=== PATIENT | female | born 1960 | race American Indian/Alaskan Native ===

== ENCOUNTER 2016-05-08 22:05 | Emergency (ER) | payer BC ==
[2016-05-08 22:26] VITALS: BP 151/71
[2016-05-08] MEDS ORDERED: Acetaminophen/HYDROcodone 325-10 MG Tab PO ONE (23:04)
--- NOTE | 2016-05-08 23:28 | EDM.PDOC ---
ED HPI Trauma - General Chief Complaint: Upper Extremity Injury/Pain Stated Complaint: DISLOCATED FINGERS Time Seen by Provider: 05/08/16 23:25 Source: Reports: Patient History Limitations: Reports: No limitations - History of Present Illness INITIAL COMMENTS - FREE TEXT/NARRATIVE: injured right 5th finger tonight Allergies/ADRs: Allergies No Known Allergies Allergy (Verified 05/08/16 22:10) Home Medications: Ambulatory Orders Aspirin 81 mg PO BEDTIME 05/06/13 [Confirmed 05/08/16] Cholecalciferol (Vitamin D3) [Vitamin D3] 1,000 units PO BEDTIME 05/06/13 [ Confirmed 05/08/16] FLUoxetine [PROzac] 20 mg PO BEDTIME 05/06/13 [Confirmed 05/08/16] Lisinopril 20 mg PO QAM 05/06/13 [Confirmed 05/08/16] Multivitamin [Multivitamins] 1 tab PO DAILY 05/06/13 [Confirmed 05/08/16] atorvaSTATin [Lipitor] 10 mg PO BEDTIME 05/06/13 [Confirmed 05/08/16] buPROPion HCl [Bupropion HCl] 100 mg PO DAILY 05/06/13 [Confirmed 05/08/16] traZODone 150 mg PO BEDTIME 05/06/13 [Confirmed 05/08/16] Atenolol [Tenormin] 25 mg PO BID 07/10/13 [Confirmed 05/08/16] Furosemide [Lasix] 10 mg PO DAILY 09/20/13 [Confirmed 05/08/16] Omeprazole 20 mg PO BEDTIME 07/23/15 [Confirmed 05/08/16] Calcium Carbonate/Vitamin D3 [Calcium Carbonate/Vitamin D 1250 MG-200 Unit] 1 tab PO DAILY 10/11/15 [Confirmed 05/08/16] metFORMIN [Glucophage] 250 mg PO WITHBREAKFAST 10/12/15 [Confirmed 05/08/16] Tiotropium [Spiriva HandiHaler] 18 mcg INH DAILY 10/16/15 [Confirmed 05/08/16] Lisinopril 40 mg PO BEDTIME 01/13/16 [Confirmed 05/08/16] Past Medical History HEENT History: Reports: None Cardiovascular History: Reports: High cholesterol, Hypertension, SOB on exertion Respiratory History: Reports: COPD, SOB Gastrointestinal History: Reports: Cholelithiasis, Diverticulosis, GERD Genitourinary History: Reports: None 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: Reports: 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, , Other (see below) Other OB/BYN History: hysterectomy Musculoskeletal History: Reports: Arthritis, Back pain, chronic, Osteoarthritis Neurological History: Reports: None Psychiatric History: Reports: Anxiety, Bipolar Endocrine/Metabolic History: Reports: Diabetes, type II Other Endocrine/Metabolic History: borderline diabetic Hematologic History: Reports: None Immunologic History: Reports: None Oncologic (Cancer) History: Reports: None Dermatologic History: Reports: None - Infectious Disease History Infectious Disease History: Reports: Mumps - Past Surgical History Head Surgeries/Procedures: Reports: None Cardiovascular Surgical History: Reports: None Respiratory Surgical History: Reports: None GI Surgical History: Reports: Bariatric procedure, Cholecystectomy, Other (see below) Other GI Surgeries/Procedures: had lap band surgery but is no longer present. Female Surgical History: Reports: Hysterectomy Musculoskeletal Surgical History: Reports: None Oncologic Surgical History: Reports: None Social & Family History - Family History Family Medical History: Noncontributory - Tobacco Use Smoking Status *Q: Never Smoker Years of Tobacco use: 30 Packs/Tins Daily: 1 Used Tobacco, but Quit: Yes Month Tobacco Last Used: april Second Hand Smoke Exposure: No - Caffeine Use Caffeine Use: Reports: Coffee, Tea - Alcohol Use Days Per Week of Alcohol Use: 0 - Recreational Drug Use Recreational Drug Use: No Drug Use in Last 12 Months: No - Living Situation & Occupation Living situation: Reports: , with family Review of Systems - Review of Systems Review Of Systems: ROS reveals no pertinent complaints other than HPI. Trauma Exam - Physical Exam Exam: See Below Exam Limited By: No limitations General Appearance: Reports: alert, WD/WN, mild distress, other (pain) Head: Reports: atraumatic Ears: Reports: hearing grossly normal Throat/Mouth: Reports: Normal voice, No airway compromise Neck: Reports: non-tender, full range of motion Respiratory Exam: Reports: no respiratory distress Cardiovascular: Reports: normal peripheral pulses GI/Abdominal: Reports: soft, non tender Extremities: Reports: other (right 5th finger bent outwards, NV wnl, thender R/ P.) Neurologic: Reports: no motor/sensory deficits, alert, oriented x 3 Skin: Reports: Normal color, Warm/dry Course - Vital Signs Last Recorded V/S: Last Vital Signs Temp 36.9 C 05/08/16 22:10 Pulse 72 05/08/16 22:10 Resp 16 05/08/16 22:10 BP 151/71 H 05/08/16 22:10 Pulse Ox 96 05/08/16 22:10 - Orders/Labs/Meds Meds: Medications Discontinued Medications Generic Name Dose Route Start Last Admin Trade Name Karen PRN Reason Stop Dose Admin Acetaminophen/Hydrocodone Bitart 1 tab 05/08/16 23:04 05/08/16 23:11 Whitney 325-10 Mg PO 05/08/16 23:05 1 tab ONETIME ONE Administration - Re-Assessments/Exams Free Text/Narrative Re-Assessment/Exam: 05/08/16 23:27 result discussed with Pt. 05/09/16 00:00 finger reduced and splinted with 2" SALLY without known problem. Departure - Departure Time of Disposition: 00:01 Disposition: Home, Self-Care 01 Condition: good Clinical Impression: Finger fracture, right Instructions: Finger Fracture, [id number] Forms: ED Department Discharge Additional Instructions: 1) wear SALLY and use sling until re-evaluated by ORTHOPEDIST 2) see clinic tomorrow for re-evaluation and possible re-splinting 3) recheck as needed rx given: vicodin 5/325mg x 12
== END 2016-05-09 00:08 | disposition home or self-care (01) ==
LOC: DL.ED 22:05
DX: S62.616A Displaced fracture of proximal phalanx of right little finger, initial encounter for closed fracture (principal); E78.00 Pure hypercholesterolemia, unspecified; I10 Essential (primary) hypertension; J44.9 Chronic obstructive pulmonary disease, unspecified; K21.9 Gastro-esophageal reflux disease without esophagitis; M19.90 Unspecified osteoarthritis, unspecified site; F41.9 Anxiety disorder, unspecified; E11.9 Type 2 diabetes mellitus without complications; Z90.49 Acquired absence of other specified parts of digestive tract; Z90.710 Acquired absence of both cervix and uterus; W51.XXXA Accidental striking against or bumped into by another person, initial encounter
CPT/HCPCS: 26725; 73140; 99283; A9270

== ENCOUNTER 2017-08-31 11:07 | Emergency (ER) | payer BC, OTHER ==
[2017-08-31 11:24] VITALS: BP 157/60
--- NOTE | 2017-08-31 11:52 | EDM.PDOC ---
ED HPI GENERAL MEDICAL PROBLEM - General Chief Complaint: Respiratory Problem Stated Complaint: coughing up blood [phone] Time Seen by Provider: 08/31/17 11:52 Source of Information: Reports: Patient, Family, RN, RN Notes Reviewed History Limitations: Reports: No Limitations - History of Present Illness INITIAL COMMENTS - FREE TEXT/NARRATIVE: Pt Presents to the ER with c/o hemoptysis. She states she has had a cold for several weeks that she has not been able to get rid of. She states she has been coughing up sputum that is clear/white at times, and green at times. She states today she had a large sputum that had quite a bit of blood in it. She states it was "more red than pink". Patient admits to having COPD. Admits to chills, unsure about fever. Admits to nausea without vomiting, and denies diarrhea. She admits to increased SOB, but denies chest pain. She does admit to back pain in the lower left side "behind the ribs". Onset: Gradual Duration: Constant, Getting Worse Location: Reports: Chest, Back Quality: Reports: Ache, Dull, Throbbing Severity: Moderate Improves with: Reports: None Worsens with: Reports: None Associated Symptoms: Reports: Cough, cough w sputum, Fever/Chills, Nausea/ Vomiting, Shortness of Breath Back Pain Score (Numeric/FACES): 5 - Related Data Allergies Allergy/AdvReac Type Severity Reaction Status Date / Time No Known Allergies Allergy Verified 08/31/17 11:24 Home Meds: Home Meds Aspirin 81 mg PO BEDTIME 05/06/13 [History] FLUoxetine [PROzac] 20 mg PO BEDTIME 05/06/13 [History] Lisinopril 20 mg PO QAM 05/06/13 [History] Multivitamin [Multivitamins] 1 tab PO DAILY 05/06/13 [History] atorvaSTATin [Lipitor] 10 mg PO BEDTIME 05/06/13 [History] buPROPion HCl [Bupropion HCl] 100 mg PO DAILY 05/06/13 [History] traZODone 150 mg PO BEDTIME 05/06/13 [History] Atenolol [Tenormin] 25 mg PO BID 07/10/13 [History] Furosemide [Lasix] 10 mg PO DAILY 09/20/13 [History] Omeprazole 20 mg PO BEDTIME 07/23/15 [History] metFORMIN [Glucophage] 250 mg PO WITHBREAKFAST 10/12/15 [History] Tiotropium [Spiriva HandiHaler] 18 mcg INH DAILY 10/16/15 [History] Lisinopril 20 mg PO BEDTIME 01/13/16 [History] Past Medical History HEENT History: Reports: None, Impaired Vision Other HEENT History: wears glasses Cardiovascular History: Reports: High Cholesterol, Hypertension, SOB on Exertion Respiratory History: Reports: COPD, SOB Gastrointestinal History: Reports: Cholelithiasis, Diverticulosis, GERD Genitourinary History: Reports: None 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: 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, , Other (See Below) Other OB/BYN History: hysterectomy Musculoskeletal History: Reports: Arthritis, Back Pain, Chronic, Osteoarthritis Neurological History: Reports: None Psychiatric History: Reports: Anxiety, Bipolar Endocrine/Metabolic History: Reports: Diabetes, Type II Other Endocrine/Metabolic History: borderline diabetic Hematologic History: Reports: None Immunologic History: Reports: None Oncologic (Cancer) History: Reports: None Dermatologic History: Reports: None - Infectious Disease History Infectious Disease History: Reports: Mumps - Past Surgical History Head Surgeries/Procedures: Reports: None Respiratory Surgical History: Reports: None GI Surgical History: Reports: Bariatric Procedure, Cholecystectomy, Other (See Below) Female Surgical History: Reports: Hysterectomy Oncologic Surgical History: Reports: None Social & Family History - Family History Family Medical History: Noncontributory - Tobacco Use Smoking Status *Q: Former Smoker Years of Tobacco use: 36 Packs/Tins Daily: 1 Used Tobacco, but Quit: Yes Month/Year Tobacco Last Used: april Second Hand Smoke Exposure: No - Caffeine Use Caffeine Use: Reports: Coffee - Recreational Drug Use Recreational Drug Use: No - Living Situation & Occupation Living situation: Reports: , with Family ED ROS GENERAL - Review of Systems Review Of Systems: ROS reveals no pertinent complaints other than HPI. ED EXAM, GENERAL - Physical Exam Exam: See Below Exam Limited By: No Limitations General Appearance: Alert, WD/WN, No Apparent Distress Eye Exam: Bilateral Eye: EOMI, Normal Inspection Ears: Normal External Exam, Hearing Grossly Normal Nose: Normal Inspection Throat/Mouth: Normal Inspection, Other (Tongue has an erythematous area at the tip of the tongue that the patient states is painful at times, denies burning or injuring the tongue. No white plaque on the tongue) Head: Atraumatic, Normocephalic Neck: Normal Inspection, Supple, Non-Tender, Full Range of Motion Respiratory/Chest: No Respiratory Distress, No Accessory Muscle Use, Chest Non- Tender, Decreased Breath Sounds Cardiovascular: Normal Peripheral Pulses, Regular Rate, Rhythm, No Edema, No Gallop, No JVD, No Murmur, No Rub Peripheral Pulses: 2+: Radial (L), Radial (R) GI/Abdominal: Normal Bowel Sounds, Soft, Non-Tender (Female) Exam: Deferred Rectal (Female) Exam: Deferred Back Exam: Normal Inspection, Full Range of Motion, CVA Tenderness (L) Extremities: Normal Inspection, Normal Range of Motion, Non-Tender, Normal Capillary Refill, No Pedal Edema Neurological: Alert, Oriented, CN II-XII Intact, Normal Cognition, Normal Gait, Normal Reflexes, No Motor/Sensory Deficits Psychiatric: Normal Affect, Normal Mood Skin Exam: Warm, Dry, Intact, Normal Color, No Rash Lymphatic: No Adenopathy EKG INTERPRETATION EKG Date: 08/31/17 Time: 12:37 Rhythm: NSR Rate (Beats/Min): 61 [place]: Normal P-Wave: Present QRS: Normal ST-T: Normal QT: Normal Comparison: No Change Course - Vital Signs Last Recorded V/S: Last Vital Signs Temp 99.4 F 08/31/17 11:18 Pulse 72 08/31/17 11:18 Resp 18 08/31/17 11:18 BP 157/60 H 08/31/17 11:18 Pulse Ox 95 08/31/17 11:18 - Orders/Labs/Meds Orders: Active Orders 24 hr Category Date Time Status EKG Documentation Completion [RC] STAT Care 08/31/17 11:58 Active Chest 2V [CR] Urgent Exams 08/31/17 11:59 Taken UA W/MICROSCOPIC [URIN] Stat Lab 08/31/17 12:20 Ordered Labs: Laboratory Tests 08/31/17 08/31/17 08/31/17 Range/Units 12:20 12:20 12:20 WBC 12.6 H (5.0-10.0) 10^3/uL RBC 4.52 (4.2-5.4) 10^6/uL Hgb 13.3 (12.0-16.0) g/dL Hct 40.9 (37.0-47.0) % MCV 90.5 (80-100) fL MCH 29.4 (27.0-34.0) pg MCHC 32.5 L (33.0-35.0) g/dL Plt Count 239 (150-450) 10^3/uL Neut % (Auto) 70.4 (42.2-75.2) % Lymph % (Auto) 19.0 L (20.5-50.1) % [place] % (Auto) 9.2 H (2-8) % Eos % (Auto) 1.0 (1.0-3.0) % Baso % (Auto) 0.4 (0.0-1.0) % Sodium 135 (135-145) mmol/L Potassium 3.9 (3.6-5.0) mmol/L Chloride 100 L (101-111) mmol/L Carbon Dioxide 26.0 (21.0-31.0) mmol/L Anion Gap 12.9 BUN 15 (7-18) mg/dL Creatinine 0.7 (0.6-1.3) mg/dL Est Cr Clr Drug Dosing 80.75 mL/min Estimated GFR (MDRD) > 60 BUN/Creatinine Ratio 21.42 Glucose 128 H (74-105) mg/dL Calcium 9.0 (8.4-10.2) mg/dl Total Bilirubin 0.5 (0.2-1.0) mg/dL AST 44 H (10-42) IU/L ALT 51 (10-60) IU/L Alkaline Phosphatase 77 (42-121) IU/L Total Protein 7.6 (6.7-8.2) g/dl Albumin 3.9 (3.2-5.5) g/dl Globulin 3.7 Albumin/Globulin Ratio 1.05 Urine Color Yellow (YELLOW) Urine Appearance Slightly cloudy (CLEAR) Urine pH 7.0 (5.0-9.0) Ur Specific [place] 1.020 (1.005-1.030) Urine Protein 30 H (NEGATIVE) Urine Glucose (UA) Negative (NEGATIVE) Urine Ketones Trace H (NEGATIVE) Urine Occult Blood Trace-intact H (NEGATIVE) Urine Nitrite Negative (NEGATIVE) Urine Bilirubin Negative (NEGATIVE) Urine Urobilinogen 1.0 (0.2-1.0) mg/dL Ur Leukocyte Esterase Negative (NEGATIVE) Urine RBC 5-10 H /HPF Urine WBC 0-5 (0-5/HPF) /HPF Ur Epithelial Cells Few /HPF Urine Bacteria Rare (0-FEW/HPF) /HPF Urine Mucus Rare /LPF - Radiology Interpretation Free Text/Narrative:: Chest xray: No acute pulmonary disease See rad report Departure - Departure Time of Disposition: 13:32 Disposition: Home, Self-Care 01 Condition: Fair Clinical Impression: COPD (chronic obstructive pulmonary disease) Qualifiers: COPD type: unspecified COPD Qualified Code(s): J44.9 - Chronic obstructive pulmonary disease, unspecified - Discharge Information Instructions: Chronic Obstructive Pulmonary Disease Exacerbation, [id number] , Shortness of Breath, Adult, [id number], Cough, Adult, [id number], Upper Respiratory Infection, Adult, [id number] Forms: ED Department Discharge Additional Instructions: RX: Azithromycin Drink plenty of water Follow up with your primary care facility next week for recheck May use Mucinex or generic like as directed for expectorant. - My Orders Last 24 Hours: My Active Orders 08/31/17 11:58 EKG Documentation Completion [RC] STAT 08/31/17 11:59 Chest 2V [CR] Urgent 08/31/17 12:20 UA W/MICROSCOPIC [URIN] Stat - Assessment/Plan Last 24 Hours: My Active Orders 08/31/17 11:58 EKG Documentation Completion [RC] STAT 08/31/17 11:59 Chest 2V [CR] Urgent 08/31/17 12:20 UA W/MICROSCOPIC [URIN] Stat
[2017-08-31 12:59] LABS: CHLORIDE,CL 100 mmol/L (101-111); SODIUM,NA 135 mmol/L (135-145)
--- NOTE | 2017-09-02 07:40 | EKG ---
08/31/2017- [facility] - FINDINGS: A 12-lead EKG shows sinus rhythm with heart rate of 61. No significant ST elevation or ST depression noted on this 12-lead EKG. Mild changes consistent with left ventricular hypertrophy. [facility] /[id number]
== END 2017-08-31 13:41 | disposition home or self-care (01) ==
LOC: DL.ED 11:07
DX: J44.9 Chronic obstructive pulmonary disease, unspecified (principal); E11.9 Type 2 diabetes mellitus without complications; Z87.891 Personal history of nicotine dependence; Z79.899 Other long term (current) drug therapy
CPT/HCPCS: 36415; 71046; 80053; 81001; 85025; 93005; 99284

== ENCOUNTER 2019-01-06 17:48 | Emergency (ER) | payer BC, OTHER ==
[2019-01-06] MEDS ORDERED: Sodium Chloride 0.9% 10 ML Syringe FLUSH PRN (18:17)
[2019-01-06 18:46] VITALS: BP 120/71; PULSE 59
--- NOTE | 2019-01-06 18:57 | EDM.PDOC ---
Scribed by Rox Everett 01/06/19 [id number] for Cris Martínez NP <Cris Martínez - Last Filed: 01/06/19 18:56> ED HPI GENERAL MEDICAL PROBLEM - General Chief Complaint: Neuro Symptoms/Deficits Stated Complaint: DIZZINESS AND CONFUSION Time Seen by Provider: 01/06/19 18:21 Source of Information: Reports: Patient, RN, RN Notes Reviewed History Limitations: Reports: No Limitations - History of Present Illness INITIAL COMMENTS - FREE TEXT/NARRATIVE: Patient presents to ER with complaint of speech difficulty, confusion, dizziness. 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 At 1500 hours got up from chair. She felt dizzy and unable to stand up. States her blood sugar was 100, which she feels is low for her. States she felt as though thoughts "washed away". Unable to answer her friend. States she has had blurred vision that comes and goes for past 2 weeks. Back pain between shoulders and ribs. States lately has felt clumsy x4 weeks. NIH score 0. Onset: Today Duration: Getting Worse Location: Reports: Generalized Severity: Moderate Improves with: Reports: None Worsens with: Reports: None Associated Symptoms: Reports: No Other Symptoms - Related Data Allergies Allergy/AdvReac Type Severity Reaction Status Date / Time No Known Allergies Allergy Verified 01/06/19 18:01 Home Meds: Home Meds Aspirin 81 mg PO BEDTIME 05/06/13 [History] FLUoxetine [PROzac] 40 mg PO BEDTIME 05/06/13 [History] Multivitamin [Multivitamins] 1 tab PO DAILY 05/06/13 [History] atorvaSTATin [Lipitor] 10 mg PO BEDTIME 05/06/13 [History] buPROPion HCl [Bupropion HCl] 100 mg PO DAILY 05/06/13 [History] traZODone 150 mg PO BEDTIME 05/06/13 [History] Atenolol [Tenormin] 25 mg PO BID 07/10/13 [History] Omeprazole 20 mg PO BEDTIME 07/23/15 [History] Tiotropium [Spiriva HandiHaler] 18 mcg INH DAILY 10/16/15 [History] Lisinopril 40 mg PO BEDTIME 01/13/16 [History] Past Medical History HEENT History: Reports: None, Impaired Vision Other HEENT History: wears glasses Cardiovascular History: Reports: High Cholesterol, Hypertension, SOB on Exertion Respiratory History: Reports: COPD, SOB Gastrointestinal History: Reports: Cholelithiasis, Diverticulosis, GERD Genitourinary History: Reports: None 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: Reports: 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, , Other (See Below) Other 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: hysterectomy Musculoskeletal History: Reports: Arthritis, Back Pain, Chronic, Osteoarthritis Neurological History: Reports: None Psychiatric History: Reports: Anxiety, Bipolar Endocrine/Metabolic History: Reports: Diabetes, Type II Other Endocrine/Metabolic History: borderline diabetic Hematologic History: Reports: None Immunologic History: Reports: None Oncologic (Cancer) History: Reports: None Dermatologic History: Reports: None - Infectious Disease History Infectious Disease History: Reports: Mumps - Past Surgical History Head Surgeries/Procedures: Reports: None Respiratory Surgical History: Reports: None GI Surgical History: Reports: Bariatric Procedure, Cholecystectomy, Other (See Below) Female Surgical History: Reports: Hysterectomy Oncologic Surgical History: Reports: None Social & Family History - Family History Family Medical History: Noncontributory - Caffeine Use Caffeine Use: Reports: Coffee - Living Situation & Occupation Living situation: Reports: , with Family ED ROS GENERAL - Review of Systems Review Of Systems: ROS reveals no pertinent complaints other than HPI. ED EXAM, NEURO - Physical Exam Exam: See Below Exam Limited By: No Limitations General Appearance: Obese Eye Exam: Bilateral Eye: PERRL (3 brisk) Ears: Normal External Exam, Normal Canal, Hearing Grossly Normal, Normal TMs Nose: Normal Inspection, Normal Mucosa, No Blood Throat/Mouth: Normal Inspection, Normal Lips, Normal Teeth, Normal Gums, Normal Oropharynx, Normal Voice, No Airway Compromise Head Exam: Atraumatic, Normocephalic Neck: Normal Inspection, Supple, Non-Tender, Full Range of Motion Respiratory/Chest: Other (diminished) Cardiovascular: Normal Peripheral Pulses, Regular Rate, Rhythm, No Edema, No Gallop, No JVD, No Murmur, No Rub GI/Abdominal: Normal Bowel Sounds, Soft, Non-Tender, No Organomegaly, No Distention, No Abnormal Bruit, No Mass (Female) Exam: Deferred Rectal (Female) Exam: Deferred Neurological: Alert, Normal Mood/Affect, Normal Dorsiflexion, CN II-XII Intact, Normal Plantar Flexion, Normal Gait, Normal Reflexes, No Motor/Sensory Deficits , Oriented x 3 Back Exam: Decreased Range of Motion Extremities: Normal Inspection, Normal Range of Motion, Non-Tender, No Pedal Edema, Normal Capillary Refill Psychiatric: Normal Affect, Normal Mood Skin Exam: Warm, Dry, Intact, Normal Color, No Rash Course - Vital Signs Last Recorded V/S: Last Vital Signs Temp 36.2 C 01/06/19 18:01 Pulse 59 L 01/06/19 18:45 Resp 12 01/06/19 18:45 BP 120/71 01/06/19 18:45 Pulse Ox 96 01/06/19 18:45 - Orders/Labs/Meds Orders: Active Orders 24 hr Category Date Time Status Blood Glucose Check, Bedside [RC] ONETIME Care 01/06/19 18:18 Active EKG Documentation Completion [RC] STAT Care 01/06/19 18:17 Active Peripheral IV Care [RC] . DIRECTED Care 01/06/19 18:18 Active Head wo Cont [CT] Stat Exams 01/06/19 18:18 Taken Sodium Chloride 0.9% [Saline Flush] Med 01/06/19 18:17 Active 10 ml FLUSH ASDIRECTED PRN Peripheral IV Insertion Adult [OM.PC] Stat Oth 01/06/19 18:17 Ordered Medication Orders Sodium Chloride (Saline Flush) 10 ml FLUSH ASDIRECTED PRN PRN Reason: Keep Vein Open Last Admin: 01/06/19 18:25 Dose: 10 ml Labs: Laboratory Tests 01/06/19 01/06/19 01/06/19 Range/Units 18:30 18:30 18:30 WBC 10.3 H (5.0-10.0) 10^3/uL RBC 4.48 (4.2-5.4) 10^6/uL Hgb 12.8 (12.0-16.0) g/dL Hct 40.2 (37.0-47.0) % MCV 89.7 (80-100) fL MCH 28.6 (27.0-34.0) pg MCHC 31.8 L (33.0-35.0) g/dL Plt Count 244 (150-450) 10^3/uL Neut % (Auto) 54.6 (42.2-75.2) % Lymph % (Auto) 31.1 (20.5-50.1) % Walsh % (Auto) 11.7 H (2-8) % Eos % (Auto) 2.1 (1.0-3.0) % Baso % (Auto) 0.5 (0.0-1.0) % PT 9.3 (9.0-12.0) SEC INR 0.9 (0.9-1.2) Sodium 138 (135-145) mmol/L Potassium 3.6 (3.6-5.0) mmol/L Chloride 101 (101-111) mmol/L Carbon Dioxide 28.0 (21.0-31.0) mmol/L Anion Gap 12.6 BUN 19 H (7-18) mg/dL Creatinine 0.7 (0.6-1.3) mg/dL Est Cr Clr Drug Dosing 75.65 mL/min Estimated GFR (MDRD) > 60 BUN/Creatinine Ratio 27.14 Glucose 76 (74-105) mg/dL Calcium 9.0 (8.4-10.2) mg/dl Total Bilirubin 0.4 (0.2-1.0) mg/dL AST 32 (10-42) IU/L ALT 37 (10-60) IU/L Alkaline Phosphatase 67 (42-121) IU/L Troponin I < 0.02 (0.00-0.02) ng/ml Total Protein 7.1 (6.7-8.2) g/dl Albumin 3.5 (3.2-5.5) g/dl Globulin 3.6 Albumin/Globulin Ratio 0.97 Urine Color (YELLOW) Urine Appearance (CLEAR) Urine pH (5.0-9.0) Ur Specific Hancock (1.005-1.030) Urine Protein (NEGATIVE) Urine Glucose (UA) (NEGATIVE) Urine Ketones (NEGATIVE) Urine Occult Blood (NEGATIVE) Urine Nitrite (NEGATIVE) Urine Bilirubin (NEGATIVE) Urine Urobilinogen (0.2-1.0) mg/dL Ur Leukocyte Esterase (NEGATIVE) Urine RBC /HPF Urine WBC (0-5/HPF) /HPF Ur Epithelial Cells (NOT SEEN) /HPF Urine Bacteria (0-FEW/HPF) /HPF Urine Opiates Screen (NEGATIVE) Ur Oxycodone Screen (NEGATIVE) Urine Methadone Screen (NEGATIVE) Ur Barbiturates Screen (NEGATIVE) U Tricyclic Antidepress (NEGATIVE) Ur Phencyclidine Scrn (NEGATIVE) Ur Amphetamine Screen (NEGATIVE) U Methamphetamines Scrn (NEGATIVE) Urine MDMA Screen (NEGATIVE) U Benzodiazepines Scrn (NEGATIVE) Urine Cocaine Screen (NEGATIVE) U Marijuana (THC) Screen (NEGATIVE) Ethyl Alcohol < 5 mg/dL 01/06/19 01/06/19 Range/Units 19:01 19:01 WBC (5.0-10.0) 10^3/uL RBC (4.2-5.4) 10^6/uL Hgb (12.0-16.0) g/dL Hct (37.0-47.0) % MCV (80-100) fL MCH (27.0-34.0) pg MCHC (33.0-35.0) g/dL Plt Count (150-450) 10^3/uL Neut % (Auto) (42.2-75.2) % Lymph % (Auto) (20.5-50.1) % Walsh % (Auto) (2-8) % Eos % (Auto) (1.0-3.0) % Baso % (Auto) (0.0-1.0) % PT (9.0-12.0) SEC INR (0.9-1.2) Sodium (135-145) mmol/L Potassium (3.6-5.0) mmol/L Chloride (101-111) mmol/L Carbon Dioxide (21.0-31.0) mmol/L Anion Gap BUN (7-18) mg/dL Creatinine (0.6-1.3) mg/dL Est Cr Clr Drug Dosing mL/min Estimated GFR (MDRD) BUN/Creatinine Ratio Glucose (74-105) mg/dL Calcium (8.4-10.2) mg/dl Total Bilirubin (0.2-1.0) mg/dL AST (10-42) IU/L ALT (10-60) IU/L Alkaline Phosphatase (42-121) IU/L Troponin I (0.00-0.02) ng/ml Total Protein (6.7-8.2) g/dl Albumin (3.2-5.5) g/dl Globulin Albumin/Globulin Ratio Urine Color Yellow (YELLOW) Urine Appearance Clear (CLEAR) Urine pH 5.5 (5.0-9.0) Ur Specific Hancock 1.015 (1.005-1.030) Urine Protein Negative (NEGATIVE) Urine Glucose (UA) Negative (NEGATIVE) Urine Ketones Negative (NEGATIVE) Urine Occult Blood Trace-intact H (NEGATIVE) Urine Nitrite Negative (NEGATIVE) Urine Bilirubin Negative (NEGATIVE) Urine Urobilinogen 0.2 (0.2-1.0) mg/dL Ur Leukocyte Esterase Negative (NEGATIVE) Urine RBC 0-5 /HPF Urine WBC 0-5 (0-5/HPF) /HPF Ur Epithelial Cells Many H (NOT SEEN) /HPF Urine Bacteria Moderate H (0-FEW/HPF) /HPF Urine Opiates Screen Negative (NEGATIVE) Ur Oxycodone Screen Negative (NEGATIVE) Urine Methadone Screen Negative (NEGATIVE) Ur Barbiturates Screen Negative (NEGATIVE) U Tricyclic Antidepress Negative (NEGATIVE) Ur Phencyclidine Scrn Negative (NEGATIVE) Ur Amphetamine Screen Negative (NEGATIVE) U Methamphetamines Scrn Negative (NEGATIVE) Urine MDMA Screen Negative (NEGATIVE) U Benzodiazepines Scrn Negative (NEGATIVE) Urine Cocaine Screen Negative (NEGATIVE) U Marijuana (THC) Screen Negative (NEGATIVE) Ethyl Alcohol mg/dL Meds: Medications Generic Name Dose Route Start Last Admin Trade Name Freq PRN Reason Stop Dose Admin Sodium Chloride 10 ml 01/06/19 18:17 01/06/19 18:25 Saline Flush FLUSH 10 ml ASDIRECTED PRN Administration Keep Vein Open Departure - Departure Disposition: Home, Self-Care 01 Clinical Impression: Hypoglycemia - Discharge Information Instructions: Hypoglycemia, [id number] Forms: ED Department Discharge Additional Instructions: 1) follow up with clinic 2) recheck as needed <Alex Wiley - Last Filed: 01/06/19 19:27> Course - Re-Assessments/Exams Free Text/Narrative Re-Assessment/Exam: 01/06/19 19:24 results discussed with pt who is eating sandwich and milk and feels fine now and ready to go home. states her normal BS is about 120s and today got down to 80s and felt bad. states Dx with borderline DM taking no Rx. Departure - Departure Time of Disposition: 19:26 Condition: Good I have read and agree with the documentation that has been completed regarding this visit. By signing this record, I attest that the documentation was completed in my physical presence and is an accurate record of the encounter.
[2019-01-06 18:59] LABS: ANION GAP 12.6; CHLORIDE,CL 101 mmol/L (101-111); SODIUM,NA 138 mmol/L (135-145)
== END 2019-01-06 19:40 | disposition home or self-care (01) ==
LOC: DL.ED 17:48
DX: E11.649 Type 2 diabetes mellitus with hypoglycemia without coma (principal); F31.9 Bipolar disorder, unspecified; F41.9 Anxiety disorder, unspecified; I10 Essential (primary) hypertension; E78.00 Pure hypercholesterolemia, unspecified; K21.9 Gastro-esophageal reflux disease without esophagitis; Z79.899 Other long term (current) drug therapy; Z79.82 Long term (current) use of aspirin
CPT/HCPCS: 36415; 70450; 80053; 80305-QW; 81001; 82962; 84484; 85025; 85610; 93005; 99284-25; G0480

== ENCOUNTER 2019-05-31 19:18 | Emergency (ER) | payer BC ==
[2019-05-31 19:40] VITALS: BP 113/75; PULSE 95
--- NOTE | 2019-05-31 19:49 | EDM.PDOC ---
ED HPI GENERAL MEDICAL PROBLEM - General Chief Complaint: Chest Pain Stated Complaint: CHEST PAIN Time Seen by Provider: 05/31/19 19:40 Source of Information: Reports: Patient History Limitations: Reports: No Limitations - History of Present Illness INITIAL COMMENTS - FREE TEXT/NARRATIVE: This 58 yo female patient reports to the ED with a cough and diffuse chest pain. The patient reports she started coughing on Thursday, coughed all day Thursday and took today off from work. The patient reports she has continued to cough throughout today when she developed chest pain due to the cough. The patient did not attempt to go to the clinic thinking her symptoms would get better. The patient has been taking Aleve, Tylenol and Mucinex with little to no symptom relief. 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, NSAIDS, Other Medication(s) (Mucinex) Middle Chest Pain Score (Numeric/FACES): 8 - Related Data Allergies Allergy/AdvReac Type Severity Reaction Status Date / Time No Known Allergies Allergy Verified 05/31/19 19:27 Home Meds: Home Meds Aspirin 81 mg PO BEDTIME 05/06/13 [History] FLUoxetine [PROzac] 40 mg PO BEDTIME 05/06/13 [History] Multivitamin [Multivitamins] 1 tab PO DAILY 05/06/13 [History] atorvaSTATin [Lipitor] 10 mg PO BEDTIME 05/06/13 [History] buPROPion HCL [Bupropion HCl] 100 mg PO DAILY 05/06/13 [History] traZODone 150 mg PO BEDTIME 05/06/13 [History] Atenolol [Tenormin] 25 mg PO BID 07/10/13 [History] Omeprazole 20 mg PO BEDTIME 07/23/15 [History] Tiotropium [Spiriva HandiHaler] 18 mcg INH DAILY 10/16/15 [History] Lisinopril 40 mg PO BEDTIME 01/13/16 [History] Baclofen 10 mg PO ASDIRECTED PRN 05/31/19 [History] hydroCHLOROthiazide [Hydrochlorothiazide] 25 mg PO DAILY 05/31/19 [History] Past Medical History HEENT History: Reports: None, Impaired Vision Other HEENT History: wears glasses Cardiovascular History: Reports: High Cholesterol, Hypertension, SOB on Exertion Respiratory History: Reports: Asthma, COPD, SOB Gastrointestinal History: Reports: Cholelithiasis, Diverticulosis, GERD Genitourinary History: Reports: None 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: 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, , Other (See Below) Other AIR SAW OPERATOR History: hysterectomy Musculoskeletal History: Reports: Arthritis, Back Pain, Chronic, Osteoarthritis Neurological History: Reports: None Psychiatric History: Reports: Anxiety, Bipolar Endocrine/Metabolic History: Reports: Diabetes, Type II Other Endocrine/Metabolic History: borderline diabetic Hematologic History: Reports: None Immunologic History: Reports: None Oncologic (Cancer) History: Reports: None Dermatologic History: Reports: None - Infectious Disease History Infectious Disease History: Reports: Mumps - Past Surgical History Head Surgeries/Procedures: Reports: None Respiratory Surgical History: Reports: None GI Surgical History: Reports: Bariatric Procedure, Cholecystectomy Female Surgical History: Reports: Hysterectomy Oncologic Surgical History: Reports: None Social & Family History - Family History Family Medical History: Noncontributory - Tobacco Use Smoking Status *Q: Former Smoker Used Tobacco, but Quit: No Second Hand Smoke Exposure: No - Caffeine Use Caffeine Use: Reports: Tea - Recreational Drug Use Recreational Drug Use: No - Living Situation & Occupation Living situation: Reports: , with Family ED ROS GENERAL - Review of Systems Review Of Systems: Comprehensive ROS is negative, except as noted in HPI. ED EXAM, GENERAL - Physical Exam Exam: See Below Exam Limited By: No Limitations General Appearance: Alert, WD/WN, Moderate Distress, Obese Eye Exam: Bilateral Eye: EOMI, Normal Inspection, PERRL Ears: Normal External Exam, Normal Canal, Hearing Grossly Normal, Normal TMs Nose: Normal Inspection, Normal Mucosa, No Blood Throat/Mouth: Normal Inspection, Normal Lips, Normal Teeth, Normal Gums, Normal Oropharynx, Normal Voice, No Airway Compromise Head: Atraumatic, Normocephalic Neck: Normal Inspection, Supple, Non-Tender, Full Range of Motion Respiratory/Chest: No Respiratory Distress, Decreased Breath Sounds (decreased effort due to cough) Cardiovascular: Normal Peripheral Pulses, Regular Rate, Rhythm, No Edema, No Gallop, No JVD, No Murmur, No Rub GI/Abdominal: Normal Bowel Sounds, Soft, Non-Tender, No Organomegaly, No Distention, No Abnormal Bruit, No Mass, Other (obese) (Female) Exam: Deferred Rectal (Female) Exam: Deferred Back Exam: Normal Inspection, Full Range of Motion, NT Extremities: Normal Inspection, Normal Range of Motion, Non-Tender, Normal Capillary Refill, No Pedal Edema Neurological: Alert, Oriented, CN II-XII Intact, Normal Cognition, Normal Gait, Normal Reflexes, No Motor/Sensory Deficits Psychiatric: Normal Affect, Normal Mood Skin Exam: Warm, Dry, Intact, Normal Color, No Rash Lymphatic: No Adenopathy Course - Vital Signs Last Recorded V/S: Last Vital Signs Temp 38.9 C H 05/31/19 19:38 Pulse 95 05/31/19 19:38 Resp 24 H 05/31/19 19:38 BP 113/75 05/31/19 19:38 Pulse Ox 95 05/31/19 19:38 - Orders/Labs/Meds Orders: Active Orders 24 hr Category Date Time Status EKG Documentation Completion [RC] URGENT Care 05/31/19 19:20 Ordered Chest 1V Frontal [CR] Urgent Exams 05/31/19 19:20 Ordered CULTURE BLOOD [BC] Stat Lab 05/31/19 19:23 Ordered Labs: Laboratory Tests 05/31/19 05/31/19 05/31/19 Range/Units 19:30 19:30 19:30 WBC 7.0 (5.0-10.0) 10^3/uL RBC 4.30 (4.2-5.4) 10^6/uL Hgb 12.4 (12.0-16.0) g/dL Hct 37.8 (37.0-47.0) % MCV 87.9 (80-100) fL MCH 28.8 (27.0-34.0) pg MCHC 32.8 L (33.0-35.0) g/dL Plt Count 222 (150-450) 10^3/uL Neut % (Auto) 64.7 (42.2-75.2) % Lymph % (Auto) 19.1 L (20.5-50.1) % [place] % (Auto) 14.9 H (2-8) % Eos % (Auto) 0.9 L (1.0-3.0) % Baso % (Auto) 0.4 (0.0-1.0) % D-Dimer, Quantitative 158 (0-400) ng/mL Sodium 137 (135-145) mmol/L Potassium 3.4 L (3.6-5.0) mmol/L Chloride 98 L (101-111) mmol/L Carbon Dioxide 26.0 (21.0-31.0) mmol/L Anion Gap 16.4 BUN 12 (7-18) mg/dL Creatinine 0.7 (0.6-1.3) mg/dL Est Cr Clr Drug Dosing 78.83 mL/min Estimated GFR (MDRD) > 60 BUN/Creatinine Ratio 17.14 Glucose 108 H (74-105) mg/dL Calcium 8.7 (8.4-10.2) mg/dl Total Bilirubin 0.4 (0.2-1.0) mg/dL AST 38 (10-42) IU/L ALT 45 (10-60) IU/L Alkaline Phosphatase 75 (42-121) IU/L Troponin I < 0.02 (0.00-0.02) ng/ml Total Protein 7.5 (6.7-8.2) g/dl Albumin 3.8 (3.2-5.5) g/dl Globulin 3.7 Albumin/Globulin Ratio 1.03 Meds: Medications Discontinued Medications Generic Name Dose Route Start Last Admin Trade Name Freq PRN Reason Stop Dose Admin Benzonatate 200 mg 05/31/19 20:29 Tessalon Perles PO 05/31/19 20:30 ONETIME ONE Ceftriaxone Sodium 1 gm/ 0 gm 05/31/19 20:28 Lidocaine HCl 2.1 ml IM 05/31/19 20:29 ONETIME ONE Departure - Departure Time of Disposition: 20:31 Disposition: Home, Self-Care 01 Condition: Fair Clinical Impression: Bronchitis - Discharge Information *PRESCRIPTION DRUG MONITORING PROGRAM REVIEWED*: Not Applicable *COPY OF PRESCRIPTION DRUG MONITORING REPORT IN PATIENT MAVIS: Not Applicable Instructions: Upper Respiratory Infection, Adult, [id number] Forms: ED Department Discharge Care Plan Goals: The patient was advised of the examination, x-ray and lab results during the visit. The patient was given an IM dose of Rocephin (1 gram) while in the ED. The patient was discharged with a script for Azithromycin (250 mg) #6 to take 2 by mouth on day 1 and 1 by mouth on days 2-5 and Tessalon Pearles (200 mg) #30 to take 1 by mouth 3 times per day as needed. If the patient has any additional symptoms or concerns, the patient should visit her primary care facility or return to the emergency department. Sepsis Event Note - Evaluation Sepsis Screening Result: Possible Sepsis Risk - Focused Exam Vital Signs: Vital Signs Temp Pulse Resp BP Pulse Ox 05/31/19 19:38 38.9 C H 95 24 H 113/75 95 Date Exam was Performed: 05/31/19 Time Exam was Performed: 20:31 - My Orders Last 24 Hours: My Active Orders 05/31/19 19:20 EKG Documentation Completion [RC] URGENT Chest 1V Frontal [CR] Urgent 05/31/19 19:23 CULTURE BLOOD [BC] Stat - Assessment/Plan Last 24 Hours: My Active Orders 05/31/19 19:20 EKG Documentation Completion [RC] URGENT Chest 1V Frontal [CR] Urgent 05/31/19 19:23 CULTURE BLOOD [BC] Stat
[2019-05-31 20:08] LABS: ANION GAP 16.4; CHLORIDE,CL 98 mmol/L (101-111); SODIUM,NA 137 mmol/L (135-145)
[2019-05-31] MEDS ORDERED: cefTRIAXone 1 GM, Lidocaine 1% 2.1 ML IM ONE ×2 (20:28)
[2019-05-31] MEDS ORDERED: Benzonatate 100 MG Cap PO ONE (20:29)
== END 2019-05-31 20:51 | disposition home or self-care (01) ==
LOC: DL.ED 19:18
DX: J40 Bronchitis, not specified as acute or chronic (principal); I10 Essential (primary) hypertension; E11.9 Type 2 diabetes mellitus without complications; E78.00 Pure hypercholesterolemia, unspecified; K21.9 Gastro-esophageal reflux disease without esophagitis; M19.90 Unspecified osteoarthritis, unspecified site; F41.9 Anxiety disorder, unspecified; F31.9 Bipolar disorder, unspecified; Z87.891 Personal history of nicotine dependence; Z79.82 Long term (current) use of aspirin; Z79.899 Other long term (current) drug therapy
CPT/HCPCS: 36415; 71045; 80053; 84484; 85025; 85379; 87040; 87804; 93005; 96372; 99285; A9270; J0696; J2001

== ENCOUNTER 2019-11-03 21:26 | Emergency (ER) | payer BC ==
[2019-11-03 21:52] VITALS: BP 204/65; PULSE 68
--- NOTE | 2019-11-03 22:00 | EDM.PDOC ---
ED HPI GENERAL MEDICAL PROBLEM - General Chief Complaint: Respiratory Problem Stated Complaint: CHEST/BACK PAIN/SOB Time Seen by Provider: 11/03/19 21:55 Source of Information: Reports: Patient History Limitations: Reports: No Limitations - History of Present Illness INITIAL COMMENTS - FREE TEXT/NARRATIVE: states hadn't been feeling good for few days and not seen her PMD. c/o SOB and has asthma and takes inhalers and knows this isn't it. today felt worse all day then at 5pm suddenly felt better and breathing well and ate well then started feeling cold and took temp and was 95, after that started getting chest pain and upper back pain. denies cough or fever except for low temp today. Right Upper Shoulder Pain Score (Numeric/FACES): 5 - Related Data Allergies Allergy/AdvReac Type Severity Reaction Status Date / Time No Known Allergies Allergy Verified 11/03/19 21:34 Home Meds: Home Meds Aspirin 81 mg PO BEDTIME 05/06/13 [History] FLUoxetine [PROzac] 40 mg PO BEDTIME 05/06/13 [History] Multivitamin [Multivitamins] 1 tab PO DAILY 05/06/13 [History] atorvaSTATin [Lipitor] 10 mg PO BEDTIME 05/06/13 [History] buPROPion HCL [Bupropion HCl] 100 mg PO DAILY 05/06/13 [History] traZODone 150 mg PO BEDTIME 05/06/13 [History] Atenolol [Tenormin] 25 mg PO BID 07/10/13 [History] Omeprazole 20 mg PO BEDTIME 07/23/15 [History] Tiotropium [Spiriva HandiHaler] 18 mcg INH DAILY 10/16/15 [History] Lisinopril 40 mg PO BEDTIME 01/13/16 [History] Baclofen 10 mg PO ASDIRECTED PRN 05/31/19 [History] hydroCHLOROthiazide [Hydrochlorothiazide] 25 mg PO DAILY 05/31/19 [History] Past Medical History HEENT History: Reports: None, Impaired Vision Other HEENT History: wears glasses Cardiovascular History: Reports: High Cholesterol, Hypertension, SOB on Exertion Respiratory History: Reports: Asthma, COPD, SOB Gastrointestinal History: Reports: Cholelithiasis, Diverticulosis, GERD Genitourinary History: Reports: None 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: 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, , Other (See Below) Other MILK DRYING MACHINE OPERATOR History: hysterectomy Musculoskeletal History: Reports: Arthritis, Back Pain, Chronic, Osteoarthritis Neurological History: Reports: None Psychiatric History: Reports: Anxiety, Bipolar Endocrine/Metabolic History: Reports: Diabetes, Type II Other Endocrine/Metabolic History: borderline diabetic Hematologic History: Reports: None Immunologic History: Reports: None Oncologic (Cancer) History: Reports: None Dermatologic History: Reports: None - Infectious Disease History Infectious Disease History: Reports: Mumps - Past Surgical History Head Surgeries/Procedures: Reports: None Respiratory Surgical History: Reports: None GI Surgical History: Reports: Bariatric Procedure, Cholecystectomy Female Surgical History: Reports: Hysterectomy Oncologic Surgical History: Reports: None Social & Family History - Family History Family Medical History: Noncontributory - Caffeine Use Caffeine Use: Reports: Tea - Living Situation & Occupation Living situation: Reports: , with Family ED ROS GENERAL - Review of Systems Review Of Systems: Comprehensive ROS is negative, except as noted in HPI. ED EXAM, GENERAL - Physical Exam Exam: See Below Exam Limited By: No Limitations General Appearance: Alert, WD/WN, Anxious, Mild Distress, Other (upset) Ears: Hearing Grossly Normal Throat/Mouth: Normal Voice, No Airway Compromise Head: Atraumatic Neck: Non-Tender, Full Range of Motion Respiratory/Chest: No Respiratory Distress, Rhonchi Cardiovascular: Regular Rate, Rhythm GI/Abdominal: Soft, Non-Tender Neurological: Alert, Oriented, Normal Cognition, Normal Gait, No Motor/Sensory Deficits Psychiatric: Flat Affect Skin Exam: Warm, Dry, Normal Color Lymphatic: No Adenopathy Course - Vital Signs Last Recorded V/S: Last Vital Signs Temp 37.3 C 11/03/19 21:47 Pulse 68 11/03/19 21:47 Resp 20 11/03/19 21:47 BP 204/65 H 11/03/19 21:47 Pulse Ox 95 11/03/19 21:47 - Orders/Labs/Meds Orders: Active Orders 24 hr Category Date Time Status EKG 12 Lead [EKG Documentation Completion] [RC] STAT Care 11/03/19 21:43 Active Labs: Laboratory Tests 11/03/19 11/03/19 11/03/19 Range/Units 21:47 21:47 21:47 WBC 10.0 (5.0-10.0) 10^3/uL RBC 4.34 (4.2-5.4) 10^6/uL Hgb 12.0 (12.0-16.0) g/dL Hct 37.4 (37.0-47.0) % MCV 86.2 (80-100) fL MCH 27.6 (27.0-34.0) pg MCHC 32.1 L (33.0-35.0) g/dL Plt Count 275 (150-450) 10^3/uL Neut % (Auto) 54.7 (42.2-75.2) % Lymph % (Auto) 35.6 (20.5-50.1) % [place] % (Auto) 7.4 (2-8) % Eos % (Auto) 1.6 (1.0-3.0) % Baso % (Auto) 0.7 (0.0-1.0) % D-Dimer, Quantitative (0-400) ng/mL Sodium 139 (136-145) mmol/L Potassium 3.5 (3.5-5.1) mmol/L Chloride 103 (98-107) mmol/L Carbon Dioxide 28 (21-32) mmol/L Anion Gap 11.5 (7-13) mEq/L BUN 19 H (7-18) mg/dL Creatinine 0.76 (0.55-1.02) mg/dL Est Cr Clr Drug Dosing 68.82 mL/min Estimated GFR (MDRD) > 60 BUN/Creatinine Ratio 25.0 (No establ ref range) Glucose 157 H (74-99) mg/dL Calcium 8.7 (8.5-10.1) mg/dL Total Bilirubin 0.3 (0.2-1.0) mg/dL AST 24 (15-37) U/L ALT 41 (14-59) U/L Alkaline Phosphatase 85 (46-116) U/L Troponin I < 0.017 (0.000-0.056) ng/mL B-Natriuretic Peptide 95 (0-100) pg/ml Total Protein 7.6 (6.4-8.2) g/dL Albumin 3.5 (3.4-5.0) g/dL Globulin 4.1 Albumin/Globulin Ratio 0.9 07/16/20 Range/Units 21:47 WBC (5.0-10.0) 10^3/uL RBC (4.2-5.4) 10^6/uL Hgb (12.0-16.0) g/dL Hct (37.0-47.0) % MCV (80-100) fL MCH (27.0-34.0) pg MCHC (33.0-35.0) g/dL Plt Count (150-450) 10^3/uL Neut % (Auto) (42.2-75.2) % Lymph % (Auto) (20.5-50.1) % [place] % (Auto) (2-8) % Eos % (Auto) (1.0-3.0) % Baso % (Auto) (0.0-1.0) % D-Dimer, Quantitative < 100 (0-400) ng/mL Sodium (136-145) mmol/L Potassium (3.5-5.1) mmol/L Chloride (98-107) mmol/L Carbon Dioxide (21-32) mmol/L Anion Gap (7-13) mEq/L BUN (7-18) mg/dL Creatinine (0.55-1.02) mg/dL Est Cr Clr Drug Dosing mL/min Estimated GFR (MDRD) BUN/Creatinine Ratio (No establ ref range) Glucose (74-99) mg/dL Calcium (8.5-10.1) mg/dL Total Bilirubin (0.2-1.0) mg/dL AST (15-37) U/L ALT (14-59) U/L Alkaline Phosphatase (46-116) U/L Troponin I (0.000-0.056) ng/mL B-Natriuretic Peptide (0-100) pg/ml Total Protein (6.4-8.2) g/dL Albumin (3.4-5.0) g/dL Globulin Albumin/Globulin Ratio - Re-Assessments/Exams Free Text/Narrative Re-Assessment/Exam: 11/03/19 22:57 results discussed with pt who is feeling much more relaxed now and no further c/o. Departure - Departure Time of Disposition: 22:57 Disposition: Home, Self-Care 01 Condition: Good Clinical Impression: Atypical chest pain - Discharge Information Instructions: Nonspecific Chest Pain, Adult, [id number] Forms: ED Department Discharge Additional Instructions: 1) rest avoid excessive activities 2) try tylenol or motrin for discomfort 3) try heat pad to sore areas 4) follow up at clinic 5) recheck as needed Sepsis Event Note (ED) - Evaluation Sepsis Screening Result: No Definite Risk - Focused Exam Vital Signs: Vital Signs Temp Pulse Resp BP Pulse Ox 11/03/19 21:47 37.3 C 68 20 204/65 H 95 - My Orders Last 24 Hours: My Active Orders 11/03/19 21:43 EKG 12 Lead [EKG Documentation Completion] [RC] STAT - Assessment/Plan Last 24 Hours: My Active Orders 11/03/19 21:43 EKG 12 Lead [EKG Documentation Completion] [RC] STAT
[2019-11-03 22:19] LABS: ANION GAP 11.5 mEq/L (7-13); CHLORIDE,CL 103 mmol/L (98-107); SODIUM,NA 139 mmol/L (136-145)
--- NOTE | 2019-11-03 22:43 | CR ---
PROCEDURE INFORMATION: Exam: XR Chest, 1 View Exam date and time: 11/03/2019 10:31 PM Age: 59 years old Clinical indication: Shortness of breath; Additional info: SOB TECHNIQUE: Imaging protocol: XR of the chest Views: 1 view. COMPARISON: CR Chest 1V Frontal 05/31/2019 7:50 PM FINDINGS: Lungs: No suspicious pulmonary nodules or areas of lung consolidation. Pleural space: Costophrenic angles are sharp. No pneumothorax. Heart/Mediastinum: Unremarkable. No cardiomegaly. Bones/joints: Age appropriate. IMPRESSION: 1. No active disease of the chest. 2. No significant interval change when compared to the CR Chest 1V Frontal 05/31/2019 7:50 PM.
== END 2019-11-03 23:11 | disposition home or self-care (01) ==
LOC: DL.ED 21:26
DX: R07.89 Other chest pain (principal); E78.00 Pure hypercholesterolemia, unspecified; I10 Essential (primary) hypertension; J44.9 Chronic obstructive pulmonary disease, unspecified; K21.9 Gastro-esophageal reflux disease without esophagitis; M19.90 Unspecified osteoarthritis, unspecified site; F31.9 Bipolar disorder, unspecified; F41.9 Anxiety disorder, unspecified; E11.9 Type 2 diabetes mellitus without complications; Z79.82 Long term (current) use of aspirin; Z79.899 Other long term (current) drug therapy
CPT/HCPCS: 36415; 71045; 80053; 83880; 84484; 85025; 85379; 93005; 99283; 99285-25

== ENCOUNTER 2020-10-11 16:52 | Emergency (ER) | payer BC ==
[2020-10-11 17:18] VITALS: BP 102/20
--- NOTE | 2020-10-11 17:18 | EDM.PDOC ---
ED HPI GENERAL MEDICAL PROBLEM - General Chief Complaint: Respiratory Problem Stated Complaint: SHORTNESS OF BREATHING, CHEST AND BACK PAIN. Time Seen by Provider: 10/11/20 17:18 Source of Information: Reports: Patient History Limitations: Reports: No Limitations - History of Present Illness INITIAL COMMENTS - FREE TEXT/NARRATIVE: Patient comes emergency department today with complaints of shortness of breath and chest pain. This patient for the past 6 months has had recurring daily worsening shortness of breath. It is slowly gotten worse over the past couple of weeks. Today she is just getting tired of it so she came to the emergency department. She has tightness in her chest when she gets more short of breath. She gets very short of breath with physical exertion and improves with her albuterol. She gets tightness in her chest when she gets very short of breath but this resolves. Upon arrival she complains of shortness of breath but no chest pain. No weakness dizziness lightheadedness. Her chest tightness that she has had is kind of generalized throughout her chest and she does not have it on arrival. She denies any syncope. No diaphoresis. No abdominal pain nausea or vomiting. She uses her albuterol about 4-5 times a day. She relates that she has a history of asthma and she is on 2 inhalers at home. She is not been on any steroids recently. She has no increase sputum production. No fever no chills. She has not smoked for 10 years. Chest Pain Score (Numeric/FACES): 3 - Related Data Allergies Allergy/AdvReac Type Severity Reaction Status Date / Time No Known Allergies Allergy Verified 11/03/19 21:34 Home Meds: Home Meds Aspirin 81 mg PO BEDTIME 05/06/13 [History] FLUoxetine [PROzac] 40 mg PO BEDTIME 05/06/13 [History] Multivitamin [Multivitamins] 1 tab PO DAILY 05/06/13 [History] atorvaSTATin [Lipitor] 10 mg PO BEDTIME 05/06/13 [History] buPROPion HCL [Bupropion HCl] 100 mg PO DAILY 05/06/13 [History] traZODone 150 mg PO BEDTIME 05/06/13 [History] Atenolol [Tenormin] 25 mg PO BID 07/10/13 [History] Omeprazole 20 mg PO BEDTIME 07/23/15 [History] Tiotropium [Spiriva HandiHaler] 18 mcg INH DAILY 10/16/15 [History] Lisinopril 40 mg PO BEDTIME 01/13/16 [History] Baclofen 10 mg PO ASDIRECTED PRN 05/31/19 [History] hydroCHLOROthiazide [Hydrochlorothiazide] 25 mg PO DAILY 05/31/19 [History] Past Medical History HEENT History: Reports: None, Impaired Vision Other HEENT History: wears glasses Cardiovascular History: Reports: High Cholesterol, Hypertension, SOB on Exertion Respiratory History: Reports: Asthma, COPD, SOB Gastrointestinal History: Reports: Cholelithiasis, Diverticulosis, GERD Genitourinary History: Reports: None 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: 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, , Other (See Below) Other AUDIOVISUAL LEAD TECHNICIAN History: hysterectomy Musculoskeletal History: Reports: Arthritis, Back Pain, Chronic, Osteoarthritis Neurological History: Reports: None Psychiatric History: Reports: Anxiety, Bipolar Endocrine/Metabolic History: Reports: Diabetes, Type II Other Endocrine/Metabolic History: borderline diabetic Hematologic History: Reports: None Immunologic History: Reports: None Oncologic (Cancer) History: Reports: None Dermatologic History: Reports: None - Infectious Disease History Infectious Disease History: Reports: Mumps - Past Surgical History Head Surgeries/Procedures: Reports: None Respiratory Surgical History: Reports: None GI Surgical History: Reports: Bariatric Procedure, Cholecystectomy Female Surgical History: Reports: Hysterectomy Oncologic Surgical History: Reports: None Social & Family History - Family History Family Medical History: No Pertinent Family History - Caffeine Use Caffeine Use: Reports: Tea - Living Situation & Occupation Living situation: Reports: , with Family ED ROS GENERAL - Review of Systems Review Of Systems: Comprehensive ROS is negative, except as noted in HPI. ED EXAM, GENERAL - Physical Exam Exam: See Below Exam Limited By: No Limitations General Appearance: Alert, WD/WN, No Apparent Distress, Obese (Morbidly) Head: Atraumatic, Normocephalic Neck: Normal Inspection Respiratory/Chest: No Respiratory Distress, No Accessory Muscle Use, Chest Non- Tender, Decreased Breath Sounds, Wheezing (Mild inspiratory and moderate expiratory wheezing bilaterally.). No: Rhonchi Cardiovascular: Normal Peripheral Pulses, Regular Rate, Rhythm GI/Abdominal: Normal Bowel Sounds, Soft, Non-Tender Back Exam: Normal Inspection, Full Range of Motion Extremities: Normal Inspection, Normal Range of Motion, Non-Tender, No Pedal Edema, Normal Capillary Refill Neurological: Alert, Oriented, Normal Cognition, No Motor/Sensory Deficits Psychiatric: Normal Affect, Normal Mood Skin Exam: Warm, Dry, Intact, Normal Color Lymphatic: No Adenopathy Course - Vital Signs Last Recorded V/S: Last Vital Signs Temp 97 F 10/11/20 17:12 Pulse 63 10/11/20 17:31 Resp 14 10/11/20 17:12 BP 102/20 L 10/11/20 17:12 Pulse Ox 97 10/11/20 17:31 - Orders/Labs/Meds Labs: Laboratory Tests 10/11/20 10/11/20 10/11/20 Range/Units 17:53 17:53 17:53 WBC 10.5 H (5.0-10.0) 10^3/uL RBC 4.67 (4.2-5.4) 10^6/uL Hgb 12.7 (12.0-16.0) g/dL Hct 40.0 (37.0-47.0) % MCV 85.7 (80-100) fL MCH 27.2 (27.0-34.0) pg MCHC 31.8 L (33.0-35.0) g/dL Plt Count 297 (150-450) 10^3/uL Neut % (Auto) 57.6 (42.2-75.2) % Lymph % (Auto) 29.1 (20.5-50.1) % [place] % (Auto) 11.3 H (2-8) % Eos % (Auto) 1.4 (1.0-3.0) % Baso % (Auto) 0.6 (0.0-1.0) % D-Dimer, Quantitative < 100 (0-400) ng/mL Sodium 141 (136-145) mmol/L Potassium 3.9 (3.5-5.1) mmol/L Chloride 102 (98-107) mmol/L Carbon Dioxide 29 (21-32) mmol/L Anion Gap 13.9 H (7-13) mEq/L BUN 12 (7-18) mg/dL Creatinine 0.77 (0.55-1.02) mg/dL Est Cr Clr Drug Dosing 55.81 mL/min Estimated GFR (MDRD) > 60 BUN/Creatinine Ratio 15.6 (No establ ref range) Glucose 84 (70-99) mg/dL Calcium 9.0 (8.5-10.1) mg/dL Total Bilirubin 0.3 (0.2-1.0) mg/dL AST 25 (15-37) U/L ALT 52 (14-59) U/L Alkaline Phosphatase 78 (46-116) U/L Troponin I High Sens 9 (<=51) pg/mL C-Reactive Protein 1.3 H (0.0-0.9) mg/dL B-Natriuretic Peptide 43 (0-100) pg/ml Total Protein 7.5 (6.4-8.2) g/dL Albumin 3.5 (3.4-5.0) g/dL Globulin 4.0 Albumin/Globulin Ratio 0.9 Meds: Medications Discontinued Medications Generic Name Dose Route Start Last Admin Trade Name Freq PRN Reason Stop Dose Admin Albuterol/Ipratropium 3 ml 10/11/20 17:30 10/11/20 17:47 Albuterol/Ipratropium 3.0-0.5 Mg/3 Ml Neb Soln NEB 10/11/20 17:31 3 ml ONETIME ONE Administration Budesonide 0.5 mg 10/11/20 17:30 10/11/20 17:47 Budesonide 0.5 Mg/2 Ml Neb Susp NEB 10/11/20 17:31 0.5 mg ONETIME ONE Administration Prednisone 40 mg 10/11/20 19:10 10/11/20 19:45 Prednisone 20 Mg Tab PO 10/11/20 19:11 40 mg ONETIME ONE Administration - Radiology Interpretation Free Text/Narrative:: Chest x-ray per radiology no acute findings. - Re-Assessments/Exams Free Text/Narrative Re-Assessment/Exam: 10/11/20 EKG was completed without any ST elevation or depression when reviewed extemporaneously by myself. Labs are ordered. DuoNeb nebulizer as well as the budesonide nebulizer with complete resolution of all the patient's symptoms. She relates this is the best that she has felt in many months. And she has no shortness of breath. Her laboratory evaluation is rather unremarkable to include a negative D-dimer. As well as a normal high-sensitivity troponin at 9. Patient was given 40 mg of prednisone orally. She does not want a prescription of prednisone at home as she does not like the way it makes her feel. I do have concerns not only for the COPD exacerbation but also is some underlying cardiac pathology as well. She has had a stress test in the past but she was not able to complete it completely because she could not get her heart rate high enough. She had angiogram 10 years ago that was clear of any pathology. She does not want to use any steroids at this time. We will switch her from her MDI inhalers of her Advair and start her on nebulizers budesonide and Brovana twice a day. Continue with the Spiriva. She can also use albuterol as needed through the nebulizer. I would like her to follow-up with primary care next available and discuss her chronic management of her COPD as well as a stress test in the near future. Discharge directions as below are explained to the patient she was comfortable with this plan and her questions were answered. Departure - Departure Time of Disposition: 19:28 Disposition: Home, Self-Care 01 Clinical Impression: Morbid obesity, BRANDY and COPD overlap syndrome COPD (chronic obstructive pulmonary disease) Qualifiers: COPD type: unspecified COPD Qualified Code(s): J44.9 - Chronic obstructive pulmonary disease, unspecified - Discharge Information Instructions: Chronic Obstructive Pulmonary Disease Exacerbation, [id number], Shortness of Breath, Adult, [id number] Forms: ED Department Discharge Additional Instructions: Continue your Spiriva. Stop your Advair for the next 2 weeks. Replace with Budesonide and Brovana nebulizer twice daily for the next 2 week. RX given to the patient for both meds as well as compact nebulizer. Recheck with your PCP in 1 week. Return to the ED if new or worsening symptoms. Sepsis Event Note (ED) - Focused Exam Vital Signs: Vital Signs Temp Pulse Resp BP Pulse Ox Pulse Ox 10/11/20 17:31 63 97 10/11/20 17:12 97 F 67 14 102/20 L 97
--- NOTE | 2020-10-11 17:29 | PCM.EKG ---
#1 Interpretation EKG Date: 10/11/20 Time: 05:08 Rhythm: NSR Rate (Beats/Min): 63 [place]: Normal P-Wave: Present QRS: Normal ST-T: Normal QT: Normal Comparison: No Change
[2020-10-11] MEDS ORDERED: Budesonide 0.5 MG/2 ML Neb Susp NEB ONE (17:30)
[2020-10-11] MEDS ORDERED: Albuterol/Ipratropium 3.0-0.5 MG/3 ML Neb Soln NEB ONE (17:30)
[2020-10-11 17:49] VITALS: PULSE 63
--- NOTE | 2020-10-11 18:14 | CR ---
PROCEDURE INFORMATION: Exam: XR Chest Exam date and time: 10/11/2020 5:40 PM Age: 60 years old Clinical indication: Pain; Shortness of breath; Other: Chest; Additional info: Cp SOB TECHNIQUE: Imaging protocol: XR of the chest. Views: 2 views. COMPARISON: CR Chest 1V Frontal 11/03/2019 10:31 PM FINDINGS: Lungs: Unremarkable. No consolidation. Pleural spaces: Unremarkable. No pleural effusion. No pneumothorax. Heart/Mediastinum: Unremarkable. No cardiomegaly. Bones/joints: Unremarkable. IMPRESSION: No acute findings.
[2020-10-11 18:21] LABS: ANION GAP 13.9 mEq/L (7-13); CHLORIDE,CL 102 mmol/L (98-107); SODIUM,NA 141 mmol/L (136-145)
[2020-10-11] MEDS ORDERED: predniSONE 20 MG Tab PO ONE (19:10)
== END 2020-10-11 19:47 | disposition home or self-care (01) ==
LOC: DL.ED 16:52
DX: J44.9 Chronic obstructive pulmonary disease, unspecified (principal); G47.33 Obstructive sleep apnea (adult) (pediatric); E66.01 Morbid (severe) obesity due to excess calories; E11.9 Type 2 diabetes mellitus without complications; Z68.43 Body mass index [BMI] 50.0-59.9, adult; Z79.82 Long term (current) use of aspirin; Z79.899 Other long term (current) drug therapy
CPT/HCPCS: 36415; 71046; 80053; 83880; 84484; 85025; 85379; 86140; 93005; 93010; 94640; 99284; 99285; J7512; J7620-GY

== ENCOUNTER 2020-10-26 22:37 | Emergency (ER) | payer BC ==
--- NOTE | 2020-10-26 22:30 | EDM.PDOC ---
ED HPI GENERAL MEDICAL PROBLEM - General Chief Complaint: Lower Extremity Injury/Pain Stated Complaint: AMBULANCE Time Seen by Provider: 10/26/20 22:29 Source of Information: Reports: Patient, EMS History Limitations: Reports: No Limitations - History of Present Illness INITIAL COMMENTS - FREE TEXT/NARRATIVE: ED via [facility]. C/o pain to left ankle lost balance while putting on shoes and fell twisting left ankle. [place] crunching sound. Air plaint per EMS. No gross deformity . reports hx chronic balance issues. Did not hit head. Left Lower Ankle Pain Score (Numeric/FACES): 7 - Related Data Allergies Allergy/AdvReac Type Severity Reaction Status Date / Time No Known Allergies Allergy Verified 10/26/20 22:39 Home Meds: Home Meds Aspirin 81 mg PO BEDTIME 05/06/13 [History] FLUoxetine [PROzac] 40 mg PO BEDTIME 05/06/13 [History] Multivitamin [Multivitamins] 1 tab PO DAILY 05/06/13 [History] atorvaSTATin [Lipitor] 10 mg PO BEDTIME 05/06/13 [History] buPROPion HCL [Bupropion HCl] 100 mg PO DAILY 05/06/13 [History] traZODone 150 mg PO BEDTIME 05/06/13 [History] Atenolol [Tenormin] 25 mg PO BID 07/10/13 [History] Omeprazole 20 mg PO BEDTIME 07/23/15 [History] Tiotropium [Spiriva HandiHaler] 18 mcg INH DAILY 10/16/15 [History] Lisinopril 40 mg PO BEDTIME 01/13/16 [History] Baclofen 10 mg PO ASDIRECTED PRN 05/31/19 [History] hydroCHLOROthiazide [Hydrochlorothiazide] 25 mg PO DAILY 05/31/19 [History] Past Medical History HEENT History: Reports: None, Impaired Vision Other HEENT History: wears glasses Cardiovascular History: Reports: High Cholesterol, Hypertension, SOB on Exertion Respiratory History: Reports: Asthma, COPD, SOB Gastrointestinal History: Reports: Cholelithiasis, Diverticulosis, GERD Genitourinary History: Reports: None 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: 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, , Other (See Below) 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 PLANT EQUIPMENT ENGINEER 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: hysterectomy Musculoskeletal History: Reports: Arthritis, Back Pain, Chronic, Osteoarthritis Neurological History: Reports: None Psychiatric History: Reports: Anxiety, Bipolar Endocrine/Metabolic History: Reports: Diabetes, Type II Other Endocrine/Metabolic History: borderline diabetic Hematologic History: Reports: None Immunologic History: Reports: None Oncologic (Cancer) History: Reports: None Dermatologic History: Reports: None - Infectious Disease History Infectious Disease History: Reports: Mumps - Past Surgical History Head Surgeries/Procedures: Reports: None Cardiovascular Surgical History: Reports: None Respiratory Surgical History: Reports: None GI Surgical History: Reports: Bariatric Procedure, Cholecystectomy Other GI Surgeries/Procedures: had lap band surgery but is no longer present. Female Surgical History: Reports: Hysterectomy Endocrine Surgical History: Reports: None Musculoskeletal Surgical History: Reports: None Oncologic Surgical History: Reports: None Social & Family History - Family History Family Medical History: No Pertinent Family History - Caffeine Use Caffeine Use: Reports: Tea - Living Situation & Occupation Living situation: Reports: , with Family Review of Systems - Review of Systems Review Of Systems: Comprehensive ROS is negative, except as noted in HPI. ED EXAM, GENERAL - Physical Exam Exam: See Below Exam Limited By: No Limitations General Appearance: Alert, Obese Eye Exam: Bilateral Eye: EOMI Head: Atraumatic, Normocephalic Neck: Normal Inspection Respiratory/Chest: No Respiratory Distress Cardiovascular: Regular Rate, Rhythm Extremities: Joint Swelling (left ankle), Limited Range of Motion Neurological: Alert, Oriented, Normal Cognition Psychiatric: Anxious Skin Exam: Warm, Dry, Intact, Tattoo(s) Course - Vital Signs Last Recorded V/S: Last Vital Signs Temp 97.2 F 10/26/20 22:29 Pulse 76 10/26/20 22:29 Resp 16 10/26/20 22:29 BP 175/35 H 10/26/20 22:29 Pulse Ox 96 10/26/20 22:29 - Orders/Labs/Meds Meds: Medications Discontinued Medications Generic Name Dose Route Start Last Admin Trade Name Karen PRN Reason Stop Dose Admin Fentanyl 50 mcg 10/26/20 23:12 10/26/20 23:21 Fentanyl 100 Mcg/2 Ml Sdv IVPUSH 10/26/20 23:13 50 mcg ONETIME ONE Administration Ondansetron HCl 4 mg 10/26/20 23:12 10/26/20 23:20 Ondansetron 4 Mg/2 Ml Sdv IVPUSH 10/26/20 23:13 4 mg ONETIME ONE Administration - Re-Assessments/Exams Free Text/Narrative Re-Assessment/Exam: 10/27/20 00:[address] Beaulieu. Splint non weight bearing Ortho clinic Departure - Departure Time of Disposition: 00:39 Disposition: Home, Self-Care 01 Condition: Fair Clinical Impression: Closed trimalleolar fracture Fall Qualifiers: Encounter type: initial encounter Qualified Code(s): W19.XXXA - Unspecified fall, initial encounter - Discharge Information *PRESCRIPTION DRUG MONITORING PROGRAM REVIEWED*: No *COPY OF PRESCRIPTION DRUG MONITORING REPORT IN PATIENT MAVIS: No Instructions: Ankle Fracture Forms: ED Department Discharge Additional Instructions: Non weight bearing elevate ice splint walker or wheelchair tylenol 500mg or ibuprofen 600mg every 4 hours as needed for moderate pain hydrocodone 10/325 one every 4 hours as needed for severe pain #18 clinic follow up with primary care if needing additional pain medication Follow up Orth clinic [facility] on call Thursday to schedule appointment with Dr Beaulieu [phone] Sepsis Event Note (ED) - Focused Exam Vital Signs: Vital Signs Temp Pulse Resp BP Pulse Ox 10/26/20 22:29 97.2 F 76 16 175/35 H 96
[2020-10-26 22:35] VITALS: BP 175/35; PULSE 76
[2020-10-26] MEDS ORDERED: Acetaminophen/HYDROcodone 325-10 MG Tab PO ONE (22:38)
[2020-10-26] MEDS ORDERED: Ondansetron 4 MG/2 ML SDV IVPUSH ONE (23:12)
[2020-10-26] MEDS ORDERED: fentaNYL 100 MCG/2 ML SDV IVPUSH ONE (23:12)
--- NOTE | 2020-10-26 23:45 | CR ---
PROCEDURE INFORMATION: Exam: XR Left Ankle Exam date and time: 10/26/2020 10:34 PM Age: 60 years old Clinical indication: Other: Fall/pain; Additional info: Fall at home, twisted, heard crunch TECHNIQUE: Imaging protocol: XR Left ankle. Views: 3 or more views. COMPARISON: No relevant prior studies available. FINDINGS: Bones/joints: Transverse fracture through the medial malleolus. Oblique fracture through the distal fibula. Coronal fracture through the posterior malleolus. Soft tissues: Soft tissue swelling surrounds the ankle. IMPRESSION: Trimalleolar ankle fracture.
[2020-10-27] MEDS ORDERED: Acetaminophen/HYDROcodone 325-10 MG Tab ONE (00:18)
== END 2020-10-27 00:50 | disposition home or self-care (01) ==
LOC: DL.ED 22:37
DX: S82.852A Displaced trimalleolar fracture of left lower leg, initial encounter for closed fracture (principal); E78.00 Pure hypercholesterolemia, unspecified; I10 Essential (primary) hypertension; J44.9 Chronic obstructive pulmonary disease, unspecified; K21.9 Gastro-esophageal reflux disease without esophagitis; E11.9 Type 2 diabetes mellitus without complications; Z79.82 Long term (current) use of aspirin; Z79.899 Other long term (current) drug therapy; X50.1XXA Overexertion from prolonged static or awkward postures, initial encounter
CPT/HCPCS: 29515; 73610; 96374; 99283; A9270; J2405; J3010; 99284

== ENCOUNTER 2020-10-28 14:32 | Observation (INO) | payer BC ==
--- NOTE | 2020-10-28 15:17 | EDM.PDOC ---
ED HPI GENERAL MEDICAL PROBLEM - General Chief Complaint: General Stated Complaint: IN BY AMBULANCE Time Seen by Provider: 10/28/20 15:00 Source of Information: Reports: Patient, EMS, Old Records, RN, RN Notes Reviewed History Limitations: Reports: No Limitations - History of Present Illness INITIAL COMMENTS - FREE TEXT/NARRATIVE: Brenda is a 60 y/o female who presents to the ED via [facility] with complaints of frequent falls due to instability on crutches from recent left ankle fracture. The patient reports she was examined in this facility two nights ago and was diagnosed with a left trimalleolar fracture; she was splinted and instructed to follow up with orthopedic surgery. The patient denies striking her head or loss of consciousness during any falls; she takes ASA 81mg daily. The patient denies loss of motor/sensory function to the extremity. The patient denies fever, shaking chills, vision changes, chest pain, palpitations, shortness of breath, nausea, vomiting, or diarrhea. She does attest to constipation, stating her last BM was two days ago. She states her current pain in the extremity is a 7; she is due to take her previously prescribed hydrocod one. Left Foot Pain Score (Numeric/FACES): 7 - Related Data Allergies Allergy/AdvReac Type Severity Reaction Status Date / Time No Known Allergies Allergy Verified 10/28/20 14:37 Home Meds: Home Meds Aspirin 81 mg PO BEDTIME 05/06/13 [History] FLUoxetine [PROzac] 40 mg PO BEDTIME 05/06/13 [History] atorvaSTATin [Lipitor] 10 mg PO BEDTIME 05/06/13 [History] buPROPion HCL [Bupropion HCl] 100 mg PO DAILY 05/06/13 [History] traZODone 150 mg PO BEDTIME 05/06/13 [History] Omeprazole 20 mg PO BEDTIME 07/23/15 [History] Tiotropium [Spiriva HandiHaler] 18 mcg INH DAILY 10/16/15 [History] Lisinopril 40 mg PO BEDTIME 01/13/16 [History] Baclofen 10 mg PO Q6H PRN 05/31/19 [History] hydroCHLOROthiazide [Hydrochlorothiazide] 25 mg PO DAILY 05/31/19 [History] Budesonide [Pulmicort] 0.5 mg IH BID 10/28/20 [History] Cholecalciferol (Vitamin D3) [Vitamin D3] 25 mcg PO DAILY 10/28/20 [History] Formoterol [Perforomist] 20 mcg INH BID 10/28/20 [History] Hydrocodone/Acetaminophen [Hydrocodone-Acetamin 10-325 mg] 1 each PO Q4H PRN 10/28/20 [History] Montelukast [Singulair] 10 mg PO BEDTIME 10/28/20 [History] atenoloL [Atenolol] 25 mg PO BID 10/28/20 [History] Past Medical History HEENT History: Reports: None, Impaired Vision Other HEENT History: wears glasses Cardiovascular History: Reports: High Cholesterol, Hypertension, SOB on Exertion Respiratory History: Reports: Asthma, COPD, SOB Gastrointestinal History: Reports: Cholelithiasis, Diverticulosis, GERD Genitourinary History: Reports: None [employer] History: Reports: 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, , Other (See Below) Other [employer] History: hysterectomy Musculoskeletal History: Reports: Arthritis, Back Pain, Chronic, Osteoarthritis Neurological History: Reports: None Psychiatric History: Reports: Anxiety, Bipolar Endocrine/Metabolic History: Reports: Diabetes, Type II Other Endocrine/Metabolic History: borderline diabetic Hematologic History: Reports: None Immunologic History: Reports: None Oncologic (Cancer) History: Reports: None Dermatologic History: Reports: None - Infectious Disease History Infectious Disease History: Reports: Mumps - Past Surgical History Head Surgeries/Procedures: Reports: None Cardiovascular Surgical History: Reports: None Respiratory Surgical History: Reports: None GI Surgical History: Reports: Bariatric Procedure, Cholecystectomy Other GI Surgeries/Procedures: had lap band surgery but is no longer present. Female Surgical History: Reports: Hysterectomy Endocrine Surgical History: Reports: None Musculoskeletal Surgical History: Reports: None Oncologic Surgical History: Reports: None Social & Family History - Family History Family Medical History: No Pertinent Family History - Tobacco Use Tobacco Use Status *Q: Never Tobacco User - Caffeine Use Caffeine Use: Reports: Tea - Recreational Drug Use Recreational Drug Use: No - Living Situation & Occupation Living situation: Reports: , with Family ED ROS GENERAL - Review of Systems Review Of Systems: Comprehensive ROS is negative, except as noted in HPI. ED EXAM, GENERAL - Physical Exam Exam: See Below Exam Limited By: No Limitations General Appearance: Alert, Anxious, Mild Distress (Tearful), Obese Eye Exam: Bilateral Eye: EOMI, Normal Inspection, PERRL Ears: Normal External Exam, Hearing Grossly Normal Nose: Normal Inspection, Normal Mucosa, No Blood Throat/Mouth: Normal Inspection, Normal Lips, Normal Teeth, Normal Gums, Normal Oropharynx, Normal Voice, No Airway Compromise Head: Atraumatic, Normocephalic Neck: Normal Inspection, Supple, Non-Tender, Full Range of Motion Respiratory/Chest: No Respiratory Distress, Lungs Clear, Normal Breath Sounds, No Accessory Muscle Use, Chest Non-Tender Cardiovascular: Normal Peripheral Pulses, Regular Rate, Rhythm, No Edema, No Gallop, No JVD, No Murmur, No Rub Peripheral Pulses: 2+: Radial (L), Radial (R), Dorsalis Pedis (L), Dorsalis Pedis (R) GI/Abdominal: Normal Bowel Sounds, Soft, No Distention, No Abnormal Bruit, No Mass, Pelvis Stable (Female) Exam: Deferred Rectal (Female) Exam: Deferred Back Exam: Normal Inspection, Full Range of Motion Extremities: Normal Capillary Refill, Leg Pain (To LLE), Other (Splint to LLE with appropriate N/V). No: Mottled, Pallor, Redness Neurological: Alert, Oriented, CN II-XII Intact, Normal Cognition, No Motor/Sensory Deficits Psychiatric: Anxious, Tearful Skin Exam: Warm, Dry, Normal Color, No Rash, Wound/Incision (Superficial abrasions to left posterior forearm) #1 Interpretation EKG Date: 10/28/20 Time: 15:57 Rhythm: NSR Rate (Beats/Min): 76 [place]: Normal P-Wave: Present QRS: Normal ST-T: Normal QT: Normal OR/PQ Interval: 0.154 Comparison: No Change EKG Interpretation Comments: NSR; No evidence of acute myocardial ischemia Course - Vital Signs Last Recorded V/S: Last Vital Signs Temp 98.1 F 10/29/20 04:00 Pulse 65 10/29/20 04:00 Resp 18 10/29/20 04:00 BP 148/56 H 10/29/20 04:00 Pulse Ox 91 L 10/29/20 04:00 - Orders/Labs/Meds Orders: Active Orders 24 hr Category Date Time Status Admission Diagnosis [ADT] Stat ADT 10/28/20 17:09 Ordered Admission Status [Patient Status] [ADT] Routine ADT 10/28/20 17:09 Active Medication Orders Acetaminophen (Acetaminophen 325 Mg Tab) 650 mg PO Q4H PRN PRN Reason: Pain (Mild 1-3)/fever Hydrocodone Bitart/Acetaminophen (Acetaminophen/Hydrocodone 325-5 Mg Tab) 1 tab PO Q4H PRN PRN Reason: Pain (moderate 4-6) Last Admin: 10/28/20 22:31 Dose: 1 tab Documented by: MAREN Albuterol (Albuterol 6.7 Gm Inhaler) 0 gm INH Q4H PRN PRN Reason: Shortness Of Breath/Wheeze Last Admin: 10/28/20 22:35 Dose: 2 puff Documented by: MAREN Ascorbic Acid (Ascorbic Acid 500 Mg Tab) 500 mg PO DAILY [facility] Aspirin (Aspirin 81 Mg Tab.Chew) 81 mg PO BEDTIME [facility] Atenolol (Atenolol 25 Mg Tab) 25 mg PO BID [facility] Atorvastatin Calcium (Atorvastatin 10 Mg Tab) 10 mg PO BEDTIME [facility] Baclofen (Baclofen 10 Mg Tab) 10 mg PO Q6H PRN PRN Reason: Spasms Last Admin: 10/28/20 22:31 Dose: 10 mg Documented by: MAREN Budesonide (Budesonide 0.5 Mg/2 Ml Neb Susp) 0.5 mg INH BIDRT [facility]JANA Last Admin: 10/28/20 22:35 Dose: 0.5 mg Documented by: MAREN Cholecalciferol (Cholecalciferol (Vitamin D3) 25 Mcg Tab) 25 mcg PO DAILY [facility] Dextrose/Water (50% Dextrose In Water 50 Ml Syringe) 50 ml IVPUSH Q15M PRN PRN Reason: Hypoglycemia Enoxaparin Sodium (Enoxaparin 40 Mg/0.4 Ml Syringe) 40 mg SUBCUT DAILY [facility] Ferrous Sulfate (Ferrous Sulfate 325 Mg Tab) 325 mg PO BIDMEALS [facility] Fluoxetine HCl (Fluoxetine 10 Mg Cap) 40 mg PO BEDTIME [facility] Glucagon (Glucagon,Human Recombinant 1 Mg Vial) 1 mg IM Q15M PRN PRN Reason: Hypoglycemia Hydralazine HCl (Hydralazine 20 Mg/Ml Sdv) 10 mg IVPUSH Q4H PRN PRN Reason: Other Hydrochlorothiazide (Hydrochlorothiazide 25 Mg Tab) 25 mg PO DAILY [facility] Insulin Human Lispro (Insulin Lispro 100 Units/Ml 3 Ml Vial) 0 unit SUBCUT WITHMEALSANDBED [facility]JANA; Protocol Last Admin: 10/28/20 21:54 Dose: Not Given Documented by: MAREN Lisinopril (Lisinopril 20 Mg Tab) 40 mg PO BEDTIME [facility] Montelukast Sodium (Montelukast 10 Mg Tab) 10 mg PO BEDTIME [facility] Morphine Sulfate (Morphine 2 Mg/Ml Syringe) 1 mg IVPUSH Q4H PRN PRN Reason: Pain (severe 7-10) Last Admin: 10/28/20 20:17 Dose: 1 mg Documented by: MAREN Non-Formulary Medication (Bupropion) 100 mg PO DAILY [facility] Non-Formulary Medication (Formoterol [Perforomist]) 20 mcg INH BID [facility] Omeprazole (Omeprazole 20 Mg Cap.Cr) 20 mg PO BEDTIME [facility] Ondansetron HCl (Ondansetron 4 Mg/2 Ml Sdv) 4 mg IVPUSH Q4H PRN PRN Reason: Nausea/Vomiting Senna/Docusate Sodium (Docusate Sodium/Sennosides 50-8.6 Mg Tab) 2 tab PO BID [facility] Sodium Chloride (Sodium Chloride 0.9% 10 Ml Syringe) 10 ml FLUSH ASDIRECTED PRN PRN Reason: Keep Vein Open Tiotropium [place] (Tiotropium Inhaler 18 Mcg Inhalation Powder Cap Kit Of 5) 18 mcg INH DAILY [facility] Trazodone HCl (Trazodone 50 Mg Tab) 150 mg PO BEDTIME [facility] Last Admin: 10/28/20 22:31 Dose: 150 mg Documented by: MAREN Labs: Laboratory Tests 10/28/20 10/28/20 10/28/20 Range/Units 16:00 16:00 16:00 WBC 10.1 H (5.0-10.0) 10^3/uL RBC 4.23 (4.2-5.4) 10^6/uL Hgb 11.7 L (12.0-16.0) g/dL Hct 37.1 (37.0-47.0) % MCV 87.7 (80-100) fL MCH 27.7 (27.0-34.0) pg MCHC 31.5 L (33.0-35.0) g/dL Plt Count 274 (150-450) 10^3/uL Neut % (Auto) 61.0 (42.2-75.2) % Lymph % (Auto) 27.5 (20.5-50.1) % Piatt % (Auto) 10.0 H (2-8) % Eos % (Auto) 1.0 (1.0-3.0) % Baso % (Auto) 0.5 (0.0-1.0) % Sodium 141 (136-145) mmol/L Potassium 3.6 (3.5-5.1) mmol/L Chloride 101 (98-107) mmol/L Carbon Dioxide 29 (21-32) mmol/L Anion Gap 14.6 H (7-13) mEq/L BUN 17 (7-18) mg/dL Creatinine 0.83 (0.55-1.02) mg/dL Est Cr Clr Drug Dosing TNP Estimated GFR (MDRD) > 60 BUN/Creatinine Ratio 20.5 (No establ ref range) Glucose 117 H (70-99) mg/dL Calcium 8.5 (8.5-10.1) mg/dL Magnesium 2.2 (1.8-2.4) mg/dL Iron 24 L (50-175) ug/dL TIBC 318 (250-450) ug/dL % Saturation 7.5 L (20.0-50.0) % Ferritin 69 (8-252) mg/mL Total Bilirubin 0.2 (0.2-1.0) mg/dL AST 21 (15-37) U/L ALT 40 (14-59) U/L Alkaline Phosphatase 72 (46-116) U/L Troponin I High Sens 14 (<=51) pg/mL Total Protein 7.2 (6.4-8.2) g/dL Albumin 3.1 L (3.4-5.0) g/dL Globulin 4.1 Albumin/Globulin Ratio 0.76 Urine Color (YELLOW) Urine Appearance (CLEAR) Urine pH (5.0-9.0) Ur Specific [place] (1.005-1.030) Urine Protein (NEGATIVE) Urine Glucose (UA) (NEGATIVE) Urine Ketones (NEGATIVE) Urine Occult Blood (NEGATIVE) Urine Nitrite (NEGATIVE) Urine Bilirubin (NEGATIVE) Urine Urobilinogen (0.2-1.0) mg/dL Ur Leukocyte Esterase (NEGATIVE) Urine RBC /HPF Urine WBC (0-5/HPF) /HPF Ur Epithelial Cells (NOT SEEN) /HPF Urine Bacteria (0-FEW/HPF) /HPF Urine Mucus (NOT SEEN) /LPF SARS-CoV-2 RNA (ALEIDA) (NEGATIVE) 10/28/20 10/28/20 Range/Units 16:33 17:04 WBC (5.0-10.0) 10^3/uL RBC (4.2-5.4) 10^6/uL Hgb (12.0-16.0) g/dL Hct (37.0-47.0) % MCV (80-100) fL MCH (27.0-34.0) pg MCHC (33.0-35.0) g/dL Plt Count (150-450) 10^3/uL Neut % (Auto) (42.2-75.2) % Lymph % (Auto) (20.5-50.1) % Piatt % (Auto) (2-8) % Eos % (Auto) (1.0-3.0) % Baso % (Auto) (0.0-1.0) % Sodium (136-145) mmol/L Potassium (3.5-5.1) mmol/L Chloride (98-107) mmol/L Carbon Dioxide (21-32) mmol/L Anion Gap (7-13) mEq/L BUN (7-18) mg/dL Creatinine (0.55-1.02) mg/dL Est Cr Clr Drug Dosing Estimated GFR (MDRD) BUN/Creatinine Ratio (No establ ref range) Glucose (70-99) mg/dL Calcium (8.5-10.1) mg/dL Magnesium (1.8-2.4) mg/dL Iron (50-175) ug/dL TIBC (250-450) ug/dL % Saturation (20.0-50.0) % Ferritin (8-252) mg/mL Total Bilirubin (0.2-1.0) mg/dL AST (15-37) U/L ALT (14-59) U/L Alkaline Phosphatase (46-116) U/L Troponin I High Sens (<=51) pg/mL Total Protein (6.4-8.2) g/dL Albumin (3.4-5.0) g/dL Globulin Albumin/Globulin Ratio Urine Color Yellow (YELLOW) Urine Appearance Slightly cloudy (CLEAR) Urine pH 6.5 (5.0-9.0) Ur Specific [place] >= 1.030 (1.005-1.030) Urine Protein 30 H (NEGATIVE) Urine Glucose (UA) Negative (NEGATIVE) Urine Ketones Negative (NEGATIVE) Urine Occult Blood Trace-intact H (NEGATIVE) Urine Nitrite Negative (NEGATIVE) Urine Bilirubin Negative (NEGATIVE) Urine Urobilinogen 1.0 (0.2-1.0) mg/dL Ur Leukocyte Esterase Negative (NEGATIVE) Urine RBC 0-5 /HPF Urine WBC 0-5 (0-5/HPF) /HPF Ur Epithelial Cells Many H (NOT SEEN) /HPF Urine Bacteria Moderate H (0-FEW/HPF) /HPF Urine Mucus Few H (NOT SEEN) /LPF SARS-CoV-2 RNA (ALEIDA) Negative (NEGATIVE) Meds: Medications Generic Name Dose Route Start Last Admin Trade Name Freq PRN Reason Stop Dose Admin Acetaminophen 650 mg 10/28/20 18:14 Acetaminophen 325 Mg Tab PO Q4H PRN Pain (Mild 1-3)/fever Hydrocodone Bitart/Acetaminophen 1 tab 10/28/20 18:16 10/28/20 22:31 Acetaminophen/Hydrocodone 325-5 Mg Tab PO 1 tab Q4H PRN Administration Pain (moderate 4-6) Albuterol 0 gm 10/28/20 22:19 10/28/20 22:35 Albuterol 6.7 Gm Inhaler INH 2 puff Q4H PRN Administration Shortness Of Breath/Wheeze Ascorbic Acid 500 mg 10/29/20 09:00 Ascorbic Acid 500 Mg Tab PO DAILY [facility] Aspirin 81 mg 10/29/20 21:00 Aspirin 81 Mg Tab.Chew PO BEDTIME [facility] Atenolol 25 mg 10/29/20 09:00 Atenolol 25 Mg Tab PO BID [facility] Atorvastatin Calcium 10 mg 10/29/20 21:00 Atorvastatin 10 Mg Tab PO BEDTIME [facility] Baclofen 10 mg 10/28/20 21:52 10/28/20 22:31 Baclofen 10 Mg Tab PO 10 mg Q6H PRN Administration Spasms Budesonide 0.5 mg 10/28/20 22:00 10/28/20 22:35 Budesonide 0.5 Mg/2 Ml Neb Susp INH 0.5 mg BIDRT [facility]NA Administration Cholecalciferol 25 mcg 10/29/20 09:00 Cholecalciferol (Vitamin D3) 25 Mcg Tab PO DAILY [facility] Dextrose/Water 50 ml 10/28/20 18:17 50% Dextrose In Water 50 Ml Syringe IVPUSH Q15M PRN Hypoglycemia Enoxaparin Sodium 40 mg 10/29/20 09:00 Enoxaparin 40 Mg/0.4 Ml Syringe SUBCUT DAILY [facility] Ferrous Sulfate 325 mg 10/29/20 08:00 Ferrous Sulfate 325 Mg Tab PO BIDMEALS [facility] Fluoxetine HCl 40 mg 10/29/20 21:00 Fluoxetine 10 Mg Cap PO BEDTIME [facility] Glucagon 1 mg 10/28/20 18:17 Glucagon,Human Recombinant 1 Mg Vial IM Q15M PRN Hypoglycemia Hydralazine HCl 10 mg 10/28/20 18:25 Hydralazine 20 Mg/Ml Sdv IVPUSH Q4H PRN Other Hydrochlorothiazide 25 mg 10/29/20 09:00 Hydrochlorothiazide 25 Mg Tab PO DAILY [facility] Insulin Human Lispro 0 unit 10/28/20 21:00 10/28/20 21:54 Insulin Lispro 100 Units/Ml 3 Ml [facility]ial SUBCUT [facility] Protocol Lisinopril 40 mg 10/29/20 21:00 Lisinopril 20 Mg Tab PO BEDTIME [facility] Montelukast Sodium 10 mg 10/29/20 21:00 Montelukast 10 Mg Tab PO BEDTIME [facility] Morphine Sulfate 1 mg 10/28/20 18:14 10/28/20 20:17 Morphine 2 Mg/Ml Syringe IVPUSH 1 mg Q4H PRN Administration Pain (severe 7-10) Non-Formulary Medication 100 mg 10/29/20 09:00 Bupropion PO DAILY [facility] Non-Formulary Medication 20 mcg 10/28/20 22:00 Formoterol [Perforomist] INH BID [facility] Omeprazole 20 mg 10/29/20 21:00 Omeprazole 20 Mg Cap.Cr PO BEDTIME [facility] Ondansetron HCl 4 mg 10/28/20 18:14 Ondansetron 4 Mg/2 Ml Sdv IVPUSH Q4H PRN Nausea/Vomiting Senna/Docusate Sodium 2 tab 10/29/20 09:00 Docusate Sodium/Sennosides 50-8.6 Mg Tab PO BID [facility] Sodium Chloride 10 ml 10/28/20 18:14 Sodium Chloride 0.9% 10 Ml Syringe FLUSH ASDIRECTED PRN Keep Vein Open Tiotropium [place] 18 mcg 10/29/20 09:00 Tiotropium Inhaler 18 Mcg Inhalation Powder Cap Kit Of 5 INH DAILY [facility] Trazodone HCl 150 mg 10/28/20 22:30 10/28/20 22:31 Trazodone 50 Mg Tab PO 150 mg BEDTIME [facility] Administration Discontinued Medications Generic Name Dose Route Start Last Admin Trade Name Karen PRN Reason Stop Dose Admin Hydrocodone Bitart/Acetaminophen 1 tab 10/28/20 15:37 10/28/20 15:49 Acetaminophen/Hydrocodone 325-10 Mg Tab PO 10/28/20 15:38 1 tab ONETIME ONE Administration Trazodone HCl 150 mg 10/29/20 21:00 Trazodone 50 Mg Tab PO BEDTIME [facility] - Re-Assessments/Exams Free Text/Narrative Re-Assessment/Exam: 10/28/[address] Beaulieu, orthopedic surgeon , who states the patient's injury does not require immediate surgical intervention as N/V remain intact, but he would assess her level of swelling should she require transfer for hospitalist service. Case discussed with Dr. Wilson, hospitalist at , who states as the patient is not in need of emergent surgery, he would provide no additional services than our facility for altered mobility and frequent falls. Case discussed with Dr. Do who accepted patient for inpatient admission. Findings of examination, lab work, and conversation with patient who verbalized understanding and agreement with the plan of care. Departure - Departure Time of Disposition: 17:20 Disposition: Admitted As Inpatient 66 Clinical Impression: Frequent falls, Alteration in mobility due to fracture, Morbid obesity Closed left trimalleolar fracture Qualifiers: Encounter type: subsequent encounter Fracture healing: with routine healing Qualified Code(s): S82.852D - Displaced trimalleolar fracture of left lower leg, subsequent encounter for closed fracture with routine healing - Discharge Information Sepsis Event Note (ED) - Evaluation Sepsis Screening Result: No Definite Risk - My Orders Last 24 Hours: My Active Orders 10/28/20 17:09 Admission Diagnosis [ADT] Stat Admission Status [Patient Status] [ADT] Routine - Assessment/Plan Last 24 Hours: My Active Orders 10/28/20 17:09 Admission Diagnosis [ADT] Stat Admission Status [Patient Status] [ADT] Routine
[2020-10-28] MEDS ORDERED: Acetaminophen/HYDROcodone 325-10 MG Tab PO ONE (15:37)
[2020-10-28 16:27] LABS: ANION GAP 14.6 mEq/L (7-13); CHLORIDE,CL 101 mmol/L (98-107); SODIUM,NA 141 mmol/L (136-145)
[2020-10-28] MEDS ORDERED: Acetaminophen 325 MG Tab PO PRN (18:14)
[2020-10-28] MEDS ORDERED: Morphine 2 MG/ML SYRINGE IVPUSH PRN (18:14)
[2020-10-28] MEDS ORDERED: Sodium Chloride 0.9% 10 ML Syringe FLUSH PRN (18:14)
[2020-10-28] MEDS ORDERED: Ondansetron 4 MG/2 ML SDV IVPUSH PRN (18:14)
[2020-10-28] MEDS ORDERED: Glucagon,Human Recombinant 1 MG Vial IM PRN (18:17)
[2020-10-28] MEDS ORDERED: 50% Dextrose in Water 50 ML Syringe IVPUSH PRN (18:17)
--- NOTE | 2020-10-28 18:24 | PCM.HP ---
H&P History of Present Illness - General Date of Service: 10/28/20 Admit Problem/Dx: Admission Diagnosis/Problem Admission Diagnosis/Problem Falls - History of Present Illness Initial Comments - Free Text/Narative: The patient is a 60-year-old female who presents with chief complaint of fall. The patient presented to the emergency department on October 26, 2020 following a fall where she twisted her ankle while putting on her shoe. She was found to have a try malleolar fracture at that time and orthopedic surgery was consulted who recommended splinting and nonweightbearing of the left ankle and they indicated that they would follow-up with the patient on an outpatient basis. On the day of hospitalization, October 28, 2020, the patient comes with recurrent falls although she denies head trauma or loss of consciousness. At the present time she complains of 5 out of 10 left ankle pain. She denies paresthesia or anesthesia of her left lower extremity. The patient denies fever, rigors, nausea, vomiting, cough, wheeze, abdominal pain, diarrhea, myalgia, chest pain, dyspnea. She presents for further evaluation Left Foot Pain Score (Numeric/FACES): 7 - Related Data Allergies/Adverse Reactions: Allergies Allergy/AdvReac Type Severity Reaction Status Date / Time No Known Allergies Allergy Verified 10/28/20 14:37 Home Medications: Home Meds Aspirin 81 mg PO BEDTIME 05/06/13 [History] FLUoxetine [PROzac] 40 mg PO BEDTIME 05/06/13 [History] Multivitamin [Multivitamins] 1 tab PO DAILY 05/06/13 [History] atorvaSTATin [Lipitor] 10 mg PO BEDTIME 05/06/13 [History] buPROPion HCL [Bupropion HCl] 100 mg PO DAILY 05/06/13 [History] traZODone 150 mg PO BEDTIME 05/06/13 [History] Atenolol [Tenormin] 25 mg PO BID 07/10/13 [History] Omeprazole 20 mg PO BEDTIME 07/23/15 [History] Tiotropium [Spiriva HandiHaler] 18 mcg INH DAILY 10/16/15 [History] Lisinopril 40 mg PO BEDTIME 01/13/16 [History] Baclofen 10 mg PO ASDIRECTED PRN 05/31/19 [History] hydroCHLOROthiazide [Hydrochlorothiazide] 25 mg PO DAILY 05/31/19 [History] Past Medical History HEENT History: Reports: Impaired Vision Other HEENT History: wears glasses Cardiovascular History: Reports: High Cholesterol, Hypertension, SOB on Exertion Respiratory History: Reports: Asthma, COPD, SOB Gastrointestinal History: Reports: Cholelithiasis, Diverticulosis, GERD Genitourinary History: Reports: None CRIMINAL JUDGE History: Reports: 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, , Other (See Below) Other OB/BYN History: hysterectomy Musculoskeletal History: Reports: Arthritis, Back Pain, Chronic, Osteoarthritis Neurological History: Reports: None Psychiatric History: Reports: Anxiety, Bipolar Endocrine/Metabolic History: Reports: Diabetes, Type II Other Endocrine/Metabolic History: borderline diabetic Hematologic History: Reports: None Immunologic History: Reports: None Oncologic (Cancer) History: Reports: None Dermatologic History: Reports: None - Infectious Disease History Infectious Disease History: Reports: Mumps - Past Surgical History Head Surgeries/Procedures: Reports: None Cardiovascular Surgical History: Reports: None Respiratory Surgical History: Reports: None GI Surgical History: Reports: Bariatric Procedure, Cholecystectomy Other GI Surgeries/Procedures: had lap band surgery but is no longer present. Female Surgical History: Reports: Hysterectomy Endocrine Surgical History: Reports: None Musculoskeletal Surgical History: Reports: None Oncologic Surgical History: Reports: None Social & Family History - Family History Family Medical History: No Pertinent Family History - Tobacco Use Tobacco Use Status *Q: Never Tobacco User - Caffeine Use Caffeine Use: Reports: Coffee - Recreational Drug Use Recreational Drug Use: No - Living Situation & Occupation Living situation: Reports: , with Family H&P Review of Systems - Review of Systems: Review Of Systems: See Below General: Reports: No Symptoms HEENT: Reports: No Symptoms Pulmonary: Reports: No Symptoms Cardiovascular: Reports: No Symptoms Gastrointestinal: Reports: No Symptoms Genitourinary: Reports: No Symptoms Musculoskeletal: Reports: Leg Pain Skin: Reports: No Symptoms Psychiatric: Reports: No Symptoms Neurological: Reports: No Symptoms Hematologic/Lymphatic: Reports: No Symptoms Immunologic: Reports: No Symptoms Exam - Exam Exam: See Below - Vital Signs Vital Signs: Last Vital Signs Temp 97.7 F 10/28/20 14:42 Pulse 75 10/28/20 14:42 Resp 18 10/28/20 14:42 BP 178/45 H 10/28/20 14:42 Pulse Ox 95 10/28/20 14:42 Weight: 293 lb 14.4 oz - Exam General: Alert, Oriented, 4 HEENT: PERRLA, Hearing Intact, Mucosa Moist & [place], Nares Patent, Normal Nasal Septum, Posterior Pharynx Clear, Conjunctiva Clear, EOMI, EACs Clear, TMs Clear Neck: Supple, Trachea Midline, 2 Lungs: Clear to Auscultation, Normal Respiratory Effort Cardiovascular: Regular Rate, Regular Rhythm GI/Abdominal Exam: Normal Bowel Sounds, Soft, Non-Tender, No Organomegaly, No Distention, No Abnormal Bruit, No Mass, Pelvis Stable Back Exam: Normal Inspection, Full Range of Motion, NT Extremities: Normal Range of Motion, Non-Tender, No Pedal Edema, Normal Capillary Refill, Leg Pain, Other (Left foot/leg is in a splint). No: Normal Inspection Peripheral Pulses: 2+: Carotid (L), Carotid (R), Brachial (L), Brachial (R), Radial (L), Radial (R), Femoral (L), Femoral (R), Popliteal (L), Popliteal (R), Posterior Tibial (L), Posterior Tibial (R), Dorsalis Pedis (L), Dorsalis Pedis (R) Skin: Warm, Dry, Intact Neurological: Cranial Nerves Intact, Reflexes Equal Bilateral Neuro Extensive - Mental Status: Alert, Oriented x3, Normal Mood/Affect, Normal Cognition Neuro Extensive - Motor, Sensory, Reflexes: CN II-XII Intact, Normal Gait, Normal Reflexes DTR: 2+: Bicep (L), Bicep (R), Tricep (L), Tricep (R), Patella (L), Patella (R), Achilles (L), Achilles (R) Psychiatric: Alert, Normal Affect, Normal Mood - Patient Data Lab Results Last 24 hrs: Laboratory Results - last 24 hr 10/28/20 10/28/20 10/28/20 Range/Units 16:00 16:00 16:33 WBC 10.1 H (5.0-10.0) 10^3/uL RBC 4.23 (4.2-5.4) 10^6/uL Hgb 11.7 L (12.0-16.0) g/dL Hct 37.1 (37.0-47.0) % MCV 87.7 (80-100) fL MCH 27.7 (27.0-34.0) pg MCHC 31.5 L (33.0-35.0) g/dL Plt Count 274 (150-450) 10^3/uL Neut % (Auto) 61.0 (42.2-75.2) % Lymph % (Auto) 27.5 (20.5-50.1) % [place] % (Auto) 10.0 H (2-8) % Eos % (Auto) 1.0 (1.0-3.0) % Baso % (Auto) 0.5 (0.0-1.0) % Sodium 141 (136-145) mmol/L Potassium 3.6 (3.5-5.1) mmol/L Chloride 101 (98-107) mmol/L Carbon Dioxide 29 (21-32) mmol/L Anion Gap 14.6 H (7-13) mEq/L BUN 17 (7-18) mg/dL Creatinine 0.83 (0.55-1.02) mg/dL Est Cr Clr Drug Dosing TNP Estimated GFR (MDRD) > 60 BUN/Creatinine Ratio 20.5 (No establ ref range) Glucose 117 H (70-99) mg/dL Calcium 8.5 (8.5-10.1) mg/dL Magnesium 2.2 (1.8-2.4) mg/dL Total Bilirubin 0.2 (0.2-1.0) mg/dL AST 21 (15-37) U/L ALT 40 (14-59) U/L Alkaline Phosphatase 72 (46-116) U/L Troponin I High Sens 14 (<=51) pg/mL Total Protein 7.2 (6.4-8.2) g/dL Albumin 3.1 L (3.4-5.0) g/dL Globulin 4.1 Albumin/Globulin Ratio 0.76 Urine Color Yellow (YELLOW) Urine Appearance Slightly cloudy (CLEAR) Urine pH 6.5 (5.0-9.0) Ur Specific [place] >= 1.030 (1.005-1.030) Urine Protein 30 H (NEGATIVE) Urine Glucose (UA) Negative (NEGATIVE) Urine Ketones Negative (NEGATIVE) Urine Occult Blood Trace-intact H (NEGATIVE) Urine Nitrite Negative (NEGATIVE) Urine Bilirubin Negative (NEGATIVE) Urine Urobilinogen 1.0 (0.2-1.0) mg/dL Ur Leukocyte Esterase Negative (NEGATIVE) Urine RBC 0-5 /HPF Urine WBC 0-5 (0-5/HPF) /HPF Ur Epithelial Cells Many H (NOT SEEN) /HPF Urine Bacteria Moderate H (0-FEW/HPF) /HPF Urine Mucus Few H (NOT SEEN) /LPF SARS-CoV-2 RNA (ALEIDA) (NEGATIVE) 10/28/20 Range/Units 17:04 WBC (5.0-10.0) 10^3/uL RBC (4.2-5.4) 10^6/uL Hgb (12.0-16.0) g/dL Hct (37.0-47.0) % MCV (80-100) fL MCH (27.0-34.0) pg MCHC (33.0-35.0) g/dL Plt Count (150-450) 10^3/uL Neut % (Auto) (42.2-75.2) % Lymph % (Auto) (20.5-50.1) % [place] % (Auto) (2-8) % Eos % (Auto) (1.0-3.0) % Baso % (Auto) (0.0-1.0) % Sodium (136-145) mmol/L Potassium (3.5-5.1) mmol/L Chloride (98-107) mmol/L Carbon Dioxide (21-32) mmol/L Anion Gap (7-13) mEq/L BUN (7-18) mg/dL Creatinine (0.55-1.02) mg/dL Est Cr Clr Drug Dosing Estimated GFR (MDRD) BUN/Creatinine Ratio (No establ ref range) Glucose (70-99) mg/dL Calcium (8.5-10.1) mg/dL Magnesium (1.8-2.4) mg/dL Total Bilirubin (0.2-1.0) mg/dL AST (15-37) U/L ALT (14-59) U/L Alkaline Phosphatase (46-116) U/L Troponin I High Sens (<=51) pg/mL Total Protein (6.4-8.2) g/dL Albumin (3.4-5.0) g/dL Globulin Albumin/Globulin Ratio Urine Color (YELLOW) Urine Appearance (CLEAR) Urine pH (5.0-9.0) Ur Specific [place] (1.005-1.030) Urine Protein (NEGATIVE) Urine Glucose (UA) (NEGATIVE) Urine Ketones (NEGATIVE) Urine Occult Blood (NEGATIVE) Urine Nitrite (NEGATIVE) Urine Bilirubin (NEGATIVE) Urine Urobilinogen (0.2-1.0) mg/dL Ur Leukocyte Esterase (NEGATIVE) Urine RBC /HPF Urine WBC (0-5/HPF) /HPF Ur Epithelial Cells (NOT SEEN) /HPF Urine Bacteria (0-FEW/HPF) /HPF Urine Mucus (NOT SEEN) /LPF SARS-CoV-2 RNA (ALEIDA) Negative (NEGATIVE) Result Diagrams: 10/28/20 16:00 10/28/20 16:00 Problem List Initiated/Reviewed/Updated: Yes Orders Last 24hrs: Active Orders 24 hr Category Date Time Status Admission Diagnosis [ADT] Stat ADT 10/28/20 17:09 Ordered Admission Status [Patient Status] [ADT] Routine ADT 10/28/20 17:09 Active Blood Glucose Check, Bedside [RC] WITHMEALSANDBED Care 10/28/20 18:14 Ordered CPAP Adult [RT BiPAP/CPAP] [RC] ASDIRECTED Care 10/28/20 18:18 Ordered EKG Documentation Completion [RC] STAT Care 10/28/20 15:49 Active Peripheral IV Care [RC] . DIRECTED Care 10/28/20 18:15 Ordered Up With Assistance [RC] ASDIRECTED Care 10/28/20 18:14 Ordered Vital Signs [RC] Q4H Care 10/28/20 18:14 Ordered Consult to Case Management/Skid Adzer [CONS] Cons 10/28/20 18:14 Ordered Routine PT Evaluation and Treatment [CONS] Routine Cons 10/28/20 18:14 Ordered Consistent Carbohydrate Diet [DIET] Diet 10/28/20 Dinner Ordered CBC WITH AUTO DIFF [HEME] Routine Lab 10/29/20 05:00 Ordered FERRITIN [CHEM] Routine Lab 10/28/20 18:17 Ordered IRON/TIBC [CHEM] Routine Lab 10/28/20 18:17 Ordered OCCULT BLOOD DIAGNOSTIC [OP] Routine Lab 10/28/20 18:17 Ordered Acetaminophen [TylenoL] Med 10/28/20 18:14 Ordered 650 mg PO Q4H PRN Acetaminophen/HYDROcodone [[place] 325-5 MG] Med 10/28/20 18:16 Ordered 1 tab PO Q4H PRN Dextrose 50% in Water Med 10/28/20 18:17 Ordered 50 ml IVPUSH Q15M PRN Enoxaparin [Lovenox] Med 10/29/20 09:00 Ordered 40 mg SUBCUT DAILY Glucagon,Human Recombinant [GlucaGen] Med 10/28/20 18:17 Ordered 1 mg IM Q15M PRN Insulin Lispro [HumaLOG] Med 10/28/20 21:00 Ordered See Protocol SUBCUT WITHMEALSANDBED Morphine Med 10/28/20 18:14 Ordered 1 mg IVPUSH Q4H PRN Ondansetron [Zofran] Med 10/28/20 18:14 Ordered 4 mg IVPUSH Q4H PRN Sodium Chloride 0.9% [Saline Flush] Med 10/28/20 18:14 Ordered 10 ml FLUSH ASDIRECTED PRN Peripheral IV Insertion Adult [OM.PC] Routine Oth 10/28/20 18:14 Ordered Saline Lock Insert [OM.PC] Routine Oth 10/28/20 18:14 Ordered Resuscitation Status Routine Resus Stat 10/28/20 18:14 Ordered Medication Orders Acetaminophen (Acetaminophen 325 Mg Tab) 650 mg PO Q4H PRN PRN Reason: Pain (Mild 1-3)/fever Hydrocodone Bitart/Acetaminophen (Acetaminophen/Hydrocodone 325-5 Mg Tab) 1 tab PO Q4H PRN PRN Reason: Pain (moderate 4-6) Dextrose/Water (50% Dextrose In Water 50 Ml Syringe) 50 ml IVPUSH Q15M PRN PRN Reason: Hypoglycemia Enoxaparin Sodium (Enoxaparin 40 Mg/0.4 Ml Syringe) 40 mg SUBCUT DAILY [place] Glucagon (Glucagon,Human Recombinant 1 Mg Vial) 1 mg IM Q15M PRN PRN Reason: Hypoglycemia Insulin Human Lispro (Insulin Lispro 100 Units/Ml 3 Ml Vial) 0 unit SUBCUT WITHMEALSANDBED SANJANA; Protocol Morphine Sulfate (Morphine 2 Mg/Ml Syringe) 1 mg IVPUSH Q4H PRN PRN Reason: Pain (severe 7-10) Ondansetron HCl (Ondansetron 4 Mg/2 Ml Sdv) 4 mg IVPUSH Q4H PRN PRN Reason: Nausea/Vomiting Sodium Chloride (Sodium Chloride 0.9% 10 Ml Syringe) 10 ml FLUSH ASDIRECTED PRN PRN Reason: Keep Vein Open Assessment/Plan Comment:: Surgical History: Cholecystectomy, hysterectomy, bilateral breast reduction, LAP-BAND surgery with subsequent removal Family History: Cancer, stroke, diabetes, coronary artery disease, hypertension, hyperlipidemia Social History: Tobacco: Former smoker Alcohol: Denies Caffeine: Coffee Drugs: Past marijuana use. Denies any other drug use past or present Allergies: No known drug allergies Code Status: Full Assessment / Plan: Status post recent left trimalleolar fracture. As needed analgesia. Physical therapy consult pending. Case management/social work consult pending for placement. The patient will require follow-up with orthopedic surgery on an outpatient basis Muscle spasm Bipolar disorder/anxiety/depression 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, status post hysterectomy Obstructive sleep apnea. CPAP: Okay to use home device and/or pressure when sleeping Anemia. Will monitor hemoglobin levels intermittently. Check serum ferritin, iron panel, fecal occult blood COPD Grade 1 diastolic dysfunction Diabetes. Will check fingerstick glucose before every meal and at bedtime and provide some sign scale GERD Hyperlipidemia Hypertension Obesity. Patient be counseled regarding lifestyle modification Osteoarthritis Chronic pain Insomnia Seasonal allergies Restless leg syndrome Overactive bladder Hepatic steatosis DVT prophylaxis. Lovenox 40 mg subcutaneously daily Disposition: Anticipate discharge within 48 hours. The patient may require placement. At the time of admission, the patient's home occasions were pending input to the EMR/DHR system. Once they are input, they will be reviewed and reconciled END OF DOCTOR EMAMIS HISTORY AND PHYSICAL / CONSULTATION NOTE
[2020-10-28] MEDS ORDERED: hydrALAZINE 20 MG/ML SDV IVPUSH PRN (18:25)
[2020-10-28] MEDS ORDERED: Baclofen 10 MG Tab PO PRN (21:52)
[2020-10-28] MEDS: Insulin Lispro 100 Units/ML 3 ML Vial SUBCUT SCH (21:54)
[2020-10-28] MEDS ORDERED: Non-Formulary Medication 1 Each (Formoterol [Perforomist] 20 MCG/2 ML Neb) INH SCH (22:00)
[2020-10-28] MEDS ORDERED: Albuterol 6.7 GM Inhaler INH PRN (22:19)
[2020-10-28] MEDS ORDERED: traZODone 50 MG Tab PO SCH (22:30)
[2020-10-28] MEDS: Acetaminophen/HYDROcodone 325-5 MG Tab PO PRN (22:31)
[2020-10-28] MEDS: Budesonide 0.5 MG/2 ML Neb Susp INH SCH (22:35)
--- NOTE | 2020-10-29 07:28 | PCM.PN ---
- General Info Date of Service: 10/29/20 Subjective Update: The patient states that she has left ankle pain currently rating 6 out of 10. Overnight she had states that she had back pain. Overnight she denies fever, rigors, nausea, vomiting, cough, wheeze, abdominal pain, dyspnea, or any other constitutional complaints. I explained to the patient her current medical condition and plan of care and I answered all of her questions - Review of Systems General: Reports: No Symptoms HEENT: Reports: No Symptoms Pulmonary: Reports: No Symptoms Cardiovascular: Reports: No Symptoms Gastrointestinal: Reports: No Symptoms Genitourinary: Reports: No Symptoms Musculoskeletal: Reports: Leg Pain Skin: Reports: No Symptoms Neurological: Reports: No Symptoms Psychiatric: Reports: No Symptoms - Patient Data Vitals - Most Recent: Last Vital Signs Temp 98.1 F 10/29/20 04:00 Pulse 65 10/29/20 04:00 Resp 18 10/29/20 04:00 BP 148/56 H 10/29/20 04:00 Pulse Ox 91 L 10/29/20 04:00 Weight - Most Recent: 295 lb 6.4 oz I&O - Last 24 Hours: Intake & Output 10/28/20 10/29/20 10/29/20 22:59 06:59 14:59 Intake Total 400 Balance 400 Lab Results Last 24 Hours: Laboratory Results - last 24 hr 10/28/20 10/28/20 10/28/20 Range/Units 16:00 16:00 16:00 WBC 10.1 H (5.0-10.0) 10^3/uL RBC 4.23 (4.2-5.4) 10^6/uL Hgb 11.7 L (12.0-16.0) g/dL Hct 37.1 (37.0-47.0) % MCV 87.7 (80-100) fL MCH 27.7 (27.0-34.0) pg MCHC 31.5 L (33.0-35.0) g/dL Plt Count 274 (150-450) 10^3/uL Neut % (Auto) 61.0 (42.2-75.2) % Lymph % (Auto) 27.5 (20.5-50.1) % [place] % (Auto) 10.0 H (2-8) % Eos % (Auto) 1.0 (1.0-3.0) % Baso % (Auto) 0.5 (0.0-1.0) % Sodium 141 (136-145) mmol/L Potassium 3.6 (3.5-5.1) mmol/L Chloride 101 (98-107) mmol/L Carbon Dioxide 29 (21-32) mmol/L Anion Gap 14.6 H (7-13) mEq/L BUN 17 (7-18) mg/dL Creatinine 0.83 (0.55-1.02) mg/dL Est Cr Clr Drug Dosing TNP Estimated GFR (MDRD) > 60 BUN/Creatinine Ratio 20.5 (No establ ref range) Glucose 117 H (70-99) mg/dL POC Glucose (70-99) mg/dL Calcium 8.5 (8.5-10.1) mg/dL Magnesium 2.2 (1.8-2.4) mg/dL Iron 24 L (50-175) ug/dL TIBC 318 (250-450) ug/dL % Saturation 7.5 L (20.0-50.0) % Ferritin 69 (8-252) mg/mL Total Bilirubin 0.2 (0.2-1.0) mg/dL AST 21 (15-37) U/L ALT 40 (14-59) U/L Alkaline Phosphatase 72 (46-116) U/L Troponin I High Sens 14 (<=51) pg/mL Total Protein 7.2 (6.4-8.2) g/dL Albumin 3.1 L (3.4-5.0) g/dL Globulin 4.1 Albumin/Globulin Ratio 0.76 Urine Color (YELLOW) Urine Appearance (CLEAR) Urine pH (5.0-9.0) Ur Specific [place] (1.005-1.030) Urine Protein (NEGATIVE) Urine Glucose (UA) (NEGATIVE) Urine Ketones (NEGATIVE) Urine Occult Blood (NEGATIVE) Urine Nitrite (NEGATIVE) Urine Bilirubin (NEGATIVE) Urine Urobilinogen (0.2-1.0) mg/dL Ur Leukocyte Esterase (NEGATIVE) Urine RBC /HPF Urine WBC (0-5/HPF) /HPF Ur Epithelial Cells (NOT SEEN) /HPF Urine Bacteria (0-FEW/HPF) /HPF Urine Mucus (NOT SEEN) /LPF SARS-CoV-2 RNA (ALEIDA) (NEGATIVE) 10/28/20 10/28/20 10/28/20 Range/Units 16:33 17:04 21:49 WBC (5.0-10.0) 10^3/uL RBC (4.2-5.4) 10^6/uL Hgb (12.0-16.0) g/dL Hct (37.0-47.0) % MCV (80-100) fL MCH (27.0-34.0) pg MCHC (33.0-35.0) g/dL Plt Count (150-450) 10^3/uL Neut % (Auto) (42.2-75.2) % Lymph % (Auto) (20.5-50.1) % [place] % (Auto) (2-8) % Eos % (Auto) (1.0-3.0) % Baso % (Auto) (0.0-1.0) % Sodium (136-145) mmol/L Potassium (3.5-5.1) mmol/L Chloride (98-107) mmol/L Carbon Dioxide (21-32) mmol/L Anion Gap (7-13) mEq/L BUN (7-18) mg/dL Creatinine (0.55-1.02) mg/dL Est Cr Clr Drug Dosing Estimated GFR (MDRD) BUN/Creatinine Ratio (No establ ref range) Glucose (70-99) mg/dL POC Glucose 160 H (70-99) mg/dL Calcium (8.5-10.1) mg/dL Magnesium (1.8-2.4) mg/dL Iron (50-175) ug/dL TIBC (250-450) ug/dL % Saturation (20.0-50.0) % Ferritin (8-252) mg/mL Total Bilirubin (0.2-1.0) mg/dL AST (15-37) U/L ALT (14-59) U/L Alkaline Phosphatase (46-116) U/L Troponin I High Sens (<=51) pg/mL Total Protein (6.4-8.2) g/dL Albumin (3.4-5.0) g/dL Globulin Albumin/Globulin Ratio Urine Color Yellow (YELLOW) Urine Appearance Slightly cloudy (CLEAR) Urine pH 6.5 (5.0-9.0) Ur Specific [place] >= 1.030 (1.005-1.030) Urine Protein 30 H (NEGATIVE) Urine Glucose (UA) Negative (NEGATIVE) Urine Ketones Negative (NEGATIVE) Urine Occult Blood Trace-intact H (NEGATIVE) Urine Nitrite Negative (NEGATIVE) Urine Bilirubin Negative (NEGATIVE) Urine Urobilinogen 1.0 (0.2-1.0) mg/dL Ur Leukocyte Esterase Negative (NEGATIVE) Urine RBC 0-5 /HPF Urine WBC 0-5 (0-5/HPF) /HPF Ur Epithelial Cells Many H (NOT SEEN) /HPF Urine Bacteria Moderate H (0-FEW/HPF) /HPF Urine Mucus Few H (NOT SEEN) /LPF SARS-CoV-2 RNA (ALEIDA) Negative (NEGATIVE) 10/29/20 Range/Units 05:45 WBC 7.8 (5.0-10.0) 10^3/uL RBC 3.96 L (4.2-5.4) 10^6/uL Hgb 11.0 L (12.0-16.0) g/dL Hct 34.9 L (37.0-47.0) % MCV 88.1 (80-100) fL MCH 27.8 (27.0-34.0) pg MCHC 31.5 L (33.0-35.0) g/dL Plt Count 274 (150-450) 10^3/uL Neut % (Auto) 52.4 (42.2-75.2) % Lymph % (Auto) 33.8 (20.5-50.1) % [place] % (Auto) 11.5 H (2-8) % Eos % (Auto) 1.5 (1.0-3.0) % Baso % (Auto) 0.8 (0.0-1.0) % Sodium (136-145) mmol/L Potassium (3.5-5.1) mmol/L Chloride (98-107) mmol/L Carbon Dioxide (21-32) mmol/L Anion Gap (7-13) mEq/L BUN (7-18) mg/dL Creatinine (0.55-1.02) mg/dL Est Cr Clr Drug Dosing Estimated GFR (MDRD) BUN/Creatinine Ratio (No establ ref range) Glucose (70-99) mg/dL POC Glucose (70-99) mg/dL Calcium (8.5-10.1) mg/dL Magnesium (1.8-2.4) mg/dL Iron (50-175) ug/dL TIBC (250-450) ug/dL % Saturation (20.0-50.0) % Ferritin (8-252) mg/mL Total Bilirubin (0.2-1.0) mg/dL AST (15-37) U/L ALT (14-59) U/L Alkaline Phosphatase (46-116) U/L Troponin I High Sens (<=51) pg/mL Total Protein (6.4-8.2) g/dL Albumin (3.4-5.0) g/dL Globulin Albumin/Globulin Ratio Urine Color (YELLOW) Urine Appearance (CLEAR) Urine pH (5.0-9.0) Ur Specific [place] (1.005-1.030) Urine Protein (NEGATIVE) Urine Glucose (UA) (NEGATIVE) Urine Ketones (NEGATIVE) Urine Occult Blood (NEGATIVE) Urine Nitrite (NEGATIVE) Urine Bilirubin (NEGATIVE) Urine Urobilinogen (0.2-1.0) mg/dL Ur Leukocyte Esterase (NEGATIVE) Urine RBC /HPF Urine WBC (0-5/HPF) /HPF Ur Epithelial Cells (NOT SEEN) /HPF Urine Bacteria (0-FEW/HPF) /HPF Urine Mucus (NOT SEEN) /LPF SARS-CoV-2 RNA (ALEIDA) (NEGATIVE) Med Orders - Current: Current Medications Acetaminophen (Acetaminophen 325 Mg Tab) 650 mg PO Q4H PRN PRN Reason: Pain (Mild 1-3)/fever Hydrocodone Bitart/Acetaminophen (Acetaminophen/Hydrocodone 325-5 Mg Tab) 1 tab PO Q4H PRN PRN Reason: Pain (moderate 4-6) Last Admin: 10/28/20 22:31 Dose: 1 tab Documented by: Albuterol (Albuterol 6.7 Gm Inhaler) 0 gm INH Q4H PRN PRN Reason: Shortness Of Breath/Wheeze Last Admin: 10/28/20 22:35 Dose: 2 puff Documented by: Ascorbic Acid (Ascorbic Acid 500 Mg Tab) 500 mg PO DAILY [facility] Aspirin (Aspirin 81 Mg Tab.Chew) 81 mg PO BEDTIME [facility] Atenolol (Atenolol 25 Mg Tab) 25 mg PO BID [facility] Atorvastatin Calcium (Atorvastatin 10 Mg Tab) 10 mg PO BEDTIME [facility] Baclofen (Baclofen 10 Mg Tab) 10 mg PO Q6H PRN PRN Reason: Spasms Last Admin: 10/28/20 22:31 Dose: 10 mg Documented by: Budesonide (Budesonide 0.5 Mg/2 Ml Neb Susp) 0.5 mg INH BIDRT [facility] Last Admin: 10/28/20 22:35 Dose: 0.5 mg Documented by: Cholecalciferol (Cholecalciferol (Vitamin D3) 25 Mcg Tab) 25 mcg PO DAILY [facility] Dextrose/Water (50% Dextrose In Water 50 Ml Syringe) 50 ml IVPUSH Q15M PRN PRN Reason: Hypoglycemia Enoxaparin Sodium (Enoxaparin 40 Mg/0.4 Ml Syringe) 40 mg SUBCUT DAILY [facility] Ferrous Sulfate (Ferrous Sulfate 325 Mg Tab) 325 mg PO BIDMEALS [facility] Fluoxetine HCl (Fluoxetine 10 Mg Cap) 40 mg PO BEDTIME [facility] Glucagon (Glucagon,Human Recombinant 1 Mg Vial) 1 mg IM Q15M PRN PRN Reason: Hypoglycemia Hydralazine HCl (Hydralazine 20 Mg/Ml Sdv) 10 mg IVPUSH Q4H PRN PRN Reason: Other Hydrochlorothiazide (Hydrochlorothiazide 25 Mg Tab) 25 mg PO DAILY [facility] Insulin Human Lispro (Insulin Lispro 100 Units/Ml 3 Ml Vial) 0 unit SUBCUT WITHMEALSANDBED [facility]; Protocol Last Admin: 10/28/20 21:54 Dose: Not Given Documented by: Lisinopril (Lisinopril 20 Mg Tab) 40 mg PO BEDTIME [facility] Montelukast Sodium (Montelukast 10 Mg Tab) 10 mg PO BEDTIME [facility] Morphine Sulfate (Morphine 2 Mg/Ml Syringe) 1 mg IVPUSH Q4H PRN PRN Reason: Pain (severe 7-10) Last Admin: 10/28/20 20:17 Dose: 1 mg Documented by: Non-Formulary Medication (Bupropion) 100 mg PO DAILY [facility] Non-Formulary Medication (Formoterol [Perforomist]) 20 mcg INH BID [facility] Omeprazole (Omeprazole 20 Mg Cap.Cr) 20 mg PO BEDTIME [facility] Ondansetron HCl (Ondansetron 4 Mg/2 Ml Sdv) 4 mg IVPUSH Q4H PRN PRN Reason: Nausea/Vomiting Senna/Docusate Sodium (Docusate Sodium/Sennosides 50-8.6 Mg Tab) 2 tab PO BID [facility] Sodium Chloride (Sodium Chloride 0.9% 10 Ml Syringe) 10 ml FLUSH ASDIRECTED PRN PRN Reason: Keep Vein Open Tiotropium [place] (Tiotropium Inhaler 18 Mcg Inhalation Powder Cap Kit Of 5) 18 mcg INH DAILY [facility] Trazodone HCl (Trazodone 50 Mg Tab) 150 mg PO BEDTIME [facility] Last Admin: 10/28/20 22:31 Dose: 150 mg Documented by: Discontinued Medications Hydrocodone Bitart/Acetaminophen (Acetaminophen/Hydrocodone 325-10 Mg Tab) 1 tab PO ONETIME ONE Stop: 10/28/20 15:38 Last Admin: 10/28/20 15:49 Dose: 1 tab Documented by: Trazodone HCl (Trazodone 50 Mg Tab) 150 mg PO BEDTIME [facility] - Exam General: Alert, Oriented HEENT: Pupils Equal, Pupils Reactive, EOMI, Mucous Membr. Moist/[place] Neck: Supple Lungs: Clear to Auscultation, Normal Respiratory Effort Cardiovascular: Regular Rate, Regular Rhythm GI/Abdominal Exam: Normal Bowel Sounds, Soft, Non-Tender, No Organomegaly, No Distention, No Abnormal Bruit, No Mass, Pelvis Stable Back Exam: Normal Inspection, Full Range of Motion Extremities: Leg Pain Peripheral Pulses: 2+: Carotid (L), Carotid (R), Brachial (L), Brachial (R), Radial (L), Radial (R), Femoral (L), Femoral (R), Popliteal (L), Popliteal (R), Posterior Tibial (L), Posterior Tibial (R), Dorsalis Pedis (L), Dorsalis Pedis (R) Skin: Warm, Dry, Intact Wound/Incisions: Healing Well Neurological: No New Focal Deficit Psy/Mental Status: Alert, Normal Affect, Normal Mood - Patient Data Lab Results Last 24 hrs: Laboratory Results - last 24 hr 10/28/20 10/28/20 10/28/20 Range/Units 16:00 16:00 16:00 WBC 10.1 H (5.0-10.0) 10^3/uL RBC 4.23 (4.2-5.4) 10^6/uL Hgb 11.7 L (12.0-16.0) g/dL Hct 37.1 (37.0-47.0) % MCV 87.7 (80-100) fL MCH 27.7 (27.0-34.0) pg MCHC 31.5 L (33.0-35.0) g/dL Plt Count 274 (150-450) 10^3/uL Neut % (Auto) 61.0 (42.2-75.2) % Lymph % (Auto) 27.5 (20.5-50.1) % [place]a % (Auto) 10.0 H (2-8) % Eos % (Auto) 1.0 (1.0-3.0) % Baso % (Auto) 0.5 (0.0-1.0) % Sodium 141 (136-145) mmol/L Potassium 3.6 (3.5-5.1) mmol/L Chloride 101 (98-107) mmol/L Carbon Dioxide 29 (21-32) mmol/L Anion Gap 14.6 H (7-13) mEq/L BUN 17 (7-18) mg/dL Creatinine 0.83 (0.55-1.02) mg/dL Est Cr Clr Drug Dosing TNP Estimated GFR (MDRD) > 60 BUN/Creatinine Ratio 20.5 (No establ ref range) Glucose 117 H (70-99) mg/dL POC Glucose (70-99) mg/dL Calcium 8.5 (8.5-10.1) mg/dL Magnesium 2.2 (1.8-2.4) mg/dL Iron 24 L (50-175) ug/dL TIBC 318 (250-450) ug/dL % Saturation 7.5 L (20.0-50.0) % Ferritin 69 (8-252) mg/mL Total Bilirubin 0.2 (0.2-1.0) mg/dL AST 21 (15-37) U/L ALT 40 (14-59) U/L Alkaline Phosphatase 72 (46-116) U/L Troponin I High Sens 14 (<=51) pg/mL Total Protein 7.2 (6.4-8.2) g/dL Albumin 3.1 L (3.4-5.0) g/dL Globulin 4.1 Albumin/Globulin Ratio 0.76 Urine Color (YELLOW) Urine Appearance (CLEAR) Urine pH (5.0-9.0) Ur Specific [place] (1.005-1.030) Urine Protein (NEGATIVE) Urine Glucose (UA) (NEGATIVE) Urine Ketones (NEGATIVE) Urine Occult Blood (NEGATIVE) Urine Nitrite (NEGATIVE) Urine Bilirubin (NEGATIVE) Urine Urobilinogen (0.2-1.0) mg/dL Ur Leukocyte Esterase (NEGATIVE) Urine RBC /HPF Urine WBC (0-5/HPF) /HPF Ur Epithelial Cells (NOT SEEN) /HPF Urine Bacteria (0-FEW/HPF) /HPF Urine Mucus (NOT SEEN) /LPF SARS-CoV-2 RNA (ALEIDA) (NEGATIVE) 10/28/20 10/28/20 10/28/20 Range/Units 16:33 17:04 21:49 WBC (5.0-10.0) 10^3/uL RBC (4.2-5.4) 10^6/uL Hgb (12.0-16.0) g/dL Hct (37.0-47.0) % MCV (80-100) fL MCH (27.0-34.0) pg MCHC (33.0-35.0) g/dL Plt Count (150-450) 10^3/uL Neut % (Auto) (42.2-75.2) % Lymph % (Auto) (20.5-50.1) % [place] % (Auto) (2-8) % Eos % (Auto) (1.0-3.0) % Baso % (Auto) (0.0-1.0) % Sodium (136-145) mmol/L Potassium (3.5-5.1) mmol/L Chloride (98-107) mmol/L Carbon Dioxide (21-32) mmol/L Anion Gap (7-13) mEq/L BUN (7-18) mg/dL Creatinine (0.55-1.02) mg/dL Est Cr Clr Drug Dosing Estimated GFR (MDRD) BUN/Creatinine Ratio (No establ ref range) Glucose (70-99) mg/dL POC Glucose 160 H (70-99) mg/dL Calcium (8.5-10.1) mg/dL Magnesium (1.8-2.4) mg/dL Iron (50-175) ug/dL TIBC (250-450) ug/dL % Saturation (20.0-50.0) % Ferritin (8-252) mg/mL Total Bilirubin (0.2-1.0) mg/dL AST (15-37) U/L ALT (14-59) U/L Alkaline Phosphatase (46-116) U/L Troponin I High Sens (<=51) pg/mL Total Protein (6.4-8.2) g/dL Albumin (3.4-5.0) g/dL Globulin Albumin/Globulin Ratio Urine Color Yellow (YELLOW) Urine Appearance Slightly cloudy (CLEAR) Urine pH 6.5 (5.0-9.0) Ur Specific [place] >= 1.030 (1.005-1.030) Urine Protein 30 H (NEGATIVE) Urine Glucose (UA) Negative (NEGATIVE) Urine Ketones Negative (NEGATIVE) Urine Occult Blood Trace-intact H (NEGATIVE) Urine Nitrite Negative (NEGATIVE) Urine Bilirubin Negative (NEGATIVE) Urine Urobilinogen 1.0 (0.2-1.0) mg/dL Ur Leukocyte Esterase Negative (NEGATIVE) Urine RBC 0-5 /HPF Urine WBC 0-5 (0-5/HPF) /HPF Ur Epithelial Cells Many H (NOT SEEN) /HPF Urine Bacteria Moderate H (0-FEW/HPF) /HPF Urine Mucus Few H (NOT SEEN) /LPF SARS-CoV-2 RNA (ALEIDA) Negative (NEGATIVE) 10/29/20 Range/Units 05:45 WBC 7.8 (5.0-10.0) 10^3/uL RBC 3.96 L (4.2-5.4) 10^6/uL Hgb 11.0 L (12.0-16.0) g/dL Hct 34.9 L (37.0-47.0) % MCV 88.1 (80-100) fL MCH 27.8 (27.0-34.0) pg MCHC 31.5 L (33.0-35.0) g/dL Plt Count 274 (150-450) 10^3/uL Neut % (Auto) 52.4 (42.2-75.2) % Lymph % (Auto) 33.8 (20.5-50.1) % [place] % (Auto) 11.5 H (2-8) % Eos % (Auto) 1.5 (1.0-3.0) % Baso % (Auto) 0.8 (0.0-1.0) % Sodium (136-145) mmol/L Potassium (3.5-5.1) mmol/L Chloride (98-107) mmol/L Carbon Dioxide (21-32) mmol/L Anion Gap (7-13) mEq/L BUN (7-18) mg/dL Creatinine (0.55-1.02) mg/dL Est Cr Clr Drug Dosing Estimated GFR (MDRD) BUN/Creatinine Ratio (No establ ref range) Glucose (70-99) mg/dL POC Glucose (70-99) mg/dL Calcium (8.5-10.1) mg/dL Magnesium (1.8-2.4) mg/dL Iron (50-175) ug/dL TIBC (250-450) ug/dL % Saturation (20.0-50.0) % Ferritin (8-252) mg/mL Total Bilirubin (0.2-1.0) mg/dL AST (15-37) U/L ALT (14-59) U/L Alkaline Phosphatase (46-116) U/L Troponin I High Sens (<=51) pg/mL Total Protein (6.4-8.2) g/dL Albumin (3.4-5.0) g/dL Globulin Albumin/Globulin Ratio Urine Color (YELLOW) Urine Appearance (CLEAR) Urine pH (5.0-9.0) Ur Specific [place] (1.005-1.030) Urine Protein (NEGATIVE) Urine Glucose (UA) (NEGATIVE) Urine Ketones (NEGATIVE) Urine Occult Blood (NEGATIVE) Urine Nitrite (NEGATIVE) Urine Bilirubin (NEGATIVE) Urine Urobilinogen (0.2-1.0) mg/dL Ur Leukocyte Esterase (NEGATIVE) Urine RBC /HPF Urine WBC (0-5/HPF) /HPF Ur Epithelial Cells (NOT SEEN) /HPF Urine Bacteria (0-FEW/HPF) /HPF Urine Mucus (NOT SEEN) /LPF SARS-CoV-2 RNA (ALEIDA) (NEGATIVE) Result Diagrams: 10/29/20 05:45 10/28/20 16:00 Sepsis Event Note - Evaluation Sepsis Screening Result: No Definite Risk - Focused Exam Vital Signs: Vital Signs Temp Pulse Resp BP BP Pulse Ox 10/29/20 04:00 98.1 F 65 18 148/56 H 91 L 10/28/20 23:00 98.0 F 71 20 143/52 H 97 - Problem List Review Problem List Initiated/Reviewed/Updated: Yes - My Orders Last 24 Hours: My Active Orders 10/28/20 Dinner Consistent Carbohydrate Diet [DIET] 10/28/20 18:14 Blood Glucose Check, Bedside [RC] WITHMEALSANDBED Up With Assistance [RC] ASDIRECTED Vital Signs [RC] Q4H Consult to Case Management/District Operations Manager [CONS] Routine PT Evaluation and Treatment [CONS] Routine Acetaminophen [TylenoL] 650 mg PO Q4H PRN Morphine 1 mg IVPUSH Q4H PRN Ondansetron [Zofran] 4 mg IVPUSH Q4H PRN Sodium Chloride 0.9% [Saline Flush] 10 ml FLUSH ASDIRECTED PRN Peripheral IV Insertion Adult [OM.PC] Routine Saline Lock Insert [OM.PC] Routine Resuscitation Status Routine 10/28/20 18:15 Peripheral IV Care [RC] . DIRECTED 10/28/20 18:16 Acetaminophen/HYDROcodone [[place] 325-5 MG] 1 tab PO Q4H PRN 10/28/20 18:17 OCCULT BLOOD DIAGNOSTIC [OP] Routine Dextrose 50% in Water 50 ml IVPUSH Q15M PRN Glucagon,Human Recombinant [GlucaGen] 1 mg IM Q15M PRN 10/28/20 18:18 CPAP Adult [RT BiPAP/CPAP] [RC] ASDIRECTED 10/28/20 18:25 hydrALAZINE [Apresoline] 10 mg IVPUSH Q4H PRN 10/28/20 21:00 Insulin Lispro [HumaLOG] See Protocol SUBCUT WITHMEALSANDBED 10/28/20 21:52 Baclofen [Lioresal] 10 mg PO Q6H PRN 10/28/20 21:55 RT Aerosol Therapy [RC] ASDIRECTED RT Post Treatment Assessment [RC] Click to Edit RT Pre-Treatment Assessment [RC] Click to Edit 10/28/20 22:00 Budesonide [Pulmicort] 0.5 mg INH BIDRT Formoterol [Perforomist] 20 mcg INH BID 10/28/20 22:19 Albuterol [Proventil HFA] 0 gm INH Q4H PRN 10/28/20 22:30 traZODone 150 mg PO BEDTIME 10/29/20 08:00 Ferrous Sulfate 325 mg PO BIDMEALS 10/29/20 09:00 Ascorbic Acid [Vitamin C] 500 mg PO DAILY Cholecalciferol (Vitamin D3) [Vitamin D3] 25 mcg PO DAILY Docusate Sodium/Sennosides [Senna Plus] 2 tab PO BID Enoxaparin [Lovenox] 40 mg SUBCUT DAILY Tiotropium [Spiriva HandiHaler] 18 mcg INH DAILY atenoloL [Tenormin] 25 mg PO BID buPROPion 100 mg PO DAILY hydroCHLOROthiazide 25 mg PO DAILY 10/29/20 21:00 Aspirin 81 mg PO BEDTIME FLUoxetine [PROzac] 40 mg PO BEDTIME Montelukast [Singulair] 10 mg PO BEDTIME Omeprazole 20 mg PO BEDTIME atorvaSTATin [Lipitor] 10 mg PO BEDTIME lisinopriL [Prinivil] 40 mg PO BEDTIME 10/30/20 05:00 HGB [HEMOGLOBIN] [HEME] Routine - Plan Plan:: Surgical History: Cholecystectomy, hysterectomy, bilateral breast reduction, LAP-BAND surgery with subsequent removal Family History: Cancer, stroke, diabetes, coronary artery disease, hypertension, hyperlipidemia Social History: Tobacco: Former smoker Alcohol: Denies Caffeine: Coffee Drugs: Past marijuana use. Denies any other drug use past or present Allergies: No known drug allergies Code Status: Full Assessment / Plan: Status post recent left trimalleolar fracture. As needed analgesia. Physical therapy consult pending. Case management/social work consult pending for placement. The patient will require follow-up with orthopedic surgery on an outpatient basis Muscle spasm Bipolar disorder/anxiety/depression. Bupropion 100 mg p.o. daily plus Prozac 40 mg p.o. nightly plus trazodone 150 mg p.o. nightly 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, status post hysterectomy Obstructive sleep apnea. CPAP: Okay to use home device and/or pressure when sleeping Iron deficiency anemia. Will monitor hemoglobin levels intermittently. Fecal occult blood pending. Ferrous sulfate 325 mg p.o. twice daily plus vitamin C 500 mg p.o. daily COPD. Budesonide 0.5 mg inhaled twice daily plus Singulair 10 mg p.o. nightly plus Spiriva 18 mcg inhaled daily Grade 1 diastolic dysfunction Diabetes. Will check fingerstick glucose before every meal and at bedtime and provide some sign scale GERD. Prilosec 20 mg p.o. nightly Hyperlipidemia. Lipitor 10 mg p.o. nightly Hypertension. Atenolol 25 mg p.o. twice daily plus hydrochlorothiazide 25 mg p.o. daily plus lisinopril 40 mg p.o. nightly Obesity. Patient be counseled regarding lifestyle modification Osteoarthritis Chronic pain Insomnia Seasonal allergies Restless leg syndrome Overactive bladder Hepatic steatosis Diverticulosis GI prophylaxis. Senna plus: 2 tabs p.o. twice daily DVT prophylaxis. Lovenox 40 mg subcutaneously daily Disposition: Anticipate discharge within 48 hours. The patient may require placement. END OF DOCTOR EMAMIS HISTORY AND PHYSICAL / CONSULTATION NOTE
[2020-10-29] MEDS: Budesonide 0.5 MG/2 ML Neb Susp INH SCH (07:37)
[2020-10-29] MEDS: Acetaminophen/HYDROcodone 325-5 MG Tab PO PRN (07:53)
[2020-10-29] MEDS ORDERED: Ferrous Sulfate 325 MG Tab PO SCH (08:00)
[2020-10-29] MEDS ORDERED: Ascorbic Acid 500 MG Tab PO SCH (09:00)
[2020-10-29] MEDS ORDERED: Hydrochlorothiazide 25 MG Tab PO SCH (09:00)
[2020-10-29] MEDS ORDERED: BUPROPION 100 MG PO SCH (09:00)
[2020-10-29] MEDS ORDERED: Cholecalciferol (Vitamin D3) 25 MCG Tab PO SCH (09:00)
[2020-10-29] MEDS ORDERED: Enoxaparin 40 MG/0.4 ML Syringe SUBCUT SCH (09:00)
[2020-10-29] MEDS ORDERED: Atenolol 25 MG Tab PO SCH (09:00)
[2020-10-29] MEDS ORDERED: Tiotropium Inhaler 18 MCG Inhalation Powder Cap Kit of 5 INH SCH (09:00)
--- NOTE | 2020-10-29 09:15 | PCM.DCSUM1 ---
Discharge Summary - Hospital Course Free Text/Narrative:: START OF DOCTOR EMAMIS DISCHARGE SUMMARY Date of Admission: October 28, 2020 Date of transfer: 9:11 AM on October 29, 2020 Primary Diagnosis: Status post recent left trimalleolar fracture Secondary Diagnosis: Muscle spasm Bipolar disorder/anxiety/depression 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, status post hysterectomy Obstructive sleep apnea for which patient uses CPAP however she is on certain of the pressure Iron deficiency anemia COPD Grade 1 diastolic dysfunction Diabetes GERD Hyperlipidemia Hypertension Obesity Osteoarthritis Chronic pain Insomnia Seasonal allergies Restless leg syndrome Overactive bladder Hepatic steatosis Diverticulosis Consultations: None Condition on transfer: Fair Disposition: The patient be transferred to [facility] where she will be under the care of Dr. Shin, Hospitalist. The patient will be evaluated by Dr. Ji and I believe the patient is tentatively scheduled to go to the operating room on October 30, 2020 for her left trimalleolar fracture Discharge Medications: Aspirin 81 mg p.o. daily Vitamin C 500 mg p.o. daily Tylenol 650 mg p.o. every 4 hours as needed mild pain Budesonide 0.5 mg inhaled twice daily Baclofen 10 mg p.o. every 6 hours as needed muscle spasm Lipitor 10 mg p.o. nightly Atenolol 25 mg p.o. twice daily Trazodone 150 mg p.o. nightly Spiriva 18 mcg inhaled daily Prilosec 20 mg p.o. nightly Morphine 1 mg IV every 4 hours as needed moderate to severe pain Singular 10 mg p.o. nightly Lisinopril 40 mg p.o. daily Insulin lispro subcutaneously before every meal and at bedtime per sliding scale Hydrochlorothiazide 25 mg p.o. daily Perform wrist 20 mcg inhaled twice daily Prozac 40 mg p.o. nightly Ferrous sulfate 325 mg p.o. twice daily Lovenox 40 mg subcutaneously daily for DVT prophylaxis Senna plus: 2 tabs p.o. twice daily for GI prophylaxis Vitamin D 25 mcg p.o. daily Bupropion 100 mg p.o. daily END OF DOCTOR EMAMIS DISCHARGE SUMMARY - Discharge Data Discharge Date: 10/29/20 Discharge Disposition: DC/Tfer to Acute Hospital 02 Condition: Fair - Referral to Home Health Primary Care Physician: PCP None - Patient Summary/Data Consults: Consultations 10/28/20 18:14 Consult to Case Management/Motion Graphics Artist [CONS] Routine PT Evaluation and Treatment [CONS] Routine 10/29/20 08:48 OT Evaluation and Treatment [CONS] Routine - Patient Instructions Diet: Heart Healthy Diet, Low Sodium, Diabetic Diet Activity: Bedrest - Discharge Plan Home Medications: Home Meds FLUoxetine [PROzac] 40 mg PO BEDTIME 05/06/13 [History] atorvaSTATin [Lipitor] 10 mg PO BEDTIME 05/06/13 [History] buPROPion HCL [Bupropion HCl] 100 mg PO DAILY 05/06/13 [History] traZODone 150 mg PO BEDTIME 05/06/13 [History] Omeprazole 20 mg PO BEDTIME 07/23/15 [History] Tiotropium [Spiriva HandiHaler] 18 mcg INH DAILY 10/16/15 [History] Lisinopril 40 mg PO BEDTIME 01/13/16 [History] Baclofen 10 mg PO Q6H PRN 05/31/19 [History] hydroCHLOROthiazide [Hydrochlorothiazide] 25 mg PO DAILY 05/31/19 [History] Budesonide [Pulmicort] 0.5 mg IH BID 10/28/20 [History] Formoterol [Perforomist] 20 mcg INH BID 10/28/20 [History] Montelukast [Singulair] 10 mg PO BEDTIME 10/28/20 [History] atenoloL [Atenolol] 25 mg PO BID 10/28/20 [History] Acetaminophen [Tylenol] 650 mg PO Q4H PRN tablet 10/29/20 [Rx] Ascorbic Acid [Vitamin C] 500 mg PO DAILY tablet 10/29/20 [Rx] Aspirin 81 mg PO BEDTIME tab.chew 10/29/20 [Rx] Cholecalciferol (Vitamin D3) [Vitamin D3] 25 mcg PO DAILY tablet 10/29/20 [Rx] Docusate Sodium/Sennosides [Senna Plus] 2 tab PO BID tablet 10/29/20 [Rx] Enoxaparin [Lovenox] 40 mg SUBCUT DAILY syringe 10/29/20 [Rx] Ferrous Sulfate 325 mg PO BIDMEALS tablet 10/29/20 [Rx] Insulin Lispro [HumaLOG] 0 unit SUBCUT WITHMEALSANDBED vial 10/29/20 [Rx] Morphine 1 mg IVPUSH Q4H PRN syringe 10/29/20 [Rx] Forms: ED Department Discharge Referrals: PCP,None [Primary Care Provider] - - Discharge Summary/Plan Comment DC Time >30 min.: Yes - General Info Date of Service: 10/29/20 - Review of Systems General: Reports: No Symptoms HEENT: Reports: No Symptoms Pulmonary: Reports: No Symptoms Cardiovascular: Reports: No Symptoms Gastrointestinal: Reports: No Symptoms Genitourinary: Reports: No Symptoms Musculoskeletal: Reports: Leg Pain. Denies: No Symptoms Skin: Reports: No Symptoms Neurological: Reports: No Symptoms Psychiatric: Reports: No Symptoms - Patient Data Vitals - Most Recent: Last Vital Signs Temp 97.9 F 10/29/20 08:00 Pulse 74 10/29/20 08:01 Resp 12 10/29/20 08:00 BP 143/63 H 10/29/20 08:01 Pulse Ox 100 10/29/20 08:00 Weight - Most Recent: 295 lb 6.4 oz I&O - Last 24 hours: Intake & Output 10/28/20 10/29/20 10/29/20 22:59 06:59 14:59 Intake Total 400 Balance 400 Lab Results - Last 24 hrs: Laboratory Results - last 24 hr 10/28/20 10/28/20 10/28/20 Range/Units 16:00 16:00 16:00 WBC 10.1 H (5.0-10.0) 10^3/uL RBC 4.23 (4.2-5.4) 10^6/uL Hgb 11.7 L (12.0-16.0) g/dL Hct 37.1 (37.0-47.0) % MCV 87.7 (80-100) fL MCH 27.7 (27.0-34.0) pg MCHC 31.5 L (33.0-35.0) g/dL Plt Count 274 (150-450) 10^3/uL Neut % (Auto) 61.0 (42.2-75.2) % Lymph % (Auto) 27.5 (20.5-50.1) % [place] % (Auto) 10.0 H (2-8) % Eos % (Auto) 1.0 (1.0-3.0) % Baso % (Auto) 0.5 (0.0-1.0) % Sodium 141 (136-145) mmol/L Potassium 3.6 (3.5-5.1) mmol/L Chloride 101 (98-107) mmol/L Carbon Dioxide 29 (21-32) mmol/L Anion Gap 14.6 H (7-13) mEq/L BUN 17 (7-18) mg/dL Creatinine 0.83 (0.55-1.02) mg/dL Est Cr Clr Drug Dosing TNP Estimated GFR (MDRD) > 60 BUN/Creatinine Ratio 20.5 (No establ ref range) Glucose 117 H (70-99) mg/dL POC Glucose (70-99) mg/dL Calcium 8.5 (8.5-10.1) mg/dL Magnesium 2.2 (1.8-2.4) mg/dL Iron 24 L (50-175) ug/dL TIBC 318 (250-450) ug/dL % Saturation 7.5 L (20.0-50.0) % Ferritin 69 (8-252) mg/mL Total Bilirubin 0.2 (0.2-1.0) mg/dL AST 21 (15-37) U/L ALT 40 (14-59) U/L Alkaline Phosphatase 72 (46-116) U/L Troponin I High Sens 14 (<=51) pg/mL Total Protein 7.2 (6.4-8.2) g/dL Albumin 3.1 L (3.4-5.0) g/dL Globulin 4.1 Albumin/Globulin Ratio 0.76 Urine Color (YELLOW) Urine Appearance (CLEAR) Urine pH (5.0-9.0) Ur Specific Vera (1.005-1.030) Urine Protein (NEGATIVE) Urine Glucose (UA) (NEGATIVE) Urine Ketones (NEGATIVE) Urine Occult Blood (NEGATIVE) Urine Nitrite (NEGATIVE) Urine Bilirubin (NEGATIVE) Urine Urobilinogen (0.2-1.0) mg/dL Ur Leukocyte Esterase (NEGATIVE) Urine RBC /HPF Urine WBC (0-5/HPF) /HPF Ur Epithelial Cells (NOT SEEN) /HPF Urine Bacteria (0-FEW/HPF) /HPF Urine Mucus (NOT SEEN) /LPF SARS-CoV-2 RNA (ALEIDA) (NEGATIVE) 10/28/20 10/28/20 10/28/20 Range/Units 16:33 17:04 21:49 WBC (5.0-10.0) 10^3/uL RBC (4.2-5.4) 10^6/uL Hgb (12.0-16.0) g/dL Hct (37.0-47.0) % MCV (80-100) fL MCH (27.0-34.0) pg MCHC (33.0-35.0) g/dL Plt Count (150-450) 10^3/uL Neut % (Auto) (42.2-75.2) % Lymph % (Auto) (20.5-50.1) % [place] % (Auto) (2-8) % Eos % (Auto) (1.0-3.0) % Baso % (Auto) (0.0-1.0) % Sodium (136-145) mmol/L Potassium (3.5-5.1) mmol/L Chloride (98-107) mmol/L Carbon Dioxide (21-32) mmol/L Anion Gap (7-13) mEq/L BUN (7-18) mg/dL Creatinine (0.55-1.02) mg/dL Est Cr Clr Drug Dosing Estimated GFR (MDRD) BUN/Creatinine Ratio (No establ ref range) Glucose (70-99) mg/dL POC Glucose 160 H (70-99) mg/dL Calcium (8.5-10.1) mg/dL Magnesium (1.8-2.4) mg/dL Iron (50-175) ug/dL TIBC (250-450) ug/dL % Saturation (20.0-50.0) % Ferritin (8-252) mg/mL Total Bilirubin (0.2-1.0) mg/dL AST (15-37) U/L ALT (14-59) U/L Alkaline Phosphatase (46-116) U/L Troponin I High Sens (<=51) pg/mL Total Protein (6.4-8.2) g/dL Albumin (3.4-5.0) g/dL Globulin Albumin/Globulin Ratio Urine Color Yellow (YELLOW) Urine Appearance Slightly cloudy (CLEAR) Urine pH 6.5 (5.0-9.0) Ur Specific Vera >= 1.030 (1.005-1.030) Urine Protein 30 H (NEGATIVE) Urine Glucose (UA) Negative (NEGATIVE) Urine Ketones Negative (NEGATIVE) Urine Occult Blood Trace-intact H (NEGATIVE) Urine Nitrite Negative (NEGATIVE) Urine Bilirubin Negative (NEGATIVE) Urine Urobilinogen 1.0 (0.2-1.0) mg/dL Ur Leukocyte Esterase Negative (NEGATIVE) Urine RBC 0-5 /HPF Urine WBC 0-5 (0-5/HPF) /HPF Ur Epithelial Cells Many H (NOT SEEN) /HPF Urine Bacteria Moderate H (0-FEW/HPF) /HPF Urine Mucus Few H (NOT SEEN) /LPF SARS-CoV-2 RNA (ALEIDA) Negative (NEGATIVE) 10/29/20 10/29/20 Range/Units 05:45 07:34 WBC 7.8 (5.0-10.0) 10^3/uL RBC 3.96 L (4.2-5.4) 10^6/uL Hgb 11.0 L (12.0-16.0) g/dL Hct 34.9 L (37.0-47.0) % MCV 88.1 (80-100) fL MCH 27.8 (27.0-34.0) pg MCHC 31.5 L (33.0-35.0) g/dL Plt Count 274 (150-450) 10^3/uL Neut % (Auto) 52.4 (42.2-75.2) % Lymph % (Auto) 33.8 (20.5-50.1) % [place] % (Auto) 11.5 H (2-8) % Eos % (Auto) 1.5 (1.0-3.0) % Baso % (Auto) 0.8 (0.0-1.0) % Sodium (136-145) mmol/L Potassium (3.5-5.1) mmol/L Chloride (98-107) mmol/L Carbon Dioxide (21-32) mmol/L Anion Gap (7-13) mEq/L BUN (7-18) mg/dL Creatinine (0.55-1.02) mg/dL Est Cr Clr Drug Dosing Estimated GFR (MDRD) BUN/Creatinine Ratio (No establ ref range) Glucose (70-99) mg/dL POC Glucose 121 H (70-99) mg/dL Calcium (8.5-10.1) mg/dL Magnesium (1.8-2.4) mg/dL Iron (50-175) ug/dL TIBC (250-450) ug/dL % Saturation (20.0-50.0) % Ferritin (8-252) mg/mL Total Bilirubin (0.2-1.0) mg/dL AST (15-37) U/L ALT (14-59) U/L Alkaline Phosphatase (46-116) U/L Troponin I High Sens (<=51) pg/mL Total Protein (6.4-8.2) g/dL Albumin (3.4-5.0) g/dL Globulin Albumin/Globulin Ratio Urine Color (YELLOW) Urine Appearance (CLEAR) Urine pH (5.0-9.0) Ur Specific Vera (1.005-1.030) Urine Protein (NEGATIVE) Urine Glucose (UA) (NEGATIVE) Urine Ketones (NEGATIVE) Urine Occult Blood (NEGATIVE) Urine Nitrite (NEGATIVE) Urine Bilirubin (NEGATIVE) Urine Urobilinogen (0.2-1.0) mg/dL Ur Leukocyte Esterase (NEGATIVE) Urine RBC /HPF Urine WBC (0-5/HPF) /HPF Ur Epithelial Cells (NOT SEEN) /HPF Urine Bacteria (0-FEW/HPF) /HPF Urine Mucus (NOT SEEN) /LPF SARS-CoV-2 RNA (ALEIDA) (NEGATIVE) Med Orders - Current: Current Medications Acetaminophen (Acetaminophen 325 Mg Tab) 650 mg PO Q4H PRN PRN Reason: Pain (Mild 1-3)/fever Hydrocodone Bitart/Acetaminophen (Acetaminophen/Hydrocodone 325-5 Mg Tab) 1 tab PO Q4H PRN PRN Reason: Pain (moderate 4-6) Last Admin: 10/29/20 07:53 Dose: 1 tab Documented by: Albuterol (Albuterol 6.7 Gm Inhaler) 0 gm INH Q4H PRN PRN Reason: Shortness Of Breath/Wheeze Last Admin: 10/28/20 22:35 Dose: 2 puff Documented by: Ascorbic Acid (Ascorbic Acid 500 Mg Tab) 500 mg PO DAILY [facility] Last Admin: 10/29/20 08:01 Dose: 500 mg Documented by: Aspirin (Aspirin 81 Mg Tab.Chew) 81 mg PO BEDTIME [facility] Atenolol (Atenolol 25 Mg Tab) 25 mg PO BID [facility] Last Admin: 10/29/20 08:01 Dose: 25 mg Documented by: Atorvastatin Calcium (Atorvastatin 10 Mg Tab) 10 mg PO BEDTIME [facility] Baclofen (Baclofen 10 Mg Tab) 10 mg PO Q6H PRN PRN Reason: Spasms Last Admin: 10/28/20 22:31 Dose: 10 mg Documented by: Budesonide (Budesonide 0.5 Mg/2 Ml Neb Susp) 0.5 mg INH BIDRT [facility] Last Admin: 10/29/20 07:37 Dose: 0.5 mg Documented by: Cholecalciferol (Cholecalciferol (Vitamin D3) 25 Mcg Tab) 25 mcg PO DAILY [facility] Last Admin: 10/29/20 08:06 Dose: 25 mcg Documented by: Dextrose/Water (50% Dextrose In Water 50 Ml Syringe) 50 ml IVPUSH Q15M PRN PRN Reason: Hypoglycemia Enoxaparin Sodium (Enoxaparin 40 Mg/0.4 Ml Syringe) 40 mg SUBCUT DAILY [facility] Last Admin: 10/29/20 08:07 Dose: 40 mg Documented by: Ferrous Sulfate (Ferrous Sulfate 325 Mg Tab) 325 mg PO BIDMEALS [facility] Last Admin: 10/29/20 07:56 Dose: 325 mg Documented by: Fluoxetine HCl (Fluoxetine 10 Mg Cap) 40 mg PO BEDTIME [facility] Glucagon (Glucagon,Human Recombinant 1 Mg Vial) 1 mg IM Q15M PRN PRN Reason: Hypoglycemia Hydralazine HCl (Hydralazine 20 Mg/Ml Sdv) 10 mg IVPUSH Q4H PRN PRN Reason: Other Hydrochlorothiazide (Hydrochlorothiazide 25 Mg Tab) 25 mg PO DAILY [facility] Last Admin: 10/29/20 08:06 Dose: 25 mg Documented by: Insulin Human Lispro (Insulin Lispro 100 Units/Ml 3 Ml Vial) 0 unit SUBCUT WITHMEALSANDBED [facility]; Protocol Last Admin: 10/28/20 21:54 Dose: Not Given Documented by: Lisinopril (Lisinopril 20 Mg Tab) 40 mg PO BEDTIME [facility] Montelukast Sodium (Montelukast 10 Mg Tab) 10 mg PO BEDTIME [facility] Morphine Sulfate (Morphine 2 Mg/Ml Syringe) 1 mg IVPUSH Q4H PRN PRN Reason: Pain (severe 7-10) Last Admin: 10/28/20 20:17 Dose: 1 mg Documented by: Non-Formulary Medication (Bupropion) 100 mg PO DAILY [facility] Non-Formulary Medication (Formoterol [Perforomist]) 20 mcg INH BID [facility] Omeprazole (Omeprazole 20 Mg Cap.Cr) 20 mg PO BEDTIME [facility] Ondansetron HCl (Ondansetron 4 Mg/2 Ml Sdv) 4 mg IVPUSH Q4H PRN PRN Reason: Nausea/Vomiting Senna/Docusate Sodium (Docusate Sodium/Sennosides 50-8.6 Mg Tab) 2 tab PO BID [facility] Last Admin: 10/29/20 08:00 Dose: 2 tab Documented by: Sodium Chloride (Sodium Chloride 0.9% 10 Ml Syringe) 10 ml FLUSH ASDIRECTED PRN PRN Reason: Keep Vein Open Tiotropium [place] (Tiotropium Inhaler 18 Mcg Inhalation Powder Cap Kit Of 5) 18 mcg INH DAILY [facility] Last Admin: 10/29/20 08:00 Dose: 18 inhaler Documented by: Trazodone HCl (Trazodone 50 Mg Tab) 150 mg PO BEDTIME [facility] Last Admin: 10/28/20 22:31 Dose: 150 mg Documented by: Discontinued Medications Hydrocodone Bitart/Acetaminophen (Acetaminophen/Hydrocodone 325-10 Mg Tab) 1 tab PO ONETIME ONE Stop: 10/28/20 15:38 Last Admin: 10/28/20 15:49 Dose: 1 tab Documented by: Trazodone HCl (Trazodone 50 Mg Tab) 150 mg PO BEDTIME [facility] - Exam General: Reports: Alert, Oriented HEENT: Reports: Pupils Equal, Pupils Reactive, EOMI, Mucous Membr. Moist/[place] Neck: Reports: Supple Lungs: Reports: Clear to Auscultation, Normal Respiratory Effort Cardiovascular: Reports: Regular Rate, Regular Rhythm GI/Abdominal Exam: Normal Bowel Sounds, Soft, Non-Tender, No Organomegaly, No Distention, No Abnormal Bruit, No Mass, Pelvis Stable Back Exam: Reports: Normal Inspection, Full Range of Motion Extremities: Leg Pain Skin: Reports: Warm, Dry, Intact Wound/Incisions: Reports: Healing Well Neurological: Reports: No New Focal Deficit Psy/Mental Status: Reports: Alert, Normal Affect, Normal Mood
[2020-10-29 10:09] VITALS: BP 125/58; PULSE 65
[2020-10-29] MEDS: Insulin Lispro 100 Units/ML 3 ML Vial SUBCUT SCH (10:28)
[2020-10-29] MEDS ORDERED: FLUoxetine 10 MG Cap PO SCH (21:00)
[2020-10-29] MEDS ORDERED: Omeprazole 20 MG Cap.CR PO SCH (21:00)
[2020-10-29] MEDS ORDERED: atorvaSTATin 10 MG Tab PO SCH (21:00)
[2020-10-29] MEDS ORDERED: Lisinopril 20 MG Tab PO SCH (21:00)
[2020-10-29] MEDS ORDERED: traZODone 50 MG Tab PO SCH (21:00)
[2020-10-29] MEDS ORDERED: Aspirin 81 MG Tab.Chew PO SCH (21:00)
[2020-10-29] MEDS ORDERED: Montelukast 10 MG Tab PO SCH (21:00)
== END 2020-10-29 10:30 ==
LOC: DL.ED 14:32 → DL.MS 17:27
PROVIDERS: ADMIT Internal Medicine; ATTEND Internal Medicine
DX: R29.6 Repeated falls (principal); S82.852D Displaced trimalleolar fracture of left lower leg, subsequent encounter for closed fracture with routine healing; E78.00 Pure hypercholesterolemia, unspecified; I10 Essential (primary) hypertension; E11.9 Type 2 diabetes mellitus without complications; J44.9 Chronic obstructive pulmonary disease, unspecified; G47.33 Obstructive sleep apnea (adult) (pediatric); D64.9 Anemia, unspecified; E66.9 Obesity, unspecified; G89.29 Other chronic pain; G25.81 Restless legs syndrome; W19.XXXA Unspecified fall, initial encounter; Z79.899 Other long term (current) drug therapy; Z79.82 Long term (current) use of aspirin; Z90.49 Acquired absence of other specified parts of digestive tract; Z87.891 Personal history of nicotine dependence
CPT/HCPCS: 36415; 80053; 81001; 82728; 82947; 83540; 83550; 83735; 84484; 85025; 87635; 93005; 94640; 96374; 99284; A9270; J1650; J2270; U0002

== ENCOUNTER 2020-11-02 12:17 | Inpatient (IN) | payer BC ==
[2020-11-02] MEDS ORDERED: Ondansetron 4 MG Tab.DIS PO PRN (16:00)
[2020-11-02] MEDS ORDERED: Acetaminophen 325 MG Tab PO PRN (16:00)
[2020-11-02] MEDS ORDERED: Glucagon,Human Recombinant 1 MG Vial IM PRN (16:05)
[2020-11-02] MEDS ORDERED: 50% Dextrose in Water 50 ML Syringe IVPUSH PRN (16:05)
[2020-11-02] MEDS ORDERED: Non-Formulary Medication 1 Each (Cyclosporine [Restasis Multidose] 5.5 ML Drops) EYEBOTH PRN (16:11)
[2020-11-02] MEDS ORDERED: Albuterol 6.7 GM Inhaler INH PRN (16:11)
--- NOTE | 2020-11-02 16:25 | PCM.HP ---
H&P History of Present Illness - General Date of Service: 11/02/20 Admit Problem/Dx: Admission Diagnosis/Problem Admission Diagnosis/Problem Fracture of ankle - History of Present Illness Initial Comments - Free Text/Narative: Patient is a 60-year-old female who was transferred from [facility] on this day of November 02, 2020 for acute admission with subsequent transfer to swing bed as she is status post left ankle ORIF for diagnosis of left trimalleolar fracture performed by podiatry on October 31, 2020. The patient was initially admitted to this facility on October 28, 2020 following a fall. The patient presented to this facility's emergency department on October 26, 2000 following a fall where she twisted her ankle while putting on her shoe. She was found to have a trimalleolar malleolus fracture at that time and orthopedic surgery was consulted who recommended splinting and nonweightbearing of the left ankle and they indicated that they would follow-up with the patient on an outpatient basis. Following hospitalization at this facility on October 28, 2020, podiatry was consulted at [facility] and the hospitalist was kind enough to accept the patient for transfer on October 29, 2020. At [facility], the patient underwent left ankle ORIF for diagnosis of left trimalleolar fracture with podiatry on October 31, 2020. She was subsequently transferred to this facility on November 02, 2020 for acute hospitalization with tentative transition to swing bed for rehabilitation on November 03, 2020. At the present time the patient denies fever, rigors, nausea, vomiting, cough, wheeze, abdominal pain, diarrhea, myalgia, chest pain, dyspnea, lightheadedness, dizziness. She currently rates her left ankle pain as a 7 out of 10 described as burning. She indicates that her last bowel movement was October 29, 2020. She been tolerating p.o. and she has been ambulating with assistance. She presents for further evaluation - Related Data Allergies/Adverse Reactions: Allergies Allergy/AdvReac Type Severity Reaction Status Date / Time No Known Allergies Allergy Verified 10/28/20 14:37 Home Medications: Home Meds FLUoxetine [PROzac] 40 mg PO BEDTIME 05/06/13 [History] atorvaSTATin [Lipitor] 10 mg PO BEDTIME 05/06/13 [History] traZODone 150 mg PO BEDTIME 05/06/13 [History] Omeprazole 20 mg PO BEDTIME 07/23/15 [History] Tiotropium [Spiriva HandiHaler] 18 mcg INH DAILY 10/16/15 [History] Lisinopril 40 mg PO BEDTIME 01/13/16 [History] Baclofen 10 mg PO BID PRN 05/31/19 [History] hydroCHLOROthiazide [Hydrochlorothiazide] 25 mg PO DAILY 05/31/19 [History] Budesonide [Pulmicort] 0.5 mg IH BID 10/28/20 [History] Formoterol [Perforomist] 20 mcg INH BID 10/28/20 [History] Montelukast [Singulair] 10 mg PO BEDTIME 10/28/20 [History] Ascorbic Acid [Vitamin C] 500 mg PO DAILY tablet 10/29/20 [Rx] Acetaminophen 500 mg PO Q6H 11/02/20 [History] Albuterol [Proventil HFA] 2 puff INH Q4H PRN 11/02/20 [History] Aspirin [Aspirin EC] 325 mg PO DAILY 11/02/20 [History] Cholecalciferol (Vitamin D3) [Vitamin D3] 50 mcg PO DAILY 11/02/20 [History] Docusate Sodium/Sennosides [Senna Plus] 1 tab PO BID PRN 11/02/20 [History] Ibuprofen 600 mg PO Q6H 11/02/20 [History] Naloxone HCl [Narcan] 1 spray [place] ONETIME PRN 11/02/20 [History] Ondansetron [Ondansetron ODT] 4 mg PO Q4H PRN 11/02/20 [History] atenoloL [Atenolol] 12.5 mg PO BID 11/02/20 [History] buPROPion [Wellbutrin] 100 mg PO DAILY 11/02/20 [History] cycloSPORINE [Restasis Multidose] 1 drop EYEBOTH BID PRN 11/02/20 [History] oxyCODONE 5 - 10 mg PO Q4H PRN 11/02/20 [History] Past Medical History HEENT History: Reports: Impaired Vision Other HEENT History: wears glasses Cardiovascular History: Reports: High Cholesterol, Hypertension, SOB on Exertion Respiratory History: Reports: Asthma, COPD, SOB Gastrointestinal History: Reports: Cholelithiasis, Diverticulosis, GERD Genitourinary History: Reports: None 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: 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, , Other (See Below) Other OB/BYN History: hysterectomy Musculoskeletal History: Reports: Arthritis, Back Pain, Chronic, Fracture, Osteoarthritis, Other (See Below) Other Musculoskeletal History: left ankle fracture Neurological History: Reports: None Psychiatric History: Reports: Anxiety, Bipolar, Depression Endocrine/Metabolic History: Reports: Diabetes, Type II Other Endocrine/Metabolic History: borderline diabetic Hematologic History: Reports: None Immunologic History: Reports: None Oncologic (Cancer) History: Reports: None Dermatologic History: Reports: None - Infectious Disease History Infectious Disease History: Reports: Mumps - Past Surgical History Head Surgeries/Procedures: Reports: None Cardiovascular Surgical History: Reports: None Respiratory Surgical History: Reports: None GI Surgical History: Reports: Bariatric Procedure, Cholecystectomy Other GI Surgeries/Procedures: had lap band surgery but is no longer present. Female Surgical History: Reports: Hysterectomy Endocrine Surgical History: Reports: None Musculoskeletal Surgical History: Reports: None Oncologic Surgical History: Reports: None Social & Family History - Family History Family Medical History: No Pertinent Family History - Caffeine Use Caffeine Use: Reports: Coffee - Living Situation & Occupation Living situation: Reports: , with Family H&P Review of Systems - Review of Systems: Review Of Systems: See Below General: Reports: No Symptoms HEENT: Reports: No Symptoms Pulmonary: Reports: No Symptoms Cardiovascular: Reports: No Symptoms Gastrointestinal: Reports: No Symptoms Genitourinary: Reports: No Symptoms Musculoskeletal: Reports: Leg Pain Skin: Reports: No Symptoms Psychiatric: Reports: No Symptoms Neurological: Reports: No Symptoms Hematologic/Lymphatic: Reports: No Symptoms Immunologic: Reports: No Symptoms Exam - Exam Exam: See Below - Exam General: Alert, Oriented, 4 HEENT: PERRLA, Hearing Intact, Mucosa Moist & [place], Nares Patent, Normal Nasal Septum, Posterior Pharynx Clear, Conjunctiva Clear, EOMI, EACs Clear, TMs Clear Neck: Supple, Trachea Midline, 2 Lungs: Clear to Auscultation, Normal Respiratory Effort Cardiovascular: Regular Rate, Regular Rhythm GI/Abdominal Exam: Normal Bowel Sounds, Soft, Non-Tender, No Organomegaly, No Distention, No Abnormal Bruit, No Mass, Pelvis Stable Extremities: Other (The patient's left foot/leg is in a splint) Peripheral Pulses: 2+: Carotid (L), Carotid (R), Brachial (L), Brachial (R), Radial (L), Radial (R), Femoral (L), Femoral (R), Popliteal (L), Popliteal (R), Posterior Tibial (R), Dorsalis Pedis (R) Skin: Warm, Dry, Intact Neurological: Cranial Nerves Intact, Reflexes Equal Bilateral Neuro Extensive - Mental Status: Alert, Oriented x3, Normal Mood/Affect, Normal Cognition Neuro Extensive - Motor, Sensory, Reflexes: CN II-XII Intact, Normal Gait, Normal Reflexes DTR: 2+: Bicep (L), Bicep (R), Tricep (L), Tricep (R), Patella (L), Patella (R), Achilles (R) Psychiatric: Alert, Normal Affect, Normal Mood Problem List Initiated/Reviewed/Updated: Yes Orders Last 24hrs: Active Orders 24 hr Category Date Time Status Patient Status [ADT] Routine ADT 11/02/20 16:01 Ordered Blood Glucose Check, Bedside [RC] WITHMEALSANDBED Care 11/02/20 16:00 Ordered CPAP Adult [RT BiPAP/CPAP] [RC] ASDIRECTED Care 11/02/20 16:04 Ordered RT Aerosol Therapy [RC] ASDIRECTED Care 11/02/20 16:16 Ordered RT Post Treatment Assessment [RC] Click to Edit Care 11/02/20 16:16 Ordered RT Pre-Treatment Assessment [RC] Click to Edit Care 11/02/20 16:16 Ordered Up With Assistance [RC] ASDIRECTED Care 11/02/20 16:00 Ordered Vital Signs [RC] Q4H Care 11/02/20 16:01 Ordered OT Evaluation and Treatment [CONS] Routine Cons 11/02/20 16:00 Ordered PT Evaluation and Treatment [CONS] Routine Cons 11/02/20 16:00 Ordered Consistent Carbohydrate Diet [DIET] Diet 11/02/20 Lunch Ordered CBC WITH AUTO DIFF [HEME] Routine Lab 11/03/20 05:00 Ordered CMP [COMPREHENSIVE METABOLIC PN,CMP] [CHEM] Routine Lab 11/03/20 05:00 Ordered Acetaminophen [TylenoL] Med 11/02/20 16:00 Ordered 650 mg PO Q4H PRN Acetaminophen/HYDROcodone [[place] 325-5 MG] Med 11/02/20 16:04 Ordered 1 tab PO Q4H PRN Albuterol [Proventil HFA] Med 11/02/20 16:11 Ordered 2 puff INH Q4H PRN Ascorbic Acid [Vitamin C] Med 11/03/20 09:00 Ordered 500 mg PO DAILY Baclofen [Lioresal] Med 11/02/20 16:11 Ordered 10 mg PO BID PRN Budesonide [Pulmicort] Med 11/02/20 21:00 Ordered 0.5 mg INH BID Cholecalciferol (Vitamin D3) [Vitamin D3] Med 11/03/20 09:00 Ordered 50 mcg PO DAILY Dextrose 50% in Water Med 11/02/20 16:05 Ordered 50 ml IVPUSH Q15M PRN Docusate Sodium/Sennosides [Senna Plus] Med 11/02/20 21:00 Ordered 2 tab PO BID Enoxaparin [Lovenox] Med 11/03/20 09:00 Ordered 40 mg SUBCUT DAILY FLUoxetine [PROzac] Med 11/02/20 21:00 Ordered 40 mg PO BEDTIME Formoterol [Perforomist] Med 11/02/20 21:00 Ordered 20 mcg INH BID Glucagon,Human Recombinant [GlucaGen] Med 11/02/20 16:05 Ordered 1 mg IM Q15M PRN Insulin Lispro [HumaLOG] Med 11/02/20 18:00 Ordered See Protocol SUBCUT WITHMEALSANDBED Lisinopril [Lisinopril] Med 11/02/20 21:00 Ordered 40 mg PO BEDTIME Montelukast [Singulair] Med 11/02/20 21:00 Ordered 10 mg PO BEDTIME Omeprazole Med 11/02/20 21:00 Ordered 20 mg PO BEDTIME Ondansetron [Zofran ODT] Med 11/02/20 16:00 Ordered 4 mg PO Q4H PRN Tiotropium [Spiriva HandiHaler] Med 11/03/20 09:00 Ordered 18 mcg INH DAILY atenoloL [Tenormin] Med 11/02/20 21:00 Ordered 12.5 mg PO BID atorvaSTATin [Lipitor] Med 11/02/20 21:00 Ordered 10 mg PO BEDTIME buPROPion Med 11/03/20 09:00 Ordered 100 mg PO DAILY cycloSPORINE [Restasis Multidose] Med 11/02/20 16:11 Ordered 1 drop EYEBOTH BID PRN hydroCHLOROthiazide Med 11/03/20 09:00 Ordered 25 mg PO DAILY polyethylene glycoL 3350 [MiraLAX] Med 11/02/20 16:15 Ordered 17 gm PO DAILY traZODone [traZODone] Med 11/02/20 21:00 Ordered 150 mg PO BEDTIME Resuscitation Status Routine Resus Stat 11/02/20 16:00 Ordered Medication Orders Acetaminophen (Acetaminophen 325 Mg Tab) 650 mg PO Q4H PRN PRN Reason: Pain (Mild 1-3)/fever Hydrocodone Bitart/Acetaminophen (Acetaminophen/Hydrocodone 325-5 Mg Tab) 1 tab PO Q4H PRN PRN Reason: Pain (moderate 4-6) Dextrose/Water (50% Dextrose In Water 50 Ml Syringe) 50 ml IVPUSH Q15M PRN PRN Reason: Hypoglycemia Enoxaparin Sodium (Enoxaparin 40 Mg/0.4 Ml Syringe) 40 mg SUBCUT DAILY SANJANA Glucagon (Glucagon,Human Recombinant 1 Mg Vial) 1 mg IM Q15M PRN PRN Reason: Hypoglycemia Insulin Human Lispro (Insulin Lispro 100 Units/Ml 3 Ml Vial) 0 unit SUBCUT WITHMEALSANDBED SANJANA; Protocol Ondansetron HCl (Ondansetron 4 Mg Tab.Dis) 4 mg PO Q4H PRN PRN Reason: nausea, able to take PO Polyethylene Glycol (Polyethylene Glycol 3350 Powder 17 Gm Packet) 17 gm PO DAILY SANJANA Senna/Docusate Sodium (Docusate Sodium/Sennosides 50-8.6 Mg Tab) 2 tab PO BID SANJANA Assessment/Plan Comment:: Surgical History: Left ankle ORIF on October 31, 2020. Cholecystectomy, hysterectomy, bilateral breast reduction, lap band surgery with subsequent removal Family History: Cancer, stroke, diabetes, coronary artery disease, hypertension, hyperlipidemia Social History: Tobacco: Former smoker Alcohol: Denies Caffeine: Coffee Drugs: Past marijuana use. Denies any other drug use past or present Allergies: No known drug allergies Code Status: Full Assessment / Plan: Status post October 31, 2020: Left ankle ORIF for diagnosis left trimalleolar fracture with podiatry at [facility]. As needed analgesia. Physical therapy evaluation pending. Occupational therapy pending. Muscle spasm Bipolar disorder/depression/anxiety. Wellbutrin 100 mg p.o. daily plus trazodone 150 mg p.o. nightly plus Prozac 40 mg p.o. nightly 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, status post hysterectomy Obstructive sleep apnea. CPAP: Okay to use home device and/or pressure when sleeping Iron deficiency anemia. Will monitor hemoglobin level intermittently. Vitamin C 500 mg p.o. daily. Upon discharge, patient will be started on ferrous sulfate 3 and 25 mg p.o. twice daily COPD, not O2 dependent. Performers 20 m inhaled twice daily plus annular 10 mg p.o. nightly plus Spiriva 18 mg inhaled daily plus budesonide 0.5 mg inhaled twice daily Grade 1 diastolic dysfunction Diabetes. Will check fasting glucose before every meal and at bedtime and provide some sign scale GERD. Prilosec 20 mg p.o. nightly Hyperlipidemia. Lipitor 10 mg p.o. nightly Hypertension. Atenolol 12.5 mg p.o. twice daily plus lisinopril 40 mg p.o. nightly plus hydrochlorothiazide 25 mg p.o. daily Obesity. Patient be counseled regarding lifestyle modification Osteoarthritis Chronic pain Insomnia Seasonal allergies Restless leg syndrome Hepatic steatosis Overactive bladder Diverticulosis Chronic dry eye. Restasis 1 drop in both eyes twice daily GI prophylaxis. Senna plus: 2 tabs p.o. twice daily plus MiraLAX 17 g p.o. daily DVT prophylaxis. Lovenox 40 mg subcutaneously daily Disposition: Anticipated transition to swing bed on November 03, 2020 END OF DOCTOR EMAMIS HISTORY AND PHYSICAL / CONSULTATION NOTE
[2020-11-02] MEDS: Acetaminophen/HYDROcodone 325-5 MG Tab PO PRN (16:33)
[2020-11-02] MEDS: Polyethylene Glycol 3350 Powder 17 GM Packet PO SCH (16:35)
[2020-11-02] MEDS: Budesonide 0.5 MG/2 ML Neb Susp INH SCH (17:25)
[2020-11-02] MEDS: Insulin Lispro 100 Units/ML 3 ML Vial SUBCUT SCH ×2 (18:52→21:42)
[2020-11-02] MEDS: oxyCODONE 5 MG Tab PO PRN (20:08)
[2020-11-02] MEDS ORDERED: atorvaSTATin 10 MG Tab PO SCH (21:00)
[2020-11-02] MEDS ORDERED: FLUoxetine 10 MG Cap PO SCH (21:00)
[2020-11-02] MEDS ORDERED: Non-Formulary Medication 1 Each (Formoterol [Perforomist] 20 MCG/2 ML Neb) INH SCH (21:00)
[2020-11-02] MEDS ORDERED: Lisinopril 20 MG Tab PO SCH (21:00)
[2020-11-02] MEDS ORDERED: Omeprazole 20 MG Cap.CR PO SCH (21:00)
[2020-11-02] MEDS ORDERED: Montelukast 10 MG Tab PO SCH (21:00)
[2020-11-02] MEDS ORDERED: traZODone 50 MG Tab PO SCH (21:00)
[2020-11-02] MEDS: Atenolol 25 MG Tab PO SCH (21:25)
[2020-11-02] MEDS: Baclofen 10 MG Tab PO PRN (21:35)
[2020-11-03] MEDS: oxyCODONE 5 MG Tab PO PRN ×2 (00:15→12:00)
[2020-11-03] MEDS: Acetaminophen/HYDROcodone 325-5 MG Tab PO PRN ×2 (01:11→09:41)
[2020-11-03] MEDS ORDERED: Morphine 2 MG/ML SYRINGE IV PRN (03:35)
[2020-11-03] MEDS ORDERED: Sodium Chloride 0.9% 10 ML Syringe FLUSH PRN (04:01)
[2020-11-03 04:28] LABS: CHLORIDE,CL 104 mmol/L (98-107); SODIUM,NA 142 mmol/L (136-145)
--- NOTE | 2020-11-03 07:16 | PCM.DCSUM1 ---
Discharge Summary - Hospital Course Free Text/Narrative:: START OF DOCTOR EMAMIS DISCHARGE SUMMARY Date of Admission: November 02, 2020 Date of Discharge/transfer to swing bed: 7:15 AM on November 03, 2020 Primary Diagnosis: Status post October 31, 2020: Left ankle ORIF for diagnosis of left trimalleolar fracture with podiatry at [facility] Secondary Diagnosis: Muscle spasm Bipolar disorder/depression/anxiety 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, status post hysterectomy Obstructive sleep apnea for which patient uses CPAP at night with unknown pressure by the patient Iron deficiency anemia COPD, not O2 dependent Grade 1 diastolic dysfunction Diabetes GERD Hyperlipidemia Hypertension Obesity Osteoarthritis Chronic pain Insomnia Seasonal allergies Restless legs syndrome Hepatic steatosis Overactive bladder Diverticulosis Chronic dry eye Consultations: None Condition on Discharge: Fair Disposition: The patient will be discharged to swing bed status Discharge Medications: Tylenol 650 mg p.o. every 4 hours as needed mild pain [place] 5/125 mg p.o. every 4 hours as needed moderate pain Proventil HFA: 90 mcg/spray: 2 puffs every 4 hours breath wheeze Vitamin C 500 mg p.o. daily Atenolol 12.5 mg p.o. twice daily Lipitor 10 mg p.o. nightly Baclofen 10 mg p.o. twice daily as needed muscle spasm Budesonide 0.5 mg inhaled twice daily Bupropion 100 mg p.o. daily Vitamin D 50 mcg p.o. daily Restasis: 1 drop in both eyes twice daily Colace plus: 2 tabs p.o. twice daily Lovenox 40 mg subcutaneously daily Prozac 40 mg p.o. nightly Performers 20 mcg inhaled twice daily Hydrochlorothiazide 25 mg p.o. daily Insulin lispro subcutaneously before every meal nightly per sliding scale Lisinopril 40 mg p.o. daily Singular 10 mg p.o. nightly Morphine 2 mg IV every 4 hours as needed severe pain Zofran 4 mg p.o. every 4 hours as needed nausea/vomiting Oxycodone 5 mg p.o. every 4 hours as needed moderate severe pain MiraLAX 17 g p.o. daily Spiriva 18 mcg inhaled daily Trazodone 150 mg p.o. nightly END OF DOCTOR EMAMIS DISCHARGE SUMMARY - Discharge Data Discharge Date: 11/03/20 Discharge Disposition: [facility] W/I Hosp To Swing Condition: Fair - Referral to Home Health Primary Care Physician: PCP None - Patient Summary/Data Consults: Consultations 11/02/20 16:00 OT Evaluation and Treatment [CONS] Routine PT Evaluation and Treatment [CONS] Routine - Patient Instructions Diet: Heart Healthy Diet, Low Sodium, Diabetic Diet Activity: As Tolerated - Discharge Plan Home Medications: Home Meds FLUoxetine [PROzac] 40 mg PO BEDTIME 05/06/13 [History] atorvaSTATin [Lipitor] 10 mg PO BEDTIME 05/06/13 [History] traZODone 150 mg PO BEDTIME 05/06/13 [History] Omeprazole 20 mg PO BEDTIME 07/23/15 [History] Tiotropium [Spiriva HandiHaler] 18 mcg INH DAILY 10/16/15 [History] Lisinopril 40 mg PO BEDTIME 01/13/16 [History] Baclofen 10 mg PO BID PRN 05/31/19 [History] hydroCHLOROthiazide [Hydrochlorothiazide] 25 mg PO DAILY 05/31/19 [History] Budesonide [Pulmicort] 0.5 mg IH BID 10/28/20 [History] Formoterol [Perforomist] 20 mcg INH BID 10/28/20 [History] Montelukast [Singulair] 10 mg PO BEDTIME 10/28/20 [History] Ascorbic Acid [Vitamin C] 500 mg PO DAILY tablet 10/29/20 [Rx] Acetaminophen 500 mg PO Q6H 11/02/20 [History] Albuterol [Proventil HFA] 2 puff INH Q4H PRN 11/02/20 [History] Aspirin [Aspirin EC] 325 mg PO DAILY 11/02/20 [History] Cholecalciferol (Vitamin D3) [Vitamin D3] 50 mcg PO DAILY 11/02/20 [History] Docusate Sodium/Sennosides [Senna Plus] 1 tab PO BID PRN 11/02/20 [History] Ibuprofen 600 mg PO Q6H 11/02/20 [History] Naloxone HCl [Narcan] 1 spray CAR[place]NE ONETIME PRN 11/02/20 [History] Ondansetron [Ondansetron ODT] 4 mg PO Q4H PRN 11/02/20 [History] atenoloL [Atenolol] 12.5 mg PO BID 11/02/20 [History] buPROPion [Wellbutrin] 100 mg PO DAILY 11/02/20 [History] cycloSPORINE [Restasis Multidose] 1 drop EYEBOTH BID PRN 11/02/20 [History] oxyCODONE 5 - 10 mg PO Q4H PRN 11/02/20 [History] - Discharge Summary/Plan Comment DC Time >30 min.: Yes - General Info Date of Service: 11/03/20 Functional Status: Reports: Pain Controlled - Review of Systems General: Reports: No Symptoms HEENT: Reports: No Symptoms Pulmonary: Reports: No Symptoms Cardiovascular: Reports: No Symptoms Gastrointestinal: Reports: No Symptoms Genitourinary: Reports: No Symptoms Musculoskeletal: Reports: Leg Pain. Denies: No Symptoms Skin: Reports: No Symptoms Neurological: Reports: No Symptoms Psychiatric: Reports: No Symptoms - Patient Data Vitals - Most Recent: Last Vital Signs Temp 97.6 F 11/03/20 03:50 Pulse 58 L 11/03/20 03:50 Resp 20 11/03/20 03:50 BP 131/50 L 11/03/20 03:50 Pulse Ox 93 L 11/03/20 03:50 Weight - Most Recent: 293 lb I&O - Last 24 hours: Intake & Output 11/02/20 11/03/20 11/03/20 22:59 06:59 14:59 Intake Total 400 Output Total 1350 1100 Balance -1350 -700 Lab Results - Last 24 hrs: Laboratory Results - last 24 hr 11/02/20 11/02/20 11/03/20 Range/Units 17:23 20:57 03:50 WBC 9.9 (5.0-10.0) 10^3/uL RBC 3.71 L (4.2-5.4) 10^6/uL Hgb 10.3 L (12.0-16.0) g/dL Hct 33.3 L (37.0-47.0) % MCV 89.8 (80-100) fL MCH 27.8 (27.0-34.0) pg MCHC 30.9 L (33.0-35.0) g/dL Plt Count 291 (150-450) 10^3/uL Neut % (Auto) 48.6 (42.2-75.2) % Lymph % (Auto) 36.9 (20.5-50.1) % [place] % (Auto) 11.3 H (2-8) % Eos % (Auto) 2.5 (1.0-3.0) % Baso % (Auto) 0.7 (0.0-1.0) % Sodium (136-145) mmol/L Potassium (3.5-5.1) mmol/L Chloride (98-107) mmol/L Carbon Dioxide (21-32) mmol/L Anion Gap (7-13) mEq/L BUN (7-18) mg/dL Creatinine (0.55-1.02) mg/dL Est Cr Clr Drug Dosing mL/min Estimated GFR (MDRD) BUN/Creatinine Ratio (No establ ref range) Glucose (70-99) mg/dL POC Glucose 162 H 105 H (70-99) mg/dL Calcium (8.5-10.1) mg/dL Total Bilirubin (0.2-1.0) mg/dL AST (15-37) U/L ALT (14-59) U/L Alkaline Phosphatase (46-116) U/L Creatine Kinase (16-191) U/L Total Protein (6.4-8.2) g/dL Albumin (3.4-5.0) g/dL Globulin Albumin/Globulin Ratio 11/03/20 11/03/20 Range/Units 03:50 03:50 WBC (5.0-10.0) 10^3/uL RBC (4.2-5.4) 10^6/uL Hgb (12.0-16.0) g/dL Hct (37.0-47.0) % MCV (80-100) fL MCH (27.0-34.0) pg MCHC (33.0-35.0) g/dL Plt Count (150-450) 10^3/uL Neut % (Auto) (42.2-75.2) % Lymph % (Auto) (20.5-50.1) % [place] % (Auto) (2-8) % Eos % (Auto) (1.0-3.0) % Baso % (Auto) (0.0-1.0) % Sodium 142 (136-145) mmol/L Potassium 4.0 (3.5-5.1) mmol/L Chloride 104 (98-107) mmol/L Carbon Dioxide 30 (21-32) mmol/L Anion Gap 12.0 (7-13) mEq/L BUN 18 (7-18) mg/dL Creatinine 0.84 (0.55-1.02) mg/dL Est Cr Clr Drug Dosing 58.92 mL/min Estimated GFR (MDRD) > 60 BUN/Creatinine Ratio 21.4 (No establ ref range) Glucose 111 H (70-99) mg/dL POC Glucose (70-99) mg/dL Calcium 8.8 (8.5-10.1) mg/dL Total Bilirubin 0.3 (0.2-1.0) mg/dL AST 27 (15-37) U/L ALT 37 (14-59) U/L Alkaline Phosphatase 65 (46-116) U/L Creatine Kinase 140 (16-191) U/L Total Protein 7.0 (6.4-8.2) g/dL Albumin 2.8 L (3.4-5.0) g/dL Globulin 4.2 Albumin/Globulin Ratio 0.67 Med Orders - Current: Current Medications Acetaminophen (Acetaminophen 325 Mg Tab) 650 mg PO Q4H PRN PRN Reason: Pain (Mild 1-3)/fever Last Admin: 11/02/20 21:40 Dose: 650 mg Documented by: Hydrocodone Bitart/Acetaminophen (Acetaminophen/Hydrocodone 325-5 Mg Tab) 1 tab PO Q4H PRN PRN Reason: Pain (moderate 4-6) Last Admin: 11/03/20 01:11 Dose: 1 tab Documented by: Albuterol (Albuterol 6.7 Gm Inhaler) 0 gm INH Q4H PRN PRN Reason: Shortness of Breath Ascorbic Acid (Ascorbic Acid 500 Mg Tab) 500 mg PO DAILY [facility] Atenolol (Atenolol 25 Mg Tab) 12.5 mg PO BID [facility] Last Admin: 11/02/20 21:25 Dose: 12.5 mg Documented by: Atorvastatin Calcium (Atorvastatin 10 Mg Tab) 10 mg PO BEDTIME [facility] Last Admin: 11/02/20 21:23 Dose: 10 mg Documented by: Baclofen (Baclofen 10 Mg Tab) 10 mg PO BID PRN PRN Reason: Spasms Last Admin: 11/02/20 21:35 Dose: 10 mg Documented by: Budesonide (Budesonide 0.5 Mg/2 Ml Neb Susp) 0.5 mg INH BIDRT [facility] Last Admin: 11/02/20 17:25 Dose: 0.5 mg Documented by: Bupropion HCl (Bupropion 100 Mg Tab.Sr) 100 mg PO DAILY [facility] Cholecalciferol (Cholecalciferol (Vitamin D3) 25 Mcg Tab) 50 mcg PO DAILY [facility] Dextrose/Water (50% Dextrose In Water 50 Ml Syringe) 50 ml IVPUSH Q15M PRN PRN Reason: Hypoglycemia Enoxaparin Sodium (Enoxaparin 40 Mg/0.4 Ml Syringe) 40 mg SUBCUT DAILY [facility] Fluoxetine HCl (Fluoxetine 10 Mg Cap) 40 mg PO BEDTIME [facility] Last Admin: 11/02/20 21:24 Dose: 40 mg Documented by: Glucagon (Glucagon,Human Recombinant 1 Mg Vial) 1 mg IM Q15M PRN PRN Reason: Hypoglycemia Hydrochlorothiazide (Hydrochlorothiazide 25 Mg Tab) 25 mg PO DAILY [facility] Insulin Human Lispro (Insulin Lispro 100 Units/Ml 3 Ml Vial) 0 unit SUBCUT WITHMEALSANDBED [facility]; Protocol Last Admin: 11/02/20 21:42 Dose: Not Given Documented by: Lisinopril (Lisinopril 20 Mg Tab) 40 mg PO BEDTIME [facility] Last Admin: 11/02/20 21:24 Dose: 40 mg Documented by: Montelukast Sodium (Montelukast 10 Mg Tab) 10 mg PO BEDTIME [facility] Last Admin: 11/02/20 21:24 Dose: 10 mg Documented by: Morphine Sulfate (Morphine 2 Mg/Ml Syringe) 2 mg IV Q4H PRN PRN Reason: Pain Last Admin: 11/03/20 03:56 Dose: 2 mg Documented by: Non-Formulary Medication (Formoterol [Perforomist]) 20 mcg INH BID [facility] Non-Formulary Medication (Cyclosporine [Restasis Multidose]) 1 drop EYEBOTH BID PRN PRN Reason: Dry Eyes Omeprazole (Omeprazole 20 Mg Cap.Cr) 20 mg PO BEDTIME [facility] Last Admin: 11/02/20 21:24 Dose: 20 mg Documented by: Ondansetron HCl (Ondansetron 4 Mg Tab.Dis) 4 mg PO Q4H PRN PRN Reason: nausea, able to take PO Oxycodone HCl (Oxycodone 5 Mg Tab) 5 mg PO Q4H PRN PRN Reason: Pain (severe 7-10) Last Admin: 11/03/20 00:15 Dose: 5 mg Documented by: Polyethylene Glycol (Polyethylene Glycol 3350 Powder 17 Gm Packet) 17 gm PO DAILY [facility] Last Admin: 11/02/20 16:35 Dose: 17 gm Documented by: Senna/Docusate Sodium (Docusate Sodium/Sennosides 50-8.6 Mg Tab) 2 tab PO BID [facility] Last Admin: 11/02/20 21:23 Dose: 2 tab Documented by: Sodium Chloride (Sodium Chloride 0.9% 10 Ml Syringe) 10 ml FLUSH ASDIRECTED PRN PRN Reason: Keep Vein Open Tiotropium [place] (Tiotropium Inhaler 18 Mcg Inhalation Powder Cap Kit Of 5) 18 mcg INH DAILY [facility] Trazodone HCl (Trazodone 50 Mg Tab) 150 mg PO BEDTIME [facility] Last Admin: 11/02/20 21:24 Dose: 150 mg Documented by: - Exam General: Reports: Alert, Oriented HEENT: Reports: Pupils Equal, Pupils Reactive, EOMI, Mucous Membr. Moist/[place] Neck: Reports: Supple Lungs: Reports: Clear to Auscultation, Normal Respiratory Effort Cardiovascular: Reports: Regular Rate, Regular Rhythm GI/Abdominal Exam: Normal Bowel Sounds, Soft, Non-Tender, No Organomegaly, No Distention, No Abnormal Bruit, No Mass, Pelvis Stable Back Exam: Reports: Normal Inspection, Full Range of Motion Extremities: Leg Pain Skin: Reports: Warm, Dry, Intact Wound/Incisions: Reports: Healing Well Neurological: Reports: No New Focal Deficit Psy/Mental Status: Reports: Alert, Normal Affect, Normal Mood
[2020-11-03] MEDS ORDERED: Bisacodyl 10 MG Supp RECTAL ONE (07:31)
--- NOTE | 2020-11-03 07:36 | PCM.PN ---
- General Info Date of Service: 11/03/20 Subjective Update: The patient complains of 4 out of 10 left ankle pain at the present time. However overnight, the patient was experiencing more severe pain. At the present time and overnight she denies fever, rigors, nausea, vomiting, cough, wheeze, abdominal pain, chest pain, dyspnea, or any other constitutional complaints. Patient has not yet had a bowel movement. I explained to the patient her current medical condition and plan of care and I have answered all of her questions Functional Status: Reports: Pain Controlled - Review of Systems General: Reports: No Symptoms HEENT: Reports: No Symptoms Pulmonary: Reports: No Symptoms Cardiovascular: Reports: No Symptoms Gastrointestinal: Reports: No Symptoms Genitourinary: Reports: No Symptoms Musculoskeletal: Reports: Leg Pain Skin: Reports: No Symptoms Neurological: Reports: No Symptoms Psychiatric: Reports: No Symptoms - Patient Data Vitals - Most Recent: Last Vital Signs Temp 97.6 F 11/03/20 03:50 Pulse 58 L 11/03/20 03:50 Resp 20 11/03/20 03:50 BP 131/50 L 11/03/20 03:50 Pulse Ox 93 L 11/03/20 03:50 Weight - Most Recent: 293 lb I&O - Last 24 Hours: Intake & Output 11/02/20 11/03/20 11/03/20 22:59 06:59 14:59 Intake Total 400 Output Total 1350 1100 Balance -1350 -700 Lab Results Last 24 Hours: Laboratory Results - last 24 hr 11/02/20 11/02/20 11/03/20 Range/Units 17:23 20:57 03:50 WBC 9.9 (5.0-10.0) 10^3/uL RBC 3.71 L (4.2-5.4) 10^6/uL Hgb 10.3 L (12.0-16.0) g/dL Hct 33.3 L (37.0-47.0) % MCV 89.8 (80-100) fL MCH 27.8 (27.0-34.0) pg MCHC 30.9 L (33.0-35.0) g/dL Plt Count 291 (150-450) 10^3/uL Neut % (Auto) 48.6 (42.2-75.2) % Lymph % (Auto) 36.9 (20.5-50.1) % [place] % (Auto) 11.3 H (2-8) % Eos % (Auto) 2.5 (1.0-3.0) % Baso % (Auto) 0.7 (0.0-1.0) % Sodium (136-145) mmol/L Potassium (3.5-5.1) mmol/L Chloride (98-107) mmol/L Carbon Dioxide (21-32) mmol/L Anion Gap (7-13) mEq/L BUN (7-18) mg/dL Creatinine (0.55-1.02) mg/dL Est Cr Clr Drug Dosing mL/min Estimated GFR (MDRD) BUN/Creatinine Ratio (No establ ref range) Glucose (70-99) mg/dL POC Glucose 162 H 105 H (70-99) mg/dL Calcium (8.5-10.1) mg/dL Total Bilirubin (0.2-1.0) mg/dL AST (15-37) U/L ALT (14-59) U/L Alkaline Phosphatase (46-116) U/L Creatine Kinase (16-191) U/L Total Protein (6.4-8.2) g/dL Albumin (3.4-5.0) g/dL Globulin Albumin/Globulin Ratio 11/03/20 11/03/20 Range/Units 03:50 03:50 WBC (5.0-10.0) 10^3/uL RBC (4.2-5.4) 10^6/uL Hgb (12.0-16.0) g/dL Hct (37.0-47.0) % MCV (80-100) fL MCH (27.0-34.0) pg MCHC (33.0-35.0) g/dL Plt Count (150-450) 10^3/uL Neut % (Auto) (42.2-75.2) % Lymph % (Auto) (20.5-50.1) % [place] % (Auto) (2-8) % Eos % (Auto) (1.0-3.0) % Baso % (Auto) (0.0-1.0) % Sodium 142 (136-145) mmol/L Potassium 4.0 (3.5-5.1) mmol/L Chloride 104 (98-107) mmol/L Carbon Dioxide 30 (21-32) mmol/L Anion Gap 12.0 (7-13) mEq/L BUN 18 (7-18) mg/dL Creatinine 0.84 (0.55-1.02) mg/dL Est Cr Clr Drug Dosing 58.92 mL/min Estimated GFR (MDRD) > 60 BUN/Creatinine Ratio 21.4 (No establ ref range) Glucose 111 H (70-99) mg/dL POC Glucose (70-99) mg/dL Calcium 8.8 (8.5-10.1) mg/dL Total Bilirubin 0.3 (0.2-1.0) mg/dL AST 27 (15-37) U/L ALT 37 (14-59) U/L Alkaline Phosphatase 65 (46-116) U/L Creatine Kinase 140 (16-191) U/L Total Protein 7.0 (6.4-8.2) g/dL Albumin 2.8 L (3.4-5.0) g/dL Globulin 4.2 Albumin/Globulin Ratio 0.67 Med Orders - Current: Current Medications Acetaminophen (Acetaminophen 325 Mg Tab) 650 mg PO Q4H PRN PRN Reason: Pain (Mild 1-3)/fever Last Admin: 11/02/20 21:40 Dose: 650 mg Documented by: Hydrocodone Bitart/Acetaminophen (Acetaminophen/Hydrocodone 325-5 Mg Tab) 1 tab PO Q4H PRN PRN Reason: Pain (moderate 4-6) Last Admin: 11/03/20 01:11 Dose: 1 tab Documented by: Albuterol (Albuterol 6.7 Gm Inhaler) 0 gm INH Q4H PRN PRN Reason: Shortness of Breath Ascorbic Acid (Ascorbic Acid 500 Mg Tab) 500 mg PO DAILY [facility] Atenolol (Atenolol 25 Mg Tab) 12.5 mg PO BID [facility] Last Admin: 11/02/20 21:25 Dose: 12.5 mg Documented by: Atorvastatin Calcium (Atorvastatin 10 Mg Tab) 10 mg PO BEDTIME [facility] Last Admin: 11/02/20 21:23 Dose: 10 mg Documented by: Baclofen (Baclofen 10 Mg Tab) 10 mg PO BID PRN PRN Reason: Spasms Last Admin: 11/02/20 21:35 Dose: 10 mg Documented by: Budesonide (Budesonide 0.5 Mg/2 Ml Neb Susp) 0.5 mg INH BIDRT [facility] Last Admin: 11/02/20 17:25 Dose: 0.5 mg Documented by: Bupropion HCl (Bupropion 100 Mg Tab.Sr) 100 mg PO DAILY [facility] Cholecalciferol (Cholecalciferol (Vitamin D3) 25 Mcg Tab) 50 mcg PO DAILY [facility] Dextrose/Water (50% Dextrose In Water 50 Ml Syringe) 50 ml IVPUSH Q15M PRN PRN Reason: Hypoglycemia Enoxaparin Sodium (Enoxaparin 40 Mg/0.4 Ml Syringe) 40 mg SUBCUT DAILY [facility] Fluoxetine HCl (Fluoxetine 10 Mg Cap) 40 mg PO BEDTIME [facility] Last Admin: 11/02/20 21:24 Dose: 40 mg Documented by: Glucagon (Glucagon,Human Recombinant 1 Mg Vial) 1 mg IM Q15M PRN PRN Reason: Hypoglycemia Hydrochlorothiazide (Hydrochlorothiazide 25 Mg Tab) 25 mg PO DAILY [facility] Insulin Human Lispro (Insulin Lispro 100 Units/Ml 3 Ml Vial) 0 unit SUBCUT WITHMEALSANDBED [facility]; Protocol Last Admin: 11/02/20 21:42 Dose: Not Given Documented by: Lisinopril (Lisinopril 20 Mg Tab) 40 mg PO BEDTIME [facility] Last Admin: 11/02/20 21:24 Dose: 40 mg Documented by: Montelukast Sodium (Montelukast 10 Mg Tab) 10 mg PO BEDTIME [facility] Last Admin: 11/02/20 21:24 Dose: 10 mg Documented by: Morphine Sulfate (Morphine 2 Mg/Ml Syringe) 2 mg IV Q4H PRN PRN Reason: Pain Last Admin: 11/03/20 03:56 Dose: 2 mg Documented by: Non-Formulary Medication (Formoterol [Perforomist]) 20 mcg INH BID [facility] Non-Formulary Medication (Cyclosporine [Restasis Multidose]) 1 drop EYEBOTH BID PRN PRN Reason: Dry Eyes Omeprazole (Omeprazole 20 Mg Cap.Cr) 20 mg PO BEDTIME [facility] Last Admin: 11/02/20 21:24 Dose: 20 mg Documented by: Ondansetron HCl (Ondansetron 4 Mg Tab.Dis) 4 mg PO Q4H PRN PRN Reason: nausea, able to take PO Oxycodone HCl (Oxycodone 5 Mg Tab) 5 mg PO Q4H PRN PRN Reason: Pain (severe 7-10) Last Admin: 11/03/20 00:15 Dose: 5 mg Documented by: Polyethylene Glycol (Polyethylene Glycol 3350 Powder 17 Gm Packet) 17 gm PO DAILY [facility] Last Admin: 11/02/20 16:35 Dose: 17 gm Documented by: Senna/Docusate Sodium (Docusate Sodium/Sennosides 50-8.6 Mg Tab) 2 tab PO BID [facility] Last Admin: 11/02/20 21:23 Dose: 2 tab Documented by: Sodium Chloride (Sodium Chloride 0.9% 10 Ml Syringe) 10 ml FLUSH ASDIRECTED PRN PRN Reason: Keep Vein Open Tiotropium [place] (Tiotropium Inhaler 18 Mcg Inhalation Powder Cap Kit Of 5) 18 mcg INH DAILY [facility] Trazodone HCl (Trazodone 50 Mg Tab) 150 mg PO BEDTIME [facility] Last Admin: 11/02/20 21:24 Dose: 150 mg Documented by: Discontinued Medications Bisacodyl (Bisacodyl 10 Mg Supp) 10 mg RECTAL ONETIME ONE Stop: 11/03/20 07:32 - Exam General: Alert, Oriented HEENT: Pupils Equal, Pupils Reactive, EOMI, Mucous Membr. Moist/[place] Neck: Supple Lungs: Clear to Auscultation, Normal Respiratory Effort Cardiovascular: Regular Rate, Regular Rhythm GI/Abdominal Exam: Normal Bowel Sounds, Soft, Non-Tender, No Organomegaly, No Distention, No Abnormal Bruit, No Mass, Pelvis Stable Back Exam: Normal Inspection, Full Range of Motion Extremities: Leg Pain Peripheral Pulses: 2+: Carotid (L), Carotid (R), Brachial (L), Brachial (R), Radial (L), Radial (R), Femoral (L), Femoral (R), Popliteal (L), Popliteal (R), Posterior Tibial (L), Posterior Tibial (R), Dorsalis Pedis (L), Dorsalis Pedis (R) Skin: Warm, Dry, Intact Wound/Incisions: Healing Well Neurological: No New Focal Deficit Psy/Mental Status: Alert, Normal Affect, Normal Mood - Patient Data Lab Results Last 24 hrs: Laboratory Results - last 24 hr 11/02/20 11/02/20 11/03/20 Range/Units 17:23 20:57 03:50 WBC 9.9 (5.0-10.0) 10^3/uL RBC 3.71 L (4.2-5.4) 10^6/uL Hgb 10.3 L (12.0-16.0) g/dL Hct 33.3 L (37.0-47.0) % MCV 89.8 (80-100) fL MCH 27.8 (27.0-34.0) pg MCHC 30.9 L (33.0-35.0) g/dL Plt Count 291 (150-450) 10^3/uL Neut % (Auto) 48.6 (42.2-75.2) % Lymph % (Auto) 36.9 (20.5-50.1) % [place] % (Auto) 11.3 H (2-8) % Eos % (Auto) 2.5 (1.0-3.0) % Baso % (Auto) 0.7 (0.0-1.0) % Sodium (136-145) mmol/L Potassium (3.5-5.1) mmol/L Chloride (98-107) mmol/L Carbon Dioxide (21-32) mmol/L Anion Gap (7-13) mEq/L BUN (7-18) mg/dL Creatinine (0.55-1.02) mg/dL Est Cr Clr Drug Dosing mL/min Estimated GFR (MDRD) BUN/Creatinine Ratio (No establ ref range) Glucose (70-99) mg/dL POC Glucose 162 H 105 H (70-99) mg/dL Calcium (8.5-10.1) mg/dL Total Bilirubin (0.2-1.0) mg/dL AST (15-37) U/L ALT (14-59) U/L Alkaline Phosphatase (46-116) U/L Creatine Kinase (16-191) U/L Total Protein (6.4-8.2) g/dL Albumin (3.4-5.0) g/dL Globulin Albumin/Globulin Ratio 11/03/20 11/03/20 Range/Units 03:50 03:50 WBC (5.0-10.0) 10^3/uL RBC (4.2-5.4) 10^6/uL Hgb (12.0-16.0) g/dL Hct (37.0-47.0) % MCV (80-100) fL MCH (27.0-34.0) pg MCHC (33.0-35.0) g/dL Plt Count (150-450) 10^3/uL Neut % (Auto) (42.2-75.2) % Lymph % (Auto) (20.5-50.1) % [place] % (Auto) (2-8) % Eos % (Auto) (1.0-3.0) % Baso % (Auto) (0.0-1.0) % Sodium 142 (136-145) mmol/L Potassium 4.0 (3.5-5.1) mmol/L Chloride 104 (98-107) mmol/L Carbon Dioxide 30 (21-32) mmol/L Anion Gap 12.0 (7-13) mEq/L BUN 18 (7-18) mg/dL Creatinine 0.84 (0.55-1.02) mg/dL Est Cr Clr Drug Dosing 58.92 mL/min Estimated GFR (MDRD) > 60 BUN/Creatinine Ratio 21.4 (No establ ref range) Glucose 111 H (70-99) mg/dL POC Glucose (70-99) mg/dL Calcium 8.8 (8.5-10.1) mg/dL Total Bilirubin 0.3 (0.2-1.0) mg/dL AST 27 (15-37) U/L ALT 37 (14-59) U/L Alkaline Phosphatase 65 (46-116) U/L Creatine Kinase 140 (16-191) U/L Total Protein 7.0 (6.4-8.2) g/dL Albumin 2.8 L (3.4-5.0) g/dL Globulin 4.2 Albumin/Globulin Ratio 0.67 Result Diagrams: 11/03/20 03:50 11/03/20 03:50 Sepsis Event Note - Evaluation Sepsis Screening Result: No Definite Risk - Focused Exam Vital Signs: Vital Signs Temp Pulse Pulse Resp BP BP Pulse Ox 11/03/20 03:50 97.6 F 58 L 20 131/50 L 93 L 11/03/20 02:30 97.2 F 72 20 130/42 L 98 11/02/20 21:25 71 123/44 L 11/02/20 21:24 123/44 L 11/02/20 21:20 97.9 F 71 20 123/44 L 96 - Problem List Review Problem List Initiated/Reviewed/Updated: Yes - My Orders Last 24 Hours: My Active Orders 11/02/20 Lunch Consistent Carbohydrate Diet [DIET] 11/02/20 16:00 Blood Glucose Check, Bedside [RC] WITHMEALSANDBED Up With Assistance [RC] ASDIRECTED OT Evaluation and Treatment [CONS] Routine PT Evaluation and Treatment [CONS] Routine Acetaminophen [TylenoL] 650 mg PO Q4H PRN Ondansetron [Zofran ODT] 4 mg PO Q4H PRN Resuscitation Status Routine 11/02/20 16:01 Patient Status [ADT] Routine Vital Signs [RC] Q4H 11/02/20 16:04 CPAP Adult [RT BiPAP/CPAP] [RC] ASDIRECTED Acetaminophen/HYDROcodone [[place] 325-5 MG] 1 tab PO Q4H PRN 11/02/20 16:05 Dextrose 50% in Water 50 ml IVPUSH Q15M PRN Glucagon,Human Recombinant [GlucaGen] 1 mg IM Q15M PRN 11/02/20 16:11 Albuterol [Proventil HFA] 0 gm INH Q4H PRN Baclofen [Lioresal] 10 mg PO BID PRN cycloSPORINE [Restasis Multidose] 1 drop EYEBOTH BID PRN 11/02/20 16:15 polyethylene glycoL 3350 [MiraLAX] 17 gm PO DAILY 11/02/20 16:16 RT Aerosol Therapy [RC] ASDIRECTED RT Post Treatment Assessment [RC] Click to Edit RT Pre-Treatment Assessment [RC] Click to Edit 11/02/20 18:00 Budesonide [Pulmicort] 0.5 mg INH BIDRT Insulin Lispro [HumaLOG] See Protocol SUBCUT WITHMEALSANDBED 11/02/20 19:37 oxyCODONE 5 mg PO Q4H PRN 11/02/20 21:00 Docusate Sodium/Sennosides [Senna Plus] 2 tab PO BID FLUoxetine [PROzac] 40 mg PO BEDTIME Formoterol [Perforomist] 20 mcg INH BID Montelukast [Singulair] 10 mg PO BEDTIME Omeprazole 20 mg PO BEDTIME atenoloL [Tenormin] 12.5 mg PO BID atorvaSTATin [Lipitor] 10 mg PO BEDTIME lisinopriL [Prinivil] 40 mg PO BEDTIME traZODone 150 mg PO BEDTIME 11/03/20 03:35 Morphine 2 mg IV Q4H PRN 11/03/20 04:01 Sodium Chloride 0.9% [Saline Flush] 10 ml FLUSH ASDIRECTED PRN Saline Lock Insert [OM.PC] Routine 11/03/20 07:09 Communication Order [RC] 11/03/20 07:12 Patient Status Discharge Transfer [TRANSFER] Routine 11/03/20 07:13 Ready for Discharge [RC] PER UNIT ROUTINE 11/03/20 09:00 Ascorbic Acid [Vitamin C] 500 mg PO DAILY Cholecalciferol (Vitamin D3) [Vitamin D3] 50 mcg PO DAILY Enoxaparin [Lovenox] 40 mg SUBCUT DAILY Tiotropium [Spiriva HandiHaler] 18 mcg INH DAILY buPROPion [Wellbutrin SR] 100 mg PO DAILY hydroCHLOROthiazide 25 mg PO DAILY - Plan Plan:: Surgical History: Left ankle ORIF on October 31, 2020. Cholecystectomy, hysterectomy, bilateral breast reduction, lap band surgery with subsequent removal Family History: Cancer, stroke, diabetes, coronary artery disease, hypertension, hyperlipidemia Social History: Tobacco: Former smoker Alcohol: Denies Caffeine: Coffee Drugs: Past marijuana use. Denies any other drug use past or present Allergies: No known drug allergies Code Status: Full Assessment / Plan: Status post October 31, 2020: Left ankle ORIF for diagnosis left trimalleolar fracture with podiatry at [facility]. As needed analgesia. Physical therapy evaluation pending. Occupational therapy pending. Muscle spasm Bipolar disorder/depression/anxiety. Wellbutrin 100 mg p.o. daily plus trazodone 150 mg p.o. nightly plus Prozac 40 mg p.o. nightly 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, status post hysterectomy Obstructive sleep apnea. CPAP: Okay to use home device and/or pressure when sleeping Iron deficiency anemia. Will monitor hemoglobin level intermittently. Vitamin C 500 mg p.o. daily. Upon discharge, patient will be started on ferrous sulfate 3 and 25 mg p.o. twice daily COPD, not O2 dependent. Performers 20 m inhaled twice daily plus annular 10 mg p.o. nightly plus Spiriva 18 mg inhaled daily plus budesonide 0.5 mg inhaled twice daily Grade 1 diastolic dysfunction Diabetes. Will check fasting glucose before every meal and at bedtime and pro vide some sign scale GERD. Prilosec 20 mg p.o. nightly Hyperlipidemia. Lipitor 10 mg p.o. nightly Hypertension. Atenolol 12.5 mg p.o. twice daily plus lisinopril 40 mg p.o. nightly plus hydrochlorothiazide 25 mg p.o. daily Obesity. Patient be counseled regarding lifestyle modification Osteoarthritis Chronic pain Insomnia Seasonal allergies Restless leg syndrome Hepatic steatosis Overactive bladder Diverticulosis Chronic dry eye. Restasis 1 drop in both eyes twice daily GI prophylaxis. Senna plus: 2 tabs p.o. twice daily plus MiraLAX 17 g p.o. daily DVT prophylaxis. Lovenox 40 mg subcutaneously daily Disposition: Anticipated transition to swing bed on November 03, 2020 END OF DOCTOR EMAMIS HISTORY AND PHYSICAL / CONSULTATION NOTE
[2020-11-03 07:46] VITALS: PULSE 66
[2020-11-03] MEDS ORDERED: Enoxaparin 40 MG/0.4 ML Syringe SUBCUT SCH (09:00)
[2020-11-03] MEDS ORDERED: Hydrochlorothiazide 25 MG Tab PO SCH (09:00)
[2020-11-03] MEDS ORDERED: Cholecalciferol (Vitamin D3) 25 MCG Tab PO SCH (09:00)
[2020-11-03] MEDS ORDERED: Tiotropium Inhaler 18 MCG Inhalation Powder Cap Kit of 5 INH SCH (09:00)
[2020-11-03] MEDS ORDERED: buPROPion 100 MG Tab.SR PO SCH (09:00)
[2020-11-03] MEDS ORDERED: Ascorbic Acid 500 MG Tab PO SCH (09:00)
[2020-11-03] MEDS: Atenolol 25 MG Tab PO SCH (09:10)
[2020-11-03] MEDS: Polyethylene Glycol 3350 Powder 17 GM Packet PO SCH (09:11)
[2020-11-03 09:14] VITALS: BP 132/69
[2020-11-03] MEDS: Insulin Lispro 100 Units/ML 3 ML Vial SUBCUT SCH ×2 (09:14→16:24)
[2020-11-03] MEDS: Budesonide 0.5 MG/2 ML Neb Susp INH SCH (11:22)
[2020-11-03] MEDS: Baclofen 10 MG Tab PO PRN (12:01)
--- OUTSIDE RECORDS SUMMARY | 2020-11-05 12:27 | XMSREPORT ---
:1960 Author Organization [facility] Address [address] [place] [address] [address] [place] [address] Care Team Providers Name Role Phone Provider, No Attributed RESOURCE Attributed Provider Unavail able Pcp, Primary Care Provider Unavailable Reason for Visit Auth/Cert Status Reason Specialty Diagnoses / Procedures Referred By Phill arthur Referred To Contact Encounter Details Date Type Department Care Team Description 10/29/2020 - Hospital Encounter Provider, Generic Hos p Procedure Closed left ankle 11/02/[address] Irma hSin MD [address] [address] [phone] fracture [address] [place], [place] [id number] Allergies No Known Active Allergiesdocumented as of this encounter (statuses as of 11/02/2020) Medications Medication Sig Dispensed Refills Start End Status Date Date Albuterol Sulfate 108 Inhale 2 puffs 0 02/22/20 Active (90 Base) MCG/ACT AEPB orally Every 4 19 hours as needed for shortness of breath atenolol (TENORMIN) 25 Take 12.5 mg by 0 10/09/19 Active mg tablet mouth 2 times a 21 day atorvaSTATin (LIPITOR) Take 1 tablet by 0 10/09/19 Active 10 mg tablet mouth every 21 night at bedtime baclofen (LIORESAL) 10 Take 1 tablet by 0 10/09/19 Active mg tablet mouth 2 times a 21 day as needed for muscle spasm budesonide (PULMICORT) Inhale 1 nebule 0 10/13/19 Active 0.5 mg/2 mL inhalation by nebulization 21 solution 2 times a day buPROPion (WELLBUTRIN) Take 1 tablet by 0 10/09/19 Active 100 mg tablet mouth 1 time per 21 day [address] 0.05 % Place 1 drop 0 10/09/19 A ctive ophthalmic emulsion into both eyes 2 21 times a day as needed (dry eyes) FLUoxetine (PROZAC) 20 Take 40 mg by 0 10/09/19 Active mg capsule mouth every 21 night at bedtime hydroCHLOROthiazide 25 Take 1 tablet by 0 10/09/19 Active mg tablet mouth 1 time per 21 day Accu-Chek Softclix 0 10/09/19 A ctive lancets 21 lisinopril (PRINIVIL, Take 1 tablet by 0 10/09/19 Active ZESTRIL) 40 mg tablet mouth every 21 night at bedtime montelukast Take 1 tablet by 0 10/09/19 A ctive (SINGULAIR) 10 mg mouth every 21 tablet night at bedtime omeprazole (PRILOSEC) Take 1 capsule 0 10/09/19 Active 20 mg capsule by mouth every 21 night at bedtime SPIRIVA HANDIHALER 18 Inhale 1 each 0 10/09/19 Active MCG aer cap orally 1 time 21 per day traZODone (DESYREL) Take 1 tablet by 0 10/09/19 Active 150 mg tablet mouth every 21 night at bedtime PERFOROMIST 20 MCG/2ML Inhale 1 nebule 0 10/13/19 Active inhalation solution by nebulization 21 2 times a day vitamin D3, Take 1 tablet 50 tablet 0 11/02/19 Acti ve cholecalciferol, 50 (2,000 Units) by mcg (2000 unit) mouth 1 time per tabletIndications: day Post-operative state ascorbic acid (VITAMIN Take 1 tablet 50 tablet 0 11/02/1906/19 Active C) 500 mg (500 mg) by tabletIndications: mouth 1 time per Post-operative state day senna-docusate sodium Take 1 tablet by 20 tablet 0 11/02/19 Active (SENOKOT-S;PERICOLACE) mouth 2 times a 21 8.6-50 MG day as needed tabletIndications: for constipation Post-operative state acetaminophen Take 1 tablet 40 tablet 0 11/03/19 Ac tive (TYLENOL) 500 mg (500 mg) by tabletIndications: mouth Every 6 Post-operative state hours for 10 days Stagger the acetaminophen and ibuprofen so that you are alternating them every three hours aspirin (ECOTRIN) 325 Take 1 tablet 28 tablet 0 11/03/1911/18 3/2 Active mg enteric coated (325 mg) by tabletIndications: mouth 1 time per Post-operative state day for 28 days oxyCODONE (OXY-IR) 5 Take 1-2 tablets 20 tablet 0 11/03/19 Active mg tablet (immediate (5-10 mg) by release)Indications: mouth Every 4 Post-operative state hours as needed for other (Specify) (severe pain rating of 7-10) for up to 3 days ibuprofen (MOTRIN) 600 Take 1 tablet 40 tablet 0 11/03/1915/06 Active mg tabletIndications: (600 mg) by Post-operative state mouth Every 6 hours for 10 days Stagger the acetaminophen and ibuprofen so that you are alternating them every three hours ondansetron (ZOFRAN) 4 Take 1 tablet (4 20 tablet 0 11/03/19 Active mg tabletIndications: mg) by mouth Post-operative state Every 4 hours as needed for nausea or vomiting nalOXone (NARCAN) 4 [place] 1 spray (4 0.2 mL 0 11/03/1912/20 Active MG/0.1ML nasal mg) into one sprayIndications: nostril 1 time; Post-operative state, may repeat in Closed fracture of opposite nostril left ankle, initial in 2 to 3 encounter minutes if person does not respond. ASPIRIN LOW DOSE 81 MG Take 1 tablet by 0 10/09/19 Discontinued enteric coated tablet mouth every (Stop Taking night at bedtime at Discharge) HYDROcodone-acetaminop Take 1 tablet by 0 10/28/19 Discontinued hen (NORCO) 10-325 mg mouth Every 4 (Stop Taking tablet hours as needed at D ischarge) acetaminophen Take 1 tablet 40 tablet 0 11/02/19 Di scontinued (TYLENOL) 500 mg (500 mg) by ( Reorder) tabletIndications: mouth Every 6 Post-operative state hours for 10 days Stagger the acetaminophen and ibuprofen so that you are alternating them every three hours ibuprofen (MOTRIN) 600 Take 1 tablet 40 tablet 0 11/02/1905/06 Discontinued mg tabletIndications: (600 mg) by (Reorder) Post-operative state mouth Every 6 hours for 10 days Stagger the acetaminophen and ibuprofen so that you are alternating them every three hours oxyCODONE (OXY-IR) 5 Take 1-2 tablets 20 tablet 0 11/02/19 Discontinued mg tablet (immediate (5-10 mg) by (Reorder) release)Indications: mouth Every 4 Post-operative state hours as needed for other (Specify) (severe pain rating of 7-10) for up to 3 days ondansetron (ZOFRAN) 4 Take 1 tablet (4 20 tablet 0 11/02/19 Discontinued mg tabletIndications: mg) by mouth (Reorder) Post-operative state Every 4 hours as needed for nausea or vomiting aspirin (ECOTRIN) 325 Take 1 tablet 28 tablet 0 11/02/1910/18 Discontinued mg enteric coated (325 mg) by (Reorder) tabletIndications: mouth 1 time per Post-operative state day for 28 days documented as of this encounter (statuses as of 11/02/2020) Active Problems Problem Noted Date Closed left ankle fracture 10/30/2020 documented as of this encounter (statuses as of 11/02/2020) Immunizations Name Administration Dates Next Due documented as of this encounter Social History Tobacco Use Types Packs/Day Years Used Date Never Smoker Smokeless Tobacco: Never Used Alcohol Use Standard Drinks/Week Comments Not Currently 0 (1 standard drink = 0.6 oz pure alcoho l) Alcohol Habits Answer Date Recorded How often do you have a drink containing alcohol? Never 10/29/2020 How many drinks containing alcohol do you have on a typical Not asked day when you are drinking? How often do you have six or more drinks on one occasion? No t asked Education Answer Date Recorded What is the highest level of school Associate degree: [employer] program 10/17/2019 you have completed or the highest degree you have received? Sex Assigned at Date Recorded Not on file documented as of this encounter Last Filed Vital Signs Vital Sign Reading Time Taken Comments Blood Pressure 127/51 11/02/2020 7:50 AM CDT Pulse 62 11/02/2020 7:50 AM CDT Temperature 36.4 C (97.5 F) 11/02/2020 7:50 AM CDT Respiratory Rate 16 11/02/2020 7:50 AM CDT Oxygen Saturation 93% 11/02/2020 7:50 AM CDT Inhaled Oxygen Concentration - - Weight 131.5 kg (290 lb) 10/29/2020 1:56 PM CDT Height 160 cm (5' 3") 10/29/2020 1:56 PM CDT Body Mass Index 51.37 10/29/2020 1:56 PM CDT documented in this encounter Discharge Summaries Irma Shin MD - 11/02/2020 9:10 AM CDT Discharge Summary Patient ID: Isi Sauceda is a 60yr female. Attending Physician: Irma Shin MD Discharging Provider Specialty: Adult Hospitalist Admit Date: 10/29/2020 Discharge Date: 11/02/2020 Primary Care Physician: MARK WRIGHT MD Code Status: Full Code Primary Discharge Diagnoses 1. LT Ankle Trimalleolar Fracture s/p ORIF 2. Essential Hypertension 3. HLD 4. Asthma 5. Mood Disorder 6. GERD 7. Insomnia 8. BRANDY Secondary Discharge Diagnoses Patient Active Problem List Diagnosis Closed left ankle fracture Hospital Course Ms. Sauceda is a 60 year old lady with a past medical history significant for asthma, depression, DM, and HTN who presented as an OSH transfer on 10/29/20 for management of LT ankle fracture. Patient endorsed that she was having issues with balance and as she was putting on her shoes on 10/26/20 noted that she lost her footing and twisted her ankle. She initially presented to the emergency room and was sent home in a splint. She had continued weakness and pain along her left ankle and return to the ED 10/28/20 for reevaluation. It was at that point she was admitted to the hospital there. Given her fracture and continued pain, patient was transferred to [place] for podiatry evaluation. Patient had ORIF with Dr. Ji on 10/31/20. She tolerated the procedure without issue. She was followed by PT/OT and it was recommended that the patient transition to swing bed for continued therapies prior to going home. Ms. Pforr was discharged hemodynamically stable. She denied chest pain, shortness of breath, abdominal pain. She will be on aspirin 325 mg for at least 6 weeks for DVT prophylaxis per podiatry. Patient is to remain nonweightbearing to the left foot and keep dressing clean, dry, and intact until follow-up with Dr. Ji in 2 weeks. Signs and symptoms of infection and postoperative complications werediscussed with the patient which include but are not limited to fever/chills, excessive bleeding from dressing, saturation of dressing, and calf pain/tenderness. All of the patient's questions were amputated to her satisfaction prior to discharge. Over 35 min floor time. More than 1/2 of this was spent in discussions with pt/family, coordination of care. Procedures Performed and Findings Procedure(s): LEFT ANKLE OPEN REDUCTION INTERNAL FIXATION - Wound Class: Clean Discharge Exam Vital Signs: Temp: 97.5 F (36.4 C) | BP: 127/51 | Pulse: 62 | Resp: 16 | Pain Ratin (out of 10) | Weight: 131.5 kg (290 lb) | O2 Device: CPAP (non-invasive) O2 Flow Rate (L/min): 2 l/min | SpO2: 93 % Intake and Output: 11/01 0700 - 11/02 0659 In: 780 [Oral:780] Out: 875 [Urine:875] Physical Exam HENT: Head: Atraumatic. Nose: Nose normal. Mouth/Throat: Pharynx: Oropharynx is clear. Eyes: Extraocular Movements: Extraocular movements intact. Cardiovascular: Rate and Rhythm: Normal rate and regular rhythm. Pulmonary: Effort: Pulmonary effort is normal. Abdominal: Palpations: Abdomen is soft. Musculoskeletal: Cervical back: Normal range of motion. Comments: LT lower extremity dressing clean, dry, and intact. Sensation intact and able to wiggletoes without issue. Right lower extremity strength and sensation intact. Skin: General: Skin is warm. Neurological: General: No focal deficit present. Mental Status: She is alert and oriented to person, place, and time. Psychiatric: Mood and Affect: Mood normal. Consults PHARMACY REFERRAL COMPLETE MEDICATION RECONCILIATION CONSULT PODIATRY Discharge Disposition - Stable Discharge Medications Medication List START taking these medications acetaminophen 500 mg tablet Commonly known as: TYLENOL Take 1 tablet (500 mg) by mouth Every 6 hours for 10 days Stagger the acetaminophen and ibuprofen sothat you are alternating them every three hours ascorbic acid 500 mg tablet Commonly known as: Vitamin C Take 1 tablet (500 mg) by mouth 1 time per day ibuprofen 600 mg tablet Commonly known as: MOTRIN Take 1 tablet (600 mg) by mouth Every 6 hours for 10 days Stagger the acetaminophen and ibuprofen sothat you are alternating them every three hours nalOXone 4 MG/0.1ML nasal spray Commonly known as: NARCAN [place] 1 spray (4 mg) into one nostril 1 time; may repeat in opposite nostril in 2 to 3 minutes if person does not respond. ondansetron 4 mg tablet Commonly known as: ZOFRAN Take 1 tablet (4 mg) by mouth Every 4 hours as needed for nausea or vomiting oxyCODONE 5 mg tablet (immediate release) Commonly known as: OXY-IR Take 1-2 tablets (5-10 mg) by mouth Every 4 hours as needed for other (Specify) (severe pain rating of 7-10) for up to 3 days senna-docusate sodium 8.6-50 MG tablet Commonly known as: SENOKOT-S;PERICOLACE Take 1 tablet by mouth 2 times a day as needed for constipation vitamin D3 (cholecalciferol) 50 mcg (2000 unit) tablet Take 1 tablet (2,000 Units) by mouth 1 time per day CHANGE how you take these medications aspirin 325 mg enteric coated tablet Commonly known as: ECOTRIN Take 1 tablet (325 mg) by mouth 1 time per day for 28 days What changed: medication strength how much to take when to take this CONTINUE taking these medications Accu-Chek Softclix Lancets Albuterol Sulfate 108 (90 Base) MCG/ACT Aepb atenolol 25 mg tablet Commonly known as: TENORMIN atorvaSTATin 10 mg tablet Commonly known as: LIPITOR baclofen 10 mg tablet Commonly known as: LIORESAL budesonide 0.5 mg/2 mL inhalation solution Commonly known as: PULMICORT buPROPion 100 mg tablet Commonly known as: WELLBUTRIN FLUoxetine 20 mg capsule Commonly known as: PROzac hydroCHLOROthiazide 25 mg tablet lisinopril 40 mg tablet Commonly known as: PRINIVIL, ZESTRIL montelukast 10 mg tablet Commonly known as: SINGULAIR omeprazole 20 mg capsule Commonly known as: priLOSEC Perforomist 20 MCG/2ML inhalation solution Generic drug: formoterol Restasis 0.05 % ophthalmic emulsion Generic drug: cycloSPORINE Spiriva HandiHaler 18 MCG aer cap Generic drug: tiotropium traZODone 150 mg tablet Commonly known as: DESYREL STOP taking these medications HYDROcodone-acetaminophen 10-325 mg tablet Commonly known as: NORCO Where to Get Your Medications Information about where to get these medications is not yet available Ask your nurse or doctor about these medications acetaminophen 500 mg tablet ascorbic acid 500 mg tablet aspirin 325 mg enteric coated tablet ibuprofen 600 mg tablet nalOXone 4 MG/0.1ML nasal spray ondansetron 4 mg tablet oxyCODONE 5 mg tablet (immediate release) senna-docusate sodium 8.6-50 MG tablet vitamin D3 (cholecalciferol) 50 mcg (2000 unit) tablet Discharge Instructions See AVS for discharge instructions. Tests Pending at Discharge - N/A Follow-Up Scheduled See AVS for Follow up appointments made Medical Decision Making The time spent on discharge coordination was greater than 30 minutes. documented in this encounter Medications at Time of Discharge Medication Sig Dispensed Refills Start Date End Date acetaminophen (TYLENOL) Take 1 tablet (500 40 tablet 0 10/1811/12/2020 500 mg tabletIndications: mg) by mouth Every 6 Post-operative state hours for 10 days Stagger the acetaminophen and ibuprofen so that you are alternating them every three hours aspirin (ECOTRIN) 325 mg Take 1 tablet (325 28 tablet 0 11/30/2020 enteric coated mg) by mouth 1 time tabletIndications: per day for 28 days Post-operative state oxyCODONE (OXY-IR) 5 mg Take 1-2 tablets 20 tablet 0 202011/05/2020 tablet (immediate (5-10 mg) by mouth release)Indications: Every 4 hours as Post-operative state needed for other (Specify) (severe pain rating of 7-10) for up to 3 days ibuprofen (MOTRIN) 600 mg Take 1 tablet (600 40 tablet 0 11/12/2020 tabletIndications: mg) by mouth Every 6 Post-operative state hours for 10 days Stagger the acetaminophen and ibuprofen so that you are alternating them every three hours ondansetron (ZOFRAN) 4 mg Take 1 tablet (4 mg) 20 tablet 0 11/02/2020 tabletIndications: by mouth Every 4 Post-operative state hours as needed for nausea or vomiting Albuterol Sulfate 108 (90 Inhale 2 puffs 0 2018 Base) MCG/ACT AEPB orally Every 4 hours as needed for shortness of breath atenolol (TENORMIN) 25 mg Take 12.5 mg by 0 10/08 tablet mouth 2 times a day atorvaSTATin (LIPITOR) 10 Take 1 tablet by 0 2 04/2020 mg tablet mouth every night at bedtime baclofen (LIORESAL) 10 mg Take 1 tablet by 0 09/19 tablet mouth 2 times a day as needed for muscle spasm budesonide (PULMICORT) 0.5 Inhale 1 nebule by 0 0 10/12/2020 mg/2 mL inhalation nebulization 2 times solution a day buPROPion (WELLBUTRIN) 100 Take 1 tablet by 0 mg tablet mouth 1 time per day RESTASIS 0.05 % ophthalmic Place 1 drop into 0 emulsion both eyes 2 times a day as needed (dry eyes) FLUoxetine (PROZAC) 20 mg Take 40 mg by mouth 0 0 10/08/2020 capsule every night at bedtime hydroCHLOROthiazide 25 mg Take 1 tablet by 0 09/19 tablet mouth 1 time per day Accu-Chek Softclix lancets 0 lisinopril (PRINIVIL, Take 1 tablet by 0 10/09/19 ZESTRIL) 40 mg tablet mouth every night at bedtime montelukast (SINGULAIR) 10 Take 1 tablet by 0 mg tablet mouth every night at bedtime omeprazole (PRILOSEC) 20 Take 1 capsule by 0 09/19 mg capsule mouth every night at bedtime SPIRIVA HANDIHALER 18 MCG Inhale 1 each orally 0 10/08/2020 aer cap 1 time per day traZODone (DESYREL) 150 mg Take 1 tablet by 0 tablet mouth every night at bedtime PERFOROMIST 20 MCG/2ML Inhale 1 nebule by 0 10/12 inhalation solution nebulization 2 times a day nalOXone (NARCAN) 4 [place] 1 spray (4 mg) 0.2 mL 0 202001/26/2022 MG/0.1ML nasal into one nostril 1 sprayIndications: time; may repeat in Post-operative state, opposite nostril in Closed fracture of left 2 to 3 minutes if ankle, initial encounter person does not respond. vitamin D3, Take 1 tablet (2,000 50 tablet 0 11/01/202006/2020 cholecalciferol, 50 mcg Units) by mouth 1 (2000 unit) time per day tabletIndications: Post-operative state ascorbic acid (VITAMIN C) Take 1 tablet (500 50 tablet 0 12/21/2020 500 mg tabletIndications: mg) by mouth 1 time Post-operative state per day senna-docusate sodium Take 1 tablet by 20 tablet 0 11/02/19 21 (SENOKOT-S;PERICOLACE) mouth 2 times a day 8.6-50 MG as needed for tabletIndications: constipation Post-operative state documented as of this encounter Progress Notes Irma Shin MD - 11/01/2020 10:09 AM CDT Images from the original note were not included. DAILY PROGRESS NOTE Isi Sauceda is a 60yr old female admitted on 10/29/2020 1:19 PM. Impression / Plan Ms. Sauceda is a 60 year old lady with a past medical history significant for asthma, depression, DM, and HTN who presented as an OSH transfer for management of LT ankle fracture. LT Ankle Trimalleolar Fracture s/p ORIF - Noted to have a mechanical fall on 10/26/20 while trying to put her shoes on in the living room - LT ankle radiographs with trimalleolar ankle fracture - CT with acute comminuted trimalleolar fracture of the left ankle; osseous fracture fragment present within the tibiotalar joint - s/p ORIF with Dr. Ji on 10/31/20 - PRN tylenol for mild pain, PRN oxycodone for moderate pain, PRN IV morphine for severe pain - DVT Prophylaxis: Lovenox while inpatient; ASA 325 mg daily for 6 weeks - Patient to remain NWB to LT foot until follow-up with Dr. Ji in 2 weeks - PT/OT Essential Hypertension - Continue home lisinopril, HCTZ; hold for SBP < 100 - Continue home atenolol, hold for SBP < 100 and/or HR < 60 - PRN hydralazine for SBP > 160 and/or DBP > 100 HLD - Continue lipitor 10 mg qhs Asthma - Continue home pulmicort BID - Continue home perforomist BID - Continue home umeclidinium daily - Continue home sigulair 10 mg qhs Mood Disorder - Continue home wellbutrin 100 mg daily - Continue home prozac 40 mg qhs GERD - Conitnue omeprazole 20 mg qhs Insomnia - Continue home trazodone 150 mg qhs BRANDY - CPAP qhs Fluids: N/A Electrolytes: Replete PRN Nutrition: Heart Healthy GI: PPI DVT Prophylaxis: Lovenox while inpatient; ASA 325 mg daily for at least 6 weeks thereafter Disposition: Pending assessment by therapies, will need swing bed placement CODE STATUS: FULL CODE Interval History HPI - Reports pain along LT foot and ankle, is controlled with pain medications - Endorses that her works most of the day and cannot assist with cares, requesting swing bedplacement - Denied CP, SOB, abdominal pain - No acute events overnight Review of Systems Review of Systems - 14 point ROS completed. Pertinent positives and negatives in HPI. All else otherwise negative Physical Exam Vital Signs: Temp: 99 F (37.2 C) | BP: 141/59 | Pulse: 72 | Resp: 16 | Pain Ratin (out of 10) | Weight: 131.5 kg (290 lb) | O2 Device: NC - no humidity O2 Flow Rate (L/min): 2 l/min | SpO2: 92 % Maximum Temperatures (last 24 hours) Temperature Maximum Max Temp 99.2 F (37.3 C) Intake and Output: 10/31 0700 - 11/01 0659 In: 1620 [Oral:520] Out: 750 [Urine:750] Physical Exam Constitutional: Appearance: Normal appearance. HENT: Head: Atraumatic. Nose: Nose normal. Mouth/Throat: Pharynx: Oropharynx is clear. Eyes: Extraocular Movements: Extraocular movements intact. Cardiovascular: Rate and Rhythm: Normal rate and regular rhythm. Pulmonary: Effort: Pulmonary effort is normal. Abdominal: Palpations: Abdomen is soft. Musculoskeletal: Cervical back: Normal range of motion. Comments: LT LE in dressing. Clean/dry/intact Able to wiggle toes, sensation intact bilaterally Skin: General: Skin is warm. Neurological: General: No focal deficit present. Mental Status: She is alert and oriented to person, place, and time. Psychiatric: Mood and Affect: Mood normal. Behavior: Behavior normal. Labs Labs (Last day) 11/01/20545 - 11/01/20545 CBC 11/01/20545 CBC Hemoglobin 11.5-15.8 (g/dL) 11.8 11/01/20 0546 - 11/01/20545 CHEMISTRY 11/01/20545 CHEMISTRY Glucose 70-100 (mg/dL) 130 Sodium 135-145 (meq/L) 137 Potassium 3.5-5.3 (meq/L) 4.3 Chloride 99-110 (meq/L) 102 CO2 20-29 (meq/L) 29 Anion Gap with K 6-20 (meq/L) 10 BUN 6-22 (mg/dL) 14 Creatinine 0.60-1.10 (mg/dL) 0.75 BUN/Creatinine Ratio 10.0-25.0 18.7 Calcium 8.5-10.5 (mg/dL) 9.1 eGFR >=60 (mL/min/1.73m2) >90 eGFR Non- >=60 (mL/min/1.73m2) 79 10/31/20 1734 - 10/31/20 1132 GLUCOSE POINT OF CARE 10/31/20 1734 10/31/20 1132 GLUCOSE POINT OF CARE Glucose POC 70-99 (mg/dL) 126 110 11/01/20 0546 - 11/01/20 0546 OTHER 11/01/20 0546 OTHER Age (Years) 60 Medical Decision making MDM Reviewed: previous chart, nursing note and vitals Donovan- Stephanie Owens DPM - 11/01/2020 9:02 AM CDT FOOT AND ANKLE SURGERY INPATIENT PROGRESS NOTE Patient: Isi Sauceda is a 60yr old female. Attending Physician: Irma Shin MD Hospital Stay: 1 Today's Date: 11/01/2020 Assessment / Plan 60yr old female S/P Open reduction internal fixation of trimalleolar fracture, left by Dr. Ji (DOS: 10/31/20). Plan: - Patient did well overnight. She states that she would like to go to a swing bed as her is gone for most of the day at work. Patient stated that she has talked to case management about this. Patient is okay for discharge from podiatry standpoint once cleared by PT/OT and if pain is controlled. Patient will be discharged with Tylenol, ibuprofen, and oxycodone. Educated the patient on developing a consistent schedule for taking pain medication to prevent breakthrough pain. DVT prophylaxis will consist of 325 mg aspirin daily for at least 6 weeks. Patient is to remain NWB to the Left foot andkeep dressing clean, dry, and intact until follow up with Dr. Ji in 2 weeks. Discussed with the patient signs and symptoms of infection/post-op complications which include but are not limited to fevers/chills, excessive bleeding from dressing, saturation of dressing, and calf pain/tenderness. Patient's questions were answered and she is agreeable to plan. Podiatry discharge orders have been placed.. 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 - PT/OT - Incentive spirometry - Remaining cares per IM Subjective No acute events overnight. Patient resting comfortably in bed this morning. She stated that she had pain throughout the night. She is also concerned about going home as her is gone for most of the day. She and her are considering sending her to a swing bed. She denies any f/c/n/v. Review of Systems Review of Systems Constitutional: Negative for chills, fever and malaise/fatigue. Eyes: Negative for visual disturbance. Cardiovascular: Negative for leg swelling. Respiratory: Negative for shortness of breath. Skin: Negative for color change and poor wound healing. Splint to left LE is c/d/i Musculoskeletal: Positive for joint pain and joint swelling. Negative for muscle weakness. Gastrointestinal: Negative for constipation, diarrhea, nausea and vomiting. Neurological: Negative for numbness and paresthesias. Psychiatric/Behavioral: The patient is not nervous/anxious. Objective Current Vital Signs: Temp: 99 F (37.2 C) BP: 141/59 Pulse: 72 O2 Device: NC - no humidity O2 Flow Rate (L/min): 2 l/min Resp: 16 Pain Ratin (out of 10) Weight: 131.5 kg (290 lb) SpO2: 92 % Physical Exam Lower Extremity Exam: Left lower extremity dressing is clean, dry, and intact without strikethrough. Patient able to wiggle digits. Gross sensation is not intact due to surgical block still in effect.Capillary refill is intact to all digits. Stephanie Robertson DPM, PGY2 11/01/2020 9:04 AM CDT Associated attestation - Reuben Hayden DPM - 11/01/2020 12:35 PM CDT I discussed the patient with the resident and personally interviewed and examined the patient. I verified in the medical record all resident documentation/findings, including history, physical exam, and medical decision making, and I agree with the resident's documentation. Irma Shin MD - 10/31/2020 10:04 AM CDT Images from the original note were not included. DAILY PROGRESS NOTE Isi Sauceda is a 60yr old female admitted on 10/29/2020 1:19 PM. Impression / Plan Ms. Sauceda is a 60 year old lady with a past medical history significant for asthma, depression, DM, and HTN who presented as an OSH transfer for management of LT ankle fracture. LT Ankle Trimalleolar Fracture - LT ankle radiographs with trimalleolar ankle fracture - Noted to have a mechanical fall on 10/26/20 while trying to put her shoes on in the living room - Podiatry following, plan for OR on 10/31/20 - CT with acute comminuted trimalleolar fracture of the left ankle; osseous fracture fragment present within the tibiotalar joint - PRN tylenol for mild pain, PRN oxycodone for moderate pain, PRN IV morphine for severe pain - NPO today; patient to OR this afternoon - Weightbearing: NWB LT foot - PT/OT Essential Hypertension - Hold lisinopril, HCTZ perioperatively, resume post-operatively as needed - Continue home atenolol, hold for SBP < 100 and/or HR < 60 - Start scheduled hydralazine 25 mg BID while home BP meds are held; hold for SBP < 100 - PRN hydralazine for SBP > 160 and/or DBP > 100 HLD - Continue lipitor 10 mg qhs Asthma - Continue home pulmicort BID - Continue home perforomist BID - Continue home umeclidinium daily - Continue home sigulair 10 mg qhs Mood Disorder - Continue home wellbutrin 100 mg daily - Continue home prozac 40 mg qhs GERD - Conitnue omeprazole 20 mg qhs Insomnia - Continue home trazodone 150 mg qhs Fluids: N/A Electrolytes: Replete PRN Nutrition: Heart Healthy GI: PPI DVT Prophylaxis: SCDs Disposition: Pending medical stability CODE STATUS: FULL CODE Interval History HPI - Doing well this morning, patient to OR later today - Pain well controlled at LT ankle - Denied CP, SOB, abdominal pain - No acute events overnight Review of Systems Review of Systems - 14 point ROS completed. Pertinent positives and negatives in HPI. All else otherwise negative Physical Exam Vital Signs: Temp: 98.8 F (37.1 C) | BP: 163/60 | Pulse: 64 | Resp: 15 | Pain Ratin (out of 10) | Weight: 131.5 kg (290 lb) | O2 Device: Room Air | SpO2: 90 % Maximum Temperatures (last 24 hours) Temperature Maximum Max Temp 99.8 F (37.7 C) Intake and Output: 10/30 0700 - 10/31 0659 In: - Out: 1500 [Urine:1500] Physical Exam Constitutional: Appearance: Normal appearance. HENT: Head: Atraumatic. Nose: Nose normal. Mouth/Throat: Pharynx: Oropharynx is clear. Eyes: Extraocular Movements: Extraocular movements intact. Cardiovascular: Rate and Rhythm: Normal rate and regular rhythm. Pulmonary: Effort: Pulmonary effort is normal. Abdominal: Palpations: Abdomen is soft. Musculoskeletal: Cervical back: Normal range of motion. Comments: LT LE in dressing. Clean/dry/intact Skin: General: Skin is warm. Neurological: General: No focal deficit present. Mental Status: She is alert and oriented to person, place, and time. Psychiatric: Mood and Affect: Mood normal. Behavior: Behavior normal. Labs Labs (Last day) 10/31/20 0759 - 10/30/20 1125 GLUCOSE POINT OF CARE 10/31/20 0759 10/30/20 1759 10/30/20 1125 GLUCOSE POINT OF CARE Glucose POC 70-99 (mg/dL) 139 110 158 Medical Decision making MDM Reviewed: previous chart, nursing note and vitals Irma Shin MD - 10/30/2020 10:45 AM CDT Images from the original note were not included. DAILY PROGRESS NOTE Isi Sauceda is a 60yr old female admitted on 10/29/2020 1:19 PM. Impression / Plan Ms. Sauceda is a 60 year old lady with a past medical history significant for asthma, depression, DM, and HTN who presented as an OSH transfer for management of LT ankle fracture. LT Ankle Trimalleolar Fracture - LT ankle radiographs with trimalleolar ankle fracture - Noted to have a mechanical fall on 10/26/20 while trying to put her shoes on in the living room - Podiatry following, plan for OR on 10/31/20 - CT with acute comminuted trimalleolar fracture of the left ankle; osseous fracture fragment present within the tibiotalar joint - PRN tylenol for mild pain, PRN oxycodone for moderate pain, PRN IV morphine for severe pain - NPO at [place] on 10/31/20 - Weightbearing: NWB LT foot - PT/OT Essential Hypertension - Hold lisinopril, HCTZ perioperatively, resume post-operatively as needed - Continue home atenolol, hold for SBP < 100 and/or HR < 60 - PRN hydralazine for SBP > 160 and/or DBP > 100 HLD - Continue lipitor 10 mg qhs Asthma - Continue home pulmicort BID - Continue home perforomist BID - Continue home umeclidinium daily - Continue home sigulair 10 mg qhs Mood Disorder - Continue home wellbutrin 100 mg daily - Continue home prozac 40 mg qhs GERD - Conitnue omeprazole 20 mg qhs Insomnia - Continue home trazodone 150 mg qhs Fluids: N/A Electrolytes: Replete PRN Nutrition: Heart Healthy GI: PPI DVT Prophylaxis: SCDs Disposition: Pending medical stability CODE STATUS: FULL CODE Interval History HPI - Doing well this morning - Pain well controlled at LT ankle - Denied CP, SOB, abdominal pain - No acute events overnight Review of Systems Review of Systems - 14 point ROS completed. Pertinent positives and negatives in HPI. All else otherwise negative Physical Exam Vital Signs: Temp: 98.8 F (37.1 C) | BP: 157/64 | Pulse: 60 | Resp: 16 | Pain Ratin (out of 10) | Weight: 131.5 kg (290 lb) | O2 Device: Room Air | SpO2: 94 % Maximum Temperatures (last 24 hours) Temperature Maximum Max Temp 98.8 F (37.1 C) Intake and Output: 10/29 0700 - 10/30 0659 In: 240 [Oral:240] Out: 700 [Urine:700] Physical Exam Constitutional: Appearance: Normal appearance. HENT: Head: Atraumatic. Nose: Nose normal. Mouth/Throat: Pharynx: Oropharynx is clear. Eyes: Extraocular Movements: Extraocular movements intact. Cardiovascular: Rate and Rhythm: Normal rate and regular rhythm. Pulmonary: Effort: Pulmonary effort is normal. Abdominal: Palpations: Abdomen is soft. Musculoskeletal: Cervical back: Normal range of motion. Comments: LT LE in dressing. Clean/dry/intact Skin: General: Skin is warm. Neurological: General: No focal deficit present. Mental Status: She is alert and oriented to person, place, and time. Psychiatric: Mood and Affect: Mood normal. Behavior: Behavior normal. Labs Labs (Last day) 10/29/20 1432 - 10/29/20 1432 CBC 10/29/20 1432 CBC WBC 4.0-11.0 (K/uL) 9.2 RBC 3.80-5.30 (M/uL) 4.43 Hemoglobin 11.5-15.8 (g/dL) 12.1 Hematocrit 35.0-45.0 (%) 39.4 MCV 80.0-98.0 (fL) 88.9 MCH 25.5-34.0 (pg) 27.3 MCHC 31.5-36.5 (g/dL) 30.7 RDW-CV 11.5-15.5 (%) 16.8 RDW-SD 35.5-50.0 (fl) 53.2 Platelet Count 140-400 (K/uL) 278 MPV 8.5-12.0 (fL) 9.9 10/29/20 1432 - 10/29/20 1432 CHEMISTRY 10/29/20 1432 10/29/20 1432 10/29/20 1432 CHEMISTRY Glucose 70-100 (mg/dL) 103 Sodium 135-145 (meq/L) 139 Potassium 3.5-5.3 (meq/L) 3.9 Chloride 99-110 (meq/L) 104 CO2 20-29 (meq/L) 25 Anion Gap with K 6-20 (meq/L) 14 BUN 6-22 (mg/dL) 15 Creatinine 0.60-1.10 (mg/dL) 0.72 BUN/Creatinine Ratio 10.0-25.0 20.8 Calcium 8.5-10.5 (mg/dL) 9.1 Phosphorus 2.5-4.5 (mg/dL) 3.7 Magnesium 1.8-2.4 (mg/dL) 2.1 eGFR >=60 (mL/min/1.73m2) >90 eGFR Non- >=60 (mL/min/1.73m2) 83 10/29/20 1432 - 10/29/20 1432 OTHER 10/29/20 1432 OTHER Age (Years) 60 Medical Decision making MDM Reviewed: previous chart, nursing note and vitals Froy Suarez DPM - 10/30/2020 9:15 AM CDT [facility] Foot [facility] Ankle Surgery Progress Note Patient: Isi Sauceda - 60yr female Date: 10/30/2020 Attending: Irma Shin MD Hospital Stay: 0 ASSESSMENT: 60yr old female with: 1. Left ankle trimalleolar fracture, closed 2. Type 2 DM, controlled Plan: - Discussed the imaging studies including the radiographs and CT scan with the patient. We recommendsurgical fixation of the trimalleolar ankle fracture. Patient will undergo ORIF, left ankle tomorrowwith Dr. Ji. Risks and goals of the procedure will be discussed with patient and attending prior to procedure. Pre-op orders have been placed. She will be NPO at midnight. Please page production laborer resident with any further questions. - Diet: NPO at midnight 10/31 - Pain control - Weightbearing status: NWB left foot - PT/OT - Remaining cares per primary team S: Patient seen this AM lying comfortably in bed in no acute distress. Denies any constitutional symptoms such as n/v/f/d/chills/sob. O: Current Vital Signs: Temp: 98.8 F (37.1 C) BP: 157/64 Pulse: 60 O2 Device: Room Air Resp: 16 Pain Ratin (out of 10) Weight: 131.5 kg (290 lb) SpO2: 94 % PE: GENERAL: Awake, alert, comfortable, no apparent distress Lower Extremity Exam: No concerns with right lower extremity. Vascular: DP and PT pulses palpable on the right. Capillary refill is brisk to all digits. Skin is warm to touch. No digital hair growth noted. Neurological: Gross sensation is intact to light touch bilaterally. Musculoskeletal: Left lower extremity splint in place. Patient able to wiggle digits. Dermatological: Skin intact with no open wounds. I/Os: Intake/Output Summary (Last 24 hours) at 10/30/2020 0915 Last data filed at 10/30/2020 0747 Gross per 24 hour Intake 240 ml Output 900 ml Net -660 ml IMAGING: Imaging Results Procedure Component Value Ref Range Date/Time CT EXTREMITY LOWER WITHOUT CONTRAST LT [[id number]] Collected: 10/30/20 032 Order Status: Completed Updated: 10/30/20 033 Narrative: Patient Name: ISI SAUCEDA Date of : 1960 Procedure: CT EXTREMITY LOWER WITHOUT CONTRAST LT Date of Service: 10/29/2020 EXAM: CT EXTREMITY LOWER WITHOUT CONTRAST LT INDICATION: Fracture, ankle, left ankle trimalleolar fracture COMPARISON(S): Plain radiograph performed 10/26/2020 TECHNIQUE: Axial CT of the left ankle/foot performed without IV contrast with coronal and sagittal reformatted images. FINDINGS: There is an acute trimalleolar fracture present at the ankle. This includes a transverse fracture of the medial malleolus which is distracted by approximately 4 mm, lateral displacement of the distal fracture fragment by approximately 2 mm. There is a coronally oriented comminuted fracture of the posterior malleolus which is displaced proximally/posteriorly by less than 2 mm. There are a couple of osseous fragments which arises from this fracture which are located within the posterior aspect of the tibiotalar joint. There is an acute oblique fracture of the distal fibula at the level of the syndesmosis. Distal fracture fragment is displaced posteriorly by as much as 3 mm. There is a fragment of the comminuted fibular fracture which is located within the tibiotalar joint interposed between the lateral aspect of the tibia and the lateral talar dome. There is associated incongruence of the ankle mortise with lateral subluxation and lateral widening of the joint space. There is no definite evidence of soft tissue entrapment within the fracture fragments. There is a large amount of soft tissue swelling associated with the fracture. IMPRESSION: 1. Acute, comminuted trimalleolar fracture of the left ankle with alignment as above. Of note, thereare osseous fracture fragment present within the tibiotalar joint. Finalized by: Sonny Romano MD on 10/30/2020 3:32 AM CDT Patient/Procedure Information: [facility] MRN/TYLER: [id number] Order Number: [id number] Accession Number: [id number] Ordering Provider: GENIA CASE Authorizing Provider: AVELINO Servin DPM PGY-[address] [facility], [place] 10/30/2020 9:15 AM CDT Associated attestation - Avelino Ji DPM - 10/30/2020 10:08 AM CDT I personally discussed the risks, goals, benefits and alternative treatment options for the procedure. Patient was told no assurance or guarantee could be given as to the results that may be obtained. Goals of the procedure include anatomic reduction. Risks discussed include, but were not limited to thedelay in healing of skin, soft tissue and bone, as well as possible infection to these tissues. Other complications include hardware complications, over- or undercorrection, failure of the procedure tocorrect the deformity, possible need for further surgery in the future, DVT nerve or vessel compromise, or unsatisfactory results with regard to cosmesis and/or pain. Patient understood, and ample time was given for questions to be answered. Patient felt comfortable with the interview. I agree with the resident's examination and diagnosis. Avelino Ji DPM 10/30/2020 Guillermina Ordonez, [facility] - 10/29/2020 3:23 PM CDT 10/29/2020 3:23 PM CDT Patient was seen by pharmacy for medication reconciliation. Home medications have been reconciled and updated on the home medications list to match the patient's home usage. Other information: patient has her own inhaler here that we can use in the hospital. Prior to Admission Medications Prescriptions Last Dose Informant Patient Reported? Taking? ASPIRIN LOW DOSE 81 MG enteric coated tablet 10/27/2020 at hs Self Yes Yes Sig: Take 1 tablet by mouth every night at bedtime Accu-Chek Softclix lancets Self Yes Yes Albuterol Sulfate 108 (90 Base) MCG/ACT AEPB 10/29/2020 at 1400 Self Yes Yes Sig: Inhale 2 puffs orally Every 4 hours as needed for shortness of breath FLUoxetine (PROZAC) 20 mg capsule 10/27/2020 at hs Self Yes Yes Sig: Take 40 mg by mouth every night at bedtime HYDROcodone-acetaminophen (NORCO) 10-325 mg tablet 10/28/2020 at Unknown time Self Yes Yes Sig: Take 1 tablet by mouth Every 4 hours as needed PERFOROMIST 20 MCG/2ML inhalation solution 10/28/2020 at am Self Yes Yes Sig: Inhale 1 nebule by nebulization 2 times a day RESTASIS 0.05 % ophthalmic emulsion 10/27/2020 Self Yes Yes Sig: Place 1 drop into both eyes 2 times a day as needed (dry eyes) SPIRIVA HANDIHALER 18 MCG aer cap 10/29/2020 at am Self Yes Yes Sig: Inhale 1 each orally 1 time per day atenolol (TENORMIN) 25 mg tablet 10/28/2020 at am Self Yes Yes Sig: Take 12.5 mg by mouth 2 times a day atorvaSTATin (LIPITOR) 10 mg tablet 10/27/2020 at hs Self Yes Yes Sig: Take 1 tablet by mouth every night at bedtime baclofen (LIORESAL) 10 mg tablet 10/27/2020 Self Yes Yes Sig: Take 1 tablet by mouth 2 times a day as needed for muscle spasm buPROPion (WELLBUTRIN) 100 mg tablet 10/29/2020 at am Self Yes Yes Sig: Take 1 tablet by mouth 1 time per day budesonide (PULMICORT) 0.5 mg/2 mL inhalation solution 10/29/2020 at am Self Yes Yes Sig: Inhale 1 nebule by nebulization 2 times a day hydroCHLOROthiazide 25 mg tablet 10/28/2020 at am Self Yes Yes Sig: Take 1 tablet by mouth 1 time per day lisinopril (PRINIVIL, ZESTRIL) 40 mg tablet 10/27/2020 at hs Self Yes Yes Sig: Take 1 tablet by mouth every night at bedtime montelukast (SINGULAIR) 10 mg tablet 10/27/2020 at hs Self Yes Yes Sig: Take 1 tablet by mouth every night at bedtime omeprazole (PRILOSEC) 20 mg capsule 10/27/2020 at hs Self Yes Yes Sig: Take 1 capsule by mouth every night at bedtime traZODone (DESYREL) 150 mg tablet 10/28/2020 at hs Self Yes Yes Sig: Take 1 tablet by mouth every night at bedtime Facility-Administered Medications: None Guillermina Ordonez RPh documented in this encounter H&P Notes Irma Shin MD - 10/29/2020 11:04 AM CDT Images from the original note were not included. ADMISSION HISTORY AND PHYSICAL NOTE Patient ID: Isi Sauceda is a 60yr female. PCP: MARK WRIGHT MD Attending Provider: Irma Shin MD [facility]: [id number] Impression / Plan Ms. Sauceda is a 60 year old lady with a past medical history significant for asthma, depression, DM, and HTN who presented as an OSH transfer for management of LT ankle fracture. LT Ankle Trimalleolar Fracture - LT ankle radiographs with trimalleolar ankle fracture - Noted to have a mechanical fall on 10/26/20 while trying to put her shoes on in the living room - Podiatry following, plan for OR on 10/31/20 - CT scan ordered per podiatry for surgical planning - PRN tylenol for mild pain, PRN oxycodone for moderate pain, PRN IV morphine for severe pain - NPO at [place] on 10/30/20 - Weightbearing: NWB LT foot - PT/OT Essential Hypertension - Hold lisinopril, HCTZ perioperatively, resume post-operatively as needed - Continue home atenolol, hold for SBP < 100 and/or HR < 60 - PRN hydralazine for SBP > 160 and/or DBP > 100 HLD - Continue lipitor 10 mg qhs Asthma - Continue home pulmicort BID - Continue home perforomist BID - Continue home umeclidinium daily - Continue home sigulair 10 mg qhs Mood Disorder - Continue home wellbutrin 100 mg daily - Continue home prozac 40 mg qhs GERD - Conitnue omeprazole 20 mg qhs Insomnia - Continue home trazodone 150 mg qhs Fluids: N/A Electrolytes: Replete PRN Nutrition: Heart Healthy GI: PPI DVT Prophylaxis: SCDs Disposition: Pending medical stability CODE STATUS: FULL CODE Chief Complaint / HPI HPI Ms. Sauceda is a 60 year old lady with a past medical history significant for asthma, depression, DM, and HTN who presented as an OSH transfer for management of LT ankle fracture. Patient endorses that she was having issues with balance and as she was putting on her shoes last Thursday noted that she lost her footing and twisted her ankle. She initially presented to the emergencyroom and was sent home in a splint. She had continued weakness and pain along her left ankle and return to the ED yesterday for reevaluation. It was at that point she was admitted to the hospital there. Given her fracture and continued pain, patient was transferred to [place] for podiatry evaluation. Patient is scheduled to have left ankle fracture open reduction internal fixation on 10/31/20. This afternoon, patient reports that her pain is currently a 6 out of 10. Pain is controlled with PRN pain medications. Currently denying chest pain, shortness of breath, abdominal pain, stigmata of bleed. Medications No current facility-administered medications on file prior to encounter. Current Outpatient Medications on File Prior to Encounter Medication Sig Dispense Refill Albuterol Sulfate 108 (90 Base) MCG/ACT AEPB Inhale 2 puffs orally Every 4 hours as needed for shortness of breath ASPIRIN LOW DOSE 81 MG enteric coated tablet Take 1 tablet by mouth every night at bedtime atenolol (TENORMIN) 25 mg tablet Take 12.5 mg by mouth 2 times a day atorvaSTATin (LIPITOR) 10 mg tablet Take 1 tablet by mouth every night at bedtime baclofen (LIORESAL) 10 mg tablet Take 1 tablet by mouth 2 times a day as needed for muscle spasm budesonide (PULMICORT) 0.5 mg/2 mL inhalation solution Inhale 1 nebule by nebulization 2 times aday buPROPion (WELLBUTRIN) 100 mg tablet Take 1 tablet by mouth 1 time per day RESTASIS 0.05 % ophthalmic emulsion Place 1 drop into both eyes 2 times a day as needed (dry eyes) FLUoxetine (PROZAC) 20 mg capsule Take 40 mg by mouth every night at bedtime hydroCHLOROthiazide 25 mg tablet Take 1 tablet by mouth 1 time per day HYDROcodone-acetaminophen (NORCO) 10-325 mg tablet Take 1 tablet by mouth Every 4 hours as needed Accu-Chek Softclix lancets lisinopril (PRINIVIL, ZESTRIL) 40 mg tablet Take 1 tablet by mouth every night at bedtime montelukast (SINGULAIR) 10 mg tablet Take 1 tablet by mouth every night at bedtime omeprazole (PRILOSEC) 20 mg capsule Take 1 capsule by mouth every night at bedtime SPIRIVA HANDIHALER 18 MCG aer cap Inhale 1 each orally 1 time per day traZODone (DESYREL) 150 mg tablet Take 1 tablet by mouth every night at bedtime PERFOROMIST 20 MCG/2ML inhalation solution Inhale 1 nebule by nebulization 2 times a day Allergies No Known Allergies Medical / Surgical / Family History Past Medical History: Diagnosis Date Asthma Depression Diabetes (HCC) Heart disease Hypertension Past Surgical History: Procedure Laterality Date BREAST SURGERY 2008 CHOLECYSTECTOMY 2017 HYSTERECTOMY 2007 LAP BAND 2009 Family History Problem Relation Age of Onset Chronic Obstructive Pulmonary Disease Mother Diabetes Mother Heart Disease Father Chronic Obstructive Pulmonary Disease Sister No Known Problems Brother Chronic Obstructive Pulmonary Disease Maternal Grandmother Lung Cancer Maternal Grandmother Heart Disease Maternal Grandfather Cirrhosis Paternal Grandmother Suicide Brother Heart Disease Sister No Known Problems Daughter No Known Problems Daughter Brain Cancer Daughter Social History Social History Tobacco Use Smoking status: Never Smoker Smokeless tobacco: Never Used Substance Use Topics Alcohol use: Not Currently Drug use: Not on file ROS Review of Systems Constitutional: Positive for activity change. HENT: Negative. Eyes: Negative. Respiratory: Negative. Cardiovascular: Negative. Gastrointestinal: Negative. Endocrine: Negative. Musculoskeletal: Positive for arthralgias and gait problem. Skin: Negative. Allergic/Immunologic: Negative. Neurological: Positive for weakness. Hematological: Negative. Psychiatric/Behavioral: Negative. Physical Exam There were no vitals taken for this visit. Physical Exam HENT: Head: Atraumatic. Nose: Nose normal. Mouth/Throat: Pharynx: Oropharynx is clear. Cardiovascular: Rate and Rhythm: Normal rate and regular rhythm. Pulmonary: Effort: Pulmonary effort is normal. Abdominal: General: There is no distension. Palpations: Abdomen is soft. Musculoskeletal: Cervical back: Normal range of motion. Comments: LT LE in dressing, C/D/I Skin: General: Skin is warm and dry. Neurological: General: No focal deficit present. Mental Status: She is alert and oriented to person, place, and time. Psychiatric: Mood and Affect: Mood normal. Behavior: Behavior normal. Labs Labs (Last day) 10/29/20 1432 - 10/29/20 1432 CBC 10/29/20 1432 CBC WBC 4.0-11.0 (K/uL) 9.2 RBC 3.80-5.30 (M/uL) 4.43 Hemoglobin 11.5-15.8 (g/dL) 12.1 Hematocrit 35.0-45.0 (%) 39.4 MCV 80.0-98.0 (fL) 88.9 MCH 25.5-34.0 (pg) 27.3 MCHC 31.5-36.5 (g/dL) 30.7 RDW-CV 11.5-15.5 (%) 16.8 RDW-SD 35.5-50.0 (fl) 53.2 Platelet Count 140-400 (K/uL) 278 MPV 8.5-12.0 (fL) 9.9 10/29/20 1432 - 10/29/20 1432 CHEMISTRY 10/29/20 1432 10/29/20 1432 CHEMISTRY Glucose 70-100 (mg/dL) 103 Sodium 135-145 (meq/L) 139 Potassium 3.5-5.3 (meq/L) 3.9 Chloride 99-110 (meq/L) 104 CO2 20-29 (meq/L) 25 Anion Gap with K 6-20 (meq/L) 14 BUN 6-22 (mg/dL) 15 Creatinine 0.60-1.10 (mg/dL) 0.72 BUN/Creatinine Ratio 10.0-25.0 20.8 Calcium 8.5-10.5 (mg/dL) 9.1 Phosphorus 2.5-4.5 (mg/dL) 3.7 eGFR >=60 (mL/min/1.73m2) >90 eGFR Non- >=60 (mL/min/1.73m2) 83 10/29/20 1432 - 10/29/20 1432 OTHER 10/29/20 1432 OTHER Age (Years) 60 Procedures Procedures Medical Decision Making MDM Reviewed: previous chart, nursing note and vitals documented in this encounter Consult Notes Genia Case DPM - 10/29/2020 1:24 PM CDT FOOT AND ANKLE SURGERY INPATIENT CONSULT NOTE Patient: Isi Sauceda is a 60yr old female. Attending Physician: Irma Shin MD Hospital Stay: 0 Today's Date: 10/29/2020 Assessment / Plan 60yr old female with: 1. Left ankle trimalleolar fracture 2. Type 2 DM, controlled Plan: - Left ankle radiographs were reviewed and show a trimalleolar ankle fracture. Discussed findings with patient. At this time, we recommend surgical fixation as this is an unstable ankle fracture. Patient is in agreement. Will order CT scan today for surgical planning. Preop orders will be placed. Risks and goals will be discussed by attending prior to procedure. 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 - Surgery Tuesday 10/[address] Ji for left ankle fracture open reduction internal fixation - Diet: NPO at midnight 10/30 - Pain control - Weightbearing status: NWB left foot - PT/OT - Remaining cares per primary team HPI Isi Sauceda is a 60yr old female with a PMHx of HTN, DMT2, asthma, heart disease, and depression who presents as a direct admit from [facility] for left ankle fracture. Patient states she has balance issues and was trying to put her shoes on last Thursday when she lost her balance, fell, and twisted her ankle. She presented to the ED in [facility] and was sent home in a splint. She states she has weakness on her right side due to muscle spasms and was having trouble getting around at home. She states her tried to help her, but she was still struggling to move around and ended up falling a few times at home. She presented back to the ED in [facility] yesterday and was admitted to the hospital there. She was subsequently transferred to [place] today for further management of her ankle fracture. She currently endorses left ankle pain but states that it is controlled at this time. States she is borderline diabetic but denies any numbness to lower extremities. Review of Systems Review of Systems Constitutional: Negative for chills, fever and malaise/fatigue. Eyes: Negative for visual disturbance. Cardiovascular: Negative for leg swelling. Respiratory: Negative for shortness of breath. Skin: Negative for color change and poor wound healing. Musculoskeletal: Positive for joint pain. Negative for joint swelling and muscle weakness. Gastrointestinal: Negative for constipation, diarrhea, nausea and vomiting. Neurological: Negative for numbness and paresthesias. Psychiatric/Behavioral: The patient is not nervous/anxious. Medications Medications Prior to Admission Medication Albuterol Sulfate 108 (90 Base) MCG/ACT AEPB ASPIRIN LOW DOSE 81 MG enteric coated tablet atenolol (TENORMIN) 25 mg tablet atorvaSTATin (LIPITOR) 10 mg tablet baclofen (LIORESAL) 10 mg tablet budesonide (PULMICORT) 0.5 mg/2 mL inhalation solution buPROPion (WELLBUTRIN) 100 mg tablet RESTASIS 0.05 % ophthalmic emulsion FLUoxetine (PROZAC) 20 mg capsule hydroCHLOROthiazide 25 mg tablet HYDROcodone-acetaminophen (NORCO) 10-325 mg tablet Accu-Chek Softclix lancets lisinopril (PRINIVIL, ZESTRIL) 40 mg tablet montelukast (SINGULAIR) 10 mg tablet omeprazole (PRILOSEC) 20 mg capsule SPIRIVA HANDIHALER 18 MCG aer cap traZODone (DESYREL) 150 mg tablet Allergies Not on File Medical History Past Medical History: Diagnosis Date Asthma Depression Diabetes (HCC) Heart disease Hypertension Surgical History Past Surgical History: Procedure Laterality Date BREAST SURGERY 2008 CHOLECYSTECTOMY 2017 HYSTERECTOMY 2007 LAP BAND 2009 Family History Family History Problem Relation Age of Onset Chronic Obstructive Pulmonary Disease Mother Diabetes Mother Heart Disease Father Chronic Obstructive Pulmonary Disease Sister No Known Problems Brother Chronic Obstructive Pulmonary Disease Maternal Grandmother Lung Cancer Maternal Grandmother Heart Disease Maternal Grandfather Cirrhosis Paternal Grandmother Suicide Brother Heart Disease Sister No Known Problems Daughter No Known Problems Daughter Brain Cancer Daughter Social History Social History Tobacco Use Smoking status: Never Smoker Smokeless tobacco: Never Used Substance Use Topics Alcohol use: Not Currently Drug use: Not on file Physical Exam Current Vital Signs: Temp: 98.8 F (37.1 C) BP: 98/72 Pulse: 66 O2 Device: Room Air Resp: 18 Pain Ratin (out of 10) Weight: 131.5 kg (290 lb) SpO2: 93 % Vitals Min/Max Last 24 Hours: Vital Signs Min/Max (last 24 hours) Flowsheet Row Name Min Max Temp 98.8 F (37.1 C) 98.8 F (37.1 C) BP: Systolic 98 98 BP: Diastolic 72 72 Pulse 66 66 Resp 18 18 SpO2 93 % 93 % General: Physical Exam Constitutional: General: She is not in acute distress. Appearance: Normal appearance. She is well-developed. She is obese. HENT: Head: Normocephalic and atraumatic. Pulmonary: Effort: Pulmonary effort is normal. No respiratory distress. Musculoskeletal: General: No swelling, tenderness, deformity or signs of injury. Normal range of motion. Right lower leg: No edema. Left lower leg: No edema. Skin: General: Skin is warm and dry. Capillary Refill: Capillary refill takes less than 2 seconds. Findings: No erythema or rash. Neurological: Mental Status: She is alert and oriented to person, place, and time. Psychiatric: Mood and Affect: Mood normal. Behavior: Behavior normal. Thought Content: Thought content normal. Judgment: Judgment normal. Lower Extremity Exam: No concerns with right lower extremity. Vascular: DP and PT pulses palpable on the right. Capillary refill is brisk to all digits. Skin is warm to touch. No digital hair growth noted. Neurological: Gross sensation is intact to light touch bilaterally. Musculoskeletal: Left lower extremity splint in place. Patient able to wiggle digits. Dermatological: Skin intact with no open wounds. Imaging Imaging Results No results found for the last 48 hours. Labs Labs (Last day) No results found within the past day. Input and Output Genia Case DPM, PGY-3 Associated attestation - Avelino Ji DPM - 10/29/2020 5:14 PM CDT I discussed the patient with the resident and personally interviewed and examined the patient. I verified in the medical record all resident documentation/findings, including history, physical exam, and medical decision making, and I agree with the resident's documentation. documented in this encounter Miscellaneous Notes Clinical Team - Renay Hill RN - 11/02/2020 12:20 PM CDT Patient discharged to [facility] accompanied by ambulance drivers. Patient was hospitalized for LT Ankle Trimalleolar Fracture s/p ORIF and pain is well controlled at this time with oral analgesics. Patient is safely ambulating utilizing FWW. Reviewed all discharge instructions, including reiterating to pt to monitor bowel movements and use prescribed or OTC stool softeners as needed. Refer to AVS. See Patient Education. Questions answered, patient verbalizes understanding. PIV discontinued prior to discharge and all personal belongings sent with patient. ase Mgmt - Claudia Mccracken LSW - 11/02/2020 9:03 AM CDT CASE MANAGEMENT / SOCIAL SERVICE FINAL TRANSITION PLAN TRANSITION DATE: 11/02/2020 TRANSITION TIME: 11:30 INTENDED PAYER SOURCE FOR AGENCY: Private Insurance TRANSITION DESTINATION: Signed Transfer Agreement - Return to [facility] in [place], [place] DOES ACCEPTING FACILITY REQUIRE COVID TESTING BEFORE DISCHARGE: Needs one negative test within 24-48 hours - Pt is vaccinated TRANSITION TRANSPORTATION: Ambulance (P: ) TRANSPORTATION PAYMENT: Not applicable TRANSITION CHOICES OFFERED: Lateral IP Hospital Transfer Agreement Signed DOES THE PATIENT HAVE A PRIMARY CARE PHYSICIAN? No NO PCP, MD PATIENT / SUBSTITUTE DECISION MAKER GOAL UPON TRANSITION: Lateral IP Hospital Transfer Agreement Signed PATIENT CHOICE EDUCATION: Not applicable MEDICARE 3 IP MIDNIGHT CRITERIA MET: N/A RESOURCE(S) PROVIDED: nothing needed at this time DOES PATIENT HAVE CLOTHING TO WEAR AT DISCHARGE? Yes ANTICIPATED MODE OF TRANSPORT TO AND FROM FOLLOW UP APPOINTMENTS: Ambulance (P: [phone]) VERIFIED CORRECT PHARMACY IS ENTERED FOR DISCHARGE: Transfer 65 METHOD OF PRESCRIBING MEDICATIONS: Reconcile medications as Patient Transfer ("65 button") TRANSITION ROUNDING COMPLETED WITH THE FOLLOWING: Patient / family Coin Machine Mechanic Attending MD BATCH STILL OPERATOR / PA Bedside proced tech RN COMMENTS / PATIENT AND FAMILY RESPONSE TO PLAN: Reviewed pt chart Pt medically stable for transfer to [facility] in [place], [place] Pt has signed transfer agreement to return Transportation - /[facility] Pt is agreeable with this plan No further needs for CM at this time CURRENT READMISSION RISK SCORE / HANDOFF: Predictive Risk Score Risk of Unplanned Readmission: 7.1 Handoff given: N/A SIGNED: BRET Kent Associate Professor Of Surgery Case Management PH. [phone] Respiratory Therapy - Angeline Olvera RRT - 11/02/2020 6:17 AM CDT Patient seen this morning for performist and pulmicort neb and incruse inhaler. BBS are clear no sob. Patient tolerated well and RT will continue to follow. hysical Therapy - Mandi Morgan PT - 11/01/2020 1:27 PM CDT Physical Therapy Orthopedic Treatment Note Assessment: Patient able to mobilize with knee scooter 20' with 2 assist. Not able to ambulate with FWW and maintain NWB L LE Anticipate that patient will need interim stay at [facility] or other low intensity setting. Date: 11/01/2020 pm Subjective: Alert and Oriented. Pt states she may be going to [facility] tomorrow or Thursday. States her spouse is gone from 7 am to 7 pm Objective: Supine to/from sit: NA as pt up in recliner chair on arrival. Sit to/from stand: Mod assist one from recliner chair up to FWW or knee scooter. Explained brake application/release of knee scooter and positioning of device. Sitting Balance: Good Standing Balance: Poor with FWW or knee scooter Gait: Stood with FWW and tried to hop but not able. Pt able to pivot with R LE. Mobilized 20' with knee scooter and 2 assist. Unsteady and pt anxious using this device. Chair following for safety Stairs: NA Exercises: Patient completes bilateral supine LE exercises times 10 repetitions , brief rest breaks as needed. Pt was encouraged to do SLR on own Pain: (0-10 scale) At rest: 6 With Activity: 7 Education: Reviewed precautions, exercise progression, transfer techniques, gait and mobility progression. Assessment: Patient able to mobilize with knee scooter 20' with 2 assist. Not able to ambulate with FWW and maintain NWB L LE Anticipate that patient will need interim stay at [facility] or other low intensity setting. Plan: Continue with PT POC Time Treatment Occurred: 1300 Gait: 0 minutes Exercise: 10 minutes Therapeutic Activity: 15 minutes TOTAL TIMED CODES: 25 minutes TREATMENT TOTAL TIME: 25 Minutes ase [facility] - Claudia Mccracken LSW - 11/01/2020 12:40 PM CDT CASE MANAGEMENT / SOCIAL SERVICE TRANSITION PLAN - PROGRESS NOTE PLAN: OR yesterday Transfer agreement signed for WILLA Baker Pt would like to discharge to [facility], [place] Swing Bed CM profiled pt in [facility] to [facility] in [place], [place] No screen needed Considering at this time - awaiting for therapy participation for [facility] to assess CM needing N2N/Fax/Pharm upon bed offer - COVID test? Discharge planning is on going Therapies to see BARRIERS TO TRANSITION: Awaiting Placement: Snf/Swing Bed/TCU Awaiting Therapy Recommendations Discharge Needs to be Determined Medical barriers:OR today, Pain control, Medical Stability DOES ACCEPTING FACILITY REQUIRE COVID TESTING BEFORE DISCHARGE: N/A COMMENTS / PATIENT AND FAMILY RESPONSE TO PLAN: 11/01 Reviewed pt chart Pt experiencing high pain - unable to participate in therapies today [facility] awaiting therapy notes for assessment for bed offer CM will follow up to send therapy notes when available Anticipating discharge Thursday or Thursday Transportation/Pharm TBD pending therapy recommendations/discharge planning No further needs expressed to CM at this time CM will continue to collaborate with the patient, family, and care team to ensure a safe, timely,and effective transition plan. 10/31 Reviewed pt chart OR today CM profiled pt to [facility] in [place], [place] CM called and left return contact information with staff (Nurse Krissy) - awaiting callback Pt admitted to [facility] from here Awaiting determination of discharge needs/recommendations No need expressed at this time/on this day for CM CM will continue to collaborate with the patient, family, and care team to ensure a safe, timely,and effective transition plan. IS PATIENT'S ADMISSION ASSOCIATED WITH TIA, ISCHEMIC, OR HEMORRHAGIC STROKE?: No PATIENT / SUBSTITUTE DECISION MAKER GOAL UPON TRANSITION: First Choice: Home: Family/Friend Support and 24-Hour Supervision Outpatient Therapy: Occupational Therapy, Physical Therapy and Speech Therapy Snf Facility Swing Bed Transitional Care ANTICIPATED NEEDS UPON TRANSITION: Snf Facility Swing Bed Transitional Care RESOURCE(S) PROVIDED: Placement ANTICIPATED MODE OF TRANSPORT UPON TRANSITION: TBD pending discharge plan/bed offer ANTICIPATED MODE OF TRANSPORT TO AND FROM FOLLOW UP APPOINTMENTS: TBD pending discharge plan/bed offer VERIFIED CORRECT PHARMACY IS ENTERED FOR DISCHARGE: TBD pending discharge plan/bed offer TRANSITION ROUNDING COMPLETED WITH THE FOLLOWING: Patient / family Coin Machine Mechanic BATCH STILL OPERATOR / PA Bedside proced tech RN SIGNED: BRET Kent Associate Professor Of Surgery Case Management PH. [phone] Physical Therapy - Mandi Morgan, PT - 11/01/2020 11:21 AM CDT Pt declined PT this am due to pain. She had just finished OT and reporting high pain levels. Will plan to see early pm. utrition Team - Salima Webb RD - 11/01/2020 10:05 AM CDT Nutrition Note Patient admitted on 10/29/2020 1:19 PM for Active Problems: Closed left ankle fracture Per EMR Malnutrition Screening Tool completed at admission, pt does not meet screening criteria for an increased potential for developing malnutrition with an MST Score of 0 (Score > 2 considered positive for nutrition risk). Nutrition screening revealed no difficulty eating or significant unintentional weight loss prior to admission. Past medical history noted and is not currently placing pt at increased nutrition risk. Height: 160 cm (5' 3") Weight: 131.5 kg (290 lb) BMI: Body mass index is 51.37 kg/m. Nutrition (From admission, onward) Start Ordered 11/01/20 0810 Diet - Regular Now Question: Standard Diets Answer: Regular 11/01/20 0806 10/31/20 1840 ADVANCE DIET TOLERATED ONCE 10/31/20 1836 Plan to monitor po intake adequacy during admission. If provider feels pt has nutritional concerns,please send Inpatient Dietitian consult with indication for referral. GARTH Palm Pager #[phone] Occupational Therapy - Eboni Dominguez OTR/Álvaro - 11/01/2020 10:00 AM CDT Occupational Therapy Orthopedic Evaluation Date: 11/01/2020 Time: 1000 Admitting Diagnosis: left ankle fracture s/p ORIF PMH: Past Medical History: Diagnosis Date Asthma Depression Diabetes (HCC) Heart disease Hypertension Precautions: falls Weight bearing status: NWB LLE SOCIAL/HOME ENVIRONMENT House: house Lives: with and 11 year old granddaugter Bed/Bath on Main Floor: Yes Bath Setup: Combo with curtain Prior Level of Functioning: Independent Adaptive Equipment Available: front-wheeled walker and bedside commode ADLs Dressing: mod assist to doff/katia brief TRANSFERS Chair: minimal assistance with walker Toilet: minimal assistance with walker (bedside commode transfer) Non-weight bearing precautions were reviewed with the patient. Patient demonstrates understanding of precautions. 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 Assessment: Patient showing a decrease in ADL/transfer performance and will benefit from continued OT. Plan: See daily M-F for ADL/transfer training/education, assess adpative equipment needs. Recommend: Short term SNF vs. Swing bed prior to d/c home Goals by discharge: Patient will be SBA with bed, chair, toilet, car transfers with adaptive equipment as needed. Patient will be SBA with tub/shower transfer with adaptive equipment as needed. Patient will be SBA with self care skills with adaptive equipment as needed. Treatment OT provided education on compensatory ADL strategies and use of adaptive equipment. Appears pt may benefit from over the road driver, long shoe shorn and sock aid. Pt met seated in bedside chair on 2L O2. Pt reports she frequently gets short of breath at home, but does not use O2; O2 sats 97% on 2L. She performed a stand pivot transfer from bedside chair <> bedside commode using a FWW and min assist for balance, safety and verbal cues. Pt demonstrated good ability to maintain NWB status. She required min-mod assist for standing balance during toilet hygiene. Shortness of breath observed after transfers (O2 heather 95% on 2L after activity). OT provided verbal education and demonstration on use of pursed lipbreathing. At end of session, pt in bedside recliner, needs and call light in reach. Today's Treatment Evaluation Self care/home management: 20 minutes Total for time-based codes: 20 minutes Total treatment time: 30 minutes Evaluation Complexity PMH/Comorbidities that affect Occupational Performance: Please see above for PMH Occupational Profile/Medical and Therapy History: LOW - Brief history relating to presenting problem Patient Assessment: LOW - 1-3 performance deficits relating to physical, cognitive, psychosocial limitations/restrictions Clinical Decision Making: LOW - Low complexity, limited amount of treatment options, no assessment modification, no comorbidities Evaluation Complexity: Low Therapist pager #: [phone] Certification Dates: 11/01/2020 - 12/01/20 CERTIFICATION I certify that the services as described in the above note are furnished while the patient is under my care; a plan for furnishing these services has been established and will be periodically reviewed;the services are required for the patient; and the services are subject to established guidelines [id number] signed by Irma Shin MD at 11/01/2020 12:38 PM CDTRespiratory Therapy - Angeline Olvera RRT - 11/01/2020 6:23 AM CDT Patient seen this morning for her respiratory medications. BBS are clear.RT to follow Clinical Team - Hue Gamez RN - 11/01/2020 2:23 AM CDT Pt's pain has been increasing throughout the night. Pt states "my cast feels like it's digging into my ankle". Podiatry resident paged; aware of situation. CMS intact. Ice pack in place on/behind knee,above cast. PRN oxy increased to help manage pain. Will continue to monitor and assess. linical Team - Dorina Gonzalez RN - 10/31/2020 6:20 PM CDT Pt arrived on unit around 1820. Pt is alert and oriented x4. Pt reports a pain level of 8/10 upon arrival and describes it as "burning". Pt is able wiggle toes on surgical leg and has partial sensation. Surgical leg is elevated on Pt is now on 2L via NC with sats around 95%. b/p noted to be 160/57. digital editor states antihypertensives were given prior to her arrival. Will continue to monitor.Other vitals wnl. Pt was placed on clear liq diet. SL, no orders for iv fluids at this time. Bed is locked, in lowest position and call morrow in reach. Upon Admission to room 468, skin assessment completed with ROTARY DUMP OPERATOR Upon skin assessment including pressure points findings include: Heels: WNL on the right. Left is not visible due to dressing. There is a noted small, circular skin abrasion and scrape above left knee. Elbows: pt has known bruising and scrape on left underarm area from recent fall. Coccyx: WNL. There is an area of bruising on her lower back, on the left side from recent fall. Ears: WNL Plan/Intervention moisture prevention. Frequent repositioning. Pt/ot to eval when ready. Care Planning - Dorina Gonzalez RN - 10/31/2020 6:20 PM CDT Problem: PHYSICAL COMFORT Goal: CLIENT SATISFACTION: PAIN MANAGEMENT Description: DEFINITION: Extent of positive perception of nursing care to relieve pain. 1=Not at all satisfied, 2=Somewhat satisfied, 3=Moderately satisfied, 4=Very satisfied, 5=Completely satisfied. Flowsheets (Taken 10/31/20202011) Initial Score: 2 Target Score: 4 Patient specific goal for the day: patient will have tolerable pain level. with scheduled and prn pain meds Patient specific goal for the stay: pain control, participate in therapy and ADLs Achieve goal for stay: By discharge Patient Progress: pt reports pain level of 8/10 upon arrival from [facility]. pt was given prn medications. will continue to monitor. surgical leg elevated and ice packs placed. ostOp Progress Note - Avelino Ji DPM - 10/31/2020 4:59 PM CDT Immediate Post-Operative / Post Procedure Progress Note Att. Phys: Irma Shin MD Pt. Type: Inpatient Operative Date: 10/31/2020 Surgeon: Surgeon(s) and Role: * Avelino Ji DPM - Primary * Genia Case DPM - Resident - Assisting * James Harry DPM - Resident - Assisting [place] Grader: Pre/Post RN : Arron Kendrick, STUDENT Abe Teacher : Elva Whyte RN Scrub Person : Dora Nye ST X-Ray Tech: Jo-Ann Chiu RT(R) Pre-Operative Diagnosis: Pre-Op Diagnosis Codes: * Ankle fracture, left [S82.892A] Post-Operative Diagnosis: same Anesthesia Type: general Operative Procedure: Procedure(s): LEFT ANKLE OPEN REDUCTION INTERNAL FIXATION - Wound Class: Clean * No specimens in log * Implant Name Type Inv. Item Serial No. Pewter Finisher Lot No. [id number] No. Used Action LOG [id number] - SYNTHES FIBULA LCP DISTAL PLATES 2.7/3.5MM SMF - 1 LOG [id number] - SYNTHES SMALL LOCKING FRAGMENT STAINLESS TRAY SMF - 1 LOG [id number] - SYNTHES CANNULATED SCREWS 4.0MM SMF - 1 LOG [id number] - SYNTHES CANNULATED SCREWS 3.5MM SMF - 1 LOG [id number] - SYNTHES ANKLE TRAUMA FIBULA SMF - 1 Fluids Given: See Anesthesia Record Urine Output: See Anesthesia Record Estimated Blood Loss: 0 mL Drains: none Findings: Goals met Complications: none Postoperative Condition: stable ase [facility] - Claudia Mccracken LSW - 10/31/2020 2:24 PM CDT CASE MANAGEMENT / SOCIAL SERVICE TRANSITION PLAN - PROGRESS NOTE PLAN: OR Today Transfer agreement signed for WILLA Baker CM profiled pt to [facility] in [place], [place] - Consider at this time - awaiting callback for d/c planning/bed offer D/C needs TBD Discharge planning is on going Therapies to see BARRIERS TO TRANSITION: Awaiting Placement: Snf/Swing Bed/TCU Awaiting Therapy Recommendations Discharge Needs to be Determined Medical barriers:OR today, Pain control, Medical Stability DOES ACCEPTING FACILITY REQUIRE COVID TESTING BEFORE DISCHARGE: N/A COMMENTS / PATIENT AND FAMILY RESPONSE TO PLAN: Reviewed pt chart OR today CM profiled pt to [facility] in [place], [place] CM called and left return contact information with staff (Nurse Krissy) - awaiting callback Pt admitted to [facility] from here Awaiting determination of discharge needs/recommendations No need expressed at this time/on this day for CM CM will continue to collaborate with the patient, family, and care team to ensure a safe, timely, and effective transition plan. IS PATIENT'S ADMISSION ASSOCIATED WITH TIA, ISCHEMIC, OR HEMORRHAGIC STROKE?: No PATIENT / SUBSTITUTE DECISION MAKER GOAL UPON TRANSITION: First Choice: Home: Family/Friend Support and 24-Hour Supervision Outpatient Therapy: Occupational Therapy, Physical Therapy and Speech Therapy Snf Facility Swing Bed Transitional Care ANTICIPATED NEEDS UPON TRANSITION: Snf Facility Swing Bed Transitional Care RESOURCE(S) PROVIDED: Placement ANTICIPATED MODE OF TRANSPORT UPON TRANSITION: TBD pending discharge plan/bed offer ANTICIPATED MODE OF TRANSPORT TO AND FROM FOLLOW UP APPOINTMENTS: TBD pending discharge plan/bed offer VERIFIED CORRECT PHARMACY IS ENTERED FOR DISCHARGE: TBD pending discharge plan/bed offer TRANSITION ROUNDING COMPLETED WITH THE FOLLOWING: Patient / family Coin Machine Mechanic BATCH STILL OPERATOR / PA Bedside proced tech RN SIGNED: BRET Kent Associate Professor Of Surgery Case Management PH. [phone] Clinical Team - Dorina Gonzalez RN - 10/31/2020 1:21 PM CDT Consents for surgery have been witnessed and at the pts bedside. CHG has been performed and bear hugger gown applied. Surgical site is marked. Pt has been NPO since midnight. Rates pain a 0/10 at this time. are Planning - Dorina Gonzalez RN - 10/31/2020 9:00 AM CDT Problem: IMPAIRED PHYSICAL MOBILITY Goal: MOBILITY Description: DEFINITION: Ability to move purposefully in own environment independently with or without assistive device. 1=Severely compromised / Total assistance: Performs less than 25% of activity; 2=Substantially compromised / Maximal assistance: Performs 25-49% of activity; 3=Moderately compromised / Moderate assistance: Performs 50-74% of activity; 4=Mildly compromised / Modified independence: Needs assistive device, supervision, minimal contact,or safety is a concern; 5=Not compromised / Complete independence. Flowsheets (Taken 10/31/20202013) Initial Score: 3 Target Score: 4 Plan of care reviewed with: Patient Patient specific goal for the day: patient will ambulate with staff during the shift Patient specific goal for the stay: patient will work with PT during hospital stay Achieve goal for stay: By discharge Patient Progress: patient using bedside commode safely with 1 assist, gait belt, and walker. espiratory Therapy - Deepti Caceres RRT - 10/31/2020 6:47 AM CDT Patient seen this morning for her scheduled respiratory medications. Patient given Pulmicort, Perforomist, and Incruse Ellipta. BS clear and diminished. Saturations 92% on room air. RT to follow. are Planning - Veronica Atkins RN - 10/31/2020 3:46 AM CDT Problem: PHYSICAL COMFORT Goal: CLIENT SATISFACTION: PAIN MANAGEMENT Description: DEFINITION: Extent of positive perception of nursing care to relieve pain. 1=Not at all satisfied, 2=Somewhat satisfied, 3=Moderately satisfied, 4=Very satisfied, 5=Completely satisfied. 10/31/2020 034 by Veronica Atkins RN Outcome: NOC Rating 3 Flowsheets (Taken 10/31/2020345) Patient specific goal for the day: patient will have tolerable pain level. with scheduled and prn pain meds Patient Progress: pt reports pain level of 10. pt given prn and scheduled pain medication with good effect 10/31/2020342 by Veronica Atkins RN Outcome: NOC Rating 3 Flowsheets (Taken 10/31/2020342) Initial Score: 3 Target Score: 4 Plan of care reviewed with: Patient Patient specific goal for the day: patient will have tolerable pain level. with scheduled and prn pain meds Patient specific goal for the stay: pain control, participate in therapy and ADLs Achieve goal for stay: By discharge ase Mgmt - Claudia Mccracken LSW - 10/30/2020 12:48 PM CDT CASE MANAGEMENT / SOCIAL SERVICE TRANSITION PLAN - INITIAL ASSESSMENT & FINAL PLAN TRANSITION PLAN: Signed agreement for return transfer to [facility]? Goal is to return home with spouse and family. BARRIERS TO TRANSITION: Awaiting Therapy Recommendations / progress towards goals for safety Medical barriers: pain control, OR tomorrow, Medical stability Discharge planning COMMENTS / PATIENT AND FAMILY RESPONSE TO PLAN: Discussed with interdisciplinary team. Met with patient at bedside. Introduced Case Management and role in patient care. Patient lives with her in [place], [place] - no family members available for 10/11 supervision at discharge, "there's no one to stay with me". Patient was independent with ADLs prior to this admissions. Patient has a signed agreement to transfer back to [facility] when medically stable for d ischarge. CM is researching pt's chart for this document. Anticipating home in 1 -2 days. OR tomorrow, therapies to see following OR. Education provided in regards to anticipated plan of care. Encouraged patient to voice any concerns. Patient voiced understanding. Questions answered. CM to continue discharge planning following surgery - pt states "I'm not sure until after I have my surgery" for discharge planning Pt is walking 100ft on level surfaces with no assist and appropriate devices. Pt able to navigate 3 steps with min assist and appropriate devices - home has 3 steps to enter Pt has FWW and crutches CM profiled pt to [facility] for discharge planning/ in support of pt's transfer agreement. ADMISSION DX: L) ankle fx PATIENT STATUS: Observation RELEASE OF INFORMATION: Yes -- verbal for: discharge planning SOURCES OF INFORMATION (See demographics for contact information): Medical Doctor Medical Record Nurse: Bedside Nurse Practitioner/Physician's Broomcorn Grader Occupational Therapy Patient Physical Therapy CURRENT LIVING SITUATION / LEVEL OF ASSISTANCE: Lives with Lives in a one-story home with 3 stairs to enter. Has 0 stairs to bedroom/bathroom. Unable to assess level of independence at this time COMMUNITY SERVICES: None HEALTHCARE DIRECTIVE: No POWER OF MOTOR VEHICLE DISPATCHER: None FINANCIAL CONCERNS: No Concerns PRIMARY CARE PHYSICIAN: NO PCP, MD None You have no PCP on file : No IS PATIENT'S ADMISSION ASSOCIATED WITH TIA, ISCHEMIC, OR HEMORRHAGIC STROKE?: No LANGUAGE / COMMUNICATION BARRIERS: No PATIENT / SUBSTITUTE DECISION MAKER GOAL UPON TRANSITION: TBD - OR tomorrow PATIENT CHOICE EDUCATION: Not applicable MEDICARE 3 IP MIDNIGHT CRITERIA MET: N/A TRANSITION CHOICES OFFERED: Home Health: Bath Aid, Nurse, Occupational Therapy and Physical Therapy Home: Family/Friend Support Outpatient Therapy: Physical Therapy Transitional Care REFERRAL(S) MADE: No RESOURCE(S) PROVIDED: None at this time DOES PATIENT HAVE CLOTHING TO WEAR AT DISCHARGE? Yes ANTICIPATED MODE OF TRANSPORT UPON DISCHARGE: TBD - OR tomorrow VERIFIED CORRECT PHARMACY IS ENTERED FOR DISCHARGE: No Data Unavailable METHOD OF PRESCRIBING MEDICATIONS: Medications to be E-prescribed to above pharmacy TRANSITION ROUNDING COMPLETED WITH THE FOLLOWING: Patient / family Coin Machine Mechanic Bedside proced tech RN Discussed in person CURRENT READMISSION RISK SCORE / HANDOFF: Predictive Risk Score Risk of Unplanned Readmission: 8.4 Handoff given: N/A Please refer to readmission risk assessment flowsheet for further details. FINAL TRANSITION PLAN TRANSITION DATE: TBD - OR tomorr TRANSITION TIME: TBD - OR tomorr INTENDED PAYER SOURCE FOR AGENCY: Private Insurance TRANSITION DESTINATION: TBD - OR tomorrow DOES ACCEPTING FACILITY REQUIRE COVID TESTING BEFORE DISCHARGE: N/A TRANSITION TRANSPORTATION: TBD - OR tomorrow TRANSPORTATION PAYMENT: Not applicable SPECIAL TRANSITION DAY INSTRUCTIONS TO NURSE / MD: TBD - OR tomorrow SIGNED: BRET Kent Associate Professor Of Surgery Case Management PH. [phone] Physical Therapy - Mandi Morgan PT - 10/30/2020 11:05 AM CDT Physical Therapy Orthopedic Evaluation Date: 10/30/2020 Referring Physician: Irma Shin MD Diagnosis/Surgical Procedure and Date: L ankle fracture 10/26/2020 (trimalleolar fracture)--surgery scheduled tomorrow. Significant PMH: Past Medical History: Diagnosis Date Asthma Depression Diabetes (HCC) Heart disease Hypertension Physician Orders: Eval and treat Weight Bearing Status: NWB L LE Precautions: NWB L LE Status Prior to Hospitalization/Surgical Procedure: Current Living Environment: Lives with spouse in one story home in [place], [place] Stairs to Enter Home: 3 Railing: none Stairs to Bedroom or Bathroom: 0 Railing: NA Lives: As above Ambulation Status: Pt states that over the past 3 days she has been trying to get around with FWW or crutches but has fallen again x 2. States her granddaughters carried her into home in blanket Equipment Owned: FWW, crutches Patient/Family Concerns: None expressed Patient Goals: Return home with spouse and family Current Status: Cognition: Alert and Oriented Observation: On arrival pt lying in bed with L LE elevated on pillows Transfers: Supine to/from Sit: Min assist one supine to sit Sit to/from Stand: Min assist from elevated bed up to FWW or knee scooter Balance: Sitting: Good Standing: Poor with FWW Gait: Stood with FWW and 2 assist, able to maintain NWB L LE. Not able to take any steps due to weakness and instability. Tried getting knee scooter but not able to rest L LE on platform due to rigid part of dressing being too close in proximity to her knee Stairs: NA Pain Level: (0-10 scale) At rest: 6 With Activity: 6 Comments: Patient/Family Education: Reviewed precautions, role of the physical therapist, and discussed anticipated outcome goals. Other: Family Present during Evaluation: none Treatment: Time Treatment Occurred: 829 Evaluation: X Gait: 0 minutes Exercise: 0 minutes Therapeutic Activity: 15 minutes TOTAL TIMED CODES: 15 minutes TREATMENT TOTAL TIME: 30 minutes Assessment: Pt was seen pre op for mobility eval. Unable to use knee scooter due to dressing too close to knee and not able to fklex knee enough to weight bear properly on it. Pt to have surgery tomorrow. Plan: Will hold PT tomorrow for surgery, then resume 11/01/2020 Goals: By hospital discharge or within 2-3 days. Patient involved in developing/progressing goals and treatment plan. Supine to sit with no assist. Sit to stand with SBA assist. Ambulate 100 feet on level surfaces with no assist and appropriate assistive device. Up/down 3 steps with min assist and appropriate assistive device. Follow precautions during functional mobility. 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 1=Never demonstrated, 2=Rarely demonstrated, 3=Sometimes demonstrated, 4=Often demonstrated, 5=Consistently demonstrated. Flowsheets (Taken 10/30/20201946) Initial Score: 3 Target Score: 4 Plan of care reviewed with: Patient Patient specific goal for the day: The pt will remain free from any falls during the shift. Patient specific goal for the stay: The pt will remain free from any falls during their stay. Patient Progress: Pt had a fall at home. pt is AOx4. Bed alarm not in use at this time. Pt will be up with 2 when able to ambulate. Will continue to monitor and asses. ROT[employer]mer[employer] Planning - Dorina Gonzalez RN - 10/30/2020 9:00 AM CDT Problem: PHYSICAL COMFORT Goal: CLIENT SATISFACTION: PAIN MANAGEMENT Description: DEFINITION: Extent of positive perception of nursing care to relieve pain. 1=Not at all satisfied, 2=Somewhat satisfied, 3=Moderately satisfied, 4=Very satisfied, 5=Completely satisfied. Flowsheets (Taken 10/30/20201945) Initial Score: 3 Target Score: 4 Plan of care reviewed with: Patient Patient specific goal for the day: patient will have tolerable pain , work with PT and perform ADLs Patient specific goal for the stay: pain control with scheduled and prn pain meds Achieve goal for stay: By discharge Patient Progress: pt reports a pain level of 6/10. pt given prn and scheduled pain medications. pt is satisfied with pain control at this time. espiratory Therapy - Danae Carr RRT - 10/30/2020 6:05 AM CDT Pt seen for scheduled RT tx. Pt resting in bed this am, denies SOB. Pt on room air, SpO2 92% BS clear, slightly diminished to bases. Pt given Perforomist, Pulmicort via SVN along with 1 puff Incruse Ellipta DPI. Pt wore home CPAP last night. Pt's respiratory status stable. RT will continue to follow pt. Care Planning - Veronica Atkins RN - 10/30/2020 4:54 AM CDT Problem: PHYSICAL COMFORT Goal: CLIENT SATISFACTION: PAIN MANAGEMENT Description: DEFINITION: Extent of positive perception of nursing care to relieve pain. 1=Not at all satisfied, 2=Somewhat satisfied, 3=Moderately satisfied, 4=Very satisfied, 5=Completely satisfied. Outcome: NOC Rating 3 Flowsheets (Taken 10/30/2020447) Initial Score: 3 Target Score: 4 Plan of care reviewed with: Patient Patient specific goal for the day: patient will have tolerable pain , work with PT and perform ADLs Patient specific goal for the stay: pain control with scheduled and prn pain meds Achieve goal for stay: By discharge Patient Progress: pain 7/10 oxy with good effect Problem: IMPAIRED PHYSICAL MOBILITY Goal: MOBILITY Description: DEFINITION: Ability to move purposefully in own environment independently with or without assistive device. 1=Severely compromised / Total assistance: Performs less than 25% of activity; 2=Substantially compromised / Maximal assistance: Performs 25-49% of activity; 3=Moderately compromised / Moderate assistance: Performs 50-74% of activity; 4=Mildly compromised / Modified independence: Needs assistive device, supervision, minimal contact,or safety is a concern; 5=Not compromised / Complete independence. Outcome: NOC Rating 3 Flowsheets (Taken 10/30/2020447) Initial Score: 3 Target Score: 4 Plan of care reviewed with: Patient Patient specific goal for the day: patient will ambulate with staff during the shift Patient specific goal for the stay: patient will work with PT during hospital stay Patient Progress: patient requesting for bedpan, are Planning - Susi Bustamante RN - 10/29/2020 8:18 PM CDT Problem: PHYSICAL COMFORT Goal: CLIENT SATISFACTION: PAIN MANAGEMENT Description: DEFINITION: Extent of positive perception of nursing care to relieve pain. 1=Not at all satisfied, 2=Somewhat satisfied, 3=Moderately satisfied, 4=Very satisfied, 5=Completely satisfied. Outcome: NOC Rating 2 Flowsheets (Taken 10/29/20202015) Initial Score: 2 Target Score: 4 Patient specific goal for the day: Pain to be toerable at less than 5/10 Patient specific goal for the stay: Pain will be managed with PO pain medications Patient Progress: Pain level at 1710 was 2/10 after patient had michelle given oxycodone at about 1458. Patient was satisfied with pain management Occupational Therapy - Meri Corona OTR/Álvaro - 10/29/2020 5:16 PM CDT OT order received and acknowledged. Per chart review, pt is scheduled for OR on 10/31. Hold OT eval and follow up post-surgically as able/appropriate. URIEL Daniels OTR/Álvaro Alpha Pager #: [phone] Respiratory Therapy - Russell Jorge RRT - 10/29/2020 4:28 PM CDT Acknowledge orders for PRN Albuterol two puffs per patients own inhaler given at this time per patient request. Q day Incruse Ellipta 62.5 one puff plan to start in AM as patient states she used Spiriva this morning in [place]. BID Pulmicort 500 mcg and Perforomist 20 mcg will start when medication available. Patient states breathing feels about the same as usual after PRN Albuterol MDI. Patient has home CPAP she uses at night and with naps, home unit set up at bedside. Respiratory status stable to mostly stable. Plan to follow with home routine or formulary equivalent of same. are Planning - Natividad Meeks RN - 10/29/2020 3:00 PM CDT Problem: RISK FOR FALLS Goal: FALL PREVENTION BEHAVIOR Description: DEFINITION: Personal or family child care coordinator actions to minimize risk factors that might precipitate falls in the personal environment. 1=Never demonstrated, 2=Rarely demonstrated, 3=Sometimes demonstrated, 4=Often demonstrated, 5=Consistently demonstrated. Outcome: NOC Rating 2 Flowsheets (Taken 10/29/2020 1500) Initial Score: 2 Target Score: 4 Plan of care reviewed with: Patient Patient specific goal for the day: The pt will remain free from any falls during the shift. Patient specific goal for the stay: The pt will remain free from any falls during their stay. Achieve goal for stay: By discharge Patient Progress: Pt had a fall at home. pt is AOx4. Bed alarm not in use at this time. Pt will be up with 2 when able to ambulate. Will continue to monitor and asses. Problem: PHYSICAL COMFORT Goal: CLIENT SATISFACTION: PAIN MANAGEMENT Description: DEFINITION: Extent of positive perception of nursing care to relieve pain. 1=Not at all satisfied, 2=Somewhat satisfied, 3=Moderately satisfied, 4=Very satisfied, 5=Completely satisfied. Outcome: NOC Rating 3 Flowsheets (Taken 10/29/2020 1500) Initial Score: 2 Target Score: 4 Plan of care reviewed with: Patient Patient specific goal for the day: The pt will have a tolerable pain level throughout the shift. Patient specific goal for the stay: The pt will manage their pain with PO pain medicaitons. Achieve goal for stay: By discharge Patient Progress: The pt had increased pain during the shift. PRN pain medications given (see MAR). elevation and ice applied. Will continue to monitor and assess. Problem: IMPAIRED PHYSICAL MOBILITY Goal: MOBILITY Description: DEFINITION: Ability to move purposefully in own environment independently with or without assistive device. 1=Severely compromised / Total assistance: Performs less than 25% of activity; 2=Substantially compromised / Maximal assistance: Performs 25-49% of activity; 3=Moderately compromised / Moderate assistance: Performs 50-74% of activity; 4=Mildly compromised / Modified independence: Needs assistive device, supervision, minimal contact,or safety is a concern; 5=Not compromised / Complete independence. Outcome: NOC Rating 3 Flowsheets (Taken 10/29/2020 1500) Initial Score: 2 Target Score: 4 Plan of care reviewed with: Patient Patient specific goal for the day: The pt will ambulate with staff during the shift. Patient specific goal for the stay: The pt is scheduled to work with PT/OT during their hospital stay. Achieve goal for stay: By discharge Patient Progress: The pt refused to move to the commode at this time. Pt states that her R) leg is bad and is unable to move. Will encouraged pt to move. Clinical Team - Natividad Meeks RN - 10/29/2020 1:45 PM CDT Pt arrived to room 468 at 1345. Report received from Kateryna Hermosillo RN who received report over the phone. Pt denies pain at this time. Bed is in lowest position, 2x side rails are up. Patient education included but not limited to fall risk prevention, call light system, diet, therapy schedule, pain medications prescribed, DVT prevention and any other question were answered. Gown was changed and settled to their room with call light and water in reach. CARE rounding will be completed. Internal medicine and podiatry consulted. Dual skin check completed with SARAH Judge. All pressure points were found to be WDL. Bruising noted to R) upper back and R) shoulder. Plan/Intervention ambulation when able, moisture prevention and use of pressure redistribution mattress. Will continue to monitor and assess. documented in this encounter Plan of Treatment Date Type Specialty Care Team Description 11/13/2020 Office Visit General Surgery Lala Rodríguez MD [address] [facility] [place] [address] 11/15/2020 Office Visit Podiatry Avelino Ji DPM [address] [facility] [place] [address] [phone] documented as of this encounter Implants Implanted Type Area Pewter Finisher Device Shelf Model / Identifier Expiration Serial / Date Lot Screw Lk T15 Stardr 3.5x14mm N 212.103 Ea1 - [id number] Ortho Left : J[employer]J DEPUY 212.103 / Implanted: Qty: 1 on 10/31/2020 by Avelino Ji DPM at [facility] Other ANKLE SY[employer] / Plate Fib Dist Lft 3hl N 112.107 Ea1 - [id number] Ortho Left: J[employer]J DEPUY 112.107 / Implanted: Qty: 1 on 10/31/2020 by Avelino Ji DPM at [facility] Other ANKLE SYN[employer] / Screw Lk T15 Stardr 3.5x16mm N 212.104 Ea1 - [id number] Ortho Left : J[employer] DEPUY 212.104 / Implanted: Qty: 1 on 10/31/2020 by Avelino Ji DPM at [facility] Other ANKLE [employer]NTH[employer] / Screw Lk T15 Stardr 3.5x18mm N 212.105 Ea1 - [id number] Ortho Left : J[employer] DEPUY 212.105 / Implanted: Qty: 1 on 10/31/2020 by Avelino Ji DPM at [facility] Other ANKLE [employer] / Screw Александр Part Thrd 3.5x48mm N 205.048 Ea1 - [id number] Ortho L eft: J&J DEPUY 205.048 / Implanted: Qty: 1 on 10/31/2020 by Avelino Ji DPM at [facility] Other ANKLE SYNTHES / Screw Rafiq T8 Stardr 2.7x18mm N 202.878 Ea1 - [id number] Ortho L eft: J&J DEPUY 202.878 / Implanted: Qty: 1 on 10/31/2020 by Avelino Ji DPM at [facility] Other ANKLE SYNTHES / Screw Lk Synt 2.7x16mm N 202.216 Ea1 - [id number] Ortho Left: J[employer]J DEPUY 202.216 / Implanted: Qty: 1 on 10/31/2020 by Avelino Ji DPM at [facility] Other ANKLE SYNTH[employer] / Screw Rafiq T8 Stardr 2.7x20mm N 202.880 Ea1 - [id number] Ortho L eft: J&J DEPUY 202.880 / Implanted: Qty: 1 on 10/31/2020 by Avelino Ji DPM at [facility] Other ANKLE SYNTHES / Screw Александр Synt Lng Thrd 4x50 N 207.750 Ea1 - [id number] Ortho L eft: J&J DEPUY 207.750 / Implanted: Qty: 1 on 10/31/2020 by Avelino Ji DPM at [facility] Other ANKLE SYNTHES / Screw Lk Synt 2.7x16mm N 202.216 Ea1 - [id number] Ortho Left: J&J DEPUY 202.216 / Implanted: Qty: 1 on 10/31/2020 by Avelino Ji DPM at [facility] Other ANKLE SYNTHES / documented as of this encounter Procedures Procedure Name Priority Date/Time Associated Comments Diagnosis SARS-COV-2, INFLUENZA STAT 11/02/2020 9:42 Re sults for this A+B, AND/OR RSV AM CDT procedure ar e in NUCLEIC ACID TESTING the res ults PANEL section. COMPLETE BLOOD COUNT Routine 11/02/2020 5:16 Res ults for this WITHOUT DIFFERENTIAL AM CDT procedu re are in the results section. PHOSPHORUS Routine 11/02/2020 5:16 Results for this AM CDT procedure are i n the results section. MAGNESIUM Routine 11/02/2020 5:16 Results for this AM CDT procedure are i n the results section. BASIC METABOLIC PANEL Routine 11/02/2020 5:16 Re sults for this AM CDT procedure are i n the results section. HEMOGLOBIN Routine 11/01/2020 5:46 Results for this AM CDT procedure are i n the results section. BASIC METABOLIC PANEL Routine 11/01/2020 5:46 Re sults for this AM CDT procedure are i n the results section. GLUCOSE BY METER, Routine 10/31/2020 5:34 Result s for this POCT PM CDT procedure are i n the results section. XRAY C-ARM Routine 10/31/2020 4:51 Results for this PM CDT procedure are i n the results section. OPEN REDUCTION 10/31/2020 2:10 Ankle fracture, INTERNAL FIXATION PM CDT left ANKLE Special Needs *x* GLUCOSE BY METER, POCT Routine 10/31/2020 11:32 AM CDT Results for this procedure are i n the results section . GLUCOSE BY METER, POCT Routine 10/31/2020 7:59 AM CDT Results for this procedure are i n the results section . GLUCOSE BY METER, POCT Routine 10/30/2020 5:59 PM CDT Results for this procedure are i n the results section . GLUCOSE BY METER, POCT Routine 10/30/2020 11:25 AM CDT Results for this procedure are i n the results section . CT EXTREMITY LOWER WITHOUT Routine 10/29/2020 5:26 PM CDT Results for this CONTRAST LT procedure are i n the results section . COMPLETE BLOOD COUNT Routine 10/29/2020 2:32 PM CDT Results for this WITHOUT DIFFERENTIAL procedu re are in the results section . PHOSPHORUS Routine 10/29/2020 2:32 PM CDT Resu lts for this procedure are i n the results section . MAGNESIUM Routine 10/29/2020 2:32 PM CDT Resu lts for this procedure are i n the results section . BASIC METABOLIC PANEL Routine 10/29/2020 2:32 PM CDT Results for this procedure are i n the results section . documented in this encounter Results SARS-COV-2, INFLUENZA A+B, AND/OR RSV NUCLEIC ACID TESTING PANEL (11/02/2020 9:42 AM CDT) Pathologist Sig nature SARS-CoV-2 Not Detected Not Detected [facility] Specimen Respiratory - Nasopharyngeal swab (speci men) Narrative Performed At Please read entire report. Results for Influenza A and B or [facility] RSV may also be available depending on which viruses y our provider selected for testing. Your Covid-19 test is negative: 1)Avoiding close contact is s till recommended. 2)Cover your coughs and snee zes. 3)Wash your hands often with soap and wate r for at least 20 seconds or use an alcohol-based construction equipment operator containing over 60% alcohol. Avoid touch ing your face. 4)Avoid sharing personal household items, including dishes, cups, utensils, towels, clothing, or bedding. These items should be cleaned thoroughly with soap and water after use. Clean all "high touch" surfaces i n your home daily. 5) Monitor your symptoms. Contact your provider if you are feeling worse. If you have shortness of breath or difficulty breathing, call 911. This assay is for in vitro diagnostic use under FDA Emergency Use Authorization only. Optimal performance of this test requires appropriate specimen collection, storage, and transport to the [facility] site. Detection of SARS-CoV-2 RNA may be affected by sample collection methods, patient factors (eg, presence of symptoms), and/or stage of infection. False-negative results may arise from degradation of v iral RNA during shipping/storage. Results should be interpreted by a trained professiona l in conjunction with the patient s history and clinical signs and symptoms, and epidemiological risk factors. Negative (Not Detected) results do not preclude infect ion with the SARS-CoV-2 virus and should not be the sole b asis of patient treatment/management or public health decis ion. Follow up testing should be performed according to the current CDC recommendations. This test was performed by polymerase chain reaction ( PCR) on the GeneXpert instrument. Performing Organization Address City/State/ZIP Code Phon e Number [facility] [address] [place] [address] COMPLETE BLOOD COUNT WITHOUT DIFFERENTIAL (11/02/2020 5:16 AM CDT) [facility] WBC 9.6 4.0 - 11.0 K/uL [facility] RBC 3.74 (L) 3.80 - 5.30 M/uL [facility] Hemoglobin 10.3 (L) 11.5 - 15.8 g/dL [facility] Hematocrit 34.1 (L) 35.0 - 45.0 % [facility] MCV 91.2 80.0 - 98.0 fL [facility] MCH 27.5 25.5 - 34.0 pg [facility] MCHC 30.2 (L) 31.5 - 36.5 g/dL [facility] RDW-CV 17.2 (H) 11.5 - 15.5 % [facility] RDW-SD 54.7 (H) 35.5 - 50.0 fl [facility] Platelet Count 294 140 - 400 K/uL [facility] MPV 10.3 8.5 - 12.0 fL [facility] Specimen Blood - Blood specimen (specimen) Performing Organization Address City/[facility]/ZIP Code Phon e Number [facility] [address] [place], [place] [address] [phone] PHOSPHORUS (11/02/2020 5:16 AM CDT) Pathologist [facility] Phosphorus 4.0 2.5 - 4.5 mg/dL [facility] Specimen Blood - Blood specimen (specimen) Performing Organization Address City/[facility]/ZIP Code Phon e Number [facility] [address] [place] [address] MAGNESIUM (11/02/2020 5:16 AM CDT) Pathologist [facility] Magnesium 2.1 1.8 - 2.4 mg/dL [facility] Specimen Blood - Blood specimen (specimen) Performing Organization Address [facility] Code Phon e Number [facility] [address] [place] [address] [phone] BASIC METABOLIC PANEL (11/02/2020 5:16 AM CDT) Pathologist [facility] Glucose 127 (H) 70 - 100 mg/dL [facility] BUN 22 6 - 22 mg/dL [facility] Creatinine 0.82 0.60 - 1.10 mg/dL [place] BUN/Creatinine Ratio 26.8 (H) 10.0 - 25.0 [facility] Sodium 139 135 - 145 meq/L [facility] Potassium 3.8 3.5 - 5.3 meq/L [facility] Chloride 103 99 - 110 meq/L [facility] CO2 28 20 - 29 meq/L [facility] Anion Gap with K 12 6 - 20 meq/L [facility] Calcium 9.0 8.5 - 10.5 mg/dL [place] Age 60 Years [facility] eGFR Non- 71 >=60 [place] mL/min/1.73m2 [place] eGFR 86 >=60 [place] mL/min/1.73m2 [facility] Specimen Blood - Blood specimen (specimen) Performing Organization Address City/[facility]/ZIP Code Phon e Number [facility] [address] [place], [place] [address] [phone] BASIC METABOLIC PANEL (11/01/2020 5:46 AM CDT) [facility] Glucose 130 (H) 70 - 100 mg/dL [facility] BUN 14 6 - 22 mg/dL [facility] Creatinine 0.75 0.60 - 1.10 mg/dL [place] BUN/Creatinine Ratio 18.7 10.0 - 25.0 [facility] Sodium 137 135 - 145 meq/L [facility] Potassium 4.3 3.5 - 5.3 meq/L [facility] Chloride 102 99 - 110 meq/L [facility] CO2 29 20 - 29 meq/L [facility] Anion Gap with K 10 6 - 20 meq/L [facility] Calcium 9.1 8.5 - 10.5 mg/dL [place] Age 60 Years [facility] eGFR Non- 79 >=60 [facility] mL/min/1.73m2 [place] eGFR >90 >=60 mL/min/1.73m2 [place] Specimen Blood - Blood specimen (specimen) Performing Organization Address City/State/ZIP Code Phon e Number [facility] [address] [place], [place] [address] [phone] HEMOGLOBIN (11/01/2020 5:46 AM CDT) Pathologist [facility] Hemoglobin 11.8 11.5 - 15.8 g/dL [facility] Specimen Blood - Blood specimen (specimen) Performing Organization Address City/[facility]/ZIP Code Phon e Number [facility] [address] [place], [place] [address] [phone] GLUCOSE BY METER, POCT (10/31/2020 5:34 PM CDT) [facility] Glucose POC 126 (H) 70 - 99 mg/dL [facility] Specimen Blood - Blood specimen (specimen) Performing Organization Address City/[facility]/ZIP Code Phon e Number [facility] [address] [place] [place] [address] [phone] XRAY C-ARM LESS THAN ONE HR (10/31/2020 4:51 PM CDT) Specimen Narrative Performed At This result has an attachment that is no t available. Fluoroscopic image(s) submitted. Imaging assistance provided by [facility] Radiology. Performing Organization Address City/[facility]/ZIP Code Phon e Number [facility] [place], [place] [address] GLUCOSE BY METER, POCT (10/31/2020 11:32 AM CDT) Pathologist [facility] Glucose POC 110 (H) 70 - 99 mg/dL [facility] Specimen Blood - Blood specimen (specimen) Performing Organization Address City/[facility]/ZIP Code Phon e Number [facility] [address] [place] [place] [address] GLUCOSE BY METER, POCT (10/31/2020 7:59 AM CDT) Pathologist [facility] Glucose POC 139 (H) 70 - 99 mg/dL [facility] Specimen Blood - Blood specimen (specimen) Performing Organization Address [facility]/ZIP Code Phon e Number [facility] [address] [place], [place] [address] GLUCOSE BY METER, POCT (10/30/2020 5:59 PM CDT) Pathologist [facility] Glucose POC 110 (H) 70 - 99 mg/dL [facility] Specimen Blood - Blood specimen (specimen) Performing Organization Address [facility]/ZIP Code Phon e Number [facility] [address] [place] [place] [address] GLUCOSE BY METER, POCT (10/30/2020 11:25 AM CDT) Pathologist [facility] Glucose POC 158 (H) 70 - 99 mg/dL [facility] Specimen Blood - Blood specimen (specimen) Performing Organization Address City/[facility]/ZIP Code Phon e Number [facility] [address] [place] [place] [address] CT EXTREMITY LOWER WITHOUT CONTRAST LT (10/29/2020 5:26 PM CDT) Specimen Narrative Performed At [facility] Patient Name: ISI SAUCEDA Date of : 1960 Procedure: CT EXTREMITY LOWER WITHOUT C ONTRAST LT Date of Service: 10/29/2020 EXAM: CT EXTREMITY LOWER WITHOUT CONTRAS T LT INDICATION: Fracture, ankle, left ankle trimalleolar fracture COMPARISON(S): Plain radiograph performe d 10/26/2020 TECHNIQUE: Axial CT of the left ankle/foot performed w ithout IV contrast with coronal and sagittal reformatted im ages. FINDINGS: There is an acute trimalleolar fracture pres ent at the ankle. This includes a transverse fracture of the medial mall eolus which is distracted by approximately 4 mm, lateral displacement of the distal fracture fragment by approximately 2 mm. There is a co ronally oriented comminuted fracture of the posterior malleolus which i s displaced proximally/posteriorly by less than 2 mm. There are a couple of osseous fragments which arises from this fracture which are lo cated within the posterior aspect of the tibiotalar joint. There is an acute oblique fracture of the distal fibula at the level of the synd esmosis. Distal fracture fragment is displaced posteriorly by as much as 3 mm. There is a fragment of the comminuted fibular fracture which is located within the tibiotalar joint interposed between the lateral as pect of the tibia and the lateral talar dome. There is associated incong ruence of the ankle mortise with lateral subluxation and lateral wid ening of the joint space. There is no definite evidence of soft tissue entrapmen t within the fracture fragments. There is a large amount of soft ti ssue swelling associated with the fracture. IMPRESSION: 1. Acute, comminuted trimalleolar fracture of the left ankle with alignment as above. Of note, there are osseous fractur e fragment present within the tibiotalar joint. Finalized by: Sonny Romano MD on 2020 3:32 AM CDT Patient/Procedure Information: [facility] MRN/TYLER: [id number] Order Number: [id number] Accession Number: [id number] Ordering Provider: GENIA CASE Authorizing Provider: AVELINO JI Procedure Note Interface, Radiantres - 10/30/2020 3:34 AM CDT Patient Name: ISI SAUCEDA Date of : 1960 Procedure: CT EXTREMITY LOWER WITHOUT C ONTRAST LT Date of Service: 10/29/2020 EXAM: CT EXTREMITY LOWER WITHOUT CONTRAS T LT INDICATION: Fracture, ankle, left ankle trimalleolar fracture COMPARISON(S): Plain radiograph performe d 10/26/2020 TECHNIQUE: Axial CT of the left ankle/fo ot performed without IV contrast with coronal and sagittal reformatted images. FINDINGS: There is an acute trimalleolar fracture present at the ankle. This includes a transverse fracture of the medial malleolus which is distracted by approximately 4 mm, lateral displacement of the distal fracture fragment by approximately 2 mm. There is a coronally oriented comminuted fracture of the posterior malleolus which is displaced proximally/posteriorly by less than 2 mm. There are a couple of osseous fragments which arises from this fractur e which are located within the posterior aspect of the tibiotalar joint. There is an acute oblique fracture of the distal fibula at the level of the syndesmosis. Distal fracture fragment is displaced posterior ly by as much as 3 mm. There is a fragment of the comminuted fibular fracture which is located within the tibiotalar joint interposed between the lateral aspect of the tibia and the lateral talar dome. There is associa angela incongruence of the ankle mortise with lateral subluxation and lateral widening of the joint space. There is no definite evidence of soft ti ssue entrapment within the fracture fragments. There is a large amount of soft tissue swelling associated with the fracture. IMPRESSION: 1. Acute, comminuted trimalleolar fractu re of the left ankle with alignment as above. Of note, there are osseous fracture fragment present within the tibiotalar joint. Finalized by: Sonny Romano MD on 2020 3:32 AM CDT Patient/Procedure Information: [facility] MRN/TYLER: [id number] Order Number: [id number] Accession Number: [id number] Ordering Provider: GENIA CASE Authorizing Provider: AVELINO JI Performing Organization Address City/State/ZIP Code Phon e Number [id number] PHOSPHORUS (10/29/2020 2:32 PM CDT) Pathologist [facility] [place] Phosphorus 3.7 2.5 - 4.5 mg/dL [facility] Specimen Blood - Blood specimen (specimen) Performing Organization Address City/State/ZIP Code Phon e Number [facility] [address] [place] [place] [address] [phone] MAGNESIUM (10/29/2020 2:32 PM CDT) [facility] Magnesium 2.1 1.8 - 2.4 mg/dL [facility] Specimen Blood - Blood specimen (specimen) Performing Organization Address City/[facility]/ZIP Code Phon e Number [facility] [address] [place] [address] [phone] BASIC METABOLIC PANEL (10/29/2020 2:32 PM CDT) [facility] Glucose 103 (H) 70 - 100 mg/dL [facility] BUN 15 6 - 22 mg/dL [facility] Creatinine 0.72 0.60 - 1.10 mg/[facility] BUN/Creatinine Ratio 20.8 10.0 - 25.0 [facility] Sodium 139 135 - 145 meq/L [facility] Potassium 3.9 3.5 - 5.3 meq/L [facility] Chloride 104 99 - 110 meq/L [facility] CO2 25 20 - 29 meq/L [facility] Anion Gap with K 14 6 - 20 meq/L [facility] Calcium 9.1 8.5 - 10.5 mg/dL [place] Age 60 Years [facility] eGFR Non- 83 >=60 [place] mL/min/1.73m2 [place] eGFR >90 >=60 mL/min/1.73m2 [place] Specimen Blood - Blood specimen (specimen) Performing Organization Address City/[facility]/ZIP Code Phon e Number [facility] [address] [place], [place] [phone] COMPLETE BLOOD COUNT WITHOUT DIFFERENTIAL (10/29/2020 2:32 PM CDT) [facility] WBC 9.2 4.0 - 11.0 K/uL [facility] RBC 4.43 3.80 - 5.30 M/uL [facility] Hemoglobin 12.1 11.5 - 15.8 g/dL [facility] Hematocrit 39.4 35.0 - 45.0 % [facility] MCV 88.9 80.0 - 98.0 fL [facility] MCH 27.3 25.5 - 34.0 pg [facility] MCHC 30.7 (L) 31.5 - 36.5 g/dL [facility] RDW-CV 16.8 (H) 11.5 - 15.5 % [facility] RDW-SD 53.2 (H) 35.5 - 50.0 fl [facility] Platelet Count 278 140 - 400 K/uL [facility] MPV 9.9 8.5 - 12.0 fL [facility] Specimen Blood - Blood specimen (specimen) Performing Organization Address City/State/ZIP Code Phon e Number [facility] [address] [place] [address] documented in this encounter Visit Diagnoses Diagnosis Post-operative state - Primary Other postprocedural status Closed fracture of left ankle, initial e ncounter documented in this encounter Discharge Diagnoses Not on filedocumented in this encounter Administered Medications Medication Order MAR Action Action Date Dose Rate Site acetaminophen (TYLENOL) tablet Given 11/02/2020 11:21 AM CDT 650 mg 650 mg 650 mg, Oral, Every six hours, First dose (after last modification) on Beronica 11/01/20 at 1800, Until Discontinued, Use FIRST for mild pain. If inadequate response in 60 minutes, may proceed to next choice option or if no other options, contact provider. Adult patients: Total dose of acetaminophen from all acetaminophen containing products should not exceed 4 grams (4000 mg) per day. Pediatric Patients 0 - 3 months: Maximum of 60 mg/kg/24 hours of acetaminophen. Pediatric Patients older than 3 months: Maximum of 75 mg/kg/24 hours of acetaminophen (Never exceeding 4 grams/day). Given 11/02/2020 6:27 AM CDT 650 mg Given 11/02/2020 12:16 AM CDT 650 mg albuterol HFA (PROVENTIL,PROAIR,VENTOLIN) Given 10/31/2020 4:47 PM CDT 2 puffs 108 (90 BASE) mcg/ACT inhaler (for procedure) 2 puff 2 puff, Inhalation, Every four hours prn, Starting on 10/29/20 at 1417, Until Discontinued, SOB, wheezing, Patient s own medication has been identified by Pharmacist and approved for hospital use by hospital policy. Given 10/31/2020 3:14 PM CDT 4 puffs Given 10/29/2020 4:15 PM CDT 2 puffs atenolol (TENORMIN) tablet 12.5 mg Given 11/02/2020 9:32 AM CDT 12.5 mg 12.5 mg, Oral, Two times a day, First dose (after last reorder) on Thu10/29/20 at 2100, Until Discontinued, Hold for SBP less than 100 Hold for HR less than 60 Given 11/01/2020 8:20 PM CDT 12.5 mg Given 11/01/2020 8:11 AM CDT 12.5 mg atorvaSTATin (LIPITOR) tablet 10 mg Given 11/01/2020 8:20 PM CDT 10 mg 10 mg, Oral, Bedtime, First dose on Thu10/29/20 at 2100, Until Discontinued Given 10/31/2020 9:24 PM CDT 10 mg Given 10/30/2020 8:33 PM CDT 10 mg baclofen (LIORESAL) tablet 10 mg Given 11/01/2020 8:24 PM CDT 10 mg 10 mg, Oral, Two times a day prn, Starting on Thu10/29/20 at 1537, Until Discontinued, muscle spasm Given 11/01/2020 8:09 AM CDT 10 mg bisacodyl (DULCOLAX) suppository 10 mg 10 mg, Rectal, One time a day prn, Starting on 10/18 at 1836, Until Discontinued, constipation, Post - Op, Use second for constipation. If patient cannot take oral medications, use first for constipati on. budesonide (PULMICORT) 0.5 mg/2 mL Given 11/02/2020 6:14 AM CDT 0.5 mg inhalation soln 0.5 mg 0.5 mg, Nebulization, Two times a day, First dose on Thu10/29/20 at 1800, Until Discontinued, 2 mL, Protect from light. Do not mix in the same nebulizer as ORIANA. Given 11/01/2020 5:51 PM CDT 0.5 mg Given 11/01/2020 6:20 AM CDT 0.5 mg buPROPion (WELLBUTRIN) tablet 100 mg Given 11/02/2020 9:32 AM CDT 100 mg 100 mg, Oral, DAILY, First dose on Thu10/30/20 at 0900, Until Discontinued Given 11/01/2020 8:11 AM CDT 100 mg Given 10/31/2020 8:10 AM CDT 100 mg calcium carbonate (TUMS) chewable tablet 1,000 mg 1,000 mg, Oral, Every four hours prn, Starting on Thu10/29/20 at 1321, Until Discontinued, other (Specify), acid reflux, Use FIRST for acid reflux. If ineffective after 60 minutes, may proceed to next elliott ce option or, if no other options, contact provider. docusate sodium (THEREVAC-SB MINI;ENEMEE Z MINI) 283 MG enema 1 enema 1 enema, Rectal, One time a day prn, Starting on Thu at 1321, Until Discontinued, constipation, Use THIRD for constipation - if no BM 8 hours after dulcolax suppository. If patient cannot take oral medi cations, use second for constipation. enoxaparin (LOVENOX) subcutaneous injection Given 11/02/2020 9:33 AM CDT 40 mg solution 40 mg 40 mg, Subcutaneous, Daily, First dose on Beronica 11/01/20 at 0900, Until Discontinued, To avoid the loss of drug when using the 30 mg and 40 mg prefilled syringes, do not expel the air bubble from the syringe before the injection. For ADULT patients: Administration should be alternated between the left and right anterolateral and left and right posterolateral abdominal wall. The whole length of the needle should be introduced into a skin fold held between the thumb and forefinger; the skin fold should be held throughout the injection. To minimize bruising, do not rub the injection site after completion of the injection. For PEDIATRIC patients: Administration should be alternated between appropriate sites for patient age/weight (infants/small children = upper thigh; older children/adolescents = left and right anterolateral and left and right posterolateral abdominal wall). During administration to infants/smaller children sometimes the whole length of the needle is not "introduced" during the injection. Administer injection into a skin fold held between the thumb and forefinger; the skin fold should be held throughout the injection. To minimize bruising, do not rub the injection site after completion of the injection. Given 11/01/2020 8:11 AM CDT 40 mg FLUoxetine (PROzac) capsule 40 mg Given 11/01/2020 8:20 PM CDT 40 mg 40 mg, Oral, Bedtime, First dose on Thu10/29/20 at 2100, Until Discontinued Given 10/31/2020 9:25 PM CDT 40 mg Given 10/30/2020 8:33 PM CDT 40 mg formoterol (PERFOROMIST) 20 MCG/2ML Given 11/02/2020 6:13 AM CD T 20 mcg inhalation solution 20 mcg 20 mcg, Nebulization, Two times a day, First dose on Thu10/29/20 at 1800, Until Discontinued, 2 mL Given 11/01/2020 5:51 PM CDT 20 mcg Given 11/01/2020 6:20 AM CDT 20 mcg hydrALAZINE (APRESOLINE) injection solution Given 10/31/2020 3:42 PM CDT 10 mg 10 mg 10 mg, IV, Every four hours prn, Starting on Thu10/29/20 at 1536, Until Discontinued, For SBP > 160 and/or DBP > 100, 0.5 mL hydroCHLOROthiazide tablet 25 mg Given 11/02/2020 9:31 AM CDT 25 mg 25 mg, Oral, DAILY, First dose (after last reorder) on Thu11/01/20 at 0900, Until Discontinued, Hold for SBP less than 100 Given 11/01/2020 10:51 AM CDT 25 mg hydrOXYzine pamoate (VISTARIL) capsule 2 5 mg Given 11/02/2020 9:29 AM CDT 25 mg 25 mg, Oral, Every six hours prn, Starting on Thu10/31/20 at 1836, Until Discontinued, itching, Post - Op Given 11/02/2020 3:44 AM CDT 25 mg Given 11/01/2020 8:20 PM CDT 25 mg lisinopril (PRINIVIL, ZESTRIL) tablet 40 mg Given 11/02/2020 9:31 AM CDT 40 mg 40 mg, Oral, DAILY, First dose (after last reorder) on Thu11/01/20 at 0900, Until Discontinued, Hold for SBP less than 100 Given 11/01/2020 10:51 AM CDT 40 mg melatonin tablet 3 mg 3 mg, Oral, Bedtime prn, Starting on Thu10/29/20 at 1321, Until Discontinued, other (Specify), insomnia, Use FIRST for insom brent. If inadequate response in 60 minutes, may proceed to next choice option or, if no other opti ons, contact provider. montelukast (SINGULAIR) tablet 10 mg Given 11/01/2020 8:20 PM CDT 10 mg 10 mg, Oral, Bedtime, First dose on Thu10/29/20 at 2100, Until Discontinued Given 10/31/2020 9:24 PM CDT 10 mg Given 10/30/2020 8:33 PM CDT 10 mg morphine preservative free injection solution Given 12:15 AM CDT 1 mg (conc: 2 mg/mL) 1 mg 1 mg, IV, Every four hours prn, Starting on Beronica 11/01/20 at 1241, Until Discontinued, severe pain, 0.5 mL nalOXone (NARCAN) injection solution (vi al) 0.2 mg 0.2 mg, Injection, Every two minutes prn , Starting on Thu10/31/20 at 1718, Until Discontinued, other (Specify), opioid induced respirat ory depression - PARTIAL reversal, 0.5 mL, PACU - Continue Post-O p, PARTIAL REVERSAL/RESPIRATORY DEPRESSION If respiratory rate less than 8/minute - call rapid response and administer (until respiratory rate increases to 10/minute). Give IV (pr eferred), IM or SUBQ nalOXone (NARCAN) injection solution (vi al) 0.4 mg 0.4 mg, Injection, Every two minutes prn , Starting on Thu10/31/20 at 1718, Until Discontinued, other (Specify), opioid in duced respiratory arrest - FULL reversal, 1 mL, PACU - Continue Post-Op, FULL REVERSAL/RESPIRATORY ARREST If patient is not breathing - call CODE BLUE and administer. Give IV (p referred), IM or SUBQ omeprazole (priLOSEC) capsule 20 mg Given 11/01/2020 8:20 PM CDT 20 mg 20 mg, Oral, Bedtime, First dose on Thu10/29/20 at 2100, Until Discontinued, Swallow cap whole. Do not crush, chew or open. Given 10/31/2020 9:25 PM CDT 20 mg Given 10/30/2020 8:33 PM CDT 20 mg ondansetron (ZOFRAN) injection solution 4 mg 4 mg, IV, Every four hours prn, Starting on Thu 1 at 1718, Until Discontinued, nausea, vomiting, 2 mL, PACU - Continue Post-Op, Use FIRST for nausea/vomiting. If ineffective after 15 minutes use h aloperidol if ordered for nausea/vomiting. If preference is to fur ther dilute for IV administration: First draw up patient-specific dose, then dilute to 10 mL wi 0.9% sodium chloride. ondansetron (ZOFRAN) tablet 4 mg Given 10/31/2020 6:47 PM CDT 4 mg 4 mg, Oral, Every six hours prn, Starting on Thu10/31/20 at 0803, Until Discontinued, nausea, vomiting Given 10/31/2020 8:10 AM CDT 4 mg oxyCODONE (OXY-IR) tablet 10 mg Given 11/02/2020 9:29 AM CDT 10 mg 10 mg, Oral, Every six hours prn, Starting on Beronica 11/01/20 at 0154, Until Discontinued, moderate pain Given 11/02/2020 3:44 AM CDT 10 mg Given 11/01/2020 8:20 PM CDT 10 mg senna-docusate sodium (SENOKOT-S;PERICOL SALLY) tablet 1 tablet 1 tablet, Oral, Two times a day prn, Starting on Thu at 1836, Until Discontinued, constipation, Post - Op, U se first for constipation unless patient cannot take oral medications sodium chloride 0.9% flush (adult) 10 mL Given 11/02/2020 9:33 AM CDT 10 mL 10 mL, IV, Two times a day and prn, First dose on Thu10/29/20 at 2100, Until Discontinued, 10 mL, Flush PIV line as scheduled and as often as necessary before and after meds. Use a push / pause technique when flushing to create turbulence. Given 11/01/2020 8:24 PM CDT 10 mL Given 11/01/2020 8:15 AM CDT 10 mL traZODone (DESYREL) tablet 150 mg Given 11/01/2020 8:20 PM CDT 150 mg 150 mg, Oral, Bedtime, First dose on Thu10/29/20 at 2100, Until Discontinued Given 10/31/2020 9:24 PM CDT 150 mg Given 10/30/2020 8:33 PM CDT 150 mg umeclidinium (INCRUSE ELLIPTA) 62.5 mcg/puff Given 6:14 AM CDT 1 puff inhaler 1 puff 1 puff, Inhalation, DAILY, First dose on Thu10/30/20 at 0600, Until Discontinued, Formulary Substitute for Spiriva Given 11/01/2020 6:20 AM CDT 1 puff Given 10/31/2020 6:14 AM CDT 1 puff Medication Order MAR Action Action Date Dose Rate Site acetaminophen (TYLENOL) tablet Given 11/01/2020 1:36 AM CDT 650 mg 650 mg 650 mg, Oral, Every four hours prn, Starting on Thu10/29/20 at 1321, Until Thu11/01/20 at 1243, mild pain, Use FIRST for mild pain. If inadequate response in 60 minutes, may proceed to next choice option or if no other options, contact provider. Adult patients: Total dose of acetaminophen from all acetaminophen containing products should not exceed 4 grams (4000 mg) per day. Pediatric Patients 0 - 3 months: Maximum of 60 mg/kg/24 hours of acetaminophen. Pediatric Patients older than 3 months: Maximum of 75 mg/kg/24 hours of acetaminophen (Never exceeding 4 grams/day). Given 10/31/2020 9:30 PM CDT 650 mg Given 10/30/2020 8:28 AM CDT 650 mg aspirin enteric coated tablet 81 mg Given 10/29/2020 8:22 PM CDT 81 mg 81 mg, Oral, Bedtime, 1 dose, First dose on Thu10/29/20 at 2100, Tablet should be swallowed whole and not be divided, crushed or chewed. hydrALAZINE (APRESOLINE) tablet 25 mg Given 11/01/2020 8:14 AM CDT 25 mg 25 mg, Oral, Two times a day, First dose on Thu10/31/20 at 1030, Until Discontinued, Hold for SBP less than 100 Given 10/31/2020 9:24 PM CDT 25 mg ketorolac (TORADOL) intravenous injection 15 Given 2:11 PM CDT 15 mg mg 15 mg, IV, One time, 1 dose, On Beronica 11/01/20 at 1400, 1 mL, If preference is to further dilute for IV administration: First draw up patient-specific dose, then dilute to 10 mL with 0.9% sodium chloride. lactated ringers IV solution Already Infusing 10/31/2020 5:30 PM CDT 125 mL/hr IV, at 125 mL/hr, Continuous, Starting on Thu10/31/20 at 1640, Until Thu10/31/20 at 1835, 1,000 mL, PACU, TKO current fluids if patient is going to Day Unit / ARU and tolerating PO fluids without nausea. morphine preservative free injection Given 11/01/2020 10:50 AM C DT 0.5 mg solution (conc: 2 mg/mL) 0.5 mg 0.5 mg, IV, Every four hours prn, Starting on Thu10/29/20 at 1415, Until Thu11/01/20 at 1241, severe pain, 0.25 mL Given 11/01/2020 4:36 AM CDT 0.5 mg Given 10/31/2020 10:33 PM CDT 0.5 mg oxyCODONE (OXY-IR) tablet 5 mg Given 11/01/2020 12:42 AM CDT 5 mg 5 mg, Oral, Every six hours prn, Starting on Thu10/29/20 at 1415, Until Thu11/01/20 at 0155, moderate pain Given 10/31/2020 6:47 PM CDT 5 mg Given 10/31/2020 7:54 AM CDT 5 mg documented in this encounter Active and Recently Administered Medications Times are shown in CDT. Medication Order 10/31/2020 11/01/2020 11/02/2020 acetaminophen (TYLENOL) tablet 650 mg 18 50 (Given - Provider: Renay Hill RN) 0016 (Given - Provider: Hue Gamez, SARAH)0627 (Given - Provider: Hue Gamez RN)1121 (Given - Provider: Renay Hill RN)1800 (Due) 650 mg, Oral, Every six hours, First dos e (after last modification) on Thu11/01/20 at 1800, Until Discontinued, Use FIRST for mild pain. If inadequate response in 60 minutes, may proceed to next choice option or if no other options, contact pepe junior. Adult patients: Total dose of acetaminophen from all acetaminophen containing products should not exceed 4 grams (4000 mg) per day. Pediatric Patients 0 - 3 months: Maximum of 60 mg/kg/24 erik rs of acetaminophen. Pediatric Patients older than 3 months: Maximum of 75 mg/kg/24 hours of acetaminophen (Never exceeding 4 grams/day). atenolol (TENORMIN) tablet 12.5 mg 809 (Given - Provi viola: Dorina Gonzalez RN)2123 (Given - Provider: Hue Gamez RN) 810 (Given - Provider: Renay Hill, SARAH)2019 (Given - Provider: Hue Gamez RN) 931 (Given - Provider: Renay Hill, RN)2100 (Due) 12.5 mg, Oral, Two times a day, First do se (after last reorder) on Thu10/29/20 at 2100, Until Discontinued, Hold for SBP less than 100 Hold for HR less than 60 atorvaSTATin (LIPITOR) tablet 10 mg 2123 (Given - Provider: Hue Gamez RN) 2019 (Given - Provider: Hue Gamez RN) 2100 (Due) 10 mg, Oral, Bedtime, First dose on Thu10/29/20 at 2100, Until D iscontinued budesonide (PULMICORT) 0.5 mg/2 mL inhalation soln 0.5 mg 06 (Given - Provider: Deepti Caceres RRT)2026 (Given - Provider: Angeline Olvera RRT) 0620 (Given - Provider: Vijay Garcia RT)175 (Given - Provider: Heydi Vivas, CHANTALE) 0614 (Given - Provider: Vijay Garcia RT)1800 (Due) 0.5 mg, Nebulization, Two times a day, F irst dose on Thu10/29/20 at 1800, Until Discontinued, 2 mL, Protect from light. Do not mix in the same nebulizer as ORIANA. buPROPion (WELLBUTRIN) tablet 100 mg 809 (Given - Provider: Dorina Gonzalez RN) 810 (Given - Provider: Renay Hill RN) 931 (Given - Provider: Renay Hill RN) 100 mg, Oral, DAILY, First dose on Thu10/30/20 at 0900, Until Di scontinued ceFAZolin (ANCEF) syringe 3000 mg/30 mL sterile water (COMPLETED) 1449 (Given - Provider: Nancy Romero PRODUCT DEVELOPMENT TECHNICIAN-PHP WEBSITE DEVELOPER) 3,000 mg, IV, Give in OR, 1 dose, On Thu10/31/20 at 1110, 30 mL, Pre - Op, Give in PROCEDURAL area. Start within 1 hour of cut time and complete prior to cut time. Administer over 5 minutes. enoxaparin (LOVENOX) subcutaneous injection solution 40 mg 0811 (Given - Provider: Renay Hill RN) 0933 (Given - Provider: Renay Hill RN ) 40 mg, Subcutaneous, Daily, First dose o n Beronica 11/01/20 at 0900, Until Discontinued, To avoid the loss of drug when using the 30 mg and 40 mg prefilled syringes, do not expel the air bubble from the syrin ge before the injection. For ADULT pat ients: Administration should be alternated between the left and right anterolateral and left and right posterolateral abdominal wall. The whole length of the need le should be introduced into a skin fold held between the thumb and forefinger; the skin fold should be held throughout the injection. To minimize bruising, do not rub the injection site after completio n of the injection. For PEDIATRIC pat ients: Administration should be alternated between appropriate sites for patient age/weight (infants/small children = upper thigh; older children/adolescents = le ft and right anterolateral and left and right posterolateral abdominal wall). During administration to infants/smaller children sometimes the whole length of the needle is not "introduced" during the in jection. Administer injection into a ski n fold held between the thumb and forefinger; the skin fold should be held throughout the injection. To minimize bruising, do not rub the injection site after completion of the injection. FLUoxetine (PROzac) capsule 40 mg 2124 (Given - Provider: Kervin Gamez, SARAH) 2019 (Given - Provider: Hue Gamez RN) 2099 (Due) 40 mg, Oral, Bedtime, First dose on Thu10/29/20 at 2100, Until D iscontinued formoterol (PERFOROMIST) 20 MCG/2ML inhalation solutio n 20 mcg 0613 (Given - Provider: Deepti Caceres, CHANTALE)2026 (Given - Provider: Angeline Olvera RRT) 06 (Given - Provider: Vijay Garcia RT)1751 (Given - Provider: Heydi Vivas, SMASH PIECER) 0613 (Given - Provider: Vijay Garcia RT)1800 (Due) 20 mcg, Nebulization, Two times a day, F irst dose on Thu10/29/20 at 1800, Until Discontinued, 2 mL hydrALAZINE (APRESOLINE) tablet 25 mg (CANCELED) 1104 (Held - Provider: Dorina Gonzalez RN)212 (Given - Provider: Hue Gamez RN) 0814 (Given - Provider: Renay Hill RN - Comment: BP 141/59) 25 mg, Oral, Two times a day, First dose on Thu10/31/20 at 1030, Until Discontinued, Hold for SBP less than 100 hydroCHLOROthiazide tablet 25 mg 105 (G iven - Provider: Iveth Carr RN) 0931 (Given - Provider: Renay Hill, SARAH ) 25 mg, Oral, DAILY, First dose (after la st reorder) on Thu11/01/20 at 0900, Until Discontinued, Hold for SBP less than 100 ketorolac (TORADOL) intravenous injection 15 mg (COMPLETED) 141 (Given - Provider: Renay Hill, SARAH) 15 mg, IV, One time, 1 dose, On 11/01 at 1400, 1 mL, If preference is to further dilute for IV administration: First draw up patient-specific dose, then dilute to 10 mL with 0.9% sodium chloride. lisinopril (PRINIVIL, ZESTRIL) tablet 40 mg 105 (Given - Provider: Iveth Carr RN) 31 (Given - Provider: Renay Hill, SARAH ) 40 mg, Oral, DAILY, First dose (after la st reorder) on Thu11/01/20 at 0900, Until Discontinued, Hold for SBP less than 100 montelukast (SINGULAIR) tablet 10 mg 2123 (Given - Pro vider: Hue Gamez RN) 2019 (Given - Provider: Hue Gamez, SARAH) 2100 (Due) 10 mg, Oral, Bedtime, First dose on Thu10/29/20 at 2100, Until D iscontinued omeprazole (priLOSEC) capsule 20 mg 2125 (Given - Provider: Hue Gamez RN) 2019 (Given - Provider: Hue Gamez RN) 2099 (Due) 20 mg, Oral, Bedtime, First dose on Thu10/29/20 at 2100, Until Discontinued, Swallow cap whole. Do not crush, chew or open. sodium chloride 0.9% flush (adult) 10 mL 802 (Given - Provider: Dorina Gonzalez RN)2131 (Given - Provider: Hue Gamez RN) 814 (Given - Provider: Renay Hill, SARAH)2023 (Given - Provider: Hue Gamez RN) 932 (Given - Provider: Renay Hill RN)2099 (Due) 10 mL, IV, Two times a day and prn, Firs t dose on Thu10/29/20 at 2100, Until Discontinued, 10 mL, Flush PIV line as scheduled and as often as necessary before and after meds. Use a push / pause technique when flushing to create turbulence. traZODone (DESYREL) tablet 150 mg 2123 (Given - Provider: Kervin Gamez RN) 2019 (Given - Provider: Hue Gamez RN) 2099 (Due) 150 mg, Oral, Bedtime, First dose on Thu10/29/20 at 2100, Until Discontinued umeclidinium (INCRUSE ELLIPTA) 62.5 mcg/puff inhaler 1 puff 0614 (Given - Provider: Deepti Caceres, SMASH PIECER) 0620 (Given - Provider: Angeline Olvera, CHANTALE) 0614 (Given - Provider: Vijay Garcia RT) 1 puff, Inhalation, DAILY, First dose on Thu10/30/20 at 0600, Until Discontinued, Formulary Substitute for Spiriva Medication Order 10/31/2020 11/01/2020 11/02/2020 lactated ringers IV solution (CANCELED) 1730 (Already Infusing - Provider: Christal Barroso RN) IV, at 125 mL/hr, Continuous, Starting o n Thu10/31/20 at 1640, Until Thu10/31/20 at 1835, 1,000 mL, PACU, TKO current fluids if patient is going to Day Unit / ARU and tolerating PO fluids without nausea. Medication Order 10/31/2020 11/01/2020 11/02/2020 acetaminophen (TYLENOL) tablet 650 mg (CANCELED) 2129 (Given - Provider: Hue Gamez, SARAH) 135 (Given - Provider: Hue Gamez, SARAH) 650 mg, Oral, Every four hours prn, Star ting on 10/29/20 at 1321, Until Beronica 11/01/20 at 1243, mild pain, Use FIRST for mild pain. If inadequate response in 60 minutes, may proceed to next choice optio n or if no other options, contact provid er. Adult patients: Total dose of acetaminophen from all acetaminophen containing products should not exceed 4 grams (4000 mg) per day. Pediatric Patients 0 - 3 months: Maximum of 60 mg/kg/24 hours of acetaminophen. Pediatric Patients older than 3 months: Maximum of 75 mg/kg/24 hours of acetaminophen (Never exceeding 4 grams/day). albuterol HFA (PROVENTIL,PROAIR,VENTOLIN ) 108 (90 BASE) mcg/ACT inhaler (for procedure) 2 puff 1514 (Given - Provider: Julia Miles, PRODUCT DEVELOPMENT TECHNICIAN-PHP WEBSITE DEVELOPER)164 (Given - Provider: Julia Jimenez PRODUCT DEVELOPMENT TECHNICIAN-PHP WEBSITE DEVELOPER) 2 puff, Inhalation, Every four hours prn , Starting on Thu10/29/20 at 1417, Until Discontinued, SOB, wheezing, Patient s own medication has been identified by Pharmacist and approved for hospital use by hospital policy. baclofen (LIORESAL) tablet 10 mg 08 (Meron iven - Provider: Renay Hill RN)2023 (Given - Provider: Hue Gamez, SARAH) 10 mg, Oral, Two times a day prn, Starti ng on Thu10/29/20 at 1537, Until Discontinued, muscle spasm bisacodyl (DULCOLAX) suppository 10 mg 10 mg, Rectal, One time a day prn, Start ing on Thu10/31/20 at 1836, Until Discontinued, constipation, Post - Op, Use second for constipation. If patient cannot take oral medications, use first for constipation. bupivacaine 0.5% PF (MARCAINE;SENSORCAIN E) 0.5 % preservative free injection solution (CANCELED) 1705 (Given - Provider: Genia Case DPM) INTRAOP, Starting on Thu10/31/20 at 1705, Until Thu at 1725, Intra - Op calcium carbonate (TUMS) chewable tablet 1,000 mg 1,000 mg, Oral, Every four hours prn, St arting on Thu10/29/20 at 1321, Until Discontinued, other (Specify), acid reflux, Use FIRST for acid reflux. If ineffective after 60 minutes, may proceed to next choice option or, if no other options, contact provider. docusate sodium (THEREVAC-SB MINI;ENEMEEZ MINI) 283 MG enema 1 e nema 1 enema, Rectal, One time a day prn, Sta rting on Thu10/29/20 at 1321, Until Discontinued, constipation, Use THIRD for constipation - if no BM 8 hours after dulcolax suppository. If patient cannot take oral medications, use second for constipation. hydrALAZINE (APRESOLINE) injection solution 10 mg 1542 (Given - Provider: Julia Jimenez, PRODUCT DEVELOPMENT TECHNICIAN-PHP WEBSITE DEVELOPER) 10 mg, IV, Every four hours prn, Startin g on Thu10/29/20 at 1536, Until Discontinued, For SBP > 160 and/or DBP > 100, 0.5 mL hydrOXYzine pamoate (VISTARIL) capsule 25 mg 1410 (Given - Provider: Renay Hill, SARAH)2020 (Given - Provider: Hue Gamez, SARAH) 0344 (Given - Provider: Ashley Pulliam, SARAH)0929 (Given - Provider: Renay Hill RN) 25 mg, Oral, Every six hours prn, Starti ng on Thu10/31/20 at 1836, Until Discontinued, itching, Post - Op melatonin tablet 3 mg 3 mg, Oral, Bedtime prn, Starting on Thu10/29/20 at 1321, Until Discontinued, other (Specify), insomnia, Use FIRST for insomnia. If inadequate response in 60 minutes, may proceed to next choice option or, if no other options, contact provider. morphine preservative free injection solution (conc: 2 mg/mL) 0.5 mg (CANCELED) 1200 (Given - Provider: Dorina Gonzalez RN)2233 (Given - Provider: Hue Gamez RN) 0436 (Given - Provider: Margarita Corona RN)1050 (Given - Provider: Iveth Carr RN) 0.5 mg, IV, Every four hours prn, Starti ng on 10/29/20 at 1415, Until Beronica 11/01/20 at 1241, severe pain, 0.25 mL morphine preservative free injection solution (conc: 2 mg/mL) 1 mg 0015 (Given - Provider: Hue Gamez RN) 1 mg, IV, Every four hours prn, Starting on Beronica 11/01/20 at 1241, Until Discontinued, severe pain, 0.5 mL nalOXone (NARCAN) injection solution (vial) 0.2 mg 0.2 mg, Injection, Every two minutes prn , Starting on Thu10/31/20 at 1718, Until Discontinued, other (Specify), opioid induced respiratory depression - PARTIAL reversal, 0.5 mL, PACU - Continue Post-Op, PARTIAL REVERSAL/RESPIRATORY DEPRESSION If respiratory rate less than 8/minute - call rapid response and administer (until respiratory rate increases to 10/minute). Give IV (preferred), IM or SUBQ nalOXone (NARCAN) injection solution (vial) 0.4 mg 0.4 mg, Injection, Every two minutes prn , Starting on Thu10/31/20 at 1718, Until Discontinued, other (Specify), opioid induced respiratory arrest - FULL reversal, 1 mL, PACU - Continue Post-Op, FULL REV ERSAL/RESPIRATORY ARREST If patient is n ot breathing - call CODE BLUE and administer. Give IV (preferred), IM or SUBQ ondansetron (ZOFRAN) injection solution 4 mg 4 mg, IV, Every four hours prn, Starting on Thu10/31/20 at 1718, Until Discontinued, nausea, vomiting, 2 mL, PACU - Continue Post-Op, Use FIRST for nausea/vomiting. If ineffective after 15 minutes use h aloperidol if ordered for nausea/vomitin g. If preference is to further dilute for IV administration: First draw up patient-specific dose, then dilute to 10 mL with 0.9% sodium chloride. ondansetron (ZOFRAN) tablet 4 mg 0810 (Given - Provide r: Dorina Gonzalez RN)1547 (Given - Provider: Dorina Gonzalez RN) 4 mg, Oral, Every six hours prn, Startin g on Thu10/31/20 at 0803, Until Discontinued, nausea, vomiting oxyCODONE (OXY-IR) tablet 10 mg 0201 (Gi junior - Provider: Hue Gamez, RN)0808 (Given - Provider: Renay Hill, RN)1410 (Given - Provider: Renay Hill, RN)2020 (Given - Provider: Hue Gamez, SARAH) 0344 (Given - Provider: Ashley Pulliam RN)0929 (Given - Provider: Renay Hill, RN) 10 mg, Oral, Every six hours prn, Starti ng on Thu11/01/20 at 0154, Until Discontinued, moderate pain oxyCODONE (OXY-IR) tablet 5 mg (CANCELED) 0109 (Given - Provider: Veronica Atkins RN)0754 (Given - Provider: Dorina Gonzalez RN)1847 (Given - Provider: Dorina Gonzalez RN) 0042 (Given - Provider: Hue Gamez RN) 5 mg, Oral, Every six hours prn, Startin g on Thu10/29/20 at 1415, Until Thu11/01/20 at 0155, moderate pain senna-docusate sodium (SENOKOT-S;PERICOLACE) tablet 1 tablet 1 tablet, Oral, Two times a day prn, Sta rting on Thu10/31/20 at 1836, Until Discontinued, constipation, Post - Op, Use first for constipation unless patient cannot take oral medications documented in this encounter
== END 2020-11-03 12:00 | disposition swing bed (61) | DRG 862 ==
LOC: DL.MS 15:59
PROVIDERS: ADMIT Internal Medicine; ATTEND Internal Medicine
DX: Z47.89 Encounter for other orthopedic aftercare (principal); S82.852D Displaced trimalleolar fracture of left lower leg, subsequent encounter for closed fracture with routine healing; M62.838 Other muscle spasm; F31.9 Bipolar disorder, unspecified; F41.9 Anxiety disorder, unspecified; G47.33 Obstructive sleep apnea (adult) (pediatric); N80.9 Endometriosis, unspecified; D50.9 Iron deficiency anemia, unspecified; J44.9 Chronic obstructive pulmonary disease, unspecified; E11.9 Type 2 diabetes mellitus without complications; K21.9 Gastro-esophageal reflux disease without esophagitis; E78.5 Hyperlipidemia, unspecified; I10 Essential (primary) hypertension; E66.9 Obesity, unspecified; M19.90 Unspecified osteoarthritis, unspecified site; G89.29 Other chronic pain; G47.30 Sleep apnea, unspecified; G25.81 Restless legs syndrome; K76.0 Fatty (change of) liver, not elsewhere classified; N32.81 Overactive bladder; K57.90 Diverticulosis of intestine, part unspecified, without perforation or abscess without bleeding; H04.129 Dry eye syndrome of unspecified lacrimal gland; Z79.4 Long term (current) use of insulin; Z79.899 Other long term (current) drug therapy; Z79.82 Long term (current) use of aspirin; H54.7 Unspecified visual loss; Z99.81 Dependence on supplemental oxygen; Z90.710 Acquired absence of both cervix and uterus; E78.00 Pure hypercholesterolemia, unspecified; M54.9 Dorsalgia, unspecified
CPT/HCPCS: 36415; 80053; 82550; 82947; 85025; 94640; A9270-GY; J1650; J1815-GY; J2270

== ENCOUNTER 2020-11-03 08:02 | Inpatient (IN) | payer BC ==
[2020-11-03] MEDS ORDERED: Ondansetron 4 MG Tab.DIS PO PRN (11:46)
[2020-11-03] MEDS ORDERED: Sodium Chloride 0.9% 10 ML Syringe FLUSH PRN ×2 (11:46)
[2020-11-03] MEDS ORDERED: 50% Dextrose in Water 50 ML Syringe IVPUSH PRN (11:46)
[2020-11-03] MEDS ORDERED: Glucagon,Human Recombinant 1 MG Vial IM PRN ×2 (11:46)
[2020-11-03] MEDS ORDERED: Albuterol 6.7 GM Inhaler INH PRN (11:46)
[2020-11-03] MEDS ORDERED: Non-Formulary Medication 1 Each (Cyclosporine [Restasis Multidose] 1 DROP) EYEBOTH PRN (11:46)
[2020-11-03] MEDS ORDERED: Acetaminophen 325 MG Tab PO PRN (11:46)
--- NOTE | 2020-11-03 11:54 | PCM.HP ---
H&P History of Present Illness - General Date of Service: 11/03/20 Admit Problem/Dx: Admission Diagnosis/Problem Admission Diagnosis/Problem Ankle fracture - History of Present Illness Initial Comments - Free Text/Narative: The patient is a 60-year-old female who is being admitted to swing bed for rehabilitation following acute inpatient stay from November 02, 2020 to November 03, 2020 after being transferred from [facility] due to patient being status post October 31, 2020: Left ankle ORIF for diagnosis left trimalleolar fracture with podiatry at [facility]. For further HPI, see below: Patient is a 60-year-old female who was transferred from [facility] on this day of November 02, 2020 for acute admission with subsequent transfer to swing bed as she is status post left ankle ORIF for diagnosis of left trimalleolar fracture performed by podiatry on October 31, 2020. The patient was initially admitted to this facility on October 28, 2020 following a fall. The patient presented to this facility's emergency department on October 26, 2000 following a fall where she twisted her ankle while putting on her shoe. She was found to have a trimalleolar malleolus fracture at that time and orthopedic s urgery was consulted who recommended splinting and nonweightbearing of the left ankle and they indicated that they would follow-up with the patient on an outpatient basis. Following hospitalization at this facility on October 28, 2020, podiatry was consulted at [facility] and the hospitalist was kind enough to accept the patient for transfer on October 29, 2020. At [facility], the patient underwent left ankle ORIF for diagnosis of left trimalleolar fracture with podiatry on October 31, 2020. She was subsequently transferred to this facility on November 02, 2020 for acute hospitalization with tentative transition to swing bed for rehabilitation on November 03, 2020. At the present time the patient denies fever, rigors, nausea, vomiting, cough, wheeze, abdominal pain, diarrhea, myalgia, chest pain, dyspnea, lightheadedness, dizziness. She currently rates her left ankle pain as a 7 out of 10 described as burning. She indicates that her last bowel movement was October 29, 2020. She been tolerating p.o. and she has been ambulating with assistance. She presents for further evaluation Upon admission to swing bed status on this day of October 24, 2020, the patient complains of 4 out of 10 left ankle pain. She denies fever, rigors, nausea, vomiting, cough, wheeze, abdominal pain, chest pain, dyspnea. She states that she has been eating well. The patient Ba that she is constipated. She pre sents for further evaluation - Related Data Allergies/Adverse Reactions: Allergies Allergy/AdvReac Type Severity Reaction Status Date / Time No Known Allergies Allergy Verified 11/02/20 16:45 Home Medications: Home Meds FLUoxetine [PROzac] 40 mg PO BEDTIME 05/06/13 [History] atorvaSTATin [Lipitor] 10 mg PO BEDTIME 05/06/13 [History] traZODone 150 mg PO BEDTIME 05/06/13 [History] Omeprazole 20 mg PO BEDTIME 07/23/15 [History] Tiotropium [Spiriva HandiHaler] 18 mcg INH DAILY 10/16/15 [History] Lisinopril 40 mg PO BEDTIME 01/13/16 [History] Baclofen 10 mg PO BID PRN 05/31/19 [History] hydroCHLOROthiazide [Hydrochlorothiazide] 25 mg PO DAILY 05/31/19 [History] Budesonide [Pulmicort] 0.5 mg IH BID 10/28/20 [History] Formoterol [Perforomist] 20 mcg INH BID 10/28/20 [History] Montelukast [Singulair] 10 mg PO BEDTIME 10/28/20 [History] Ascorbic Acid [Vitamin C] 500 mg PO DAILY tablet 10/29/20 [Rx] Acetaminophen 500 mg PO Q6H 11/02/20 [History] Albuterol [Proventil HFA] 2 puff INH Q4H PRN 11/02/20 [History] Aspirin [Aspirin EC] 325 mg PO DAILY 11/02/20 [History] Cholecalciferol (Vitamin D3) [Vitamin D3] 50 mcg PO DAILY 11/02/20 [History] Docusate Sodium/Sennosides [Senna Plus] 1 tab PO BID PRN 11/02/20 [History] Ibuprofen 600 mg PO Q6H 11/02/20 [History] Naloxone HCl [Narcan] 1 spray [place] ONETIME PRN 11/02/20 [History] Ondansetron [Ondansetron ODT] 4 mg PO Q4H PRN 11/02/20 [History] atenoloL [Atenolol] 12.5 mg PO BID 11/02/20 [History] buPROPion [Wellbutrin] 100 mg PO DAILY 11/02/20 [History] cycloSPORINE [Restasis Multidose] 1 drop EYEBOTH BID PRN 11/02/20 [History] oxyCODONE 5 - 10 mg PO Q4H PRN 11/02/20 [History] Past Medical History HEENT History: Reports: Impaired Vision Other HEENT History: wears glasses Cardiovascular History: Reports: High Cholesterol, Hypertension, SOB on Exertion Respiratory History: Reports: Asthma, COPD, SOB Gastrointestinal History: Reports: Cholelithiasis, Diverticulosis, GERD Genitourinary History: Reports: None FURNITURE FINISHER History: Reports: 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, , Other (See Below) Other OB/BYN History: hysterectomy Musculoskeletal History: Reports: Arthritis, Back Pain, Chronic, Fracture, Osteoarthritis, Other (See Below) Other Musculoskeletal History: left ankle fracture Neurological History: Reports: None Psychiatric History: Reports: Anxiety, Bipolar, Depression Endocrine/Metabolic History: Reports: Diabetes, Type II, Obesity/BMI 30+ Other Endocrine/Metabolic History: borderline diabetic Hematologic History: Reports: None Immunologic History: Reports: None Oncologic (Cancer) History: Reports: None Dermatologic History: Reports: None - Infectious Disease History Infectious Disease History: Reports: Mumps - Past Surgical History Head Surgeries/Procedures: Reports: None Cardiovascular Surgical History: Reports: None Respiratory Surgical History: Reports: None GI Surgical History: Reports: Bariatric Procedure, Cholecystectomy Other GI Surgeries/Procedures: had lap band surgery but is no longer present. Female Surgical History: Reports: Hysterectomy Endocrine Surgical History: Reports: None Musculoskeletal Surgical History: Reports: None Oncologic Surgical History: Reports: None Social & Family History - Family History Family Medical History: No Pertinent Family History - Caffeine Use Caffeine Use: Reports: None - Living Situation & Occupation Living situation: Reports: , with Family H&P Review of Systems - Review of Systems: Review Of Systems: See Below General: Reports: No Symptoms HEENT: Reports: No Symptoms Pulmonary: Reports: No Symptoms Cardiovascular: Reports: No Symptoms Gastrointestinal: Reports: No Symptoms Genitourinary: Reports: No Symptoms Musculoskeletal: Reports: Leg Pain Skin: Reports: No Symptoms Psychiatric: Reports: No Symptoms Neurological: Reports: No Symptoms Hematologic/Lymphatic: Reports: No Symptoms Immunologic: Reports: No Symptoms Exam - Exam Exam: See Below - Exam General: Alert, Oriented, 4 HEENT: PERRLA, Hearing Intact, Mucosa Moist & [place], Nares Patent, Normal Nasal Septum, Posterior Pharynx Clear, Conjunctiva Clear, EOMI, EACs Clear, TMs Clear Neck: Supple, Trachea Midline, 2 Lungs: Clear to Auscultation, Normal Respiratory Effort Cardiovascular: Regular Rate, Regular Rhythm GI/Abdominal Exam: Normal Bowel Sounds, Soft, Non-Tender, No Organomegaly, No Distention, No Abnormal Bruit, No Mass, Pelvis Stable Back Exam: Normal Inspection, Full Range of Motion, NT Extremities: Leg Pain Peripheral Pulses: 2+: Carotid (L), Carotid (R), Brachial (L), Brachial (R), Radial (L), Radial (R), Femoral (L), Femoral (R), Popliteal (L), Popliteal (R), Posterior Tibial (R), Dorsalis Pedis (R) Skin: Warm, Dry, Intact Neurological: Cranial Nerves Intact, Reflexes Equal Bilateral Neuro Extensive - Mental Status: Alert, Oriented x3, Normal Mood/Affect, Normal Cognition Neuro Extensive - Motor, Sensory, Reflexes: CN II-XII Intact, Normal Gait, Normal Reflexes DTR: 2+: Bicep (L), Bicep (R), Tricep (L), Tricep (R), Patella (L), Patella (R), Achilles (R) Psychiatric: Alert, Normal Affect, Normal Mood Problem List Initiated/Reviewed/Updated: Yes Orders Last 24hrs: Active Orders 24 hr Category Date Time Status Admission Status [Patient Status] [ADT] Routine ADT 11/03/20 11:50 Ordered Blood Glucose Check, Bedside [RC] WITHMEALSANDBED Care 11/03/20 11:46 Ordered CPAP Adult [RT BiPAP/CPAP] [RC] ASDIRECTED Care 11/03/20 11:46 Ordered Communication Order [RC] 08,20 Care 11/03/20 11:46 Ordered RT Aerosol Therapy [RC] ASDIRECTED Care 11/03/20 11:46 Ordered RT Aerosol Therapy [RC] ASDIRECTED Care 11/03/20 11:46 Ordered RT Post Treatment Assessment [RC] Click to Edit Care 11/03/20 11:46 Ordered RT Post Treatment Assessment [RC] Click to Edit Care 11/03/20 11:46 Ordered RT Pre-Treatment Assessment [RC] Click to Edit Care 11/03/20 11:46 Ordered RT Pre-Treatment Assessment [RC] Click to Edit Care 11/03/20 11:46 Ordered Up With Assistance [RC] ASDIRECTED Care 11/03/20 11:46 Ordered Vital Signs [RC] PER UNIT ROUTINE Care 11/03/20 11:51 Ordered Vital Signs [RC] Q4H Care 11/03/20 11:46 Ordered OT Evaluation and Treatment [CONS] Routine Cons 11/03/20 11:46 Ordered PT Evaluation and Treatment [CONS] Routine Cons 11/03/20 11:46 Ordered Consistent Carbohydrate Diet [DIET] Diet 11/03/20 Lunch Ordered Acetaminophen [TylenoL] Med 11/03/20 11:46 Ordered 650 mg PO Q4H PRN Acetaminophen/HYDROcodone [[place] 325-5 MG] Med 11/03/20 11:46 Ordered 1 tab PO Q4H PRN Albuterol [Proventil HFA] Med 11/03/20 11:46 Ordered 1 gm INH Q4H PRN Ascorbic Acid [Vitamin C] Med 11/04/20 09:00 Ordered 500 mg PO DAILY Baclofen [Lioresal] Med 11/03/20 11:46 Ordered 10 mg PO BID PRN Budesonide [Pulmicort] Med 11/03/20 18:00 Ordered 0.5 mg INH BIDRT Cholecalciferol (Vitamin D3) [Vitamin D3] Med 11/04/20 09:00 Ordered 50 mcg PO DAILY Dextrose 50% in Water Med 11/03/20 11:46 Ordered 50 ml IVPUSH Q15M PRN Dextrose 50% in Water Med 11/03/20 11:46 Ordered 50 ml IVPUSH Q15M PRN Docusate Sodium/Sennosides [Senna Plus] Med 11/03/20 21:00 Ordered 2 tab PO BID Enoxaparin [Lovenox] Med 11/04/20 09:00 Ordered 40 mg SUBCUT DAILY FLUoxetine [PROzac] Med 11/03/20 21:00 Ordered 40 mg PO BEDTIME Formoterol [Perforomist] Med 11/03/20 21:00 Pending 20 mcg INH BID Glucagon,Human Recombinant [GlucaGen] Med 11/03/20 11:46 Ordered 1 mg IM Q15M PRN Glucagon,Human Recombinant [GlucaGen] Med 11/03/20 11:46 Ordered 1 mg IM Q15M PRN Insulin Lispro [HumaLOG] Med 11/03/20 12:00 Ordered See Protocol SUBCUT WITHMEALSANDBED Montelukast [Singulair] Med 11/03/20 21:00 Ordered 10 mg PO BEDTIME Morphine Med 11/03/20 11:46 Ordered 2 mg IV Q4H PRN Omeprazole Med 11/03/20 21:00 Ordered 20 mg PO BEDTIME Ondansetron [Zofran ODT] Med 11/03/20 11:46 Ordered 4 mg PO Q4H PRN Sodium Chloride 0.9% [Saline Flush] Med 11/03/20 11:46 Ordered 10 ml FLUSH ASDIRECTED PRN Sodium Chloride 0.9% [Saline Flush] Med 11/03/20 11:46 Ordered 10 ml FLUSH ASDIRECTED PRN Tiotropium [Spiriva HandiHaler] Med 11/04/20 09:00 Ordered 18 mcg INH DAILY atenoloL [Tenormin] Med 11/03/20 21:00 Ordered 12.5 mg PO BID atorvaSTATin [Lipitor] Med 11/03/20 21:00 Ordered 10 mg PO BEDTIME buPROPion [Wellbutrin SR] Med 11/04/20 09:00 Ordered 100 mg PO DAILY cycloSPORINE [Restasis Multidose] Med 11/03/20 11:46 Pending 1 drop EYEBOTH BID PRN hydroCHLOROthiazide Med 11/04/20 09:00 Ordered 25 mg PO DAILY lisinopriL [Prinivil] Med 11/03/20 21:00 Ordered 40 mg PO BEDTIME oxyCODONE Med 11/03/20 11:46 Ordered 5 mg PO Q4H PRN polyethylene glycoL 3350 [MiraLAX] Med 11/04/20 09:00 Ordered 17 gm PO DAILY traZODone Med 11/03/20 21:00 Ordered 150 mg PO BEDTIME Saline Lock Insert [OM.PC] Routine Oth 11/03/20 11:46 Ordered Resuscitation Status Routine Resus Stat 11/03/20 11:46 Ordered Medication Orders Acetaminophen (Acetaminophen 325 Mg Tab) 650 mg PO Q4H PRN PRN Reason: Pain (Mild 1-3)/fever Hydrocodone Bitart/Acetaminophen (Acetaminophen/Hydrocodone 325-5 Mg Tab) 1 tab PO Q4H PRN PRN Reason: Pain (moderate 4-6) Albuterol (Albuterol 6.7 Gm Inhaler) 1 gm INH Q4H PRN PRN Reason: Shortness of Breath Ascorbic Acid (Ascorbic Acid 500 Mg Tab) 500 mg PO DAILY [facility] Atenolol (Atenolol 25 Mg Tab) 12.5 mg PO BID [facility] Atorvastatin Calcium (Atorvastatin 10 Mg Tab) 10 mg PO BEDTIME [facility] Baclofen (Baclofen 10 Mg Tab) 10 mg PO BID PRN PRN Reason: Spasms Budesonide (Budesonide 0.5 Mg/2 Ml Neb Susp) 0.5 mg INH BIDRT [facility] Bupropion HCl (Bupropion 100 Mg Tab.Sr) 100 mg PO DAILY [facility] Cholecalciferol (Cholecalciferol (Vitamin D3) 25 Mcg Tab) 50 mcg PO DAILY [facility] Dextrose/Water (50% Dextrose In Water 50 Ml Syringe) 50 ml IVPUSH Q15M PRN PRN Reason: Hypoglycemia Dextrose/Water (50% Dextrose In Water 50 Ml Syringe) 50 ml IVPUSH Q15M PRN PRN Reason: Hypoglycemia Enoxaparin Sodium (Enoxaparin 40 Mg/0.4 Ml Syringe) 40 mg SUBCUT DAILY [facility] Fluoxetine HCl (Fluoxetine 10 Mg Cap) 40 mg PO BEDTIME [facility] Glucagon (Glucagon,Human Recombinant 1 Mg Vial) 1 mg IM Q15M PRN PRN Reason: Hypoglycemia Glucagon (Glucagon,Human Recombinant 1 Mg Vial) 1 mg IM Q15M PRN PRN Reason: Hypoglycemia Hydrochlorothiazide (Hydrochlorothiazide 25 Mg Tab) 25 mg PO DAILY [facility] Insulin Human Lispro (Insulin Lispro 100 Units/Ml 3 Ml Vial) 0 unit SUBCUT WITHMEALSANDBED [facility]; Protocol Lisinopril (Lisinopril 20 Mg Tab) 40 mg PO BEDTIME [facility] Montelukast Sodium (Montelukast 10 Mg Tab) 10 mg PO BEDTIME [facility] Morphine Sulfate (Morphine 2 Mg/Ml Syringe) 2 mg IV Q4H PRN PRN Reason: Pain Non-Formulary Medication (Cyclosporine [Restasis Multidose]) 1 drop EYEBOTH BID PRN PRN Reason: Dry Eyes Non-Formulary Medication (Formoterol [Perforomist]) 20 mcg INH BID [facility] Omeprazole (Omeprazole 20 Mg Cap.Cr) 20 mg PO BEDTIME [facility] Ondansetron HCl (Ondansetron 4 Mg Tab.Dis) 4 mg PO Q4H PRN PRN Reason: nausea, able to take PO Oxycodone HCl (Oxycodone 5 Mg Tab) 5 mg PO Q4H PRN PRN Reason: Pain (severe 7-10) Polyethylene Glycol (Polyethylene Glycol 3350 Powder 17 Gm Packet) 17 gm PO DAILY [facility] Senna/Docusate Sodium (Docusate Sodium/Sennosides 50-8.6 Mg Tab) 2 tab PO BID [facility] Sodium Chloride (Sodium Chloride 0.9% 10 Ml Syringe) 10 ml FLUSH ASDIRECTED PRN PRN Reason: Keep Vein Open Sodium Chloride (Sodium Chloride 0.9% 10 Ml Syringe) 10 ml FLUSH ASDIRECTED PRN PRN Reason: Keep Vein Open Tiotropium [place] (Tiotropium Inhaler 18 Mcg Inhalation Powder Cap Kit Of 5) 18 mcg INH DAILY [facility] Trazodone HCl (Trazodone 50 Mg Tab) 150 mg PO BEDTIME [facility] Assessment/Plan Comment:: Surgical History: Left ankle ORIF on October 31, 2020. Cholecystectomy, hysterectomy, bilateral breast reduction, lap band surgery with subsequent removal Family History: Cancer, stroke, diabetes, coronary artery disease, hypertension, hyperlipidemia Social History: Tobacco: Former smoker Alcohol: Denies Caffeine: Coffee Drugs: Past marijuana use. Denies any other drug use past or present Allergies: No known drug allergies Code Status: Full Assessment / Plan: Admission to swing bed status for rehabilitation as patient is status post October 31, 2020: Left ankle ORIF for diagnosis left trimalleolar fracture with podiatry at [facility]. As needed analgesia. Physical therapy evaluation pending. Occupational therapy pending. Muscle spasm Bipolar disorder/depression/anxiety. Wellbutrin 100 mg p.o. daily plus trazo done 150 mg p.o. nightly plus Prozac 40 mg p.o. nightly 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, status post hysterectomy Obstructive sleep apnea. CPAP: Okay to use home device and/or pressure when sleeping Iron deficiency anemia. Will monitor hemoglobin level intermittently. Vitamin C 500 mg p.o. daily. Upon discharge, patient will be started on ferrous sulfate 3 and 25 mg p.o. twice daily COPD, not O2 dependent. Performers 20 m inhaled twice daily plus annular 10 mg p.o. nightly plus Spiriva 18 mg inhaled daily plus budesonide 0.5 mg inhaled twice daily Grade 1 diastolic dysfunction Diabetes. Will check fasting glucose before every meal and at bedtime and provide some sign scale GERD. Prilosec 20 mg p.o. nightly Hyperlipidemia. Lipitor 10 mg p.o. nightly Hypertension. Atenolol 12.5 mg p.o. twice daily plus lisinopril 40 mg p.o. nightly plus hydrochlorothiazide 25 mg p.o. daily Obesity. Patient be counseled regarding lifestyle modification Osteoarthritis Chronic pain Insomnia Seasonal allergies Restless leg syndrome Hepatic steatosis Overactive bladder Diverticulosis Chronic dry eye. Restasis 1 drop in both eyes twice daily GI prophylaxis. Senna plus: 2 tabs p.o. twice daily plus MiraLAX 17 g p.o. daily DVT prophylaxis. Lovenox 40 mg subcutaneously daily Disposition: The patient will be a candidate for discharge once deemed appropriate by physical therapy and Occupational Therapy END OF DOCTOR EMAMIS HISTORY AND PHYSICAL / CONSULTATION NOTE
[2020-11-03] MEDS: Insulin Lispro 100 Units/ML 3 ML Vial SUBCUT SCH ×3 (14:36→21:08)
[2020-11-03] MEDS: Acetaminophen/HYDROcodone 325-5 MG Tab PO PRN (15:18)
[2020-11-03] MEDS: Budesonide 0.5 MG/2 ML Neb Susp INH SCH (19:21)
[2020-11-03] MEDS: oxyCODONE 5 MG Tab PO PRN (21:01)
[2020-11-03] MEDS: Omeprazole 20 MG Cap.CR PO SCH (21:01)
[2020-11-03] MEDS: Lisinopril 20 MG Tab PO SCH (21:02)
[2020-11-03] MEDS: atorvaSTATin 10 MG Tab PO SCH (21:02)
[2020-11-03] MEDS: traZODone 50 MG Tab PO SCH (21:02)
[2020-11-03] MEDS: Atenolol 25 MG Tab PO SCH (21:03)
[2020-11-03] MEDS: Montelukast 10 MG Tab PO SCH (21:03)
[2020-11-03] MEDS: FLUoxetine 10 MG Cap PO SCH (21:03)
[2020-11-03] MEDS: Baclofen 10 MG Tab PO PRN (21:03)
[2020-11-03] MEDS: Morphine 2 MG/ML SYRINGE IV PRN (23:19)
[2020-11-04] MEDS: Acetaminophen/HYDROcodone 325-5 MG Tab PO PRN ×4 (01:00→21:26)
[2020-11-04] MEDS ORDERED: buPROPion 100 MG Tab.SR PO SCH (09:00)
[2020-11-04] MEDS: Budesonide 0.5 MG/2 ML Neb Susp INH SCH ×2 (09:27→18:31)
[2020-11-04] MEDS: Atenolol 25 MG Tab PO SCH ×2 (09:33→21:25)
[2020-11-04] MEDS: Cholecalciferol (Vitamin D3) 25 MCG Tab PO SCH (09:34)
[2020-11-04] MEDS: Hydrochlorothiazide 25 MG Tab PO SCH (09:34)
[2020-11-04] MEDS: Ascorbic Acid 500 MG Tab PO SCH (09:35)
[2020-11-04] MEDS: Polyethylene Glycol 3350 Powder 17 GM Packet PO SCH (09:36)
[2020-11-04] MEDS: BUPROPION 100 MG PO SCH (09:37)
[2020-11-04] MEDS: Tiotropium Inhaler 18 MCG Inhalation Powder Cap Kit of 5 INH SCH (09:37)
[2020-11-04] MEDS: Enoxaparin 40 MG/0.4 ML Syringe SUBCUT SCH (09:38)
[2020-11-04] MEDS: Insulin Lispro 100 Units/ML 3 ML Vial SUBCUT SCH ×4 (11:13→22:07)
[2020-11-04] MEDS: oxyCODONE 5 MG Tab PO PRN (11:50)
[2020-11-04] MEDS: Baclofen 10 MG Tab PO PRN (11:51)
[2020-11-04] MEDS: traZODone 50 MG Tab PO SCH (21:21)
[2020-11-04] MEDS: FLUoxetine 10 MG Cap PO SCH (21:26)
[2020-11-04] MEDS: Omeprazole 20 MG Cap.CR PO SCH (21:27)
[2020-11-04] MEDS: Montelukast 10 MG Tab PO SCH (21:27)
[2020-11-04] MEDS: atorvaSTATin 10 MG Tab PO SCH (21:27)
[2020-11-04] MEDS: Lisinopril 20 MG Tab PO SCH (21:28)
[2020-11-04] MEDS: Morphine 2 MG/ML SYRINGE IV PRN (23:31)
[2020-11-05] MEDS: Acetaminophen/HYDROcodone 325-5 MG Tab PO PRN ×4 (03:16→20:57)
--- NOTE | 2020-11-05 06:53 | PCM.PN ---
- General Info Date of Service: 11/05/20 Admission Dx/Problem (Free Text): Last 24 hours, the patient denies experiencing fever, rigors, nausea, vomiting, cough, wheeze, abdominal pain, chest pain, dyspnea, or any other constitutional complaints. She indicates that the pain in her left ankle is adequately controlled with as needed analgesia. She states that she has been eating well and has been having regular bowel movements. She indicates that she has been working with physical therapy and is satisfied with her progress. I explained to the patient her current medical condition and plan of care and I have answered all of her questions Functional Status: Reports: Pain Controlled - Review of Systems General: Reports: No Symptoms HEENT: Reports: No Symptoms Pulmonary: Reports: No Symptoms Cardiovascular: Reports: No Symptoms Gastrointestinal: Reports: No Symptoms Genitourinary: Reports: No Symptoms Musculoskeletal: Reports: No Symptoms Skin: Reports: No Symptoms Neurological: Reports: No Symptoms Psychiatric: Reports: No Symptoms - Patient Data Vitals - Most Recent: Last Vital Signs Temp 97.3 F 11/04/20 20:00 Pulse 78 11/04/20 21:25 Resp 18 11/04/20 20:00 BP 105/50 L 11/04/20 21:28 Pulse Ox 98 11/04/20 20:00 Weight - Most Recent: 293 lb I&O - Last 24 Hours: Intake & Output 11/04/20 11/04/20 11/05/20 14:59 22:59 06:59 Intake Total 240 Balance 240 Lab Results Last 24 Hours: Laboratory Results - last 24 hr 11/04/20 11/04/20 11/04/20 Range/Units 08:05 11:50 16:51 POC Glucose 114 H 113 H 135 H (70-99) mg/dL 11/04/20 Range/Units 21:09 POC Glucose 121 H (70-99) mg/dL Med Orders - Current: Current Medications Acetaminophen (Acetaminophen 325 Mg Tab) 650 mg PO Q4H PRN PRN Reason: Pain (Mild 1-3)/fever Hydrocodone Bitart/Acetaminophen (Acetaminophen/Hydrocodone 325-5 Mg Tab) 1 tab PO Q4H PRN PRN Reason: Pain (moderate 4-6) Last Admin: 11/05/20 03:16 Dose: 1 tab Documented by: Albuterol (Albuterol 6.7 Gm Inhaler) 0 gm INH Q4H PRN PRN Reason: Shortness of Breath Ascorbic Acid (Ascorbic Acid 500 Mg Tab) 500 mg PO DAILY [facility] Last Admin: 11/04/20 09:35 Dose: 500 mg Documented by: Atenolol (Atenolol 25 Mg Tab) 12.5 mg PO BID [facility] Last Admin: 11/04/20 21:25 Dose: 12.5 mg Documented by: Atorvastatin Calcium (Atorvastatin 10 Mg Tab) 10 mg PO BEDTIME [facility] Last Admin: 11/04/20 21:27 Dose: 10 mg Documented by: Baclofen (Baclofen 10 Mg Tab) 10 mg PO BID PRN PRN Reason: Spasms Last Admin: 11/04/20 11:51 Dose: 10 mg Documented by: Budesonide (Budesonide 0.5 Mg/2 Ml Neb Susp) 0.5 mg INH BIDRT [facility] Last Admin: 11/04/20 18:31 Dose: 0.5 mg Documented by: Bupropion HCl (Bupropion 100 Mg Tab.SrPt Own) 100 mg PO DAILY [facility] Last Admin: 11/04/20 09:37 Dose: 100 mg Documented by: Cholecalciferol (Cholecalciferol (Vitamin D3) 25 Mcg Tab) 50 mcg PO DAILY [facility] Last Admin: 11/04/20 09:34 Dose: 50 mcg Documented by: Dextrose/Water (50% Dextrose In Water 50 Ml Syringe) 50 ml IVPUSH Q15M PRN PRN Reason: Hypoglycemia Enoxaparin Sodium (Enoxaparin 40 Mg/0.4 Ml Syringe) 40 mg SUBCUT DAILY [facility] Last Admin: 11/04/20 09:38 Dose: 40 mg Documented by: Fluoxetine HCl (Fluoxetine 10 Mg Cap) 40 mg PO BEDTIME [facility] Last Admin: 11/04/20 21:26 Dose: 40 mg Documented by: Glucagon (Glucagon,Human Recombinant 1 Mg Vial) 1 mg IM Q15M PRN PRN Reason: Hypoglycemia Hydrochlorothiazide (Hydrochlorothiazide 25 Mg Tab) 25 mg PO DAILY [facility] Last Admin: 11/04/20 09:34 Dose: 25 mg Documented by: Insulin Human Lispro (Insulin Lispro 100 Units/Ml 3 Ml Vial) 0 unit SUBCUT WITHMEALSANDBED [facility]; Protocol Last Admin: 11/04/20 22:07 Dose: Not Given Documented by: Lisinopril (Lisinopril 20 Mg Tab) 40 mg PO BEDTIME [facility] Last Admin: 11/04/20 21:28 Dose: 40 mg Documented by: Montelukast Sodium (Montelukast 10 Mg Tab) 10 mg PO BEDTIME [facility] Last Admin: 11/04/20 21:27 Dose: 10 mg Documented by: Morphine Sulfate (Morphine 2 Mg/Ml Syringe) 2 mg IV Q4H PRN PRN Reason: Pain Last Admin: 11/04/20 23:31 Dose: 2 mg Documented by: Non-Formulary Medication (Cyclosporine [Restasis Multidose]) 1 drop EYEBOTH BID PRN PRN Reason: Dry Eyes Non-Formulary Medication (Formoterol [Perforomist]) 20 mcg INH BID [facility] Omeprazole (Omeprazole 20 Mg Cap.Cr) 20 mg PO BEDTIME [facility] Last Admin: 11/04/20 21:27 Dose: 20 mg Documented by: Ondansetron HCl (Ondansetron 4 Mg Tab.Dis) 4 mg PO Q4H PRN PRN Reason: nausea, able to take PO Oxycodone HCl (Oxycodone 5 Mg Tab) 5 mg PO Q4H PRN PRN Reason: Pain (severe 7-10) Last Admin: 11/04/20 11:50 Dose: 5 mg Documented by: Polyethylene Glycol (Polyethylene Glycol 3350 Powder 17 Gm Packet) 17 gm PO DAILY [facility] Last Admin: 11/04/20 09:36 Dose: 17 gm Documented by: Senna/Docusate Sodium (Docusate Sodium/Sennosides 50-8.6 Mg Tab) 2 tab PO BID [facility] Last Admin: 11/04/20 21:27 Dose: 2 tab Documented by: Sodium Chloride (Sodium Chloride 0.9% 10 Ml Syringe) 10 ml FLUSH ASDIRECTED PRN PRN Reason: Keep Vein Open Last Admin: 11/03/20 23:19 Dose: 10 ml Documented by: Sodium Chloride (Sodium Chloride 0.9% 10 Ml Syringe) 10 ml FLUSH ASDIRECTED PRN PRN Reason: Keep Vein Open Tiotropium [place] (Tiotropium Inhaler 18 Mcg Inhalation Powder Cap Kit Of 5) 18 mcg INH DAILY [facility] Last Admin: 11/04/20 09:37 Dose: 18 mg Documented by: Trazodone HCl (Trazodone 50 Mg Tab) 150 mg PO BEDTIME [facility] Last Admin: 11/04/20 21:21 Dose: 150 mg Documented by: Discontinued Medications Bupropion HCl (Bupropion 100 Mg Tab.Sr) 100 mg PO DAILY [facility] Dextrose/Water (50% Dextrose In Water 50 Ml Syringe) 50 ml IVPUSH Q15M PRN PRN Reason: Hypoglycemia Glucagon (Glucagon,Human Recombinant 1 Mg Vial) 1 mg IM Q15M PRN PRN Reason: Hypoglycemia - Exam General: Alert, Oriented HEENT: Pupils Equal, Pupils Reactive, EOMI, Mucous Membr. Moist/[place] Neck: Supple Lungs: Clear to Auscultation, Normal Respiratory Effort Cardiovascular: Regular Rate, Regular Rhythm GI/Abdominal Exam: Normal Bowel Sounds, Soft, Non-Tender, No Organomegaly, No Distention, No Abnormal Bruit, No Mass, Pelvis Stable Back Exam: Normal Inspection, Full Range of Motion Extremities: Normal Inspection, Normal Range of Motion, Non-Tender, No Pedal Edema, Normal Capillary Refill Peripheral Pulses: 2+: Carotid (L), Carotid (R), Brachial (L), Brachial (R), Radial (L), Radial (R), Femoral (L), Femoral (R), Popliteal (L), Popliteal (R), Posterior Tibial (R), Dorsalis Pedis (R) Skin: Warm, Dry, Intact Wound/Incisions: Healing Well Neurological: No New Focal Deficit Psy/Mental Status: Alert, Normal Affect, Normal Mood - Patient Data Lab Results Last 24 hrs: Laboratory Results - last 24 hr 11/04/20 11/04/20 11/04/20 Range/Units 08:05 11:50 16:51 POC Glucose 114 H 113 H 135 H (70-99) mg/dL 11/04/20 Range/Units 21:09 POC Glucose 121 H (70-99) mg/dL Sepsis Event Note - Evaluation Sepsis Screening Result: No Definite Risk - Focused Exam Vital Signs: Vital Signs Temp Pulse Pulse Resp BP BP Pulse Ox 11/04/20 21:28 105/50 L 11/04/20 21:25 78 105/50 L 11/04/20 20:00 97.3 F 78 18 105/50 L 98 - Problem List Review Problem List Initiated/Reviewed/Updated: Yes - My Orders Last 24 Hours: My Active Orders 11/04/20 09:00 Ascorbic Acid [Vitamin C] 500 mg PO DAILY Cholecalciferol (Vitamin D3) [Vitamin D3] 50 mcg PO DAILY Enoxaparin [Lovenox] 40 mg SUBCUT DAILY Tiotropium [Spiriva HandiHaler] 18 mcg INH DAILY buPROPion [Wellbutrin SR] 100 mg PO DAILY hydroCHLOROthiazide 25 mg PO DAILY polyethylene glycoL 3350 [MiraLAX] 17 gm PO DAILY - Plan Plan:: Surgical History: Left ankle ORIF on October 31, 2020. Cholecystectomy, hysterectomy, bilateral breast reduction, lap band surgery with subsequent removal Family History: Cancer, stroke, diabetes, coronary artery disease, hypertension, hyperlipidemia Social History: Tobacco: Former smoker Alcohol: Denies Caffeine: Coffee Drugs: Past marijuana use. Denies any other drug use past or present Allergies: No known drug allergies Code Status: Full Assessment / Plan: Admission to swing bed status for rehabilitation as patient is status post October 31, 2020: Left ankle ORIF for diagnosis left trimalleolar fracture with podiatry at [facility]. As needed analgesia. Physical therapy evaluation pending. Occupational therapy pending. Muscle spasm Bipolar disorder/depression/anxiety. Wellbutrin 100 mg p.o. daily plus trazodone 150 mg p.o. nightly plus Prozac 40 mg p.o. nightly 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, status post hysterectomy Obstructive sleep apnea. CPAP: Okay to use home device and/or pressure when sleeping Iron deficiency anemia. Will monitor hemoglobin level intermittently. Vitamin C 500 mg p.o. daily. Upon discharge, patient will be started on ferrous sulfate 3 and 25 mg p.o. twice daily COPD, not O2 dependent. Performers 20 m inhaled twice daily plus annular 10 mg p.o. nightly plus Spiriva 18 mg inhaled daily plus budesonide 0.5 mg inhaled twice daily Grade 1 diastolic dysfunction Diabetes. Will check fasting glucose before every meal and at bedtime and provide some sign scale GERD. Prilosec 20 mg p.o. nightly Hyperlipidemia. Lipitor 10 mg p.o. nightly Hypertension. Atenolol 12.5 mg p.o. twice daily plus lisinopril 40 mg p.o. nightly plus hydrochlorothiazide 25 mg p.o. daily Obesity. Patient be counseled regarding lifestyle modification Osteoarthritis Chronic pain Insomnia Seasonal allergies Restless leg syndrome Hepatic steatosis Overactive bladder Diverticulosis Chronic dry eye. Restasis 1 drop in both eyes twice daily GI prophylaxis. Senna plus: 2 tabs p.o. twice daily plus MiraLAX 17 g p.o. daily DVT prophylaxis. Lovenox 40 mg subcutaneously daily Disposition: The patient will be a candidate for discharge once deemed appropriate by physical therapy and Occupational Therapy END OF DOCTOR EMAMIS HISTORY AND PHYSICAL / CONSULTATION NOTE
[2020-11-05] MEDS: Insulin Lispro 100 Units/ML 3 ML Vial SUBCUT SCH ×2 (08:25→13:04)
[2020-11-05] MEDS: Ascorbic Acid 500 MG Tab PO SCH (09:17)
[2020-11-05] MEDS: Cholecalciferol (Vitamin D3) 25 MCG Tab PO SCH (09:17)
[2020-11-05] MEDS: Enoxaparin 40 MG/0.4 ML Syringe SUBCUT SCH (09:19)
[2020-11-05] MEDS: Polyethylene Glycol 3350 Powder 17 GM Packet PO SCH (09:19)
[2020-11-05] MEDS: Atenolol 25 MG Tab PO SCH ×2 (09:20→20:59)
[2020-11-05] MEDS: Hydrochlorothiazide 25 MG Tab PO SCH (09:20)
[2020-11-05] MEDS: Tiotropium Inhaler 18 MCG Inhalation Powder Cap Kit of 5 INH SCH (09:21)
[2020-11-05] MEDS: Budesonide 0.5 MG/2 ML Neb Susp INH SCH ×2 (09:30→17:38)
[2020-11-05] MEDS: BUPROPION 100 MG PO SCH (13:10)
[2020-11-05] MEDS: oxyCODONE 5 MG Tab PO PRN (16:44)
[2020-11-05] MEDS: FORMOTEROL 20 MCG/2 ML INH SCH (17:38)
[2020-11-05] MEDS ORDERED: FORMOTEROL 20 MCG/2 ML INH SCH (18:00)
[2020-11-05] MEDS: Baclofen 10 MG Tab PO PRN (20:57)
[2020-11-05] MEDS: Montelukast 10 MG Tab PO SCH (20:57)
[2020-11-05] MEDS: Omeprazole 20 MG Cap.CR PO SCH (20:58)
[2020-11-05] MEDS: traZODone 50 MG Tab PO SCH (20:58)
[2020-11-05] MEDS: FLUoxetine 10 MG Cap PO SCH (20:58)
[2020-11-05] MEDS: atorvaSTATin 10 MG Tab PO SCH (20:58)
[2020-11-05] MEDS: Lisinopril 20 MG Tab PO SCH (20:59)
[2020-11-06] MEDS: oxyCODONE 5 MG Tab PO PRN ×2 (00:41→21:30)
[2020-11-06] MEDS: Enoxaparin 40 MG/0.4 ML Syringe SUBCUT SCH (08:28)
[2020-11-06] MEDS: Ascorbic Acid 500 MG Tab PO SCH (08:28)
[2020-11-06] MEDS: Polyethylene Glycol 3350 Powder 17 GM Packet PO SCH (08:28)
[2020-11-06] MEDS: Cholecalciferol (Vitamin D3) 25 MCG Tab PO SCH (08:29)
[2020-11-06] MEDS: Budesonide 0.5 MG/2 ML Neb Susp INH SCH ×2 (08:39→17:58)
[2020-11-06] MEDS: FORMOTEROL 20 MCG/2 ML INH SCH ×2 (08:39→17:58)
[2020-11-06] MEDS: Acetaminophen/HYDROcodone 325-5 MG Tab PO PRN ×3 (08:52→18:18)
[2020-11-06] MEDS: Hydrochlorothiazide 25 MG Tab PO SCH (09:07)
[2020-11-06] MEDS: Atenolol 25 MG Tab PO SCH (09:07)
[2020-11-06] MEDS: BUPROPION 100 MG PO SCH (10:44)
[2020-11-06] MEDS: Tiotropium Inhaler 18 MCG Inhalation Powder Cap Kit of 5 INH SCH (10:57)
[2020-11-06] MEDS: Baclofen 10 MG Tab PO PRN (21:17)
[2020-11-06] MEDS: traZODone 50 MG Tab PO SCH (21:18)
[2020-11-06] MEDS: Montelukast 10 MG Tab PO SCH (21:18)
[2020-11-06] MEDS: Omeprazole 20 MG Cap.CR PO SCH (21:18)
[2020-11-06] MEDS: FLUoxetine 10 MG Cap PO SCH (21:20)
[2020-11-06] MEDS: atorvaSTATin 10 MG Tab PO SCH (21:20)
[2020-11-07] MEDS: Acetaminophen/HYDROcodone 325-5 MG Tab PO PRN ×5 (00:03→23:25)
[2020-11-07] MEDS: Lisinopril 20 MG Tab PO SCH ×2 (02:24→21:04)
[2020-11-07] MEDS: Atenolol 25 MG Tab PO SCH ×3 (02:25→21:05)
[2020-11-07] MEDS: FORMOTEROL 20 MCG/2 ML INH SCH ×2 (07:34→18:19)
[2020-11-07] MEDS: Budesonide 0.5 MG/2 ML Neb Susp INH SCH ×2 (07:35→18:19)
[2020-11-07] MEDS: Ascorbic Acid 500 MG Tab PO SCH (08:48)
[2020-11-07] MEDS: Cholecalciferol (Vitamin D3) 25 MCG Tab PO SCH (08:48)
[2020-11-07] MEDS: Polyethylene Glycol 3350 Powder 17 GM Packet PO SCH (08:49)
[2020-11-07] MEDS: Enoxaparin 40 MG/0.4 ML Syringe SUBCUT SCH (08:49)
[2020-11-07] MEDS: BUPROPION 100 MG PO SCH (08:53)
[2020-11-07] MEDS: Tiotropium Inhaler 18 MCG Inhalation Powder Cap Kit of 5 INH SCH (08:54)
[2020-11-07] MEDS: Hydrochlorothiazide 25 MG Tab PO SCH (08:56)
[2020-11-07] MEDS: Baclofen 10 MG Tab PO PRN (21:03)
[2020-11-07] MEDS: traZODone 50 MG Tab PO SCH (21:03)
[2020-11-07] MEDS: Omeprazole 20 MG Cap.CR PO SCH (21:03)
[2020-11-07] MEDS: FLUoxetine 10 MG Cap PO SCH (21:03)
[2020-11-07] MEDS: atorvaSTATin 10 MG Tab PO SCH (21:04)
[2020-11-07] MEDS: Montelukast 10 MG Tab PO SCH (21:04)
[2020-11-08] MEDS: Budesonide 0.5 MG/2 ML Neb Susp INH SCH ×2 (07:13→18:18)
[2020-11-08] MEDS: FORMOTEROL 20 MCG/2 ML INH SCH (07:13)
[2020-11-08] MEDS: Acetaminophen/HYDROcodone 325-5 MG Tab PO PRN ×4 (07:49→20:53)
[2020-11-08] MEDS: Ascorbic Acid 500 MG Tab PO SCH (08:36)
[2020-11-08] MEDS: Tiotropium Inhaler 18 MCG Inhalation Powder Cap Kit of 5 INH SCH (08:38)
[2020-11-08] MEDS: Cholecalciferol (Vitamin D3) 25 MCG Tab PO SCH (08:38)
[2020-11-08] MEDS: Enoxaparin 40 MG/0.4 ML Syringe SUBCUT SCH (08:39)
[2020-11-08] MEDS: BUPROPION 100 MG PO SCH (08:39)
[2020-11-08] MEDS: Atenolol 25 MG Tab PO SCH ×2 (08:44→21:08)
[2020-11-08] MEDS: Hydrochlorothiazide 25 MG Tab PO SCH (08:44)
[2020-11-08] MEDS: Polyethylene Glycol 3350 Powder 17 GM Packet PO SCH (08:44)
[2020-11-08] MEDS: Baclofen 10 MG Tab PO PRN ×2 (08:54→21:17)
[2020-11-08] MEDS: FLUoxetine 10 MG Cap PO SCH (21:06)
[2020-11-08] MEDS: Omeprazole 20 MG Cap.CR PO SCH (21:06)
[2020-11-08] MEDS: atorvaSTATin 10 MG Tab PO SCH (21:07)
[2020-11-08] MEDS: Montelukast 10 MG Tab PO SCH (21:07)
[2020-11-08] MEDS: traZODone 50 MG Tab PO SCH (21:10)
[2020-11-08] MEDS: Lisinopril 20 MG Tab PO SCH (21:10)
[2020-11-09] MEDS: FORMOTEROL 20 MCG/2 ML INH SCH ×3 (07:36→18:25)
[2020-11-09] MEDS: Budesonide 0.5 MG/2 ML Neb Susp INH SCH ×2 (07:36→18:23)
[2020-11-09] MEDS: Acetaminophen/HYDROcodone 325-5 MG Tab PO PRN ×4 (08:12→22:17)
[2020-11-09] MEDS: Hydrochlorothiazide 25 MG Tab PO SCH (09:06)
[2020-11-09] MEDS: Tiotropium Inhaler 18 MCG Inhalation Powder Cap Kit of 5 INH SCH (09:06)
[2020-11-09] MEDS: Atenolol 25 MG Tab PO SCH ×2 (09:07→20:21)
[2020-11-09] MEDS: Cholecalciferol (Vitamin D3) 25 MCG Tab PO SCH (09:08)
[2020-11-09] MEDS: Ascorbic Acid 500 MG Tab PO SCH (09:08)
[2020-11-09] MEDS: Baclofen 10 MG Tab PO PRN ×2 (09:08→20:25)
[2020-11-09] MEDS: BUPROPION 100 MG PO SCH (09:09)
[2020-11-09] MEDS: Enoxaparin 40 MG/0.4 ML Syringe SUBCUT SCH (09:09)
[2020-11-09] MEDS: Polyethylene Glycol 3350 Powder 17 GM Packet PO SCH (09:10)
[2020-11-09] MEDS: oxyCODONE 5 MG Tab PO PRN (14:31)
[2020-11-09] MEDS: Lisinopril 20 MG Tab PO SCH (20:20)
[2020-11-09] MEDS: FLUoxetine 10 MG Cap PO SCH (20:20)
[2020-11-09] MEDS: Montelukast 10 MG Tab PO SCH (20:20)
[2020-11-09] MEDS: atorvaSTATin 10 MG Tab PO SCH (20:21)
[2020-11-09] MEDS: Omeprazole 20 MG Cap.CR PO SCH (20:21)
[2020-11-09] MEDS: traZODone 50 MG Tab PO SCH (20:25)
[2020-11-10] MEDS: Acetaminophen/HYDROcodone 325-5 MG Tab PO PRN ×5 (03:32→21:39)
[2020-11-10] MEDS: FORMOTEROL 20 MCG/2 ML INH SCH ×2 (08:01→18:04)
[2020-11-10] MEDS: Budesonide 0.5 MG/2 ML Neb Susp INH SCH ×2 (08:01→18:04)
[2020-11-10] MEDS: Ascorbic Acid 500 MG Tab PO SCH (08:43)
[2020-11-10] MEDS: Hydrochlorothiazide 25 MG Tab PO SCH (08:43)
[2020-11-10] MEDS: Baclofen 10 MG Tab PO PRN ×2 (08:44→20:15)
[2020-11-10] MEDS: Cholecalciferol (Vitamin D3) 25 MCG Tab PO SCH (08:44)
[2020-11-10] MEDS: Atenolol 25 MG Tab PO SCH ×2 (08:45→20:16)
[2020-11-10] MEDS: Enoxaparin 40 MG/0.4 ML Syringe SUBCUT SCH (08:46)
[2020-11-10] MEDS: Tiotropium Inhaler 18 MCG Inhalation Powder Cap Kit of 5 INH SCH (08:47)
[2020-11-10] MEDS: BUPROPION 100 MG PO SCH (08:47)
[2020-11-10] MEDS: Polyethylene Glycol 3350 Powder 17 GM Packet PO SCH (08:48)
[2020-11-10] MEDS: atorvaSTATin 10 MG Tab PO SCH (20:13)
[2020-11-10] MEDS: FLUoxetine 10 MG Cap PO SCH (20:14)
[2020-11-10] MEDS: Lisinopril 20 MG Tab PO SCH (20:15)
[2020-11-10] MEDS: Montelukast 10 MG Tab PO SCH (20:15)
[2020-11-10] MEDS: Omeprazole 20 MG Cap.CR PO SCH (20:15)
[2020-11-10] MEDS: traZODone 50 MG Tab PO SCH (20:18)
[2020-11-11] MEDS: Acetaminophen/HYDROcodone 325-5 MG Tab PO PRN ×5 (05:39→21:53)
[2020-11-11] MEDS: Budesonide 0.5 MG/2 ML Neb Susp INH SCH ×2 (07:48→18:52)
[2020-11-11] MEDS: FORMOTEROL 20 MCG/2 ML INH SCH ×2 (07:48→18:52)
[2020-11-11] MEDS: Cholecalciferol (Vitamin D3) 25 MCG Tab PO SCH (09:13)
[2020-11-11] MEDS: Ascorbic Acid 500 MG Tab PO SCH (09:14)
[2020-11-11] MEDS: Hydrochlorothiazide 25 MG Tab PO SCH (09:14)
[2020-11-11] MEDS: Polyethylene Glycol 3350 Powder 17 GM Packet PO SCH (09:14)
[2020-11-11] MEDS: BUPROPION 100 MG PO SCH (09:15)
[2020-11-11] MEDS: Enoxaparin 40 MG/0.4 ML Syringe SUBCUT SCH (09:16)
[2020-11-11] MEDS: Tiotropium Inhaler 18 MCG Inhalation Powder Cap Kit of 5 INH SCH (09:17)
[2020-11-11] MEDS: hydrALAZINE 25 MG Tab PO SCH ×2 (09:31→16:13)
[2020-11-11] MEDS: Atenolol 25 MG Tab PO SCH ×2 (09:32→21:41)
[2020-11-11] MEDS: Omeprazole 20 MG Cap.CR PO SCH (21:35)
[2020-11-11] MEDS: atorvaSTATin 10 MG Tab PO SCH (21:35)
[2020-11-11] MEDS: Lisinopril 20 MG Tab PO SCH (21:36)
[2020-11-11] MEDS: FLUoxetine 10 MG Cap PO SCH (21:39)
[2020-11-11] MEDS: traZODone 50 MG Tab PO SCH (21:40)
[2020-11-11] MEDS: Montelukast 10 MG Tab PO SCH (21:40)
[2020-11-12] MEDS: hydrALAZINE 25 MG Tab PO SCH ×3 (00:13→14:30)
[2020-11-12] MEDS: Acetaminophen/HYDROcodone 325-5 MG Tab PO PRN ×4 (03:01→20:05)
--- NOTE | 2020-11-12 07:12 | PCM.PN ---
- General Info Date of Service: 11/12/20 Subjective Update: The patient indicates that she is having persistent left ankle pain however it is adequately controlled with as needed analgesia. Aside from this she endorses no complaints. She denies fever, rigors, nausea, vomiting, cough, wheeze, abdominal pain, chest pain, dyspnea, or any other constitutional complaints. She indicates that she has been eating adequately and she is having bowel movements on a regular basis. I explained to the patient her current medical condition and plan of care and I have answered all of her questions Functional Status: Reports: Pain Controlled - Review of Systems General: Reports: No Symptoms HEENT: Reports: No Symptoms Pulmonary: Reports: No Symptoms Cardiovascular: Reports: No Symptoms Gastrointestinal: Reports: No Symptoms Genitourinary: Reports: No Symptoms Musculoskeletal: Reports: No Symptoms Skin: Reports: No Symptoms Neurological: Reports: No Symptoms Psychiatric: Reports: No Symptoms - Patient Data Vitals - Most Recent: Last Vital Signs Temp 97.4 F 11/11/20 21:35 Pulse 70 11/11/20 21:41 Resp 20 11/11/20 21:35 BP 107/66 11/12/20 00:13 Pulse Ox 97 11/11/20 21:35 Weight - Most Recent: 290 lb 9.6 oz I&O - Last 24 Hours: Intake & Output 11/11/20 11/12/20 11/12/20 22:59 06:59 14:59 Intake Total 50 Balance 50 Lab Results Last 24 Hours: Laboratory Results - last 24 hr 11/11/20 Range/Units 07:31 POC Glucose 109 H (70-99) mg/dL Med Orders - Current: Current Medications Acetaminophen (Acetaminophen 325 Mg Tab) 650 mg PO Q4H PRN PRN Reason: Pain (Mild 1-3)/fever Last Admin: 11/08/20 18:20 Dose: 650 mg Documented by: Hydrocodone Bitart/Acetaminophen (Acetaminophen/Hydrocodone 325-5 Mg Tab) 1 tab PO Q4H PRN PRN Reason: Pain (moderate 4-6) Last Admin: 11/12/20 03:01 Dose: 1 tab Documented by: Albuterol (Albuterol 6.7 Gm Inhaler) 0 gm INH Q4H PRN PRN Reason: Shortness of Breath Ascorbic Acid (Ascorbic Acid 500 Mg Tab) 500 mg PO DAILY [facility] Last Admin: 11/11/20 09:14 Dose: 500 mg Documented by: Atenolol (Atenolol 25 Mg Tab) 12.5 mg PO BID [facility] Last Admin: 11/11/20 21:41 Dose: 12.5 mg Documented by: Atorvastatin Calcium (Atorvastatin 10 Mg Tab) 10 mg PO BEDTIME [facility] Last Admin: 11/11/20 21:35 Dose: 10 mg Documented by: Baclofen (Baclofen 10 Mg Tab) 10 mg PO BID PRN PRN Reason: Spasms Last Admin: 11/10/20 20:15 Dose: 10 mg Documented by: Budesonide (Budesonide 0.5 Mg/2 Ml Neb Susp) 0.5 mg INH BIDRT [facility] Last Admin: 11/11/20 18:52 Dose: 0.5 mg Documented by: Cholecalciferol (Cholecalciferol (Vitamin D3) 25 Mcg Tab) 50 mcg PO DAILY [facility] Last Admin: 11/11/20 09:13 Dose: 50 mcg Documented by: Dextrose/Water (50% Dextrose In Water 50 Ml Syringe) 50 ml IVPUSH Q15M PRN PRN Reason: Hypoglycemia Enoxaparin Sodium (Enoxaparin 40 Mg/0.4 Ml Syringe) 40 mg SUBCUT DAILY [facility] Last Admin: 11/11/20 09:16 Dose: 40 mg Documented by: Fluoxetine HCl (Fluoxetine 10 Mg Cap) 40 mg PO BEDTIME [facility] Last Admin: 11/11/20 21:39 Dose: 40 mg Documented by: Formoterol Fumarate (Formoterol 20 Mcg/2 Ml Neb Pt Own Med) 20 mcg INH BIDRT [facility] Last Admin: 11/11/20 18:52 Dose: 20 mcg Documented by: Glucagon (Glucagon,Human Recombinant 1 Mg Vial) 1 mg IM Q15M PRN PRN Reason: Hypoglycemia Hydralazine HCl (Hydralazine 25 Mg Tab) 25 mg PO Q8H [facility] Last Admin: 11/12/20 00:13 Dose: 25 mg Documented by: Hydrochlorothiazide (Hydrochlorothiazide 25 Mg Tab) 50 mg PO DAILY [facility] Last Admin: 11/11/20 09:14 Dose: 50 mg Documented by: Lisinopril (Lisinopril 20 Mg Tab) 40 mg PO BEDTIME [facility] Last Admin: 11/11/20 21:36 Dose: 40 mg Documented by: Montelukast Sodium (Montelukast 10 Mg Tab) 10 mg PO BEDTIME [facility] Last Admin: 11/11/20 21:40 Dose: 10 mg Documented by: Morphine Sulfate (Morphine 2 Mg/Ml Syringe) 2 mg IV Q4H PRN PRN Reason: Pain Last Admin: 11/04/20 23:31 Dose: 2 mg Documented by: Omeprazole (Omeprazole 20 Mg Cap.Cr) 20 mg PO BEDTIME [facility] Last Admin: 11/11/20 21:35 Dose: 20 mg Documented by: Ondansetron HCl (Ondansetron 4 Mg Tab.Dis) 4 mg PO Q4H PRN PRN Reason: nausea, able to take PO Oxycodone HCl (Oxycodone 5 Mg Tab) 5 mg PO Q4H PRN PRN Reason: Pain (severe 7-10) Last Admin: 11/09/20 14:31 Dose: 5 mg Documented by: Bupropion 100 Mg Tab (Pt Own Med) 0 each PO DAILY [facility] Last Admin: 11/11/20 09:15 Dose: 1 each Documented by: Polyethylene Glycol (Polyethylene Glycol 3350 Powder 17 Gm Packet) 17 gm PO DAILY [facility] Last Admin: 11/11/20 09:14 Dose: Not Given Documented by: Senna/Docusate Sodium (Docusate Sodium/Sennosides 50-8.6 Mg Tab) 2 tab PO BID [facility] Last Admin: 11/11/20 21:39 Dose: 2 tab Documented by: Sodium Chloride (Sodium Chloride 0.9% 10 Ml Syringe) 10 ml FLUSH ASDIRECTED PRN PRN Reason: Keep Vein Open Last Admin: 11/03/20 23:19 Dose: 10 ml Documented by: Tiotropium [place] (Tiotropium Inhaler 18 Mcg Inhalation Powder Cap Kit Of 5) 18 mcg INH DAILY [facility] Last Admin: 11/11/20 09:17 Dose: 18 mcg Documented by: Trazodone HCl (Trazodone 50 Mg Tab) 150 mg PO BEDTIME [facility] Last Admin: 11/11/20 21:40 Dose: 150 mg Documented by: Discontinued Medications Bupropion HCl (Bupropion 100 Mg Tab.Sr) 100 mg PO DAILY [facility] Bupropion HCl (Bupropion 100 Mg Tab.SrPt Own) 100 mg PO DAILY [facility] Last Admin: 11/09/20 09:09 Dose: 100 mg Documented by: Dextrose/Water (50% Dextrose In Water 50 Ml Syringe) 50 ml IVPUSH Q15M PRN PRN Reason: Hypoglycemia Formoterol Fumarate (Formoterol 20 Mcg/2 Ml Neb Pt Own Med) 20 mcg INH BIDRT [facility] Last Admin: 11/09/20 07:36 Dose: 20 mcg Documented by: Glucagon (Glucagon,Human Recombinant 1 Mg Vial) 1 mg IM Q15M PRN PRN Reason: Hypoglycemia Hydrochlorothiazide (Hydrochlorothiazide 25 Mg Tab) 25 mg PO DAILY [facility] Last Admin: 11/10/20 08:43 Dose: 25 mg Documented by: Insulin Human Lispro (Insulin Lispro 100 Units/Ml 3 Ml Vial) 0 unit SUBCUT WITHMEALSANDBED [facility]; Protocol Last Admin: 11/05/20 13:04 Dose: Not Given Documented by: Formoterol [ Perforomist] 20 Mcg/2 Ml Inh Soln 0 mcg INH BIDRT [facility] Sodium Chloride (Sodium Chloride 0.9% 10 Ml Syringe) 10 ml FLUSH ASDIRECTED PRN PRN Reason: Keep Vein Open - Exam General: Alert, Oriented HEENT: Pupils Equal, Pupils Reactive, EOMI, Mucous Membr. Moist/[place]ck: Supple Lungs: Clear to Auscultation, Normal Respiratory Effort Cardiovascular: Regular Rate, Regular Rhythm GI/Abdominal Exam: Normal Bowel Sounds, Soft, Non-Tender, No Organomegaly, No Distention, No Abnormal Bruit, No Mass, Pelvis Stable Back Exam: Normal Inspection, Full Range of Motion Extremities: Normal Inspection, Normal Range of Motion, Non-Tender, No Pedal Edema, Normal Capillary Refill Peripheral Pulses: 2+: Carotid (L), Carotid (R), Brachial (L), Brachial (R), Radial (L), Radial (R), Femoral (L), Femoral (R), Popliteal (L), Popliteal (R), Posterior Tibial (L), Posterior Tibial (R), Dorsalis Pedis (L), Dorsalis Pedis (R) Skin: Warm, Dry, Intact Wound/Incisions: Healing Well Neurological: No New Focal Deficit Psy/Mental Status: Alert, Normal Affect, Normal Mood - Patient Data Lab Results Last 24 hrs: Laboratory Results - last 24 hr 11/11/20 Range/Units 07:31 POC Glucose 109 H (70-99) mg/dL Sepsis Event Note - Evaluation Sepsis Screening Result: No Definite Risk - Focused Exam Vital Signs: Vital Signs Temp Pulse Pulse Resp BP BP Pulse Ox 11/12/20 00:13 107/11/11/20 21:41 70 /11/11/20 21:36 /11/11/20 21:35 97.4 F 70 20 / 97 - Problem List Review Problem List Initiated/Reviewed/Updated: Yes - My Orders Last 24 Hours: My Active Orders 11/11/20 07:30 hydrALAZINE [Apresoline] 25 mg PO Q8H 11/11/20 09:00 hydroCHLOROthiazide 50 mg PO DAILY - Plan Plan:: Surgical History: Left ankle ORIF on October 31, 2020. Cholecystectomy, hysterectomy, bilateral breast reduction, lap band surgery with subsequent removal Family History: Cancer, stroke, diabetes, coronary artery disease, hypertension, hyperlipidemia Social History: Tobacco: Former smoker Alcohol: Denies Caffeine: Coffee Drugs: Past marijuana use. Denies any other drug use past or present Allergies: No known drug allergies Code Status: Full Assessment / Plan: Admission to swing bed status for rehabilitation as patient is status post October 31, 2020: Left ankle ORIF for diagnosis left trimalleolar fracture with podiatry at [facility]. As needed analgesia. Physical therapy evaluation pending. Occupational therapy pending. Muscle spasm Bipolar disorder/depression/anxiety. Wellbutrin 100 mg p.o. daily plus trazodone 150 mg p.o. nightly plus Prozac 40 mg p.o. nightly 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, status post hysterectomy Obstructive sleep apnea. CPAP: Okay to use home device and/or pressure when sleeping Iron deficiency anemia. Will monitor hemoglobin level intermittently. Vitamin C 500 mg p.o. daily. Upon discharge, patient will be started on ferrous sulfate 3 and 25 mg p.o. twice daily COPD, not O2 dependent. Performers 20 m inhaled twice daily plus annular 10 mg p.o. nightly plus Spiriva 18 mg inhaled daily plus budesonide 0.5 mg inhaled twice daily Grade 1 diastolic dysfunction Diabetes. Will check fasting glucose before every meal and at bedtime and provide some sign scale GERD. Prilosec 20 mg p.o. nightly Hyperlipidemia. Lipitor 10 mg p.o. nightly Hypertension. Atenolol 12.5 mg p.o. twice daily plus lisinopril 40 mg p.o. nightly plus hydrochlorothiazide 50 mg p.o. daily plus hydralazine 25 mg p.o. 3 times daily Obesity. Patient be counseled regarding lifestyle modification Osteoarthritis Chronic pain Insomnia Seasonal allergies Restless leg syndrome Hepatic steatosis Overactive bladder Diverticulosis Chronic dry eye. Restasis 1 drop in both eyes twice daily GI prophylaxis. Senna plus: 2 tabs p.o. twice daily plus MiraLAX 17 g p.o. daily DVT prophylaxis. Lovenox 40 mg subcutaneously daily Disposition: The patient will be a candidate for discharge once deemed appropriate by physical therapy and Occupational Therapy END OF DOCTOR EMAMIS HISTORY AND PHYSICAL / CONSULTATION NOTE
[2020-11-12] MEDS: FORMOTEROL 20 MCG/2 ML INH SCH ×2 (07:27→18:01)
[2020-11-12] MEDS: Budesonide 0.5 MG/2 ML Neb Susp INH SCH ×2 (07:27→18:01)
[2020-11-12] MEDS: Hydrochlorothiazide 25 MG Tab PO SCH (08:24)
[2020-11-12] MEDS: Baclofen 10 MG Tab PO PRN ×2 (08:24→20:46)
[2020-11-12] MEDS: Atenolol 25 MG Tab PO SCH ×2 (08:24→20:46)
[2020-11-12] MEDS: Ascorbic Acid 500 MG Tab PO SCH (08:24)
[2020-11-12] MEDS: Cholecalciferol (Vitamin D3) 25 MCG Tab PO SCH (08:24)
[2020-11-12] MEDS: BUPROPION 100 MG PO SCH (08:25)
[2020-11-12] MEDS: Enoxaparin 40 MG/0.4 ML Syringe SUBCUT SCH (08:25)
[2020-11-12] MEDS: Tiotropium Inhaler 18 MCG Inhalation Powder Cap Kit of 5 INH SCH (08:25)
[2020-11-12] MEDS: Polyethylene Glycol 3350 Powder 17 GM Packet PO SCH (09:21)
[2020-11-12] MEDS: oxyCODONE 5 MG Tab PO PRN (14:38)
[2020-11-12] MEDS: FLUoxetine 10 MG Cap PO SCH (20:45)
[2020-11-12] MEDS: atorvaSTATin 10 MG Tab PO SCH (20:45)
[2020-11-12] MEDS: Omeprazole 20 MG Cap.CR PO SCH (20:45)
[2020-11-12] MEDS: Montelukast 10 MG Tab PO SCH (20:46)
[2020-11-12] MEDS: Lisinopril 20 MG Tab PO SCH (20:46)
[2020-11-12] MEDS: traZODone 50 MG Tab PO SCH (20:46)
[2020-11-13] MEDS: hydrALAZINE 25 MG Tab PO SCH ×4 (00:10→23:12)
[2020-11-13] MEDS: Acetaminophen/HYDROcodone 325-5 MG Tab PO PRN ×4 (00:20→18:51)
[2020-11-13] MEDS: Cholecalciferol (Vitamin D3) 25 MCG Tab PO SCH (08:24)
[2020-11-13] MEDS: Ascorbic Acid 500 MG Tab PO SCH (08:24)
[2020-11-13] MEDS: Enoxaparin 40 MG/0.4 ML Syringe SUBCUT SCH (08:25)
[2020-11-13] MEDS: Budesonide 0.5 MG/2 ML Neb Susp INH SCH ×2 (08:25→17:59)
[2020-11-13] MEDS: BUPROPION 100 MG PO SCH (08:26)
[2020-11-13] MEDS: Polyethylene Glycol 3350 Powder 17 GM Packet PO SCH (08:26)
[2020-11-13] MEDS: Atenolol 25 MG Tab PO SCH ×2 (08:29→20:32)
[2020-11-13] MEDS: FORMOTEROL 20 MCG/2 ML INH SCH ×2 (09:04→17:59)
[2020-11-13] MEDS: Hydrochlorothiazide 25 MG Tab PO SCH (09:43)
[2020-11-13] MEDS: Tiotropium Inhaler 18 MCG Inhalation Powder Cap Kit of 5 INH SCH (10:14)
[2020-11-13] MEDS: Montelukast 10 MG Tab PO SCH (20:29)
[2020-11-13] MEDS: FLUoxetine 10 MG Cap PO SCH (20:30)
[2020-11-13] MEDS: Omeprazole 20 MG Cap.CR PO SCH (20:30)
[2020-11-13] MEDS: atorvaSTATin 10 MG Tab PO SCH (20:30)
[2020-11-13] MEDS: traZODone 50 MG Tab PO SCH (20:30)
[2020-11-13] MEDS: Baclofen 10 MG Tab PO PRN (20:31)
[2020-11-13] MEDS: Lisinopril 20 MG Tab PO SCH (20:34)
[2020-11-14] MEDS: hydrALAZINE 25 MG Tab PO SCH ×3 (07:54→23:14)
[2020-11-14] MEDS: Baclofen 10 MG Tab PO PRN ×2 (07:59→21:25)
[2020-11-14] MEDS: Acetaminophen/HYDROcodone 325-5 MG Tab PO PRN ×4 (07:59→21:28)
[2020-11-14] MEDS: Budesonide 0.5 MG/2 ML Neb Susp INH SCH ×2 (09:18→18:59)
[2020-11-14] MEDS: FORMOTEROL 20 MCG/2 ML INH SCH ×2 (09:18→18:58)
[2020-11-14] MEDS: Ascorbic Acid 500 MG Tab PO SCH (09:38)
[2020-11-14] MEDS: Hydrochlorothiazide 25 MG Tab PO SCH (09:38)
[2020-11-14] MEDS: Cholecalciferol (Vitamin D3) 25 MCG Tab PO SCH (09:38)
[2020-11-14] MEDS: Atenolol 25 MG Tab PO SCH ×2 (09:39→21:27)
[2020-11-14] MEDS: Enoxaparin 40 MG/0.4 ML Syringe SUBCUT SCH (09:39)
[2020-11-14] MEDS: BUPROPION 100 MG PO SCH (09:40)
[2020-11-14] MEDS: Polyethylene Glycol 3350 Powder 17 GM Packet PO SCH (09:40)
[2020-11-14] MEDS: Tiotropium Inhaler 18 MCG Inhalation Powder Cap Kit of 5 INH SCH (09:41)
[2020-11-14] MEDS: Omeprazole 20 MG Cap.CR PO SCH (21:20)
[2020-11-14] MEDS: Montelukast 10 MG Tab PO SCH (21:20)
[2020-11-14] MEDS: atorvaSTATin 10 MG Tab PO SCH (21:21)
[2020-11-14] MEDS: traZODone 50 MG Tab PO SCH (21:21)
[2020-11-14] MEDS: FLUoxetine 10 MG Cap PO SCH (21:21)
[2020-11-14] MEDS: Lisinopril 20 MG Tab PO SCH (21:26)
[2020-11-15] MEDS: FORMOTEROL 20 MCG/2 ML INH SCH ×2 (07:51→19:28)
[2020-11-15] MEDS: Budesonide 0.5 MG/2 ML Neb Susp INH SCH ×2 (07:51→19:29)
[2020-11-15] MEDS: Cholecalciferol (Vitamin D3) 25 MCG Tab PO SCH (08:37)
[2020-11-15] MEDS: hydrALAZINE 25 MG Tab PO SCH ×3 (08:37→23:18)
[2020-11-15] MEDS: Atenolol 25 MG Tab PO SCH ×2 (08:37→21:53)
[2020-11-15] MEDS: Acetaminophen/HYDROcodone 325-5 MG Tab PO PRN ×2 (08:38→19:58)
[2020-11-15] MEDS: Hydrochlorothiazide 25 MG Tab PO SCH (08:38)
[2020-11-15] MEDS: Ascorbic Acid 500 MG Tab PO SCH (08:38)
[2020-11-15] MEDS: Enoxaparin 40 MG/0.4 ML Syringe SUBCUT SCH (08:41)
[2020-11-15] MEDS: Polyethylene Glycol 3350 Powder 17 GM Packet PO SCH (08:42)
[2020-11-15] MEDS: BUPROPION 100 MG PO SCH (08:42)
[2020-11-15] MEDS: Tiotropium Inhaler 18 MCG Inhalation Powder Cap Kit of 5 INH SCH (08:43)
[2020-11-15] MEDS: FLUoxetine 10 MG Cap PO SCH (21:51)
[2020-11-15] MEDS: atorvaSTATin 10 MG Tab PO SCH (21:51)
[2020-11-15] MEDS: Omeprazole 20 MG Cap.CR PO SCH (21:51)
[2020-11-15] MEDS: traZODone 50 MG Tab PO SCH (21:51)
[2020-11-15] MEDS: Lisinopril 20 MG Tab PO SCH (21:52)
[2020-11-15] MEDS: Montelukast 10 MG Tab PO SCH (21:52)
[2020-11-16] MEDS: Acetaminophen/HYDROcodone 325-5 MG Tab PO PRN ×3 (02:50→15:24)
[2020-11-16] MEDS: FORMOTEROL 20 MCG/2 ML INH SCH ×2 (07:40→17:48)
[2020-11-16] MEDS: Budesonide 0.5 MG/2 ML Neb Susp INH SCH ×2 (07:40→17:49)
[2020-11-16] MEDS: Ascorbic Acid 500 MG Tab PO SCH (08:06)
[2020-11-16] MEDS: Atenolol 25 MG Tab PO SCH (08:06)
[2020-11-16] MEDS: Cholecalciferol (Vitamin D3) 25 MCG Tab PO SCH (08:07)
[2020-11-16] MEDS: hydrALAZINE 25 MG Tab PO SCH ×2 (08:08→15:18)
[2020-11-16] MEDS: Enoxaparin 40 MG/0.4 ML Syringe SUBCUT SCH (08:08)
[2020-11-16] MEDS: Polyethylene Glycol 3350 Powder 17 GM Packet PO SCH (08:08)
[2020-11-16] MEDS: BUPROPION 100 MG PO SCH (08:09)
[2020-11-16] MEDS: Tiotropium Inhaler 18 MCG Inhalation Powder Cap Kit of 5 INH SCH (08:09)
[2020-11-16 08:10] VITALS: PULSE 65
[2020-11-16] MEDS: Hydrochlorothiazide 25 MG Tab PO SCH (08:36)
--- NOTE | 2020-11-16 09:14 | PCM.DCSUM1 ---
Discharge Summary - Hospital Course Free Text/Narrative:: START OF DOCTOR YAMILEX DISCHARGE SUMMARY Date of Admission: November 03, 2020 Date of Discharge: 9:08 AM on November 16, 2020 Primary Diagnosis: Admission to swing bed status for rehabilitation as patient status post October 31, 2020: Left ankle ORIF for diagnosis of left trimalleolar fracture with podiatry at [facility] Secondary Diagnosis: Muscle spasm Bipolar disorder/depression/anxiety 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, status post hysterectomy Obstructive sleep apnea Iron deficiency anemia COPD, not O2 dependent Grade 1 diastolic dysfunction Diabetes GERD Hyperlipidemia Hypertension Obesity Osteoarthritis Chronic pain Insomnia Seasonal allergies Restless leg syndrome Hepatic steatosis Overactive bladder Diverticulosis Chronic dry eye Consultations: None Condition on Discharge: Fair Disposition: The patient will be advised follow-up with podiatry as directed for her diagnosis of being status post October 31, 2020 with podiatry at [facility]: Left ankle ORIF for diagnosis of left trimalleolar fracture Discharge Medications: Restasis 1 drop in both eyes twice daily as needed unspecified reason Zofran ODT 4 mg p.o. every 4 hours as needed nausea/vomiting. Quantity 20. 0 refills Eliquis 2.5 mg p.o. twice daily. Quantity 42. 0 refills. This being prescribed for DVT prophylaxis as the patient is status post left ankle ORIF with podiatry on October 31, 2020 for diagnosis of left trimalleolar fracture Lipitor 10 mg p.o. nightly Baclofen 10 mg p.o. twice daily as needed muscle spasm Pulmicort 0.5 mg inhaled twice daily Wellbutrin 100 mg p.o. daily Vitamin D 50 migrans p.o. daily Senna plus: 2 tabs p.o. twice daily Aspirin 325 mg p.o. twice daily Ferrous sulfate 300 mg p.o. twice daily Trazodone 100 mg p.o. nightly Spiriva 80 migrans 1 elation daily MiraLAX 7 g p.o. daily Prilosec 20 mg p.o. nightly Singulair 10 mg p.o. nightly Lisinopril 40 mg p.o. nightly Hydrochlorothiazide 50 mg p.o. daily Hydralazine 25 mg p.o. every 8 hours Perform arrest 20 mcg inhaled twice daily Prozac 40 mg p.o. nightly [place] 5/325 m tab p.o. every 4 hours as needed pain. Quantity 20. 0 refills Proventil HFA: 90 mcg/spray: 2 puffs every 4 hours as needed shortness of breath/wheeze Vitamin C 500 mg p.o. daily Atenolol 12.5 mg p.o. twice daily Patient will benefit from home health services: alf for monitoring of skin integrity in regards to incision from recent stable removal and pain management. Physical therapy for strengthening and mobility Occupational therapy for home assessment and ADLs Patient will also require a wheelchair 18 inch with elevating leg lifts due to nonweightbearing status related to left ankle ORIF for mobility in the home. Patient weighs 289 pounds with a height of 5 feet 3 inches. END OF DOCTOR EMAMIS DISCHARGE SUMMARY - Discharge Data Discharge Date: 11/16/20 Discharge Disposition: Home, Self-Care 01 Condition: Fair - Referral to Home Health Primary Care Physician: PCP None - Patient Summary/Data Consults: Consultations 11/03/20 11:46 OT Evaluation and Treatment [CONS] Routine PT Evaluation and Treatment [CONS] Routine - Patient Instructions Diet: Heart Healthy Diet, Low Sodium, Diabetic Diet Activity: As Tolerated - Discharge Plan Prescriptions/Med Rec: hydrALAZINE [Apresoline] 25 mg PO Q8H 30 Days #90 tablet Apixaban [Eliquis] 2.5 mg PO BID 21 Days #42 tablet Ferrous Sulfate 325 mg PO BIDMEALS 30 Days #60 tab hydroCHLOROthiazide [Hydrochlorothiazide] 50 mg PO DAILY 30 Days #30 tablet Hydrocodone/Acetaminophen [HYDROcodone-Acetaminophen 5-325 MG] 1 each PO Q4H PRN 20 Days #20 tab PRN Reason: Pain (Moderate 4-6) polyethylene glycoL 3350 [MiraLAX] 17 gm PO DAILY 30 Days #510 gm Ondansetron [Ondansetron ODT] 4 mg PO Q4H PRN 20 Days #20 tab PRN Reason: Nausea/Vomiting Docusate Sodium/Sennosides [Senna Plus] 2 tab PO BID 30 Days #120 tablet Home Medications: Home Meds FLUoxetine [PROzac] 40 mg PO BEDTIME 05/06/13 [History] atorvaSTATin [Lipitor] 10 mg PO BEDTIME 05/06/13 [History] traZODone 150 mg PO BEDTIME 05/06/13 [History] Omeprazole 20 mg PO BEDTIME 07/23/15 [History] Tiotropium [Spiriva HandiHaler] 18 mcg INH DAILY 10/16/15 [History] Lisinopril 40 mg PO BEDTIME 01/13/16 [History] Baclofen 10 mg PO BID PRN 05/31/19 [History] Budesonide [Pulmicort] 0.5 mg IH BID 10/28/20 [History] Formoterol [Perforomist] 20 mcg INH BID 10/28/20 [History] Montelukast [Singulair] 10 mg PO BEDTIME 10/28/20 [History] Ascorbic Acid [Vitamin C] 500 mg PO DAILY tablet 10/29/20 [Rx] Albuterol [Proventil HFA] 2 puff INH Q4H PRN 11/02/20 [History] Aspirin [Aspirin EC] 325 mg PO DAILY 11/02/20 [History] Cholecalciferol (Vitamin D3) [Vitamin D3] 50 mcg PO DAILY 11/02/20 [History] atenoloL [Atenolol] 12.5 mg PO BID 11/02/20 [History] buPROPion [Wellbutrin] 100 mg PO DAILY 11/02/20 [History] cycloSPORINE [Restasis Multidose] 1 drop EYEBOTH BID PRN 11/02/20 [History] Apixaban [Eliquis] 2.5 mg PO BID 21 Days #42 tablet 11/16/20 [Rx] Docusate Sodium/Sennosides [Senna Plus] 2 tab PO BID 30 Days #120 tablet 11/16/20 [Rx] Ferrous Sulfate 325 mg PO BIDMEALS 30 Days #60 tab 11/16/20 [Rx] Hydrocodone/Acetaminophen [HYDROcodone-Acetaminophen 5-325 MG] 1 each PO Q4H PRN 20 Days #20 tab 11/16/20 [Rx] Ondansetron [Ondansetron ODT] 4 mg PO Q4H PRN 20 Days #20 tab 11/16/20 [Rx] hydrALAZINE [Apresoline] 25 mg PO Q8H 30 Days #90 tablet 11/16/20 [Rx] hydroCHLOROthiazide [Hydrochlorothiazide] 50 mg PO DAILY 30 Days #30 tablet 11/16/20 [Rx] polyethylene glycoL 3350 [MiraLAX] 17 gm PO DAILY 30 Days #510 gm 11/16/20 [Rx] Referrals: Radha Jarrett NP [Ordering Only Provider] - - Discharge Summary/Plan Comment DC Time >30 min.: Yes - General Info Date of Service: 11/16/20 - Review of Systems General: Reports: No Symptoms HEENT: Reports: No Symptoms Pulmonary: Reports: No Symptoms Cardiovascular: Reports: No Symptoms Gastrointestinal: Reports: No Symptoms Genitourinary: Reports: No Symptoms Musculoskeletal: Reports: No Symptoms Skin: Reports: No Symptoms Neurological: Reports: No Symptoms Psychiatric: Reports: No Symptoms - Patient Data Vitals - Most Recent: Last Vital Signs Temp 97.3 F 11/15/20 20:00 Pulse 65 11/16/20 08:06 Resp 20 11/15/20 20:00 BP 130/30 L 11/16/20 08:06 Pulse Ox 98 11/15/20 20:00 Weight - Most Recent: 289 lb 12.8 oz Lab Results - Last 24 hrs: Laboratory Results - last 24 hr 11/16/20 Range/Units 07:35 POC Glucose 116 H (70-99) mg/dL Med Orders - Current: Current Medications Acetaminophen (Acetaminophen 325 Mg Tab) 650 mg PO Q4H PRN PRN Reason: Pain (Mild 1-3)/fever Last Admin: 11/08/20 18:20 Dose: 650 mg Documented by: Hydrocodone Bitart/Acetaminophen (Acetaminophen/Hydrocodone 325-5 Mg Tab) 1 tab PO Q4H PRN PRN Reason: Pain (moderate 4-6) Last Admin: 11/16/20 07:43 Dose: 1 tab Documented by: Albuterol (Albuterol 6.7 Gm Inhaler) 0 gm INH Q4H PRN PRN Reason: Shortness of Breath Ascorbic Acid (Ascorbic Acid 500 Mg Tab) 500 mg PO DAILY [facility] Last Admin: 11/16/20 08:06 Dose: 500 mg Documented by: Atenolol (Atenolol 25 Mg Tab) 12.5 mg PO BID [facility] Last Admin: 11/16/20 08:06 Dose: 12.5 mg Documented by: Atorvastatin Calcium (Atorvastatin 10 Mg Tab) 10 mg PO BEDTIME [facility] Last Admin: 11/15/20 21:51 Dose: 10 mg Documented by: Baclofen (Baclofen 10 Mg Tab) 10 mg PO BID PRN PRN Reason: Spasms Last Admin: 11/14/20 21:25 Dose: 10 mg Documented by: Budesonide (Budesonide 0.5 Mg/2 Ml Neb Susp) 0.5 mg INH BIDRT [facility] Last Admin: 11/16/20 07:40 Dose: 0.5 mg Documented by: Cholecalciferol (Cholecalciferol (Vitamin D3) 25 Mcg Tab) 50 mcg PO DAILY [facility] Last Admin: 11/16/20 08:07 Dose: 50 mcg Documented by: Dextrose/Water (50% Dextrose In Water 50 Ml Syringe) 50 ml IVPUSH Q15M PRN PRN Reason: Hypoglycemia Enoxaparin Sodium (Enoxaparin 40 Mg/0.4 Ml Syringe) 40 mg SUBCUT DAILY [facility] Last Admin: 11/16/20 08:08 Dose: 40 mg Documented by: Fluoxetine HCl (Fluoxetine 10 Mg Cap) 40 mg PO BEDTIME [facility] Last Admin: 11/15/20 21:51 Dose: 40 mg Documented by: Formoterol Fumarate (Formoterol 20 Mcg/2 Ml Neb Pt Own Med) 20 mcg INH BIDRT [facility] Last Admin: 11/16/20 07:40 Dose: 20 mcg Documented by: Glucagon (Glucagon,Human Recombinant 1 Mg Vial) 1 mg IM Q15M PRN PRN Reason: Hypoglycemia Hydralazine HCl (Hydralazine 25 Mg Tab) 25 mg PO Q8H [facility] Last Admin: 11/16/20 08:08 Dose: Not Given Documented by: Hydrochlorothiazide (Hydrochlorothiazide 25 Mg Tab) 50 mg PO DAILY [facility] Last Admin: 11/16/20 08:36 Dose: Not Given Documented by: Lisinopril (Lisinopril 20 Mg Tab) 40 mg PO BEDTIME [facility] Last Admin: 11/15/20 21:52 Dose: 40 mg Documented by: Montelukast Sodium (Montelukast 10 Mg Tab) 10 mg PO BEDTIME [facility] Last Admin: 11/15/20 21:52 Dose: 10 mg Documented by: Morphine Sulfate (Morphine 2 Mg/Ml Syringe) 2 mg IV Q4H PRN PRN Reason: Pain Last Admin: 11/04/20 23:31 Dose: 2 mg Documented by: Omeprazole (Omeprazole 20 Mg Cap.Cr) 20 mg PO BEDTIME [facility] Last Admin: 11/15/20 21:51 Dose: 20 mg Documented by: Ondansetron HCl (Ondansetron 4 Mg Tab.Dis) 4 mg PO Q4H PRN PRN Reason: nausea, able to take PO Oxycodone HCl (Oxycodone 5 Mg Tab) 5 mg PO Q4H PRN PRN Reason: Pain (severe 7-10) Last Admin: 11/12/20 14:38 Dose: 5 mg Documented by: Bupropion 100 Mg Tab (Pt Own Med) 0 each PO DAILY [facility] Last Admin: 11/16/20 08:09 Dose: 1 each Documented by: Polyethylene Glycol (Polyethylene Glycol 3350 Powder 17 Gm Packet) 17 gm PO DAILY [facility] Last Admin: 11/16/20 08:08 Dose: Not Given Documented by: Senna/Docusate Sodium (Docusate Sodium/Sennosides 50-8.6 Mg Tab) 2 tab PO BID [facility] Last Admin: 11/16/20 08:07 Dose: 2 tab Documented by: Sodium Chloride (Sodium Chloride 0.9% 10 Ml Syringe) 10 ml FLUSH ASDIRECTED PRN PRN Reason: Keep Vein Open Last Admin: 11/03/20 23:19 Dose: 10 ml Documented by: Tiotropium [place] (Tiotropium Inhaler 18 Mcg Inhalation Powder Cap Kit Of 5) 18 mcg INH DAILY [facility] Last Admin: 11/16/20 08:09 Dose: 18 mcg Documented by: Trazodone HCl (Trazodone 50 Mg Tab) 150 mg PO BEDTIME [facility] Last Admin: 11/15/20 21:51 Dose: 150 mg Documented by: Discontinued Medications Bupropion HCl (Bupropion 100 Mg Tab.Sr) 100 mg PO DAILY [facility] Bupropion HCl (Bupropion 100 Mg Tab.SrPt Own) 100 mg PO DAILY [facility] Last Admin: 11/09/20 09:09 Dose: 100 mg Documented by: Dextrose/Water (50% Dextrose In Water 50 Ml Syringe) 50 ml IVPUSH Q15M PRN PRN Reason: Hypoglycemia Formoterol Fumarate (Formoterol 20 Mcg/2 Ml Neb Pt Own Med) 20 mcg INH BIDRT [facility] Last Admin: 11/09/20 07:36 Dose: 20 mcg Documented by: Glucagon (Glucagon,Human Recombinant 1 Mg Vial) 1 mg IM Q15M PRN PRN Reason: Hypoglycemia Hydrochlorothiazide (Hydrochlorothiazide 25 Mg Tab) 25 mg PO DAILY [facility] Last Admin: 11/10/20 08:43 Dose: 25 mg Documented by: Insulin Human Lispro (Insulin Lispro 100 Units/Ml 3 Ml Vial) 0 unit SUBCUT WITHMEALSANDBED [facility]; Protocol Last Admin: 11/05/20 13:04 Dose: Not Given Documented by: Formoterol [ Perforomist] 20 Mcg/2 Ml Inh Soln 0 mcg INH BIDRT [facility] Sodium Chloride (Sodium Chloride 0.9% 10 Ml Syringe) 10 ml FLUSH ASDIRECTED PRN PRN Reason: Keep Vein Open - Exam General: Reports: Alert, Oriented HEENT: Reports: Pupils Equal, Pupils Reactive, EOMI, Mucous Membr. Moist/[place] Neck: Reports: Supple Lungs: Reports: Clear to Auscultation, Normal Respiratory Effort Cardiovascular: Reports: Regular Rate, Regular Rhythm GI/Abdominal Exam: Normal Bowel Sounds, Soft, Non-Tender, No Organomegaly, No Distention, No Abnormal Bruit, No Mass, Pelvis Stable Back Exam: Reports: Normal Inspection, Full Range of Motion Extremities: Other (L LE in boot) Skin: Reports: Warm, Dry, Intact Wound/Incisions: Reports: Healing Well Neurological: Reports: No New Focal Deficit Psy/Mental Status: Reports: Alert, Normal Affect, Normal Mood
[2020-11-16 15:18] VITALS: BP 127/34
== END 2020-11-16 19:05 | disposition home or self-care (01) | DRG 862 ==
LOC: DL.MS 11:50
PROVIDERS: ADMIT Internal Medicine; ATTEND Internal Medicine
DX: S82.852D Displaced trimalleolar fracture of left lower leg, subsequent encounter for closed fracture with routine healing (principal); M62.838 Other muscle spasm; F31.9 Bipolar disorder, unspecified; F41.9 Anxiety disorder, unspecified; N80.9 Endometriosis, unspecified; G47.33 Obstructive sleep apnea (adult) (pediatric); D50.9 Iron deficiency anemia, unspecified; J44.9 Chronic obstructive pulmonary disease, unspecified; E11.9 Type 2 diabetes mellitus without complications; K21.9 Gastro-esophageal reflux disease without esophagitis; E78.5 Hyperlipidemia, unspecified; I10 Essential (primary) hypertension; E66.9 Obesity, unspecified; M19.90 Unspecified osteoarthritis, unspecified site; G89.29 Other chronic pain; G47.00 Insomnia, unspecified; G25.81 Restless legs syndrome; K76.0 Fatty (change of) liver, not elsewhere classified; N32.81 Overactive bladder; K57.90 Diverticulosis of intestine, part unspecified, without perforation or abscess without bleeding; H04.129 Dry eye syndrome of unspecified lacrimal gland; J30.2 Other seasonal allergic rhinitis; H54.7 Unspecified visual loss; E78.00 Pure hypercholesterolemia, unspecified; K80.20 Calculus of gallbladder without cholecystitis without obstruction; M54.9 Dorsalgia, unspecified; Z90.49 Acquired absence of other specified parts of digestive tract; Z90.710 Acquired absence of both cervix and uterus; Z87.891 Personal history of nicotine dependence; Z68.43 Body mass index [BMI] 50.0-59.9, adult
CPT/HCPCS: 82947; 94640; 97110-GO; 97110-GP; 97162-GP; 97166-GO; 97530-GO; 97530-GP; 97535-GO; A9270-GY; J1650; J2270; J7606

== ENCOUNTER 2021-08-28 17:19 | Emergency (ER) | payer BC ==
[2021-08-28] MEDS ORDERED: Benzonatate 100 MG Cap PO ONE (17:20)
[2021-08-28 18:53] LABS: ANION GAP 14.5 mEq/L (7-13)
[2021-08-28 19:07] LABS: CORONAVIRUS COVID-19 NAA NEGATIVE (NEGATIVE); RESPIRATORY SYNCYTIAL VIR NAA NEGATIVE (NEGATIVE)
[2021-08-28] MEDS ORDERED: methylPREDNISolone Sodium Succinate 125 MG/2 ML SDV IVPUSH ONE (19:19)
[2021-08-28] MEDS ORDERED: Benzonatate 100 MG Cap ONE (19:27)
[2021-08-28 19:37] VITALS: BP 133/86; PULSE 62
== END 2021-08-28 19:38 | disposition home or self-care (01) ==
LOC: DL.ED 17:19
DX: J44.1 Chronic obstructive pulmonary disease with (acute) exacerbation (principal); R04.2 Hemoptysis; E78.00 Pure hypercholesterolemia, unspecified; I10 Essential (primary) hypertension; K21.9 Gastro-esophageal reflux disease without esophagitis; E11.9 Type 2 diabetes mellitus without complications; M19.90 Unspecified osteoarthritis, unspecified site; E66.9 Obesity, unspecified; Z68.42 Body mass index [BMI] 45.0-49.9, adult; Z79.899 Other long term (current) drug therapy; Z20.822 Contact with and (suspected) exposure to COVID-19
CPT/HCPCS: 0241U; 36415; 71045; 80053; 83605; 84484; 85025; 86140; 93005; 96374; 99285; A9270; J2930

== ENCOUNTER 2021-09-07 02:42 | Emergency (ER) | payer BC ==
[2021-09-07] MEDS ORDERED: Ondansetron 4 MG Tab.DIS PO ONE (02:43)
[2021-09-07 02:51] VITALS: BP 154/54; PULSE 57
[2021-09-07] MEDS ORDERED: HYDROmorphone 1 MG/ML Syringe IVPUSH ONE (03:03)
[2021-09-07] MEDS ORDERED: Ondansetron 4 MG/2 ML SDV IVPUSH ONE (03:03)
[2021-09-07 03:35] LABS: ANION GAP 13.3 mEq/L (7-13)
[2021-09-07] MEDS ORDERED: Iopamidol 612 MG/ML 100 ML Bottle IVPUSH ONE (03:48)
[2021-09-07] MEDS ORDERED: Sodium Chloride 0.9% 1,000 ML IV ONE (03:51)
[2021-09-07] MEDS ORDERED: Ondansetron 4 MG Tab.DIS ONE (06:10)
== END 2021-09-07 06:17 | disposition home or self-care (01) ==
LOC: DL.ED 02:42
DX: K52.9 Noninfective gastroenteritis and colitis, unspecified (principal); E78.00 Pure hypercholesterolemia, unspecified; I10 Essential (primary) hypertension; J44.9 Chronic obstructive pulmonary disease, unspecified; K21.9 Gastro-esophageal reflux disease without esophagitis; E11.9 Type 2 diabetes mellitus without complications; E66.9 Obesity, unspecified; Z68.42 Body mass index [BMI] 45.0-49.9, adult; Z79.899 Other long term (current) drug therapy; Z87.891 Personal history of nicotine dependence
CPT/HCPCS: 36415; 74177; 80053; 82150; 83605; 83690; 85025; 87040; 94762; 96361; 96374; 96375; 99284; A9270; J1170; J2405; J7030; Q9967

== ENCOUNTER 2021-09-07 19:28 | Emergency (ER) | payer BC ==
[2021-09-07] MEDS ORDERED: Ciprofloxacin 500 MG Tab PO ONE (19:29)
[2021-09-07] MEDS ORDERED: metroNIDAZOLE 250 MG Tab PO ONE (19:29)
[2021-09-07] MEDS ORDERED: HYDROmorphone 1 MG/ML Syringe IVPUSH ONE (20:43)
[2021-09-07] MEDS ORDERED: Ondansetron 4 MG/2 ML SDV IVPUSH ONE (20:43)
[2021-09-07 20:55] LABS: ANION GAP 12.6 mEq/L (7-13); CHLORIDE,CL 106 mmol/L (98-107); SODIUM,NA 143 mmol/L (136-145)
[2021-09-07 21:36] VITALS: BP 117/41; PULSE 61
[2021-09-07] MEDS ORDERED: Ciprofloxacin 500 MG Tab ONE (22:58)
[2021-09-07] MEDS ORDERED: metroNIDAZOLE 250 MG Tab ONE (23:04)
== END 2021-09-07 23:22 | disposition home or self-care (01) ==
LOC: DL.ED 19:28
DX: K57.32 Diverticulitis of large intestine without perforation or abscess without bleeding (principal); R19.7 Diarrhea, unspecified; E78.00 Pure hypercholesterolemia, unspecified; I10 Essential (primary) hypertension; J44.9 Chronic obstructive pulmonary disease, unspecified; E11.9 Type 2 diabetes mellitus without complications; E66.9 Obesity, unspecified; Z68.42 Body mass index [BMI] 45.0-49.9, adult; Z79.899 Other long term (current) drug therapy; Z79.82 Long term (current) use of aspirin; Z20.822 Contact with and (suspected) exposure to COVID-19
CPT/HCPCS: 36415; 80053; 81003; 82150; 82272; 83605; 83690; 84484; 85025; 86140; 87040; 87635; 96374; 96375; 99284; A9270; J1170; J2405; U0002

== ENCOUNTER 2022-05-17 17:01 | Emergency (ER) | payer BC, MEDICAID ==
[2022-05-17 17:11] VITALS: BP 128/34; PULSE 68
[2022-05-17] MEDS ORDERED: Ketorolac 30 MG/ML SDV IVPUSH ONE (17:26)
[2022-05-17 18:10] LABS: ANION GAP 12.6 mEq/L (7-13)
[2022-05-17 18:28] LABS: CORONAVIRUS COVID-19 NAA NEGATIVE (NEGATIVE)
== END 2022-05-17 18:42 | disposition home or self-care (01) ==
LOC: DL.ED 17:01
DX: G51.0 Bell's palsy (principal); I10 Essential (primary) hypertension; E78.00 Pure hypercholesterolemia, unspecified; J44.9 Chronic obstructive pulmonary disease, unspecified; K21.9 Gastro-esophageal reflux disease without esophagitis; M19.90 Unspecified osteoarthritis, unspecified site; E11.9 Type 2 diabetes mellitus without complications; E66.9 Obesity, unspecified; Z68.43 Body mass index [BMI] 50.0-59.9, adult; Z79.82 Long term (current) use of aspirin; Z79.899 Other long term (current) drug therapy; Z20.822 Contact with and (suspected) exposure to COVID-19
CPT/HCPCS: 0240U; 36415; 70450; 80053; 85025; 85610; 85651; 96374; 99284; J1885

== ENCOUNTER 2022-05-21 09:53 | Day surgery (SDC) | payer BC, MEDICAID ==
[~2022-05-21 09:53] MED LIST: Apraclonidine 0.5% Ophth Soln 5 ML Bot EYELF ONE; Apraclonidine 0.5% Ophth Soln 5 ML Bot EYERT ONE; Balanced Salt Solution Ophth Irrig 500 ML Bottle IOCULAR ONE; Chondroitin Sulfate/Hyaluronate Sodium Ophth Inj 0.75 ML Syringe EYELF ONE; Chondroitin Sulfate/Hyaluronate Sodium Ophth Inj 0.75 ML Syringe EYERT ONE; Dexamethasone/Neomycin/Polymyxin B Ophth Oint 3.5 GM Tube EYELF ONE; Dexamethasone/Neomycin/Polymyxin B Ophth Oint 3.5 GM Tube EYERT ONE; Diclofenac Sodium 0.1% Ophth Soln 5 ML Bottle EYELF ONE; Diclofenac Sodium 0.1% Ophth Soln 5 ML Bottle EYERT ONE; Lidocaine 1% 30 ML SDV ONE; Povidone-Iodine 5% Sterile Ophth Soln 30 ML Bottle EYELF ONE; Povidone-Iodine 5% Sterile Ophth Soln 30 ML Bottle EYERT ONE; Proparacaine 0.5% Ophth Soln 15 ML Bottle EYELF ONE; Proparacaine 0.5% Ophth Soln 15 ML Bottle EYERT ONE; Vancomycin 500 MG SDV EYELF ONE; Vancomycin 500 MG SDV EYERT ONE
[2022-05-21] MEDS ORDERED: Dexamethasone 4 MG/ML SDV IV ONE (09:54)
[2022-05-21] MEDS ORDERED: Sodium Chloride 0.9% 10 ML Syringe IV ONE (09:54)
[2022-05-21] MEDS ORDERED: Midazolam 1 MG/ML 2 ML SDV IV ONE (09:54)
[2022-05-21] MEDS ORDERED: Sodium Chloride 0.9% 10 ML Syringe FLUSH PRN ×2 (10:15)
[2022-05-21] MEDS ORDERED: Ondansetron 4 MG/2 ML SDV IVPUSH PRN ×2 (10:15)
[2022-05-21] MEDS ORDERED: Proparacaine 0.5% Ophth Soln 15 ML Bottle EYELF ONE ×2 (10:15→10:49)
[2022-05-21] MEDS ORDERED: Tropicamide 1% Ophth Soln 15 ML Bottle EYERT ONE (10:15)
[2022-05-21] MEDS ORDERED: Acetaminophen 325 MG Tab PO PRN ×2 (10:15)
[2022-05-21] MEDS ORDERED: Timolol Maleate 0.5% Ophth Soln 5 ML Bottle EYELF ONE (10:15)
[2022-05-21] MEDS ORDERED: Proparacaine 0.5% Ophth Soln 15 ML Bottle EYERT ONE (10:15)
[2022-05-21] MEDS ORDERED: Phenylephrine 10% Ophth Soln 5 ML Bot EYELF PRN (10:15)
[2022-05-21] MEDS ORDERED: Tropicamide 1% Ophth Soln 15 ML Bottle EYELF ONE (10:15)
[2022-05-21] MEDS ORDERED: Timolol Maleate 0.5% Ophth Soln 5 ML Bottle EYERT ONE (10:15)
[2022-05-21] MEDS ORDERED: Phenylephrine 10% Ophth Soln 5 ML Bot EYERT PRN (10:15)
[2022-05-21] MEDS ORDERED: Acetaminophen/Codeine 300-30 MG Tab PO PRN ×2 (10:15)
[2022-05-21] MEDS ORDERED: Moxifloxacin 0.5% Ophth Soln 3 ML Bottle EYERT ONE (10:15)
[2022-05-21] MEDS ORDERED: Povidone-Iodine 5% Sterile Ophth Soln 30 ML Bottle EYERT ONE (10:15)
[2022-05-21] MEDS ORDERED: Moxifloxacin 0.5% Ophth Soln 3 ML Bottle EYELF ONE (10:15)
[2022-05-21] MEDS ORDERED: Cataract Ophth Solution EYELF ONE (10:15)
[2022-05-21] MEDS ORDERED: Cataract Ophth Solution EYERT ONE (10:15)
[2022-05-21] MEDS ORDERED: Povidone-Iodine 5% Sterile Ophth Soln 30 ML Bottle EYELF ONE ×2 (10:15→10:49)
[2022-05-21] MEDS ORDERED: Lidocaine 1% 30 ML SDV ONE (10:49)
[2022-05-21] MEDS ORDERED: Dexamethasone/Neomycin/Polymyxin B Ophth Oint 3.5 GM Tube EYELF ONE (10:49)
[2022-05-21] MEDS ORDERED: Apraclonidine 0.5% Ophth Soln 5 ML Bot EYELF ONE (10:49)
[2022-05-21] MEDS ORDERED: Diclofenac Sodium 0.1% Ophth Soln 5 ML Bottle EYELF ONE (10:49)
[2022-05-21] MEDS ORDERED: Balanced Salt Solution Ophth Irrig 500 ML Bottle IOCULAR ONE (10:50)
[2022-05-21] MEDS ORDERED: Chondroitin Sulfate/Hyaluronate Sodium Ophth Inj 0.75 ML Syringe EYELF ONE (10:50)
[2022-05-21] MEDS ORDERED: Vancomycin 500 MG SDV EYELF ONE (10:50)
[2022-05-21 11:24] VITALS: BP 148/92; PULSE 57
== END 2022-05-21 11:44 | disposition home or self-care (01) ==
LOC: DL.SDS 09:53
PROVIDERS: ATTEND Ophthalmology
DX: E11.36 Type 2 diabetes mellitus with diabetic cataract (principal); H25.811 Combined forms of age-related cataract, right eye; I10 Essential (primary) hypertension; E78.5 Hyperlipidemia, unspecified; K21.9 Gastro-esophageal reflux disease without esophagitis; G47.33 Obstructive sleep apnea (adult) (pediatric); H52.00 Hypermetropia, unspecified eye; F41.8 Other specified anxiety disorders; G89.29 Other chronic pain; M54.50 Low back pain, unspecified; E55.9 Vitamin D deficiency, unspecified; Z79.899 Other long term (current) drug therapy; Z79.82 Long term (current) use of aspirin; Z87.891 Personal history of nicotine dependence; Z98.890 Other specified postprocedural states
CPT/HCPCS: A9270-GY; J1100; J2250; J3370; J3490

== ENCOUNTER 2022-06-05 21:56 | Emergency (ER) | payer MEDICAID ==
[2022-06-05 22:20] VITALS: BP 173/72; PULSE 67
[2022-06-05 22:57] LABS: RESPIRATORY SYNCYTIAL VIR NAA NEGATIVE (NEGATIVE)
[2022-06-05 23:03] LABS: CORONAVIRUS COVID-19 NAA POSITIVE (NEGATIVE)
== END 2022-06-05 23:25 | disposition home or self-care (01) ==
LOC: DL.ED 21:56
DX: U07.1 COVID-19 (principal); I10 Essential (primary) hypertension; E78.00 Pure hypercholesterolemia, unspecified; J44.9 Chronic obstructive pulmonary disease, unspecified; K21.9 Gastro-esophageal reflux disease without esophagitis; M19.90 Unspecified osteoarthritis, unspecified site; E11.9 Type 2 diabetes mellitus without complications; E66.9 Obesity, unspecified; Z68.43 Body mass index [BMI] 50.0-59.9, adult; Z79.82 Long term (current) use of aspirin; Z79.899 Other long term (current) drug therapy
CPT/HCPCS: 0241U; 71045; 99284; 99285

== ENCOUNTER 2023-05-01 23:57 | Emergency (ER) | payer SELFPAY ==
[2023-05-02] MEDS ORDERED: Sodium Chloride 0.9% 10 ML Syringe FLUSH PRN (00:05)
[2023-05-02 00:58] LABS: BASOPHILS PERCENT AUTO 0.4 % (0.0-1.0); EOSINOPHILS PERCENT AUTO 0.8 % (1.0-3.0); HEMATOCRIT 40.7 % (37.0-47.0); HEMOGLOBIN 13.2 g/dL (12.0-16.0); LYMPHOCYTES PERCENT AUTO 16.3 % (20.5-50.1); MEAN CORPUSCULAR HEMOGLOBIN 28.8 pg (27.0-34.0); MEAN CORPUSCULAR HGB CONC 32.4 g/dL (33.0-35.0); MEAN CORPUSCULAR VOLUME 88.7 fL (80-100); MONOCYTES PERCENT AUTO 14.4 % (2-8); NEUTROPHILS PERCENT AUTO 68.1 % (42.2-75.2); PLATELET COUNT,PLT 233 10^3/uL (150-450); RED BLOOD CELL COUNT 4.59 10^6/uL (4.2-5.4); WHITE BLOOD CELL COUNT,WBC 8.3 10^3/uL (5.0-10.0)
[2023-05-02 01:18] LABS: ALANINE AMINOTRANSFERASE,ALT 39 U/L (14-59); ALBUMIN 3.2 g/dL (3.4-5.0); ALKALINE PHOSPHATASE 85 U/L (46-116); ANION GAP 13.7 mEq/L (7-13); ASPARTATE AMNIOTRANSFERASE,AST 24 U/L (15-37); BILIRUBIN TOTAL 0.3 mg/dL (0.2-1.0); BLOOD UREA NITROGEN,BUN 12 mg/dL (7-18); BUN/CREATININE RATIO 14.6 (No establ ref range); CALCIUM 9.2 mg/dL (8.5-10.1); CARBON DIOXIDE,CO2 26 mmol/L (21-32); CHLORIDE,CL 99 mmol/L (98-107); CREATININE 0.82 mg/dL (0.55-1.02); GLUCOSE RANDOM 146 mg/dL (70-99); POTASSIUM,K 3.7 mmol/L (3.5-5.1); PROTEIN TOTAL,TP 7.5 g/dL (6.4-8.2); SODIUM,NA 135 mmol/L (136-145)
[2023-05-02 01:19] LABS: A/G RATIO 0.74; ESTIMATED GFR 81 mL/min (>=60)
[2023-05-02 01:47] VITALS: BP 146/74; PULSE 72
[2023-05-02 01:57] LABS: APPEARANCE,URINE CLEAR (CLEAR); BILIRUBIN,URINE NEGATIVE (NEGATIVE); COLOR,URINE YELLOW (YELLOW); GLUCOSE,URINE NEGATIVE (NEGATIVE); KETONES,URINE NEGATIVE (NEGATIVE); LEUKOCYTE ESTERASE,URINE NEGATIVE (NEGATIVE); NITRITE,URINE NEGATIVE (NEGATIVE); OCCULT BLOOD,URINE TRACE-INTACT (NEGATIVE); PH,URINE 6.5 (5.0-9.0); PROTEIN,URINE TRACE (NEGATIVE); UROBILINOGEN,URINE 0.2 mg/dL (0.2-1.0)
[2023-05-02 02:09] LABS: RBC,URINE 0-5 /HPF (0-5); WBC,URINE NOT SEEN /HPF (0-5/HPF)
[2023-05-02 02:10] LABS: BACTERIA,URINE RARE /HPF (0-FEW/HPF); EPITHELIAL CELLS,URINE RARE /HPF (NOT SEEN)
[2023-05-02 02:36] LABS: INFLUENZA A NAA NEGATIVE (NEGATIVE); INFLUENZA B NAA NEGATIVE (NEGATIVE); RESPIRATORY SYNCYTIAL VIR NAA NEGATIVE (NEGATIVE)
[2023-05-02 02:38] LABS: CORONAVIRUS COVID-19 NAA POSITIVE (NEGATIVE)
[2023-05-02] MEDS ORDERED: Iopamidol 755 Mg/ML 100 ML Bottle IVPUSH ONE (02:51)
[2023-05-02] MEDS ORDERED: Morphine 4 MG/ML Syringe IVPUSH ONE (03:13)
== END 2023-05-02 07:35 | disposition home or self-care (01) ==
LOC: DL.ED 23:57
DX: U07.1 COVID-19 (principal); J96.01 Acute respiratory failure with hypoxia; I10 Essential (primary) hypertension; E78.00 Pure hypercholesterolemia, unspecified; E11.9 Type 2 diabetes mellitus without complications; J44.9 Chronic obstructive pulmonary disease, unspecified; Z79.82 Long term (current) use of aspirin; K21.9 Gastro-esophageal reflux disease without esophagitis; Z79.899 Other long term (current) drug therapy
CPT/HCPCS: 0241U; 36415; 71045; 71275; 80053; 81001; 83880; 84484; 85025; 85379; 93005; 93010; 96374; 99284; 99285-25; J2270; J3490; Q9967

== ENCOUNTER 2024-02-28 12:48 | Emergency (ER) | payer MEDICARE ==
[2024-02-28] MEDS: Cyclobenzaprine 10 MG Tab PO ONE (13:38)
[2024-02-28] MEDS: Dexamethasone 4 MG/ML SDV IM ONE (13:38)
[2024-02-28] MEDS: Take Home: Cyclobenzaprine 10 MG Tab, 4 Tab Pack PO ONE (13:38)
[2024-02-28 14:33] VITALS: BP 146/70; PULSE 78
== END 2024-02-28 14:10 | disposition home or self-care (01) ==
LOC: DL.ED 12:48
DX: M99.01 Segmental and somatic dysfunction of cervical region (principal); G62.9 Polyneuropathy, unspecified; I10 Essential (primary) hypertension; E78.00 Pure hypercholesterolemia, unspecified; J44.89 Other specified chronic obstructive pulmonary disease; K21.9 Gastro-esophageal reflux disease without esophagitis; M19.90 Unspecified osteoarthritis, unspecified site; E11.9 Type 2 diabetes mellitus without complications; E66.9 Obesity, unspecified; Z68.42 Body mass index [BMI] 45.0-49.9, adult; Z90.49 Acquired absence of other specified parts of digestive tract; Z90.710 Acquired absence of both cervix and uterus; Z79.82 Long term (current) use of aspirin; Z79.51 Long term (current) use of inhaled steroids; Z79.899 Other long term (current) drug therapy
CPT/HCPCS: 96372; 99283; A9270; J1100